=== PATIENT | male | born 1955 | race Caucasian/White ===

== ENCOUNTER 2017-04-01 09:23 | Outpatient (RCR) | payer OTHER, SELFPAY ==
[2017-03-25 10:33] LABS: Hemoglobin 8.8 g/dl (13.0-16.5); Mean Corp Hgb Conc 31.4 g/gl (32-36); Mean Corpuscular Hgb 30.2 pg (27.0-32.0); Mean Corpuscular Volume 96.2 fL (80-94); Mean Platelet Vol. 10.1 fl (6.2-12.0); Platelet Count 173 K/mm3 (150-450); RBC Distribution Width CV 15.5 % (11.6-14.6); RBC Distribution Width SD 52.8 fl (35.1-43.9); Red Blood Count 2.91 M/mm3 (4.6-6.2); White Blood Count 5.2 K/mm3 (4.4-11.0)
[2017-03-25 10:38] LABS: Scan Indicated on CBC? Y/N NO
[2017-03-26 09:22] LABS: Transferrin 222 mg/dL (200-370)
[2017-03-26 15:03] LABS: Alanine Aminotransfer ALT/SGPT 17 U/L (12-78); Albumin, Serum 3.1 g/dL (3.4-5.0); BUN 129 mg/dL (7-18); Calcium,Total 9.3 mg/dL (8.5-10.1); Chloride 101 mmol/L (98-107); Cholesterol 92 mg/dL (200); Creatinine, Serum 6.45 mg/dL (0.70-1.30); EST Glomerular Filtration Rate 9 mL/min (>60); Est Glom Filt Rate - Afr Amer 11 mL/min (>60); Ferritin 138 ng/mL (26-388); Glucose 75 mg/dL (70-110); High Density Lipoprotein 27 mg/dL; Iron 47 ug/dL (65-175); Iron Binding Capacity,Total 276 ug/dL (250-450); Magnesium 2.5 mg/dL (1.8-2.4); Sodium Level 142 mmol/L (136-145); Triglycerides 157 mg/dL; Very Low Density Lipoprotein 31 mg/dL (5-40)
[2017-03-26 17:27] LABS: PTHIN 406.8 pg/mL (18.4-80.1)
[2017-03-29 07:59] LABS: AST(SGOT) 16 U/L (15-37); Alkaline Phosphatase 157 U/L (45-117)
[2017-04-01 11:44] LABS: Absolute Lymphocyte Count 0.87 X10^3/ul (0.83-4.51); Absolute Neutrophil Count 3.8 X10^3/uL (2.0-7.7); Basophil# 0.01 X10^3/uL; Basophil% 0.2 % (0-1); Eosinophil# 0.26 X10^3/uL; Eosinophils% 4.7 % (0-5); Hemoglobin 9.3 g/dl (13.0-16.5); Lymphocyte # 0.87 X10^3/ul (4.0); Lymphocyte % 15.7 % (19-41); Mean Corpuscular Hgb 30.3 pg (27.0-32.0); Mean Corpuscular Volume 97.7 fL (80-94); Mean Platelet Vol. 10.3 fl (6.2-12.0); Monocyte# 0.58 X10^3/uL; Monocyte% 10.5 % (0-10); Neutrophil % 68.7 % (47-70); Platelet Count 188 K/mm3 (150-450); RBC Distribution Width CV 16.3 % (11.6-14.6); Red Blood Count 3.07 M/mm3 (4.6-6.2); White Blood Count 5.5 K/mm3 (4.4-11.0)
[2017-04-01 11:50] LABS: POSITIVE COUNT NO; POSITIVE DIFFERENTIAL NO; POSITIVE MORPHOLOGY NO
[2017-04-01 12:07] LABS: Anion Gap 11 (5-15); BUN 122 mg/dL (7-18); BUN/Creat Ratio 18.1 RATIO (10-20); Chloride 100 mmol/L (98-107); Creatinine, Serum 6.74 mg/dL (0.70-1.30); EST Glomerular Filtration Rate 9 mL/min (>60); Est Glom Filt Rate - Afr Amer 11 mL/min (>60); Glucose 72 mg/dL (70-110); Potassium 3.7 mmol/L (3.5-5.1); Sodium Level 139 mmol/L (136-145)
== END 2017-04-01 10:00 | disposition home or self-care (01) ==
LOC: LAB 09:23
PROVIDERS: Family Provider Internal Medicine; PCP Internal Medicine; Visit Provider Internal Medicine Nephrology
DX: Z48.298 Encounter for aftercare following other organ transplant (principal); Z94.0 Kidney transplant status; D89.9 Disorder involving the immune mechanism, unspecified; R79.9 Abnormal finding of blood chemistry, unspecified; Z79.899 Other long term (current) drug therapy
CPT/HCPCS: 36415; 80048; 80061; 82040; 82247; 82310; 82374; 82435; 82565; 82728; 82947; 83540; 83550; 83735; 83970; 84075; 84100; 84295; 84450; 84460; 84466; 84520; 85025; 85027

== ENCOUNTER → 2017-05-04 09:56 | Outpatient (CLI) | payer OTHER, SELFPAY ==
--- NOTE | 2017-05-04 10:02 | AVDS_ITS ---
Reason For Study: Complication due to renal dialysis device RIGHT Proximal [place] vessel 87.8 cm/s. Proximal anastomosis 334.0 cm/s. Proximal graft - 379.0 cm/sec Narrowing between prox and mid graft with a velocity of 743.0 cm/sec Mid graft - 196.0 cm/s Distal graft - 78.8 cm/s Volume flow [place] artery - 96.0 cc/min Prox graft - 439.0 cc/min Mid graft - 736.0 cc/min Dist graft - 476.0 cc/min. Interpretation Summary 1. Stenosis in proximal graft with decreased flow. Ordering Physician: Oswaldo Sawyer Referring Physician: Oswaldo Sawyer Performed By: Meg Arreola RVT
== END ==
PROVIDERS: Family Provider Internal Medicine; PCP Internal Medicine; Visit Provider Surgery Vascular Surgery
DX: T82.858A Stenosis of other vascular prosthetic devices, implants and grafts, initial encounter (principal); N18.6 End stage renal disease
CPT/HCPCS: 93990

== ENCOUNTER → 2017-06-22 08:20 | Outpatient (CLI) | payer OTHER, SELFPAY | PROVIDERS: Family Provider Internal Medicine; PCP Internal Medicine | DX: Z76.82 Awaiting organ transplant status (principal) | CPT/HCPCS: 36415 ==

== ENCOUNTER → 2017-06-29 09:52 | Outpatient (CLI) | payer OTHER, SELFPAY ==
--- NOTE | 2017-06-29 09:55 | AVDS_ITS ---
Reason For Study: Complications of dialysis access device RIGHT Proximal [place] vessel 89.6 cm/s. Proximal anastomosis 183.0 cm/s. Proximal graft 689.0 ml/min. Mid graft 265.0 ml/min. Distal graft 245.0 ml/min. Volume flow [place] artery - 118 cc/min Prox graft - 830 cc/min Mid graft - 610 cc/min Dist graft - 747 cc/min. Interpretation Summary 1. Patent AVG. Flow volume good through AVG but decreased in [place] vessel. Ordering Physician: Oswaldo Sawyer Referring Physician: Oswaldo Sawyer Performed By: Meg Arreola RVT
== END ==
PROVIDERS: Family Provider Internal Medicine; PCP Internal Medicine; Visit Provider Surgery Vascular Surgery
DX: T82.858A Stenosis of other vascular prosthetic devices, implants and grafts, initial encounter (principal); N18.6 End stage renal disease
CPT/HCPCS: 93990

== ENCOUNTER → 2017-07-12 08:55 | Outpatient (CLI) | payer OTHER, SELFPAY ==
[2017-07-13 09:33] LABS: CMV Antibody IgG < 0.60 U/mL (0.00-0.59)
== END ==
PROVIDERS: Family Provider Internal Medicine; PCP Internal Medicine
DX: Z01.818 Encounter for other preprocedural examination (principal)
CPT/HCPCS: 36415; 86644

== ENCOUNTER 2017-08-12 07:42 | Outpatient (RCR) | payer OTHER, SELFPAY ==
[2017-08-09 10:35] LABS: Absolute Lymphocyte Count 0.14 X10^3/ul (0.83-4.51); Absolute Neutrophil Count 4.3 X10^3/uL (2.0-7.7); Basophil# 0.01 X10^3/uL; Basophil% 0.2 % (0-1); Differential Indicated SCAN CRITERIA MET; Eosinophil# 0.06 X10^3/uL; Eosinophils% 1.3 % (0-5); Hematocrit 29.5 % (40-54); Hemoglobin 9.3 g/dl (13.0-16.5); Lymphocyte # 0.14 X10^3/ul (4.0); Mean Corp Hgb Conc 31.5 g/gl (32-36); Mean Corpuscular Hgb 29.2 pg (27.0-32.0); Mean Corpuscular Volume 92.5 fL (80-94); Mean Platelet Vol. 11.2 fl (6.2-12.0); Monocyte# 0.17 X10^3/uL; Monocyte% 3.6 % (0-10); Neutrophil # 4.27 X10^3/uL (2.7-7.7); Neutrophil % 91.5 % (47-70); POSITIVE COUNT NO; POSITIVE DIFFERENTIAL YES; POSITIVE MORPHOLOGY NO; Platelet Count 183 K/mm3 (150-450); RBC Distribution Width CV 15.7 % (11.6-14.6); RBC Distribution Width SD 52.2 fl (35.1-43.9); Red Blood Count 3.19 M/mm3 (4.6-6.2); White Blood Count 4.7 K/mm3 (4.4-11.0)
[2017-08-09 10:47] LABS: AST(SGOT) 29 U/L (15-37); Alanine Aminotransfer ALT/SGPT 24 U/L (16-61); Albumin, Serum 2.8 g/dL (3.2-5.0); Alkaline Phosphatase 159 U/L (45-117); BUN 18 mg/dL (7-18); Bilirubin, Direct 0.29 mg/dL (0.00-0.30); Calcium,Total 9.2 mg/dL (8.5-10.1); Chloride 104 mmol/L (98-107); Cholesterol 132 mg/dL (200); EST Glomerular Filtration Rate 72 mL/min (>60); Est Glom Filt Rate - Afr Amer 87 mL/min (>60); Ferritin 490 ng/mL (26-388); GGTP 42 U/L (15-85); Glucose 80 mg/dL (74-106); High Density Lipoprotein 36 mg/dL; Iron 78 ug/dL (65-175); Iron Binding Capacity,Total 306 ug/dL (250-450); Magnesium 1.5 mg/dL (1.6-2.6); PERCENT IRON SATURATION 25.5 % (15.0-55.0); Phosphorus 1.5 mg/dL (2.5-4.9); Sodium Level 137 mmol/L (136-145); Triglycerides 161 mg/dL; Very Low Density Lipoprotein 32 mg/dL (5-40)
[2017-08-09 11:04] LABS: Hypochromasia 1+; Platelet Estimate ADEQUATE (ADEQ)
[2017-08-11 09:30] LABS: Tacrolimus (FK506) 6.1 ng/mL (2.0-20.0); Transferrin 241 mg/dL (200-370)
[2017-08-12 10:20] LABS: Absolute Lymphocyte Count 0.23 X10^3/ul (0.83-4.51); Absolute Neutrophil Count 6.4 X10^3/uL (2.0-7.7); Basophil# 0.01 X10^3/uL; Basophil% 0.1 % (0-1); Eosinophil# 0.08 X10^3/uL; Eosinophils% 1.2 % (0-5); Hematocrit 29.2 % (40-54); Lymphocyte # 0.23 X10^3/ul (4.0); Lymphocyte % 3.4 % (19-41); Mean Corp Hgb Conc 30.8 g/gl (32-36); Mean Corpuscular Hgb 29.2 pg (27.0-32.0); Mean Corpuscular Volume 94.8 fL (80-94); Mean Platelet Vol. 10.8 fl (6.2-12.0); Monocyte# 0.11 X10^3/uL; Monocyte% 1.6 % (0-10); Neutrophil # 6.38 X10^3/uL (2.7-7.7); Neutrophil % 93.6 % (47-70); Platelet Count 192 K/mm3 (150-450); RBC Distribution Width CV 16.6 % (11.6-14.6); RBC Distribution Width SD 56.3 fl (35.1-43.9); Red Blood Count 3.08 M/mm3 (4.6-6.2); White Blood Count 6.8 K/mm3 (4.4-11.0)
[2017-08-12 10:23] LABS: Differential Indicated SCAN CRITERIA MET; POSITIVE COUNT NO; POSITIVE DIFFERENTIAL YES; POSITIVE MORPHOLOGY NO; Protein, Urine (Random) 21.1 mg/dL (<11.9); Protein:Creat Ratio 359 mg/g CRE (0-200)
[2017-08-12 10:43] LABS: Platelet Estimate ADEQUATE (ADEQ); Platelet Morphology LARGE; Polychromasia 1+; Schistocytes RARE
[2017-08-12 10:44] LABS: AST(SGOT) 22 U/L (15-37); Alanine Aminotransfer ALT/SGPT 21 U/L (16-61); Alkaline Phosphatase 168 U/L (45-117); BUN 21 mg/dL (7-18); Bilirubin, Direct 0.27 mg/dL (0.00-0.30); Calcium,Total 9.2 mg/dL (8.5-10.1); Chloride 106 mmol/L (98-107); Cholesterol 120 mg/dL (200); Creatinine, Serum 1.49 mg/dL (0.70-1.30); EST Glomerular Filtration Rate 51 mL/min (>60); Est Glom Filt Rate - Afr Amer 61 mL/min (>60); Ferritin 465 ng/mL (26-388); GGTP 42 U/L (15-85); Glucose 83 mg/dL (74-106); High Density Lipoprotein 32 mg/dL; Iron 55 ug/dL (65-175); Iron Binding Capacity,Total 313 ug/dL (250-450); Magnesium 1.4 mg/dL (1.6-2.6); Phosphorus 1.6 mg/dL (2.5-4.9); Potassium 4.2 mmol/L (3.5-5.1); Sodium Level 140 mmol/L (136-145); Triglycerides 152 mg/dL; Very Low Density Lipoprotein 30 mg/dL (5-40)
[2017-08-16 09:09] LABS: Tacrolimus (FK506) 5.4 ng/mL (2.0-20.0)
[2017-08-16 09:10] LABS: Transferrin 247 mg/dL (200-370)
== END 2017-08-12 08:00 | disposition home or self-care (01) ==
LOC: MTLAB 07:42
PROVIDERS: Family Provider Internal Medicine; PCP Internal Medicine; Visit Provider Internal Medicine Nephrology
DX: Z94.0 Kidney transplant status (principal); R79.9 Abnormal finding of blood chemistry, unspecified; Z48.298 Encounter for aftercare following other organ transplant; D89.9 Disorder involving the immune mechanism, unspecified; D50.9 Iron deficiency anemia, unspecified; Z79.899 Other long term (current) drug therapy
CPT/HCPCS: 36415; 80061; 80197; 82040; 82247; 82248; 82310; 82374; 82435; 82565; 82570; 82728; 82947; 82977; 83540; 83550; 83735; 84075; 84100; 84132; 84156; 84295; 84450; 84460; 84466; 84520; 85025

== ENCOUNTER → 2017-08-16 07:21 | Outpatient (CLI) | payer OTHER, SELFPAY ==
[2017-08-16 07:57] LABS: Absolute Lymphocyte Count 0.05 X10^3/ul (0.83-4.51); Absolute Neutrophil Count 4.2 X10^3/uL (2.0-7.7); Basophil# 0.01 X10^3/uL; Basophil% 0.2 % (0-1); Differential Indicated SCAN CRITERIA MET; Eosinophil# 0.06 X10^3/uL; Eosinophils% 1.2 % (0-5); Hematocrit 25.5 % (40-54); Hemoglobin 8.4 g/dl (13.0-16.5); Lymphocyte # 0.05 X10^3/ul (4.0); Mean Corp Hgb Conc 32.9 g/gl (32-36); Mean Corpuscular Hgb 30.9 pg (27.0-32.0); Mean Corpuscular Volume 93.8 fL (80-94); Monocyte# 0.45 X10^3/uL; Monocyte% 9.4 % (0-10); Neutrophil # 4.23 X10^3/uL (2.7-7.7); POSITIVE COUNT NO; POSITIVE DIFFERENTIAL YES; POSITIVE MORPHOLOGY NO; Platelet Count 225 K/mm3 (150-450); RBC Distribution Width CV 15.9 % (11.6-14.6); RBC Distribution Width SD 52.2 fl (35.1-43.9); Red Blood Count 2.72 M/mm3 (4.6-6.2); White Blood Count 4.8 K/mm3 (4.4-11.0)
[2017-08-16 08:23] LABS: AST(SGOT) 25 U/L (15-37); Alanine Aminotransfer ALT/SGPT 21 U/L (16-61); Albumin, Serum 2.5 g/dL (3.2-5.0); Alkaline Phosphatase 170 U/L (45-117); BUN 28 mg/dL (7-18); Bilirubin, Direct 0.34 mg/dL (0.00-0.30); Chloride 103 mmol/L (98-107); Cholesterol 93 mg/dL (200); Creatinine, Serum 2.02 mg/dL (0.70-1.30); EST Glomerular Filtration Rate 36 mL/min (>60); Est Glom Filt Rate - Afr Amer 43 mL/min (>60); GGTP 33 U/L (15-85); Glucose Challenge Gest 1H 50g 86 mg/dL (70-140); High Density Lipoprotein 36 mg/dL; Magnesium 1.6 mg/dL (1.6-2.6); Phosphorus 1.8 mg/dL (2.5-4.9); Potassium 4.2 mmol/L (3.5-5.1); Sodium Level 134 mmol/L (136-145); Triglycerides 81 mg/dL; Very Low Density Lipoprotein 16 mg/dL (5-40)
[2017-08-19 11:11] LABS: Tacrolimus (FK506) 10.5 ng/mL (2.0-20.0)
== END ==
PROVIDERS: Family Provider Internal Medicine; PCP Internal Medicine
DX: D50.9 Iron deficiency anemia, unspecified (principal); D89.9 Disorder involving the immune mechanism, unspecified; Z48.298 Encounter for aftercare following other organ transplant; R79.9 Abnormal finding of blood chemistry, unspecified; Z94.0 Kidney transplant status
CPT/HCPCS: 36415; 80061; 80197; 82040; 82247; 82248; 82310; 82374; 82435; 82565; 82950; 82977; 83735; 84075; 84100; 84132; 84295; 84450; 84460; 84520; 85025

== ENCOUNTER 2017-08-26 20:00 | Emergency (ER) | payer OTHER, SELFPAY ==
--- NOTE | 2017-08-26 20:00 | DT_ITS ---
This patient was seen during an EMR downtime August 23, 2017 - August 30, 2017. This patient may have a combination of paper and electronic documentation or all paper documentation. All documentation is viewable within the e-chart portion of [facility] for each patient visit.
== END 2017-08-26 23:25 | disposition home or self-care (01) ==
LOC: ED 08-27 07:52
PROVIDERS: Emergency Provider Emergency Medicine; Family Provider Internal Medicine; PCP Internal Medicine
DX: T85.698A Other mechanical complication of other specified internal prosthetic devices, implants and grafts, initial encounter (principal); I89.8 Other specified noninfective disorders of lymphatic vessels and lymph nodes; Z94.0 Kidney transplant status; Z95.0 Presence of cardiac pacemaker; I10 Essential (primary) hypertension; Z79.01 Long term (current) use of anticoagulants; Z79.82 Long term (current) use of aspirin; Z79.899 Other long term (current) drug therapy; Z87.891 Personal history of nicotine dependence
CPT/HCPCS: 99283; J7040

== ENCOUNTER 2017-09-06 07:22 | Outpatient (RCR) | payer OTHER, SELFPAY ==
[2017-09-06 10:26] LABS: Protein, Urine (Random) 28.3 mg/dL (<11.9); Protein:Creat Ratio 649 mg/g CRE (0-200)
[2017-09-06 10:32] LABS: Absolute Lymphocyte Count 0.12 X10^3/ul (0.83-4.51); Absolute Neutrophil Count 4.8 X10^3/uL (2.0-7.7); Eosinophil# 0.04 X10^3/uL; Eosinophils% 0.7 % (0-5); Hematocrit 30.2 % (40-54); Hemoglobin 9.8 g/dl (13.0-16.5); Lymphocyte # 0.12 X10^3/ul (4.0); Lymphocyte % 2.1 % (19-41); Mean Corp Hgb Conc 32.5 g/gl (32-36); Mean Corpuscular Hgb 30.9 pg (27.0-32.0); Mean Corpuscular Volume 95.3 fL (80-94); Mean Platelet Vol. 10.9 fl (6.2-12.0); Monocyte# 0.83 X10^3/uL; Monocyte% 14.2 % (0-10); Neutrophil # 4.84 X10^3/uL (2.7-7.7); Neutrophil % 82.8 % (47-70); Platelet Count 184 K/mm3 (150-450); RBC Distribution Width CV 17.8 % (11.6-14.6); RBC Distribution Width SD 59.9 fl (35.1-43.9); Red Blood Count 3.17 M/mm3 (4.6-6.2); White Blood Count 5.8 K/mm3 (4.4-11.0)
[2017-09-06 10:37] LABS: Differential Indicated SCAN CRITERIA MET; POSITIVE COUNT NO; POSITIVE DIFFERENTIAL YES; POSITIVE MORPHOLOGY NO
[2017-09-06 10:38] LABS: Prothrombin Time (Protime)PT. 31.5 SECONDS (11.7-14.9)
[2017-09-06 10:44] LABS: BUN 24 mg/dL (7-18); Creatinine, Serum 1.55 mg/dL (0.70-1.30); EST Glomerular Filtration Rate 48 mL/min (>60); Glucose 80 mg/dL (74-106)
[2017-09-06 10:45] LABS: AST(SGOT) 11 U/L (15-37); Alanine Aminotransfer ALT/SGPT 13 U/L (16-61); Albumin, Serum 2.9 g/dL (3.2-5.0); Alkaline Phosphatase 207 U/L (45-117); Anion Gap 10 (5-15); BUN/Creat Ratio 15.5 RATIO (10-20); Bilirubin, Direct 0.21 mg/dL (0.00-0.30); Calcium,Total 9.2 mg/dL (8.5-10.1); Chloride 107 mmol/L (98-107); Cholesterol 91 mg/dL (200); Est Glom Filt Rate - Afr Amer 58 mL/min (>60); GGTP 20 U/L (15-85); High Density Lipoprotein 38 mg/dL; Magnesium 1.6 mg/dL (1.6-2.6); Phosphorus 2.5 mg/dL (2.5-4.9); Potassium 4.2 mmol/L (3.5-5.1); Sodium Level 138 mmol/L (136-145); Triglycerides 65 mg/dL; Very Low Density Lipoprotein 13 mg/dL (5-40)
[2017-09-08 14:22] LABS: Tacrolimus (FK506) 8.2 ng/mL (2.0-20.0)
== END 2017-09-06 08:00 | disposition home or self-care (01) ==
LOC: MTLAB 07:22
PROVIDERS: Family Provider Internal Medicine; PCP Internal Medicine; Visit Provider Internal Medicine Nephrology
DX: D89.9 Disorder involving the immune mechanism, unspecified (principal); D50.9 Iron deficiency anemia, unspecified; R79.9 Abnormal finding of blood chemistry, unspecified; Z94.0 Kidney transplant status; Z48.298 Encounter for aftercare following other organ transplant
CPT/HCPCS: 36415; 80048; 80061; 80197; 82040; 82247; 82248; 82570; 82977; 83735; 84075; 84100; 84156; 84450; 84460; 85025; 85610

== ENCOUNTER 2017-09-16 07:26 | Outpatient (RCR) | payer OTHER, SELFPAY ==
[2017-09-13 08:54] LABS: Prograf-FK506 TO CCF/UNIV MAILED SPECIMEN
[2017-09-13 09:10] LABS: Absolute Lymphocyte Count 0.22 X10^3/ul (0.83-4.51); Absolute Neutrophil Count 2.2 X10^3/uL (2.0-7.7); Basophil# 0.01 X10^3/uL; Basophil% 0.3 % (0-1); Eosinophil# 0.08 X10^3/uL; Eosinophils% 2.7 % (0-5); Hematocrit 32.7 % (40-54); Hemoglobin 10.4 g/dl (13.0-16.5); Lymphocyte # 0.22 X10^3/ul (4.0); Lymphocyte % 7.5 % (19-41); Mean Corp Hgb Conc 31.8 g/gl (32-36); Mean Corpuscular Hgb 30.1 pg (27.0-32.0); Mean Corpuscular Volume 94.5 fL (80-94); Mean Platelet Vol. 9.8 fl (6.2-12.0); Monocyte# 0.39 X10^3/uL; Monocyte% 13.2 % (0-10); Neutrophil # 2.24 X10^3/uL (2.7-7.7); Platelet Count 204 K/mm3 (150-450); RBC Distribution Width CV 17.6 % (11.6-14.6); RBC Distribution Width SD 60.5 fl (35.1-43.9); Red Blood Count 3.46 M/mm3 (4.6-6.2)
[2017-09-13 09:14] LABS: Differential Indicated SCAN CRITERIA MET; POSITIVE COUNT NO; POSITIVE DIFFERENTIAL YES; POSITIVE MORPHOLOGY NO
[2017-09-13 09:27] LABS: ALB/GLOB Ratio 0.8 RATIO (0.9-2.4); AST(SGOT) 9 U/L (15-37); Alanine Aminotransfer ALT/SGPT 13 U/L (16-61); Albumin, Serum 2.8 g/dL (3.2-5.0); Alkaline Phosphatase 173 U/L (45-117); Anion Gap 10 (5-15); BUN 18 mg/dL (7-18); Bilirubin, Direct 0.15 mg/dL (0.00-0.30); Calcium,Total 9.3 mg/dL (8.5-10.1); Chloride 107 mmol/L (98-107); Cholesterol 83 mg/dL (200); Creatinine, Serum 1.29 mg/dL (0.70-1.30); EST Glomerular Filtration Rate 60 mL/min (>60); Est Glom Filt Rate - Afr Amer 72 mL/min (>60); Globulin 3.4 g/dL (2.2-4.2); Glucose 83 mg/dL (74-106); High Density Lipoprotein 37 mg/dL; Magnesium 1.5 mg/dL (1.6-2.6); Phosphorus 2.2 mg/dL (2.5-4.9); Protein, Total 6.2 g/dL (6.4-8.2); Sodium Level 137 mmol/L (136-145); Triglycerides 72 mg/dL; Very Low Density Lipoprotein 14 mg/dL (5-40)
[2017-09-13 09:46] LABS: Creat.Clear Total Volume 2600 mL; Creatinine Clearance 51 ml/min (100-200); Creatinine Serum Creat 1.3 mg/dL (0.8-1.3); Creatinine Urine 36.5 mg/dL (NO RANGE EST.); EST Glomerular Filtration Rate 60 mL/min (>60); Est Glom Filt Rate - Afr Amer 72 mL/min (>60)
[2017-09-16 09:58] LABS: Absolute Lymphocyte Count 0.31 X10^3/ul (0.83-4.51); Absolute Neutrophil Count 3.1 X10^3/uL (2.0-7.7); Basophil# 0.01 X10^3/uL; Basophil% 0.3 % (0-1); Differential Indicated SCAN CRITERIA MET; Eosinophil# 0.07 X10^3/uL; Eosinophils% 1.9 % (0-5); Hematocrit 31.9 % (40-54); Hemoglobin 9.7 g/dl (13.0-16.5); Lymphocyte # 0.31 X10^3/ul (4.0); Lymphocyte % 8.2 % (19-41); Mean Corp Hgb Conc 30.4 g/gl (32-36); Mean Corpuscular Volume 95.5 fL (80-94); Mean Platelet Vol. 9.9 fl (6.2-12.0); Monocyte# 0.28 X10^3/uL; Monocyte% 7.4 % (0-10); Neutrophil # 3.08 X10^3/uL (2.7-7.7); Neutrophil % 81.9 % (47-70); POSITIVE COUNT NO; POSITIVE DIFFERENTIAL NO; POSITIVE MORPHOLOGY YES; Platelet Count 194 K/mm3 (150-450); RBC Distribution Width CV 17.6 % (11.6-14.6); RBC Distribution Width SD 61.6 fl (35.1-43.9); Red Blood Count 3.34 M/mm3 (4.6-6.2); White Blood Count 3.8 K/mm3 (4.4-11.0)
[2017-09-16 10:07] LABS: AST(SGOT) 10 U/L (15-37); Alanine Aminotransfer ALT/SGPT 15 U/L (16-61); Albumin, Serum 2.8 g/dL (3.2-5.0); Alkaline Phosphatase 172 U/L (45-117); Anion Gap 8 (5-15); BUN 18 mg/dL (7-18); Calcium,Total 9.6 mg/dL (8.5-10.1); Chloride 111 mmol/L (98-107); Cholesterol 83 mg/dL (200); Creatinine, Serum 1.29 mg/dL (0.70-1.30); EST Glomerular Filtration Rate 60 mL/min (>60); Est Glom Filt Rate - Afr Amer 72 mL/min (>60); GGTP 21 U/L (15-85); Glucose 81 mg/dL (74-106); High Density Lipoprotein 33 mg/dL; Magnesium 1.6 mg/dL (1.6-2.6); Phosphorus 2.3 mg/dL (2.5-4.9); Sodium Level 142 mmol/L (136-145); Triglycerides 71 mg/dL; Very Low Density Lipoprotein 14 mg/dL (5-40)
[2017-09-16 13:50] LABS: 24 Hour Urine Protein 499.2 mg/24HR (<150 MG/24HR); 24HR. UA Prot. Total Volume 2600 mL; Calcium Urine pH Range 1; Urine Protein (24 Hour) 19.2 mg/dL (<11.9)
[2017-09-16 13:51] LABS: 24HR UR TOTAL VOLUME 2600 ml; Urine Calcium (Random) < 5.0 (Not Estab.)
[2017-09-17 13:24] LABS: Pathologist Review Reviewed
== END 2017-09-16 08:00 | disposition home or self-care (01) ==
LOC: LAB 07:26
PROVIDERS: Family Provider Internal Medicine; PCP Internal Medicine; Visit Provider Internal Medicine Nephrology
DX: Z94.0 Kidney transplant status (principal); R79.9 Abnormal finding of blood chemistry, unspecified; Z48.298 Encounter for aftercare following other organ transplant; D89.9 Disorder involving the immune mechanism, unspecified; D50.9 Iron deficiency anemia, unspecified; Z79.899 Other long term (current) drug therapy
CPT/HCPCS: 36415; 80048; 80053; 80061; 80197; 82040; 82247; 82248; 82340; 82575; 82977; 83735; 84075; 84100; 84156; 84450; 84460; 85025

== ENCOUNTER 2017-10-01 08:01 | Outpatient (RCR) | payer OTHER, SELFPAY ==
[2017-09-20 10:40] LABS: Absolute Neutrophil Count 3.5 X10^3/uL (2.0-7.7); Basophil# 0.01 X10^3/uL; Basophil% 0.2 % (0-1); Differential Indicated SCAN CRITERIA MET; Eosinophil# 0.06 X10^3/uL; Eosinophils% 1.4 % (0-5); Hematocrit 31.8 % (40-54); Lymphocyte % 2.4 % (19-41); Mean Corp Hgb Conc 31.4 g/gl (32-36); Mean Corpuscular Hgb 30.3 pg (27.0-32.0); Mean Corpuscular Volume 96.4 fL (80-94); Mean Platelet Vol. 10.3 fl (6.2-12.0); Monocyte# 0.52 X10^3/uL; Monocyte% 12.4 % (0-10); Neutrophil # 3.48 X10^3/uL (2.7-7.7); Neutrophil % 83.4 % (47-70); POSITIVE COUNT NO; POSITIVE DIFFERENTIAL YES; POSITIVE MORPHOLOGY NO; Platelet Count 195 K/mm3 (150-450); RBC Distribution Width CV 16.8 % (11.6-14.6); RBC Distribution Width SD 57.5 fl (35.1-43.9); White Blood Count 4.2 K/mm3 (4.4-11.0)
[2017-09-20 11:14] LABS: AST(SGOT) 13 U/L (15-37); Alanine Aminotransfer ALT/SGPT 13 U/L (16-61); Albumin, Serum 2.9 g/dL (3.2-5.0); Alkaline Phosphatase 178 U/L (45-117); Anion Gap 9 (5-15); BUN 17 mg/dL (7-18); BUN/Creat Ratio 15.3 RATIO (10-20); Bilirubin, Direct 0.12 mg/dL (0.00-0.30); Calcium,Total 9.7 mg/dL (8.5-10.1); Chloride 111 mmol/L (98-107); Cholesterol 106 mg/dL (200); Creatinine, Serum 1.11 mg/dL (0.70-1.30); EST Glomerular Filtration Rate 71 mL/min (>60); Est Glom Filt Rate - Afr Amer 86 mL/min (>60); GGTP 17 U/L (15-85); Glucose 78 mg/dL (74-106); High Density Lipoprotein 29 mg/dL; Magnesium 1.5 mg/dL (1.6-2.6); Phosphorus 2.2 mg/dL (2.5-4.9); Potassium 4.3 mmol/L (3.5-5.1); Sodium Level 142 mmol/L (136-145); Triglycerides 99 mg/dL; Very Low Density Lipoprotein 20 mg/dL (5-40)
[2017-09-20 11:20] LABS: Protein, Urine (Random) 18.3 mg/dL (<11.9); Protein:Creat Ratio 419 mg/g CRE (0-200)
[2017-09-21 11:58] LABS: Pathologist Review Reviewed
[2017-09-23 10:29] LABS: AST(SGOT) 17 U/L (15-37); Alanine Aminotransfer ALT/SGPT 14 U/L (16-61); Alkaline Phosphatase 178 U/L (45-117); Anion Gap 8 (5-15); BUN 21 mg/dL (7-18); BUN/Creat Ratio 14.7 RATIO (10-20); Calcium,Total 9.5 mg/dL (8.5-10.1); Chloride 111 mmol/L (98-107); Cholesterol 89 mg/dL (200); Creatinine, Serum 1.43 mg/dL (0.70-1.30); EST Glomerular Filtration Rate 53 mL/min (>60); Est Glom Filt Rate - Afr Amer 64 mL/min (>60); GGTP 18 U/L (15-85); Glucose 77 mg/dL (74-106); High Density Lipoprotein 33 mg/dL; Magnesium 1.5 mg/dL (1.6-2.6); Phosphorus 2.5 mg/dL (2.5-4.9); Potassium 4.2 mmol/L (3.5-5.1); Sodium Level 141 mmol/L (136-145); Triglycerides 83 mg/dL; Very Low Density Lipoprotein 17 mg/dL (5-40)
[2017-09-23 10:33] LABS: Absolute Lymphocyte Count 0.11 X10^3/ul (0.83-4.51); Absolute Neutrophil Count 5.6 X10^3/uL (2.0-7.7); Basophil# 0.01 X10^3/uL; Basophil% 0.2 % (0-1); Eosinophil# 0.07 X10^3/uL; Eosinophils% 1.1 % (0-5); Hematocrit 32.6 % (40-54); Hemoglobin 10.1 g/dl (13.0-16.5); Lymphocyte # 0.11 X10^3/ul (4.0); Lymphocyte % 1.7 % (19-41); Mean Corpuscular Hgb 30.1 pg (27.0-32.0); Mean Corpuscular Volume 97.3 fL (80-94); Mean Platelet Vol. 10.7 fl (6.2-12.0); Monocyte# 0.59 X10^3/uL; Monocyte% 9.2 % (0-10); Neutrophil # 5.58 X10^3/uL (2.7-7.7); Neutrophil % 87.3 % (47-70); Platelet Count 184 K/mm3 (150-450); RBC Distribution Width CV 16.8 % (11.6-14.6); RBC Distribution Width SD 57.4 fl (35.1-43.9); Red Blood Count 3.35 M/mm3 (4.6-6.2); White Blood Count 6.4 K/mm3 (4.4-11.0)
[2017-09-23 10:37] LABS: Differential Indicated SCAN CRITERIA MET; POSITIVE COUNT NO; POSITIVE DIFFERENTIAL YES; POSITIVE MORPHOLOGY NO
[2017-09-23 10:52] LABS: Differential Comment SCANNED
[2017-09-27 10:18] LABS: Absolute Lymphocyte Count 0.12 X10^3/ul (0.83-4.51); Absolute Neutrophil Count 1.9 X10^3/uL (2.0-7.7); Basophil# 0.01 X10^3/uL; Basophil% 0.4 % (0-1); Hematocrit 32.2 % (40-54); Hemoglobin 10.1 g/dl (13.0-16.5); Lymphocyte # 0.12 X10^3/ul (4.0); Lymphocyte % 4.8 % (19-41); Mean Corp Hgb Conc 31.4 g/gl (32-36); Mean Corpuscular Hgb 30.2 pg (27.0-32.0); Mean Corpuscular Volume 96.4 fL (80-94); Mean Platelet Vol. 10.7 fl (6.2-12.0); Monocyte# 0.37 X10^3/uL; Monocyte% 14.9 % (0-10); Neutrophil # 1.87 X10^3/uL (2.7-7.7); Neutrophil % 75.1 % (47-70); Platelet Count 206 K/mm3 (150-450); RBC Distribution Width CV 16.3 % (11.6-14.6); RBC Distribution Width SD 56.3 fl (35.1-43.9); Red Blood Count 3.34 M/mm3 (4.6-6.2); White Blood Count 2.5 K/mm3 (4.4-11.0)
[2017-09-27 10:23] LABS: Differential Indicated SCAN CRITERIA MET; POSITIVE COUNT NO; POSITIVE DIFFERENTIAL YES; POSITIVE MORPHOLOGY NO
[2017-09-27 10:30] LABS: Protein, Urine (Random) 28.3 mg/dL (<11.9); Protein:Creat Ratio 501 mg/g CRE (0-200)
[2017-09-27 10:39] LABS: AST(SGOT) 16 U/L (15-37); Alanine Aminotransfer ALT/SGPT 14 U/L (16-61); Alkaline Phosphatase 181 U/L (45-117); Anion Gap 12 (5-15); BUN 19 mg/dL (7-18); BUN/Creat Ratio 15.3 RATIO (10-20); Bilirubin, Direct 0.13 mg/dL (0.00-0.30); Calcium,Total 9.8 mg/dL (8.5-10.1); Chloride 108 mmol/L (98-107); Cholesterol 94 mg/dL (200); Creatinine, Serum 1.24 mg/dL (0.70-1.30); EST Glomerular Filtration Rate 63 mL/min (>60); Est Glom Filt Rate - Afr Amer 76 mL/min (>60); GGTP 15 U/L (15-85); Glucose 78 mg/dL (74-106); High Density Lipoprotein 35 mg/dL; Magnesium 1.6 mg/dL (1.6-2.6); Phosphorus 2.7 mg/dL (2.5-4.9); Potassium 4.2 mmol/L (3.5-5.1); Sodium Level 142 mmol/L (136-145); Triglycerides 79 mg/dL; Very Low Density Lipoprotein 16 mg/dL (5-40)
[2017-09-30 08:19] LABS: Tacrolimus (FK506) 10.9 ng/mL (2.0-20.0)
[2017-10-01 10:48] LABS: Absolute Lymphocyte Count 0.14 X10^3/ul (0.83-4.51); Absolute Neutrophil Count 0.7 X10^3/uL (2.0-7.7); Eosinophil# 0.12 X10^3/uL; Eosinophils% 9.3 % (0-5); Hemoglobin 10.1 g/dl (13.0-16.5); Lymphocyte # 0.14 X10^3/ul (4.0); Lymphocyte % 10.9 % (19-41); Mean Corp Hgb Conc 30.6 g/gl (32-36); Mean Corpuscular Hgb 29.4 pg (27.0-32.0); Mean Corpuscular Volume 96.2 fL (80-94); Mean Platelet Vol. 10.5 fl (6.2-12.0); Monocyte# 0.33 X10^3/uL; Monocyte% 25.6 % (0-10); Neutrophil # 0.69 X10^3/uL (2.7-7.7); Neutrophil % 53.4 % (47-70); Platelet Count 208 K/mm3 (150-450); RBC Distribution Width CV 16.4 % (11.6-14.6); RBC Distribution Width SD 57.5 fl (35.1-43.9); Red Blood Count 3.43 M/mm3 (4.6-6.2)
[2017-10-01 10:49] LABS: Differential Indicated SCAN CRITERIA MET; POSITIVE COUNT YES; POSITIVE DIFFERENTIAL YES; POSITIVE MORPHOLOGY NO
[2017-10-01 11:03] LABS: AST(SGOT) 12 U/L (15-37); Alanine Aminotransfer ALT/SGPT 15 U/L (16-61); Alkaline Phosphatase 176 U/L (45-117); Anion Gap 8 (5-15); BUN 19 mg/dL (7-18); BUN/Creat Ratio 17.6 RATIO (10-20); Bilirubin, Direct 0.13 mg/dL (0.00-0.30); Calcium,Total 9.8 mg/dL (8.5-10.1); Chloride 109 mmol/L (98-107); Cholesterol 96 mg/dL (200); Creatinine, Serum 1.08 mg/dL (0.70-1.30); EST Glomerular Filtration Rate 73 mL/min (>60); Est Glom Filt Rate - Afr Amer 89 mL/min (>60); GGTP 17 U/L (15-85); Glucose 80 mg/dL (74-106); High Density Lipoprotein 32 mg/dL; Magnesium 1.6 mg/dL (1.6-2.6); Phosphorus 2.4 mg/dL (2.5-4.9); Potassium 4.3 mmol/L (3.5-5.1); Sodium Level 139 mmol/L (136-145); Triglycerides 114 mg/dL; Very Low Density Lipoprotein 23 mg/dL (5-40)
[2017-10-01 11:22] LABS: White Blood Count 1.3 K/mm3 (4.4-11.0)
[2017-10-04 10:07] LABS: Pathologist Review Reviewed
== END 2017-10-01 09:00 ==
LOC: MTLAB 08:01
PROVIDERS: Family Provider Internal Medicine; PCP Internal Medicine; Visit Provider Internal Medicine Nephrology
DX: D89.9 Disorder involving the immune mechanism, unspecified (principal); D50.9 Iron deficiency anemia, unspecified; R79.9 Abnormal finding of blood chemistry, unspecified; Z94.0 Kidney transplant status; Z48.298 Encounter for aftercare following other organ transplant
CPT/HCPCS: 36415; 80048; 80061; 80197; 82040; 82247; 82248; 82570; 82977; 83735; 84075; 84100; 84156; 84450; 84460; 85025

== ENCOUNTER 2017-10-18 07:55 | Outpatient (RCR) | payer OTHER, SELFPAY ==
[2017-10-08 10:38] LABS: Absolute Lymphocyte Count 0.28 X10^3/ul (0.83-4.51); Absolute Neutrophil Count 0.9 X10^3/uL (2.0-7.7); Basophil# 0.01 X10^3/uL; Basophil% 0.5 % (0-1); Eosinophil# 0.12 X10^3/uL; Eosinophils% 6.3 % (0-5); Hematocrit 34.9 % (40-54); Hemoglobin 10.6 g/dl (13.0-16.5); Lymphocyte # 0.28 X10^3/ul (4.0); Lymphocyte % 14.6 % (19-41); Mean Corp Hgb Conc 30.4 g/gl (32-36); Mean Corpuscular Hgb 29.5 pg (27.0-32.0); Mean Corpuscular Volume 97.2 fL (80-94); Mean Platelet Vol. 10.6 fl (6.2-12.0); Monocyte# 0.56 X10^3/uL; Monocyte% 29.2 % (0-10); Neutrophil # 0.93 X10^3/uL (2.7-7.7); Neutrophil % 48.4 % (47-70); Platelet Count 177 K/mm3 (150-450); RBC Distribution Width CV 16.5 % (11.6-14.6); RBC Distribution Width SD 59.1 fl (35.1-43.9); Red Blood Count 3.59 M/mm3 (4.6-6.2); White Blood Count 1.9 K/mm3 (4.4-11.0)
[2017-10-08 10:47] LABS: Differential Indicated SCAN CRITERIA MET; POSITIVE COUNT NO; POSITIVE DIFFERENTIAL YES; POSITIVE MORPHOLOGY NO
[2017-10-08 10:58] LABS: Anion Gap 7 (5-15); BUN 18 mg/dL (7-18); Chloride 110 mmol/L (98-107); Creatinine, Serum 1.31 mg/dL (0.70-1.30); EST Glomerular Filtration Rate 59 mL/min (>60); Est Glom Filt Rate - Afr Amer 71 mL/min (>60); Glucose 77 mg/dL (74-106); Potassium 4.3 mmol/L (3.5-5.1); Sodium Level 140 mmol/L (136-145)
[2017-10-11 10:21] LABS: Hematocrit 35.6 % (40-54); Hemoglobin 10.9 g/dl (13.0-16.5); Mean Corp Hgb Conc 30.6 g/gl (32-36); Mean Corpuscular Hgb 29.9 pg (27.0-32.0); Mean Corpuscular Volume 97.5 fL (80-94); Mean Platelet Vol. 10.8 fl (6.2-12.0); POSITIVE COUNT NO; POSITIVE DIFFERENTIAL YES; POSITIVE MORPHOLOGY YES; Platelet Count 178 K/mm3 (150-450); RBC Distribution Width CV 15.7 % (11.6-14.6); RBC Distribution Width SD 54.7 fl (35.1-43.9); Red Blood Count 3.65 M/mm3 (4.6-6.2)
[2017-10-11 10:22] LABS: Differential Indicated MANUAL DIFF
[2017-10-11 10:24] LABS: Protein:Creat Ratio 323 mg/g CRE (0-200)
[2017-10-11 10:44] LABS: AST(SGOT) 20 U/L (15-37); Alanine Aminotransfer ALT/SGPT 22 U/L (16-61); Albumin, Serum 3.3 g/dL (3.2-5.0); Alkaline Phosphatase 209 U/L (45-117); BUN 17 mg/dL (7-18); Calcium,Total 9.6 mg/dL (8.5-10.1); Chloride 110 mmol/L (98-107); Cholesterol 91 mg/dL (200); Creatinine, Serum 1.22 mg/dL (0.70-1.30); EST Glomerular Filtration Rate 64 mL/min (>60); Est Glom Filt Rate - Afr Amer 77 mL/min (>60); Glucose 71 mg/dL (74-106); High Density Lipoprotein 35 mg/dL; Magnesium 1.8 mg/dL (1.6-2.6); Potassium 4.3 mmol/L (3.5-5.1); Sodium Level 139 mmol/L (136-145); Triglycerides 61 mg/dL; Very Low Density Lipoprotein 12 mg/dL (5-40)
[2017-10-11 11:00] LABS: Basophil 1 % (0-1); Eosinophil 3 % (0-5); Lymphocyte 10 % (19-41); Metamyelocyte 1 % (0-1); Monocyte 40 % (0-10); Myelocyte 1 (0-0); Neutrophil-Segmented 44 % (47-70); Total Cells Counted 100 (MANUAL DIFF)
[2017-10-11 11:01] LABS: Absolute Neutrophil Count 0.9 X10^3/uL (2.0-7.7); Platelet Estimate ADEQUATE (ADEQ); Red Cell Morphology NORM C+C NORMAL (NORM C&C)
[2017-10-12 16:28] LABS: Pathologist Review Reviewed
[2017-10-14 10:30] LABS: Hematocrit 34.7 % (40-54); Hemoglobin 10.7 g/dl (13.0-16.5); Mean Corp Hgb Conc 30.8 g/gl (32-36); Mean Corpuscular Hgb 30.1 pg (27.0-32.0); Mean Corpuscular Volume 97.7 fL (80-94); Mean Platelet Vol. 10.8 fl (6.2-12.0); Platelet Count 154 K/mm3 (150-450); RBC Distribution Width CV 15.7 % (11.6-14.6); RBC Distribution Width SD 55.1 fl (35.1-43.9); Red Blood Count 3.55 M/mm3 (4.6-6.2); White Blood Count 2.9 K/mm3 (4.4-11.0)
[2017-10-14 10:31] LABS: Differential Indicated MANUAL DIFF; POSITIVE COUNT YES; POSITIVE DIFFERENTIAL YES; POSITIVE MORPHOLOGY YES
[2017-10-14 10:41] LABS: BUN 18 mg/dL (7-18); Chloride 109 mmol/L (98-107); Creatinine, Serum 1.25 mg/dL (0.70-1.30); EST Glomerular Filtration Rate 62 mL/min (>60); Est Glom Filt Rate - Afr Amer 75 mL/min (>60); Potassium 4.5 mmol/L (3.5-5.1); Sodium Level 139 mmol/L (136-145)
[2017-10-14 11:47] LABS: Eosinophil 7 % (0-5); Lymphocyte 16 % (19-41); Metamyelocyte 1 % (0-1); Monocyte 3 % (0-10); Neutrophil-Band 1 % (0-5); Neutrophil-Segmented 72 % (47-70); Platelet Estimate ADEQUATE (ADEQ); Total Cells Counted 100 (MANUAL DIFF)
[2017-10-14 11:48] LABS: Red Cell Morphology NORM C+C NORMAL (NORM C&C)
[2017-10-14 11:49] LABS: Absolute Neutrophil Count 2.1 X10^3/uL (2.0-7.7)
[2017-10-14 15:19] LABS: Pathologist Review Reviewed
[2017-10-14 17:06] LABS: CMV by PCR Negative (Negative); Tacrolimus (FK506) 11.3 ng/mL (2.0-20.0)
[2017-10-17 07:41] LABS: Tacrolimus (FK506) 12.2 ng/mL (2.0-20.0)
[2017-10-18 10:17] LABS: Absolute Neutrophil Count 3.4 X10^3/uL (2.0-7.7); Basophil# 0.01 X10^3/uL; Basophil% 0.2 % (0-1); Eosinophil# 0.08 X10^3/uL; Eosinophils% 1.9 % (0-5); Hemoglobin 10.3 g/dl (13.0-16.5); Lymphocyte % 4.7 % (19-41); Mean Corp Hgb Conc 31.2 g/gl (32-36); Mean Corpuscular Hgb 30.9 pg (27.0-32.0); Mean Corpuscular Volume 99.1 fL (80-94); Monocyte% 11.8 % (0-10); Neutrophil # 3.44 X10^3/uL (2.7-7.7); Neutrophil % 81.2 % (47-70); Platelet Count 140 K/mm3 (150-450); RBC Distribution Width CV 15.6 % (11.6-14.6); RBC Distribution Width SD 54.7 fl (35.1-43.9); Red Blood Count 3.33 M/mm3 (4.6-6.2); White Blood Count 4.2 K/mm3 (4.4-11.0)
[2017-10-18 10:22] LABS: Differential Indicated SCAN CRITERIA MET; POSITIVE COUNT NO; POSITIVE DIFFERENTIAL YES; POSITIVE MORPHOLOGY NO
[2017-10-18 10:26] LABS: Protein, Urine (Random) 18.7 mg/dL (<11.9); Protein:Creat Ratio 244 mg/g CRE (0-200)
[2017-10-18 10:38] LABS: Albumin, Serum 3.1 g/dL (3.2-5.0); BUN 20 mg/dL (7-18); Magnesium 1.7 mg/dL (1.6-2.6); Phosphorus 3.2 mg/dL (2.5-4.9)
[2017-10-21 17:03] LABS: CMV by PCR Negative (Negative)
== END 2017-10-18 09:00 | disposition home or self-care (01) ==
LOC: MTLAB 07:55
PROVIDERS: Family Provider Internal Medicine; PCP Internal Medicine
DX: Z94.0 Kidney transplant status (principal); R79.9 Abnormal finding of blood chemistry, unspecified; D50.8 Other iron deficiency anemias; D89.9 Disorder involving the immune mechanism, unspecified; Z48.298 Encounter for aftercare following other organ transplant
CPT/HCPCS: 36415; 80051; 80061; 80197; 82040; 82247; 82310; 82374; 82435; 82565; 82570; 82947; 83735; 84075; 84100; 84132; 84156; 84295; 84450; 84460; 84520; 85025; 87496

== ENCOUNTER → 2017-11-01 08:08 | Outpatient (CLI) | payer OTHER, SELFPAY ==
[2017-11-01 10:02] LABS: Hematocrit 33.8 % (40-54); Hemoglobin 10.2 g/dl (13.0-16.5); Mean Corp Hgb Conc 30.2 g/gl (32-36); Mean Corpuscular Hgb 29.8 pg (27.0-32.0); Mean Corpuscular Volume 98.8 fL (80-94); Mean Platelet Vol. 10.9 fl (6.2-12.0); Platelet Count 153 K/mm3 (150-450); RBC Distribution Width CV 15.3 % (11.6-14.6); RBC Distribution Width SD 53.4 fl (35.1-43.9); Red Blood Count 3.42 M/mm3 (4.6-6.2); White Blood Count 3.9 K/mm3 (4.4-11.0)
[2017-11-01 10:06] LABS: Scan Indicated on CBC? Y/N NO
[2017-11-01 10:08] LABS: Anion Gap 7 (5-15); BUN 19 mg/dL (7-18); Chloride 113 mmol/L (98-107); Creatinine, Serum 1.21 mg/dL (0.70-1.30); EST Glomerular Filtration Rate 64 mL/min (>60); Est Glom Filt Rate - Afr Amer 78 mL/min (>60); Glucose 76 mg/dL (74-106); Potassium 4.4 mmol/L (3.5-5.1); Sodium Level 143 mmol/L (136-145)
[2017-11-04 11:06] LABS: CMV by PCR Negative (Negative); Tacrolimus (FK506) 11.1 ng/mL (2.0-20.0)
== END ==
PROVIDERS: Family Provider Internal Medicine; PCP Internal Medicine; Visit Provider Internal Medicine Nephrology
DX: R79.9 Abnormal finding of blood chemistry, unspecified (principal); Z48.298 Encounter for aftercare following other organ transplant; T86.10 Unspecified complication of kidney transplant; Z94.0 Kidney transplant status; D89.9 Disorder involving the immune mechanism, unspecified; Z51.81 Encounter for therapeutic drug level monitoring; Z11.59 Encounter for screening for other viral diseases
CPT/HCPCS: 36415; 80051; 80197; 82565; 82947; 84520; 85027; 87496

== ENCOUNTER 2017-11-15 08:48 | Outpatient (RCR) | payer OTHER, SELFPAY ==
[2017-10-21 10:20] LABS: Absolute Lymphocyte Count 0.43 X10^3/ul (0.83-4.51); Absolute Neutrophil Count 3.1 X10^3/uL (2.0-7.7); Basophil# 0.01 X10^3/uL; Basophil% 0.3 % (0-1); Eosinophils% 2.5 % (0-5); Hematocrit 32.9 % (40-54); Lymphocyte # 0.43 X10^3/ul (4.0); Lymphocyte % 10.8 % (19-41); Mean Corp Hgb Conc 30.4 g/gl (32-36); Mean Corpuscular Hgb 29.4 pg (27.0-32.0); Mean Corpuscular Volume 96.8 fL (80-94); Mean Platelet Vol. 10.4 fl (6.2-12.0); Monocyte# 0.37 X10^3/uL; Monocyte% 9.3 % (0-10); Neutrophil # 3.09 X10^3/uL (2.7-7.7); Neutrophil % 77.1 % (47-70); Platelet Count 152 K/mm3 (150-450); RBC Distribution Width SD 55.7 fl (35.1-43.9)
[2017-10-21 10:25] LABS: Differential Indicated SCAN CRITERIA MET; POSITIVE COUNT NO; POSITIVE DIFFERENTIAL YES; POSITIVE MORPHOLOGY NO
[2017-10-21 10:41] LABS: AST(SGOT) 16 U/L (15-37); Alanine Aminotransfer ALT/SGPT 21 U/L (16-61); Albumin, Serum 3.2 g/dL (3.2-5.0); Alkaline Phosphatase 196 U/L (45-117); Anion Gap 10 (5-15); BUN 19 mg/dL (7-18); BUN/Creat Ratio 15.7 RATIO (10-20); Bilirubin, Direct 0.14 mg/dL (0.00-0.30); Calcium,Total 9.2 mg/dL (8.5-10.1); Chloride 112 mmol/L (98-107); Cholesterol 103 mg/dL (200); Creatinine, Serum 1.21 mg/dL (0.70-1.30); EST Glomerular Filtration Rate 64 mL/min (>60); Est Glom Filt Rate - Afr Amer 78 mL/min (>60); Ferritin 186 ng/mL (26-388); GGTP 19 U/L (15-85); Glucose 75 mg/dL (74-106); High Density Lipoprotein 37 mg/dL; Iron 77 ug/dL (65-175); Iron Binding Capacity,Total 287 ug/dL (250-450); Magnesium 1.8 mg/dL (1.6-2.6); PERCENT IRON SATURATION 26.8 % (15.0-55.0); Potassium 4.6 mmol/L (3.5-5.1); Sodium Level 143 mmol/L (136-145); Triglycerides 84 mg/dL; Very Low Density Lipoprotein 17 mg/dL (5-40)
[2017-10-22 15:34] LABS: Transferrin 215 mg/dL (200-370)
[2017-10-24 09:07] LABS: Tacrolimus (FK506) 9.9 ng/mL (2.0-20.0)
[2017-10-25 10:28] LABS: Absolute Lymphocyte Count 0.55 X10^3/ul (0.83-4.51); Absolute Neutrophil Count 2.3 X10^3/uL (2.0-7.7); Basophil# 0.01 X10^3/uL; Basophil% 0.3 % (0-1); Hematocrit 33.6 % (40-54); Hemoglobin 10.1 g/dl (13.0-16.5); Lymphocyte # 0.55 X10^3/ul (4.0); Lymphocyte % 16.6 % (19-41); Mean Corp Hgb Conc 30.1 g/gl (32-36); Mean Corpuscular Volume 96.6 fL (80-94); Mean Platelet Vol. 11.7 fl (6.2-12.0); Monocyte# 0.36 X10^3/uL; Monocyte% 10.8 % (0-10); Neutrophil # 2.29 X10^3/uL (2.7-7.7); Platelet Count 160 K/mm3 (150-450); RBC Distribution Width CV 15.9 % (11.6-14.6); RBC Distribution Width SD 55.7 fl (35.1-43.9); Red Blood Count 3.48 M/mm3 (4.6-6.2); White Blood Count 3.3 K/mm3 (4.4-11.0)
[2017-10-25 10:34] LABS: Differential Indicated SCAN CRITERIA MET; POSITIVE COUNT NO; POSITIVE DIFFERENTIAL YES; POSITIVE MORPHOLOGY NO
[2017-10-25 10:36] LABS: Protein, Urine (Random) 19.1 mg/dL (<11.9); Protein:Creat Ratio 246 mg/g CRE (0-200)
[2017-10-25 11:03] LABS: AST(SGOT) 33 U/L (15-37); Alanine Aminotransfer ALT/SGPT 22 U/L (16-61); Albumin, Serum 3.2 g/dL (3.2-5.0); Alkaline Phosphatase 229 U/L (45-117); Anion Gap 9 (5-15); BUN 18 mg/dL (7-18); Bilirubin, Direct 0.05 mg/dL (0.00-0.30); Calcium,Total 9.6 mg/dL (8.5-10.1); Chloride 113 mmol/L (98-107); Cholesterol 98 mg/dL (200); EST Glomerular Filtration Rate 65 mL/min (>60); Est Glom Filt Rate - Afr Amer 79 mL/min (>60); GGTP 17 U/L (15-85); Glucose 78 mg/dL (74-106); High Density Lipoprotein 38 mg/dL; Magnesium 1.9 mg/dL (1.6-2.6); Phosphorus 3.2 mg/dL (2.5-4.9); Potassium 5.5 mmol/L (3.5-5.1); Sodium Level 141 mmol/L (136-145); Triglycerides 80 mg/dL; Very Low Density Lipoprotein 16 mg/dL (5-40)
[2017-10-27 11:09] LABS: Tacrolimus (FK506) 9.5 ng/mL (2.0-20.0)
[2017-11-08 10:42] LABS: Hematocrit 34.7 % (40-54); Hemoglobin 10.7 g/dl (13.0-16.5); Mean Corp Hgb Conc 30.8 g/gl (32-36); Mean Corpuscular Hgb 30.1 pg (27.0-32.0); Mean Corpuscular Volume 97.5 fL (80-94); Mean Platelet Vol. 9.9 fl (6.2-12.0); Platelet Count 123 K/mm3 (150-450); RBC Distribution Width SD 53.3 fl (35.1-43.9); Red Blood Count 3.56 M/mm3 (4.6-6.2); White Blood Count 3.6 K/mm3 (4.4-11.0)
[2017-11-08 10:49] LABS: Scan Indicated on CBC? Y/N NO
[2017-11-08 10:56] LABS: AST(SGOT) 13 U/L (15-37); Alanine Aminotransfer ALT/SGPT 20 U/L (16-61); Albumin, Serum 3.4 g/dL (3.2-5.0); Alkaline Phosphatase 225 U/L (45-117); Anion Gap 12 (5-15); BUN 20 mg/dL (7-18); Chloride 109 mmol/L (98-107); Creatinine, Serum 1.18 mg/dL (0.70-1.30); EST Glomerular Filtration Rate 66 mL/min (>60); Est Glom Filt Rate - Afr Amer 80 mL/min (>60); Glucose 77 mg/dL (74-106); Potassium 4.5 mmol/L (3.5-5.1); Sodium Level 142 mmol/L (136-145)
[2017-11-11 14:38] LABS: CMV by PCR Negative (Negative); Tacrolimus (FK506) 10.2 ng/mL (2.0-20.0)
[2017-11-15 10:27] LABS: Hematocrit 34.9 % (40-54); Hemoglobin 10.8 g/dl (13.0-16.5); Mean Corp Hgb Conc 30.9 g/gl (32-36); Mean Corpuscular Hgb 30.3 pg (27.0-32.0); Mean Corpuscular Volume 97.8 fL (80-94); Mean Platelet Vol. 10.9 fl (6.2-12.0); Platelet Count 110 K/mm3 (150-450); RBC Distribution Width CV 14.5 % (11.6-14.6); RBC Distribution Width SD 49.6 fl (35.1-43.9); Red Blood Count 3.57 M/mm3 (4.6-6.2); White Blood Count 4.1 K/mm3 (4.4-11.0)
[2017-11-15 10:30] LABS: Scan Indicated on CBC? Y/N NO
[2017-11-15 10:35] LABS: Anion Gap 13 (5-15); BUN 20 mg/dL (7-18); Chloride 111 mmol/L (98-107); EST Glomerular Filtration Rate 65 mL/min (>60); Est Glom Filt Rate - Afr Amer 79 mL/min (>60); Glucose 76 mg/dL (74-106); Potassium 4.5 mmol/L (3.5-5.1); Sodium Level 143 mmol/L (136-145)
[2017-11-19 09:59] LABS: CMV by PCR Negative (Negative); Tacrolimus (FK506) 10.7 ng/mL (2.0-20.0)
== END 2017-11-15 10:00 | disposition home or self-care (01) ==
LOC: MTLAB 08:48
PROVIDERS: Family Provider Internal Medicine; PCP Internal Medicine; Visit Provider Internal Medicine Nephrology
DX: Z94.0 Kidney transplant status (principal); R79.9 Abnormal finding of blood chemistry, unspecified; Z48.298 Encounter for aftercare following other organ transplant; D89.9 Disorder involving the immune mechanism, unspecified; D50.9 Iron deficiency anemia, unspecified; Z79.899 Other long term (current) drug therapy
CPT/HCPCS: 36415; 80048; 80051; 80061; 80197; 82040; 82247; 82248; 82565; 82570; 82728; 82947; 82977; 83540; 83550; 83735; 84075; 84100; 84156; 84450; 84460; 84466; 84520; 85025; 85027; 87496

== ENCOUNTER 2017-12-13 08:41 | Outpatient (RCR) | payer OTHER, SELFPAY ==
[2017-11-23 10:08] LABS: Hemoglobin 10.8 g/dl (13.0-16.5); Mean Corp Hgb Conc 31.8 g/gl (32-36); Mean Corpuscular Hgb 30.8 pg (27.0-32.0); Mean Corpuscular Volume 96.9 fL (80-94); Mean Platelet Vol. 11.1 fl (6.2-12.0); Platelet Count 123 K/mm3 (150-450); RBC Distribution Width CV 14.2 % (11.6-14.6); RBC Distribution Width SD 48.3 fl (35.1-43.9); Red Blood Count 3.51 M/mm3 (4.6-6.2); White Blood Count 5.2 K/mm3 (4.4-11.0)
[2017-11-23 10:10] LABS: Scan Indicated on CBC? Y/N NO
[2017-11-23 10:30] LABS: AST(SGOT) 17 U/L (15-37); Alanine Aminotransfer ALT/SGPT 20 U/L (16-61); Albumin, Serum 3.4 g/dL (3.2-5.0); Alkaline Phosphatase 248 U/L (45-117); BUN 22 mg/dL (7-18); Calcium,Total 9.2 mg/dL (8.5-10.1); Chloride 111 mmol/L (98-107); Cholesterol 88 mg/dL (200); Creatinine, Serum 1.33 mg/dL (0.70-1.30); EST Glomerular Filtration Rate 58 mL/min (>60); Est Glom Filt Rate - Afr Amer 70 mL/min (>60); Glucose 82 mg/dL (74-106); Magnesium 1.9 mg/dL (1.6-2.6); Phosphorus 3.3 mg/dL (2.5-4.9); Potassium 4.3 mmol/L (3.5-5.1); Sodium Level 140 mmol/L (136-145); Triglycerides 53 mg/dL; Uric Acid 5.7 mg/dL (3.5-7.2)
[2017-11-26 11:37] LABS: CMV by PCR Negative (Negative); Tacrolimus (FK506) 9.8 ng/mL (2.0-20.0)
[2017-11-29 10:25] LABS: BUN 23 mg/dL (7-18); Chloride 111 mmol/L (98-107); Creatinine, Serum 1.25 mg/dL (0.70-1.30); EST Glomerular Filtration Rate 62 mL/min (>60); Est Glom Filt Rate - Afr Amer 75 mL/min (>60); Glucose 81 mg/dL (74-106); Potassium 4.5 mmol/L (3.5-5.1); Sodium Level 141 mmol/L (136-145)
[2017-11-29 10:34] LABS: Absolute Lymphocyte Count 0.38 X10^3/ul (0.83-4.51); Absolute Neutrophil Count 2.8 X10^3/uL (2.0-7.7); Eosinophil# 0.14 X10^3/uL; Eosinophils% 3.6 % (0-5); Hematocrit 34.3 % (40-54); Hemoglobin 10.4 g/dl (13.0-16.5); Lymphocyte # 0.38 X10^3/ul (4.0); Lymphocyte % 9.6 % (19-41); Mean Corp Hgb Conc 30.3 g/gl (32-36); Mean Corpuscular Volume 95.5 fL (80-94); Mean Platelet Vol. 9.8 fl (6.2-12.0); Monocyte# 0.59 X10^3/uL; Neutrophil # 2.83 X10^3/uL (2.7-7.7); Neutrophil % 71.8 % (47-70); Platelet Count 145 K/mm3 (150-450); RBC Distribution Width SD 49.3 fl (35.1-43.9); Red Blood Count 3.59 M/mm3 (4.6-6.2); White Blood Count 3.9 K/mm3 (4.4-11.0)
[2017-11-29 10:35] LABS: Differential Indicated SCAN CRITERIA MET; POSITIVE COUNT NO; POSITIVE DIFFERENTIAL YES; POSITIVE MORPHOLOGY NO
[2017-11-30 15:12] LABS: Pathologist Review Reviewed
[2017-12-02 08:31] LABS: CMV by PCR Negative (Negative); Tacrolimus (FK506) 9.8 ng/mL (2.0-20.0)
[2017-12-06 10:17] LABS: Absolute Lymphocyte Count 0.37 X10^3/ul (0.83-4.51); Absolute Neutrophil Count 3.6 X10^3/uL (2.0-7.7); Eosinophil# 0.12 X10^3/uL; Eosinophils% 2.5 % (0-5); Hematocrit 33.8 % (40-54); Hemoglobin 10.6 g/dl (13.0-16.5); Lymphocyte # 0.37 X10^3/ul (4.0); Lymphocyte % 7.6 % (19-41); Mean Corp Hgb Conc 31.4 g/gl (32-36); Mean Corpuscular Volume 95.8 fL (80-94); Mean Platelet Vol. 10.5 fl (6.2-12.0); Monocyte% 16.4 % (0-10); Neutrophil # 3.58 X10^3/uL (2.7-7.7); Neutrophil % 73.3 % (47-70); Platelet Count 145 K/mm3 (150-450); RBC Distribution Width CV 13.8 % (11.6-14.6); RBC Distribution Width SD 46.1 fl (35.1-43.9); Red Blood Count 3.53 M/mm3 (4.6-6.2); White Blood Count 4.9 K/mm3 (4.4-11.0)
[2017-12-06 10:20] LABS: AST(SGOT) 15 U/L (15-37); Alanine Aminotransfer ALT/SGPT 23 U/L (16-61); Albumin, Serum 3.2 g/dL (3.2-5.0); Alkaline Phosphatase 263 U/L (45-117); BUN 28 mg/dL (7-18); Chloride 110 mmol/L (98-107); Creatinine, Serum 1.62 mg/dL (0.70-1.30); Differential Indicated SCAN CRITERIA MET; EST Glomerular Filtration Rate 46 mL/min (>60); Est Glom Filt Rate - Afr Amer 56 mL/min (>60); Glucose 78 mg/dL (74-106); POSITIVE COUNT NO; POSITIVE DIFFERENTIAL YES; POSITIVE MORPHOLOGY NO; Potassium 4.5 mmol/L (3.5-5.1); Sodium Level 142 mmol/L (136-145)
[2017-12-09 09:00] LABS: CMV by PCR Negative (Negative); Tacrolimus (FK506) 12.9 ng/mL (2.0-20.0)
[2017-12-13 10:20] LABS: Hematocrit 31.1 % (40-54); Hemoglobin 9.9 g/dl (13.0-16.5); Mean Corp Hgb Conc 31.8 g/gl (32-36); Mean Corpuscular Volume 94.2 fL (80-94); Mean Platelet Vol. 9.9 fl (6.2-12.0); Platelet Count 159 K/mm3 (150-450); RBC Distribution Width CV 13.5 % (11.6-14.6); RBC Distribution Width SD 44.3 fl (35.1-43.9); White Blood Count 3.9 K/mm3 (4.4-11.0)
[2017-12-13 10:24] LABS: Scan Indicated on CBC? Y/N NO
[2017-12-13 10:37] LABS: Anion Gap 8 (5-15); BUN 26 mg/dL (7-18); Chloride 112 mmol/L (98-107); Creatinine, Serum 1.36 mg/dL (0.70-1.30); EST Glomerular Filtration Rate 56 mL/min (>60); Est Glom Filt Rate - Afr Amer 68 mL/min (>60); Glucose 79 mg/dL (74-106); Potassium 4.4 mmol/L (3.5-5.1); Sodium Level 139 mmol/L (136-145)
[2017-12-17 08:16] LABS: CMV by PCR Negative (Negative)
== END 2017-12-19 08:45 | disposition home or self-care (01) ==
LOC: MTLAB 08:41
PROVIDERS: Family Provider Internal Medicine; PCP Internal Medicine; Visit Provider Internal Medicine Nephrology
DX: Z94.0 Kidney transplant status (principal); R79.9 Abnormal finding of blood chemistry, unspecified; Z48.298 Encounter for aftercare following other organ transplant; D89.9 Disorder involving the immune mechanism, unspecified; D50.9 Iron deficiency anemia, unspecified; Z79.899 Other long term (current) drug therapy
CPT/HCPCS: 36415; 80051; 80197; 82040; 82247; 82310; 82374; 82435; 82465; 82565; 82947; 83735; 84075; 84100; 84132; 84295; 84450; 84460; 84478; 84520; 84550; 85025; 85027; 87496

== ENCOUNTER 2018-01-18 08:31 | Outpatient (RCR) | payer OTHER, SELFPAY ==
[2017-12-20 10:18] LABS: Hematocrit 32.6 % (40-54); Hemoglobin 10.1 g/dl (13.0-16.5); Mean Corpuscular Hgb 28.9 pg (27.0-32.0); Mean Corpuscular Volume 93.1 fL (80-94); Mean Platelet Vol. 10.1 fl (6.2-12.0); Platelet Count 145 K/mm3 (150-450); RBC Distribution Width CV 14.1 % (11.6-14.6); RBC Distribution Width SD 47.8 fl (35.1-43.9); White Blood Count 3.7 K/mm3 (4.4-11.0)
[2017-12-20 10:24] LABS: Scan Indicated on CBC? Y/N NO
[2017-12-20 10:49] LABS: AST(SGOT) 11 U/L (15-37); Alanine Aminotransfer ALT/SGPT 19 U/L (16-61); Albumin, Serum 3.2 g/dL (3.2-5.0); Alkaline Phosphatase 260 U/L (45-117); BUN 19 mg/dL (7-18); Calcium,Total 9.3 mg/dL (8.5-10.1); Chloride 109 mmol/L (98-107); Cholesterol 90 mg/dL (200); Creatinine, Serum 1.25 mg/dL (0.70-1.30); EST Glomerular Filtration Rate 62 mL/min (>60); Est Glom Filt Rate - Afr Amer 75 mL/min (>60); Glucose 77 mg/dL (74-106); Magnesium 1.8 mg/dL (1.6-2.6); PSA,Total - Annual Screen 0.44 ng/mL (0.00-4.00); Phosphorus 2.6 mg/dL (2.5-4.9); Potassium 4.3 mmol/L (3.5-5.1); Sodium Level 139 mmol/L (136-145); Triglycerides 103 mg/dL; Uric Acid 5.5 mg/dL (3.5-7.2)
[2017-12-23 13:48] LABS: CMV by PCR Negative (Negative); Tacrolimus (FK506) 9.6 ng/mL (2.0-20.0)
[2017-12-28 10:15] LABS: Absolute Lymphocyte Count 0.31 X10^3/ul (0.83-4.51); Absolute Neutrophil Count 2.5 X10^3/uL (2.0-7.7); Eosinophil# 0.11 X10^3/uL; Eosinophils% 3.1 % (0-5); Hematocrit 33.2 % (40-54); Hemoglobin 10.5 g/dl (13.0-16.5); Lymphocyte # 0.31 X10^3/ul (4.0); Lymphocyte % 8.8 % (19-41); Mean Corp Hgb Conc 31.6 g/gl (32-36); Mean Corpuscular Hgb 29.7 pg (27.0-32.0); Mean Corpuscular Volume 93.8 fL (80-94); Mean Platelet Vol. 10.4 fl (6.2-12.0); Monocyte# 0.61 X10^3/uL; Monocyte% 17.4 % (0-10); Neutrophil # 2.48 X10^3/uL (2.7-7.7); Neutrophil % 70.7 % (47-70); Platelet Count 158 K/mm3 (150-450); RBC Distribution Width SD 46.3 fl (35.1-43.9); Red Blood Count 3.54 M/mm3 (4.6-6.2); White Blood Count 3.5 K/mm3 (4.4-11.0)
[2017-12-28 10:16] LABS: Differential Indicated SCAN CRITERIA MET; POSITIVE COUNT NO; POSITIVE DIFFERENTIAL YES; POSITIVE MORPHOLOGY NO
[2017-12-28 10:21] LABS: Anion Gap 9 (5-15); BUN 25 mg/dL (7-18); Chloride 111 mmol/L (98-107); Creatinine, Serum 1.49 mg/dL (0.70-1.30); EST Glomerular Filtration Rate 51 mL/min (>60); Est Glom Filt Rate - Afr Amer 61 mL/min (>60); Glucose 80 mg/dL (74-106); Potassium 4.6 mmol/L (3.5-5.1); Sodium Level 141 mmol/L (136-145)
[2017-12-30 10:11] LABS: Pathologist Review Reviewed
[2017-12-31 13:42] LABS: CMV by PCR Negative (Negative); Tacrolimus (FK506) 11.5 ng/mL (2.0-20.0)
[2018-01-03 10:24] LABS: Absolute Lymphocyte Count 0.32 X10^3/ul (0.83-4.51); Absolute Neutrophil Count 2.8 X10^3/uL (2.0-7.7); Basophil# 0.01 X10^3/uL; Basophil% 0.3 % (0-1); Differential Indicated SCAN CRITERIA MET; Eosinophil# 0.16 X10^3/uL; Eosinophils% 4.1 % (0-5); Hematocrit 33.4 % (40-54); Hemoglobin 10.4 g/dl (13.0-16.5); Lymphocyte # 0.32 X10^3/ul (4.0); Lymphocyte % 8.2 % (19-41); Mean Corp Hgb Conc 31.1 g/gl (32-36); Mean Corpuscular Hgb 29.2 pg (27.0-32.0); Mean Corpuscular Volume 93.8 fL (80-94); Mean Platelet Vol. 10.5 fl (6.2-12.0); Monocyte# 0.65 X10^3/uL; Monocyte% 16.6 % (0-10); Neutrophil # 2.77 X10^3/uL (2.7-7.7); Neutrophil % 70.8 % (47-70); POSITIVE COUNT NO; POSITIVE DIFFERENTIAL YES; POSITIVE MORPHOLOGY NO; Platelet Count 160 K/mm3 (150-450); RBC Distribution Width CV 14.4 % (11.6-14.6); RBC Distribution Width SD 47.2 fl (35.1-43.9); Red Blood Count 3.56 M/mm3 (4.6-6.2); White Blood Count 3.9 K/mm3 (4.4-11.0)
[2018-01-03 10:28] LABS: Protein, Urine (Random) 13.2 mg/dL (<11.9); Protein:Creat Ratio 255 mg/g CRE (0-200)
[2018-01-03 10:37] LABS: AST(SGOT) 14 U/L (15-37); Alanine Aminotransfer ALT/SGPT 19 U/L (16-61); Albumin, Serum 3.3 g/dL (3.2-5.0); Alkaline Phosphatase 241 U/L (45-117); Anion Gap 8 (5-15); BUN 24 mg/dL (7-18); BUN/Creat Ratio 16.8 RATIO (10-20); Bilirubin, Direct 0.17 mg/dL (0.00-0.30); Calcium,Total 9.2 mg/dL (8.5-10.1); Chloride 108 mmol/L (98-107); Cholesterol 103 mg/dL (200); Creatinine, Serum 1.43 mg/dL (0.70-1.30); EST Glomerular Filtration Rate 53 mL/min (>60); Est Glom Filt Rate - Afr Amer 64 mL/min (>60); GGTP 26 U/L (15-85); Glucose 81 mg/dL (74-106); High Density Lipoprotein 37 mg/dL; Magnesium 1.6 mg/dL (1.6-2.6); Phosphorus 3.1 mg/dL (2.5-4.9); Potassium 4.4 mmol/L (3.5-5.1); Sodium Level 136 mmol/L (136-145); Triglycerides 92 mg/dL; Very Low Density Lipoprotein 18 mg/dL (5-40)
[2018-01-06 13:50] LABS: Tacrolimus (FK506) 9.7 ng/mL (2.0-20.0)
[2018-01-10 10:59] LABS: Anion Gap 9 (5-15); BUN 27 mg/dL (7-18); Chloride 108 mmol/L (98-107); Creatinine, Serum 1.67 mg/dL (0.70-1.30); EST Glomerular Filtration Rate 44 mL/min (>60); Est Glom Filt Rate - Afr Amer 54 mL/min (>60); Glucose 77 mg/dL (74-106); Potassium 4.5 mmol/L (3.5-5.1); Sodium Level 138 mmol/L (136-145)
[2018-01-10 12:16] LABS: Hematocrit 32.6 % (40-54); Hemoglobin 10.4 g/dl (13.0-16.5); Mean Corp Hgb Conc 31.9 g/gl (32-36); Mean Corpuscular Hgb 29.8 pg (27.0-32.0); Mean Corpuscular Volume 93.4 fL (80-94); Mean Platelet Vol. 10.2 fl (6.2-12.0); Platelet Count 156 K/mm3 (150-450); RBC Distribution Width CV 14.6 % (11.6-14.6); RBC Distribution Width SD 47.8 fl (35.1-43.9); Red Blood Count 3.49 M/mm3 (4.6-6.2); White Blood Count 3.9 K/mm3 (4.4-11.0)
[2018-01-10 12:25] LABS: Scan Indicated on CBC? Y/N NO
[2018-01-13 11:18] LABS: CMV by PCR Negative (Negative); Tacrolimus (FK506) 11.9 ng/mL (2.0-20.0)
[2018-01-18 10:25] LABS: Absolute Lymphocyte Count 0.33 X10^3/ul (0.83-4.51); Absolute Neutrophil Count 2.8 X10^3/uL (2.0-7.7); Basophil# 0.01 X10^3/uL; Basophil% 0.3 % (0-1); Eosinophil# 0.12 X10^3/uL; Eosinophils% 3.2 % (0-5); Hematocrit 33.4 % (40-54); Hemoglobin 10.3 g/dl (13.0-16.5); Lymphocyte # 0.33 X10^3/ul (4.0); Lymphocyte % 8.8 % (19-41); Mean Corp Hgb Conc 30.8 g/gl (32-36); Mean Corpuscular Volume 94.1 fL (80-94); Mean Platelet Vol. 10.2 fl (6.2-12.0); Monocyte# 0.56 X10^3/uL; Monocyte% 14.9 % (0-10); Neutrophil # 2.75 X10^3/uL (2.7-7.7); Neutrophil % 72.8 % (47-70); Platelet Count 146 K/mm3 (150-450); RBC Distribution Width CV 14.9 % (11.6-14.6); RBC Distribution Width SD 48.9 fl (35.1-43.9); Red Blood Count 3.55 M/mm3 (4.6-6.2); White Blood Count 3.8 K/mm3 (4.4-11.0)
[2018-01-18 10:26] LABS: Differential Indicated SCAN CRITERIA MET; POSITIVE COUNT NO; POSITIVE DIFFERENTIAL YES; POSITIVE MORPHOLOGY NO
[2018-01-18 10:31] LABS: AST(SGOT) 10 U/L (15-37); Alanine Aminotransfer ALT/SGPT 18 U/L (16-61); Albumin, Serum 3.3 g/dL (3.2-5.0); Alkaline Phosphatase 203 U/L (45-117); Anion Gap 10 (5-15); BUN 26 mg/dL (7-18); BUN/Creat Ratio 14.7 RATIO (10-20); Calcium,Total 8.9 mg/dL (8.5-10.1); Chloride 111 mmol/L (98-107); Cholesterol 104 mg/dL (200); Creatinine, Serum 1.77 mg/dL (0.70-1.30); EST Glomerular Filtration Rate 41 mL/min (>60); Est Glom Filt Rate - Afr Amer 50 mL/min (>60); Ferritin 85 ng/mL (26-388); Glucose 77 mg/dL (74-106); High Density Lipoprotein 38 mg/dL; Iron 42 ug/dL (65-175); Iron Binding Capacity,Total 310 ug/dL (250-450); Magnesium 1.8 mg/dL (1.6-2.6); PERCENT IRON SATURATION 13.5 % (15.0-55.0); Phosphorus 3.1 mg/dL (2.5-4.9); Potassium 4.6 mmol/L (3.5-5.1); Sodium Level 141 mmol/L (136-145); Triglycerides 85 mg/dL; Uric Acid 5.4 mg/dL (3.5-7.2); Very Low Density Lipoprotein 17 mg/dL (5-40)
[2018-01-18 11:15] LABS: PTHIN 256.9 pg/mL (18.4-80.1)
[2018-01-24 11:46] LABS: CMV by PCR Negative (Negative); Tacrolimus (FK506) 16.7 ng/mL (2.0-20.0); Transferrin 232 mg/dL (200-370)
== END 2018-01-18 10:00 | disposition home or self-care (01) ==
LOC: MTLAB 08:31
PROVIDERS: Family Provider Internal Medicine; PCP Internal Medicine; Referring Provider Internal Medicine Nephrology; Visit Provider Internal Medicine Nephrology
DX: Z94.0 Kidney transplant status (principal); R79.9 Abnormal finding of blood chemistry, unspecified; Z48.298 Encounter for aftercare following other organ transplant; D89.9 Disorder involving the immune mechanism, unspecified; D50.9 Iron deficiency anemia, unspecified; Z79.899 Other long term (current) drug therapy
CPT/HCPCS: 36415; 80048; 80051; 80061; 80197; 82040; 82247; 82248; 82310; 82374; 82435; 82465; 82565; 82570; 82728; 82947; 82977; 83540; 83550; 83735; 83970; 84075; 84100; 84132; 84153; 84156; 84295; 84450; 84460; 84466; 84478; 84520; 84550; 85025; 85027; 87496; G0103

== ENCOUNTER 2018-02-14 08:18 | Outpatient (RCR) | payer OTHER, SELFPAY ==
[2018-01-24 10:42] LABS: Anion Gap 9 (5-15); BUN 25 mg/dL (7-18); Chloride 110 mmol/L (98-107); Creatinine, Serum 1.67 mg/dL (0.70-1.30); EST Glomerular Filtration Rate 44 mL/min (>60); Est Glom Filt Rate - Afr Amer 54 mL/min (>60); Glucose 78 mg/dL (74-106); Potassium 4.5 mmol/L (3.5-5.1); Sodium Level 139 mmol/L (136-145)
[2018-01-24 12:46] LABS: Absolute Lymphocyte Count 0.47 X10^3/ul (0.83-4.51); Absolute Neutrophil Count 3.4 X10^3/uL (2.0-7.7); Differential Indicated SCAN CRITERIA MET; Eosinophils% 2.1 % (0-5); Hematocrit 34.7 % (40-54); Hemoglobin 10.8 g/dl (13.0-16.5); Lymphocyte # 0.47 X10^3/ul (4.0); Mean Corp Hgb Conc 31.1 g/gl (32-36); Mean Corpuscular Hgb 28.8 pg (27.0-32.0); Mean Corpuscular Volume 92.5 fL (80-94); Mean Platelet Vol. 10.8 fl (6.2-12.0); Monocyte% 14.9 % (0-10); Neutrophil # 3.42 X10^3/uL (2.7-7.7); POSITIVE COUNT NO; POSITIVE DIFFERENTIAL YES; POSITIVE MORPHOLOGY NO; Platelet Count 148 K/mm3 (150-450); RBC Distribution Width CV 14.9 % (11.6-14.6); RBC Distribution Width SD 50.7 fl (35.1-43.9); Red Blood Count 3.75 M/mm3 (4.6-6.2); White Blood Count 4.7 K/mm3 (4.4-11.0)
[2018-01-24 13:15] LABS: Acanthocytes 1+; Red Cell Morphology N CHROM NORMAL (NORM C&C)
[2018-01-27 12:19] LABS: CMV by PCR Negative (Negative)
[2018-01-31 10:34] LABS: Mean Corp Hgb Conc 31.3 g/gl (32-36); Mean Corpuscular Volume 92.8 fL (80-94); Mean Platelet Vol. 10.2 fl (6.2-12.0); Platelet Count 180 K/mm3 (150-450); RBC Distribution Width CV 14.7 % (11.6-14.6); RBC Distribution Width SD 49.4 fl (35.1-43.9); Red Blood Count 3.45 M/mm3 (4.6-6.2)
[2018-01-31 10:41] LABS: AST(SGOT) 11 U/L (15-37); Alanine Aminotransfer ALT/SGPT 18 U/L (16-61); Albumin, Serum 3.3 g/dL (3.2-5.0); Alkaline Phosphatase 193 U/L (45-117); Anion Gap 10 (5-15); BUN 52 mg/dL (7-18); Chloride 108 mmol/L (98-107); Creatinine, Serum 1.61 mg/dL (0.70-1.30); EST Glomerular Filtration Rate 46 mL/min (>60); Est Glom Filt Rate - Afr Amer 56 mL/min (>60); Glucose 80 mg/dL (74-106); Potassium 4.6 mmol/L (3.5-5.1); Scan Indicated on CBC? Y/N NO; Sodium Level 141 mmol/L (136-145)
[2018-02-05 12:06] LABS: CMV by PCR Negative (Negative); Tacrolimus (FK506) 11.5 ng/mL (2.0-20.0)
[2018-02-07 10:36] LABS: Absolute Lymphocyte Count 0.31 X10^3/ul (0.83-4.51); Absolute Neutrophil Count 3.5 X10^3/uL (2.0-7.7); Basophil# 0.01 X10^3/uL; Basophil% 0.2 % (0-1); Differential Indicated SCAN CRITERIA MET; Eosinophil# 0.13 X10^3/uL; Eosinophils% 2.8 % (0-5); Hematocrit 30.9 % (40-54); Hemoglobin 9.5 g/dl (13.0-16.5); Lymphocyte # 0.31 X10^3/ul (4.0); Lymphocyte % 6.8 % (19-41); Mean Corp Hgb Conc 30.7 g/gl (32-36); Mean Corpuscular Hgb 29.1 pg (27.0-32.0); Mean Corpuscular Volume 94.8 fL (80-94); Mean Platelet Vol. 10.2 fl (6.2-12.0); Monocyte# 0.65 X10^3/uL; Monocyte% 14.2 % (0-10); Neutrophil # 3.48 X10^3/uL (2.7-7.7); Neutrophil % 75.8 % (47-70); POSITIVE COUNT NO; POSITIVE DIFFERENTIAL YES; POSITIVE MORPHOLOGY NO; Platelet Count 165 K/mm3 (150-450); RBC Distribution Width CV 15.1 % (11.6-14.6); RBC Distribution Width SD 51.1 fl (35.1-43.9); Red Blood Count 3.26 M/mm3 (4.6-6.2); White Blood Count 4.6 K/mm3 (4.4-11.0)
[2018-02-07 11:09] LABS: BUN 30 mg/dL (7-18); Chloride 111 mmol/L (98-107); Creatinine, Serum 1.66 mg/dL (0.70-1.30); EST Glomerular Filtration Rate 45 mL/min (>60); Est Glom Filt Rate - Afr Amer 54 mL/min (>60); Glucose 80 mg/dL (74-106); Potassium 4.7 mmol/L (3.5-5.1); Sodium Level 142 mmol/L (136-145)
[2018-02-10 08:28] LABS: CMV by PCR Negative (Negative); Tacrolimus (FK506) 12.5 ng/mL (2.0-20.0)
[2018-02-14 10:18] LABS: ALB/GLOB Ratio 1.2 RATIO (0.9-2.4); AST(SGOT) 13 U/L (15-37); Alanine Aminotransfer ALT/SGPT 18 U/L (16-61); Albumin, Serum 2.9 g/dL (3.2-5.0); Alkaline Phosphatase 185 U/L (45-117); Anion Gap 14 (5-15); BUN 38 mg/dL (7-18); BUN/Creat Ratio 19.5 RATIO (10-20); Calcium,Total 8.6 mg/dL (8.5-10.1); Chloride 109 mmol/L (98-107); Cholesterol 81 mg/dL (200); Creatinine, Serum 1.95 mg/dL (0.70-1.30); EST Glomerular Filtration Rate 37 mL/min (>60); Est Glom Filt Rate - Afr Amer 45 mL/min (>60); Globulin 2.5 g/dL (2.2-4.2); Glucose 90 mg/dL (74-106); Phosphorus 3.4 mg/dL (2.5-4.9); Potassium 4.1 mmol/L (3.5-5.1); Protein, Total 5.4 g/dL (6.4-8.2); Sodium Level 139 mmol/L (136-145); Triglycerides 132 mg/dL; Uric Acid 7.5 mg/dL (3.5-7.2)
[2018-02-14 10:29] LABS: Absolute Lymphocyte Count 0.17 X10^3/ul (0.83-4.51); Absolute Neutrophil Count 2.5 X10^3/uL (2.0-7.7); Eosinophil# 0.09 X10^3/uL; Eosinophils% 2.6 % (0-5); Hematocrit 18.4 % (40-54); Lymphocyte # 0.17 X10^3/ul (4.0); Mean Corpuscular Hgb 28.9 pg (27.0-32.0); Mean Corpuscular Volume 93.4 fL (80-94); Mean Platelet Vol. 9.5 fl (6.2-12.0); Monocyte# 0.61 X10^3/uL; Monocyte% 17.9 % (0-10); Neutrophil # 2.53 X10^3/uL (2.7-7.7); Neutrophil % 74.2 % (47-70); Platelet Count 145 K/mm3 (150-450); RBC Distribution Width CV 17.6 % (11.6-14.6); Red Blood Count 1.97 M/mm3 (4.6-6.2); White Blood Count 3.4 K/mm3 (4.4-11.0)
[2018-02-14 11:25] LABS: Differential Indicated SCAN CRITERIA MET; Hemoglobin 5.7 g/dl (13.0-16.5); POSITIVE COUNT YES; POSITIVE DIFFERENTIAL YES; POSITIVE MORPHOLOGY NO
[2018-02-15 12:03] LABS: Pathologist Review Reviewed
[2018-02-18 11:56] LABS: CMV by PCR Negative (Negative); Tacrolimus (FK506) 7.6 ng/mL (2.0-20.0)
== END 2018-02-14 09:00 | disposition home or self-care (01) ==
LOC: MTLAB 08:18
PROVIDERS: Family Provider Internal Medicine; PCP Internal Medicine; Referring Provider Internal Medicine Nephrology; Visit Provider Internal Medicine Nephrology
DX: Z94.0 Kidney transplant status (principal); R79.9 Abnormal finding of blood chemistry, unspecified; D89.9 Disorder involving the immune mechanism, unspecified; Z48.298 Encounter for aftercare following other organ transplant; Z51.81 Encounter for therapeutic drug level monitoring; Z11.59 Encounter for screening for other viral diseases
CPT/HCPCS: 36415; 80051; 80053; 80197; 82040; 82247; 82374; 82435; 82465; 82565; 82947; 83735; 84075; 84100; 84132; 84295; 84450; 84460; 84478; 84520; 84550; 85025; 85027; 87496

== ENCOUNTER 2018-02-14 12:08 | Inpatient (IN) | payer OTHER, SELFPAY ==
[2018-02-14] VITALS (18 sets, daily range): BP systolic 126–152; BP diastolic 71–88; PULSE 60–78; RESP 13–137; TEMP 36.2–37.3; O2SAT 97–100; BMI 34.6; BMI 34.7; BMI 34.1
--- NOTE | 2018-02-14 12:56 | ED.VISSUMM ---
- ER Visit Summary Date of Service: 02/14/18 Chief Complaint: Generalized weakness and black stool History of Present Illness: The patient is a 62 M history of 3 prior renal transplants last being in July of this year. 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 Patient is on Coumadin. Patient was sent in the day due to low blood count. Denies any hematemesis. Physical Examination: Well-appearing male. Vital signs are stable and afebrile. Accompanied by his at bedside. HEENT exam unremarkable. Neck nontender no lymphadenopathy. Lungs clear to auscultation bilaterally. Heart regular rhythm no murmur. Abdomen is soft and nontender. Moving all 4 extremities. Trace edema both lower legs. Neurologically is awake alert with no focal motor deficits. Test Results: CBC showed hemoglobin of 5.9 hematocrit of 18. Most recent hemoglobin 1 week ago was 9.5. Electrolytes showed a gap of 10. BUN of 30 creatinine 1.94 which is around his baseline of 1.7. A CBC is on warfarin his INR is 2.7. Exacerbation of chronic Emergency Department Course and Treatment: Patient has been typed and crossed for 2 units. He will be transfused.. I have the hospitalist on page for admission. I will also speak to Dr. Hugh Valenzuela for possible endoscopy. Treatment Plan: Admission for transfusion and possible colonoscopy and upper endoscopy. Disposition: Admission Impression: Acute anemia Acute GI bleed of uncertain etiology Acute blood transfusion History of renal transplant History of cardiac valve replacements Anticoagulated on Coumadin This note was generated with [employer] dictation software. It may contain incorrect words, spelling, and punctuation that were not noted in review of the chart prior to signing ED Disposition - Plan for ED Patient: Chief Complaint: Abn Labs Referrals: Beth Quiroz MD [Primary Care Provider] -
--- NOTE | 2018-02-14 12:59 | ED.DCSUM_ITS ---
- ER Visit Summary Date of Service: 02/14/18 Chief Complaint: Generalized weakness and black stool History of Present Illness: The patient is a 62 M history of 3 prior renal transplants last being in July of this year. 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 Patient is on Coumadin. Patient was sent in the day due to low blood count. Denies any hematemesis. Physical Examination: Well-appearing male. Vital signs are stable and afebrile. Accompanied by his at bedside. HEENT exam unremarkable. Neck nontender no lymphadenopathy. Lungs clear to auscultation bilaterally. Heart regular rhythm no murmur. Abdomen is soft and nontender. Moving all 4 extremities. Trace edema both lower legs. Neurologically is awake alert with no focal motor deficits. Test Results: CBC showed hemoglobin of 5.9 hematocrit of 18. Most recent hemoglobin 1 week ago was 9.5. Electrolytes showed a gap of 10. BUN of 30 creatinine 1.94 which is around his baseline of 1.7. A CBC is on warfarin his INR is 2.7. Exacerbation of chronic Emergency Department Course and Treatment: Patient has been typed and crossed for 2 units. He will be transfused.. I have the hospitalist on page for admission. I will also speak to Dr. Hugh Valenzuela for possible endoscopy. Treatment Plan: Admission for transfusion and possible colonoscopy and upper endoscopy. Disposition: Admission Impression: Acute anemia Acute GI bleed of uncertain etiology Acute blood transfusion History of renal transplant History of cardiac valve replacements Anticoagulated on Coumadin This note was generated with [employer] dictation software. It may contain incorrect words, spelling, and punctuation that were not noted in review of the chart pr ior to signing ED Disposition - Plan for ED Patient: Chief Complaint: Abn Labs Referrals: Beth Quiroz MD [Primary Care Provider] -
[2018-02-14 13:08] LABS: Hematocrit 18.7 % (40-54); Mean Corp Hgb Conc 31.6 g/gl (32-36); Mean Corpuscular Hgb 29.1 pg (27.0-32.0); Mean Corpuscular Volume 92.1 fL (80-94); Mean Platelet Vol. 10.6 fl (6.2-12.0); Platelet Count 174 K/mm3 (150-450); RBC Distribution Width CV 17.7 % (11.6-14.6); RBC Distribution Width SD 57.9 fl (35.1-43.9); Red Blood Count 2.03 M/mm3 (4.6-6.2); White Blood Count 4.9 K/mm3 (4.4-11.0)
[2018-02-14 13:13] LABS: International Normalized Ratio 2.7; Prothrombin Time (Protime)PT. 29.1 SECONDS (11.7-14.9)
[2018-02-14 13:16] LABS: Anion Gap 10 (5-15); BUN 38 mg/dL (7-18); BUN/Creat Ratio 19.6 RATIO (10-20); Calcium,Total 8.5 mg/dL (8.5-10.1); Chloride 109 mmol/L (98-107); Creatinine, Serum 1.94 mg/dL (0.70-1.30); EST Glomerular Filtration Rate 37 mL/min (>60); Est Glom Filt Rate - Afr Amer 45 mL/min (>60); Estimated Creatinine Clearance 35.17 ml/min; Glucose 130 mg/dL (74-106); Potassium 4.7 mmol/L (3.5-5.1); Sodium Level 134 mmol/L (136-145)
[2018-02-14 13:24] LABS: Hemoglobin 5.9 g/dl (13.0-16.5); Scan Indicated on CBC? Y/N NO
--- NOTE | 2018-02-14 15:27 | PCM.HP.STD ---
History of Present Illness The patient is a 62 year old M [] Past Medical History Past Medical History (Chronic Problems): Chronic Problems History of skin cancer (Chronic) CKD (chronic kidney disease), stage III (Chronic) History of anemia of chronic disease (Chronic) History of hypertension (Chronic) Allergies No Known Allergies Allergy (Verified 02/14/18 12:10) Home Medications: Ambulatory Orders Medication Instructions Recorded Tamsulosin HCl [Flomax] 0.4 mg PO DAILY 03/16/15 Zolpidem Tartrate [Ambien Cr] 12.5 mg PO QHS 03/16/15 Finasteride [Proscar] 5 mg PO DAILY 10/23/15 Atorvastatin Calcium [Lipitor] 40 mg PO QHS 11/26/16 Cyanocobalamin (Vitamin B-12) 100 mcg PO DAILY 11/26/16 [Vitamin B-12] Darbepoetin Isidro in Polysorbat 500 mcg SC X1 11/26/16 [Aranesp] Warfarin [Coumadin ([facility])] 2 mg PO SUTUWETHSA 11/26/16 Aspirin E.C. [Ecotrin] 81 mg PO DAILY@0800 02/14/18 Carvedilol 6.25 mg PO BID 02/14/18 Ferrous Sulfate 324 mg PO DAILY 02/14/18 Mycophenolate Sodium [Mycophenolic 360 mg PO BID 02/14/18 Acid] Prednisone 5 mg PO DAILY 02/14/18 Sulfamethoxazole/Trimethoprim 1 tab PO MOWEFR 02/14/18 [Sulfamethoxazole-Tmp Ds Tablet] Tacrolimus Anhydrous [Prograf] 1 mg PO DAILY 02/14/18 Tacrolimus Anhydrous [Prograf] 2 mg PO DAILY 02/14/18 Warfarin Sodium 4 mg PO MOFR 02/14/18 Smoking Status: Never smoker - Physical Exam Vital Signs Temp Pulse Resp BP Pulse Ox 97.5 F L 61 21 H 134/72 H 98 02/14/18 15:17 02/14/18 15:17 02/14/18 15:17 02/14/18 15:17 02/14/18 15:17 Oxygen Delivery Method Room Air Weight: 214 lb 11.684 oz Body Mass Index (BMI) 34.6 Intake and Output for Last 24 Hours 02/12/18 02/13/18 02/14/18 23:59 23:59 23:59 Intake Total Balance Laboratory Tests Past 24 Hrs 02/14/18 02/14/18 02/14/18 12:32 12:32 12:32 WBC 4.9 RBC 2.03 L Hgb 5.9 L* Hct 18.7 L MCV 92.1 MCH 29.1 MCHC 31.6 L RDW 17.7 H RDW Differential 57.9 H Plt Count 174 MPV 10.6 PT 29.1 H INR 2.7 Sodium 134 L Potassium 4.7 Chloride 109 H Carbon Dioxide 15.0 L Anion Gap 10 BUN 38 H Creatinine 1.94 H Estim Creat Clear Calc 35.17 Est GFR (MDRD) Af Amer 45 L Est GFR (MDRD) Non-Af 37 L BUN/Creatinine Ratio 19.6 Glucose 130 H Calcium 8.5 Blood Type Antibody Screen Crossmatch 02/14/18 12:33 WBC RBC Hgb Hct MCV MCH MCHC RDW RDW Differential Plt Count MPV PT INR Sodium Potassium Chloride Carbon Dioxide Anion Gap BUN Creatinine Estim Creat Clear Calc Est GFR (MDRD) Af Amer Est GFR (MDRD) Non-Af BUN/Creatinine Ratio Glucose Calcium Blood Type A POSITIVE Antibody Screen NEGATIVE Crossmatch See Detail
--- NOTE | 2018-02-14 16:19 | PCM.HP.STD ---
<Zaina Gaona - Last Filed: 02/14/18 17:17> Problem List (1) History of skin cancer Status: Chronic (2) CKD (chronic kidney disease), stage III Status: Chronic (3) History of anemia of chronic disease Status: Chronic (4) History of hypertension Status: Chronic (5) Renal transplant, status post Status: Chronic (6) Pacemaker Status: Chronic (7) Valvular heart disease Status: Chronic Comment: s/p mitral and aortic valve replacement History of Present Illness Date of Admission: 02/14/18 Chief Complaint: Black stools, weakness. The patient is a 62 year old M who presents emergency room with black stools since Wednesday. He has since developed weakness and lightheadedness. Patient states his stools were initially formed on Wednesday and have been diarrhea since that time. He denies abdullahi blood in stool. He reports dark, tarry consistency. He denies chest pain, shortness of breath. States his last colonoscopy was in 2014 with no reported abnormalities. 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 Past Medical History Past Medical History (Chronic Problems): Chronic Problems Renal transplant, status post (Chronic) Pacemaker (Chronic) Valvular heart disease (Chronic) s/p mitral and aortic valve replacement History of skin cancer (Chronic) CKD (chronic kidney disease), stage III (Chronic) History of anemia of chronic disease (Chronic) History of hypertension (Chronic) Allergies No Known Allergies Allergy (Verified 02/14/18 12:10) Home Medications: Ambulatory Orders Medication Instructions Recorded Tamsulosin HCl [Flomax] 0.4 mg PO DAILY 03/16/15 Zolpidem Tartrate [Ambien Cr] 12.5 mg PO QHS 03/16/15 Finasteride [Proscar] 5 mg PO DAILY 10/23/15 Atorvastatin Calcium [Lipitor] 40 mg PO QHS 11/26/16 Cyanocobalamin (Vitamin B-12) 100 mcg PO DAILY 11/26/16 [Vitamin B-12] Darbepoetin Isidro in Polysorbat 500 mcg SC X1 11/26/16 [Aranesp] Warfarin [Coumadin ([facility])] 2 mg PO SUTUWETHSA 11/26/16 Aspirin E.C. [Ecotrin] 81 mg PO DAILY@0800 02/14/18 Carvedilol 6.25 mg PO BID 02/14/18 Ferrous Sulfate 324 mg PO DAILY 02/14/18 Mycophenolate Sodium [Mycophenolic 360 mg PO BID 02/14/18 Acid] Prednisone 5 mg PO DAILY 02/14/18 Sulfamethoxazole/Trimethoprim 1 tab PO MOWEFR 02/14/18 [Sulfamethoxazole-Tmp Ds Tablet] Tacrolimus Anhydrous [Prograf] 1 mg PO DAILY 02/14/18 Tacrolimus Anhydrous [Prograf] 2 mg PO DAILY 02/14/18 Warfarin Sodium 4 mg PO MOFR 02/14/18 Surgical History: - - Sebaceous carcinoma right eyelid resection, multiple skin cancer lesion biopsies/resections, hemorrhoidectomy, mitral and aortic valve replacements, pacemaker placement, hernia repair, renal transplant x3. Psychiatric History: No pertinent psych hx Lives: Spouse/ Significant Other Smoking Status: Never smoker Alcohol: None Drugs: None - *Family History Maternal History Items: - - Arthritis. Denies maternal cardiac history. Paternal History Items: Heart Disease Review of Systems Constitutional: Reports: Weakness, Fatigue. Denies: Chills, Fever, Weight Change HEENT: Denies: Head Aches, Sinus Congestion, Sinus Drainage Cardiovascular: Reports: Edema - Chronic bilateral lower extremity swelling, Light Headedness. Denies: Chest Pain, Palpitations, Syncope Respiratory: Denies: Cough, Shortness of breath at rest, Sputum production Gastrointestinal: Reports: Diarrhea, Melena. Denies: Abdominal Pain, Nausea, Vomiting Genitourinary: Denies: Dysuria Musculoskeletal: Denies: Joint Pain, Joint Tenderness Skin: Denies: Rash, Wounds Neurological: Denies: Numbness, Tingling, Focal weakness Psychiatric: Denies: Anxiety, Depression, Homicidal Ideations, Suicidal Ideations Hematologic/ Lymphatic: Denies: Easy Bruising, Easy Bleeding VTE Information - Inpt Only VTE Present on Admission: No VTE Mechan Device Prophylaxis: SCD's VTE Pharm Prophylaxis ordered?: No Reason prophylaxis not ordered:: Medical Contraindication - Physical Exam General: Alert, Oriented x3, Cooperative, No apparent distress HEENT: Atraumatic, PERRLA, EOMI, Normocephalic Oral: Moist Mucosa Neck: Supple, No JVD, Negative Carotid Bruits Lungs: Clear to auscultation, Normal air movement Cardiovascular: Regular rate, Regular Rhythm, Normal S1, Normal S2, No murmurs Abdomen: Bowel Sounds Present, Soft, Non Tender, Non-Distended Extremities: No clubbing, No cyanosis, Capillary Refill Less than 3 Seconds, Edema - Nonpitting bilateral lower extremities, - - Right upper extremity AV fistula Skin: No rashes, No breakdown Musculoskeletal: No Tenderness to Palpation of Joints or Extremities Neurological: Cranial nerves II-XII grossly intact, Neuro grossly intact Psych/Mental Status: Normal Affect, Appropriate Vital Signs Temp Pulse Resp BP Pulse Ox 97.5 F L 61 21 H 134/72 H 98 02/14/18 15:17 02/14/18 15:17 02/14/18 15:17 02/14/18 15:17 02/14/18 15:17 Oxygen Delivery Method Room Air Weight: 214 lb 11.684 oz Body Mass Index (BMI) 34.6 Intake and Output for Last 24 Hours 02/12/18 02/13/18 02/14/18 23:59 23:59 23:59 Intake Total Balance Laboratory Tests Past 24 Hrs 02/14/18 02/14/18 02/14/18 12:32 12:32 12:32 WBC 4.9 RBC 2.03 L Hgb 5.9 L* Hct 18.7 L MCV 92.1 MCH 29.1 MCHC 31.6 L RDW 17.7 H RDW Differential 57.9 H Plt Count 174 MPV 10.6 PT 29.1 H INR 2.7 Sodium 134 L Potassium 4.7 Chloride 109 H Carbon Dioxide 15.0 L Anion Gap 10 BUN 38 H Creatinine 1.94 H Estim Creat Clear Calc 35.17 Est GFR (MDRD) Af Amer 45 L Est GFR (MDRD) Non-Af 37 L BUN/Creatinine Ratio 19.6 Glucose 130 H Calcium 8.5 Blood Type Antibody Screen Crossmatch 02/14/18 12:33 WBC RBC Hgb Hct MCV MCH MCHC RDW RDW Differential Plt Count MPV PT INR Sodium Potassium Chloride Carbon Dioxide Anion Gap BUN Creatinine Estim Creat Clear Calc Est GFR (MDRD) Af Amer Est GFR (MDRD) Non-Af BUN/Creatinine Ratio Glucose Calcium Blood Type A POSITIVE Antibody Screen NEGATIVE Crossmatch See Detail Assessment/Plan 1. Acute blood loss anemia secondary to GI bleed-hemoglobin on admission 5.7. Recent hemoglobin 02/07/2018 9.5. Patient reports black stools. Dr. Valenzuela consulted from ER. Plan for scope tomorrow. Clear liquids. IV PPI. 2 units PRBC. Trend H&H. Hold anticoagulation. 2. Chronic kidney disease stage III/status post renal transplant x3, most recently July 2017- Follows with [facility]. Continue home regimen including Prograf, Mycophenolic, Aranesp, Bactrim, prednisone. Trend BMP. 3. Status post mitral and aortic valve replacement with organic valves on chronic anticoagulation with Coumadin-INR 2.7 on admission. Hold Coumadin given the acute blood loss anemia. 4. Status post pacemaker 5. Hypertension-stable, continue home carvedilol regimen. 6. Hyperlipidemia-hyperlipidemia. 7. Iron deficiency anemia-continue iron/b12 supplementation. 8. BPH- continue home proscar/flomax regimen. DVT prophylaxis-SCDs. This patient was seen by CRISTOBAL Calvert under the supervision of Dr. Garcia. <Sukhdev Garcia - Last Filed: 02/14/18 22:02> History of Present Illness The patient is a 62 year old M with history of multiple comorbidities as mentioned above including 3 renal transplants, mitral and aortic bioprosthetic valve replacements, on chronic anticoagulation with Coumadin and pacemaker came to ER with black tarry stool consistent with melena. He also said he had multiple colonoscopies, last one in 2014 and diverticulosis were found otherwise no other abnormality. He said he had EGD in 2015 in [facility]. 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 Past Medical History Allergies No Known Allergies Allergy (Verified 02/14/18 12:10) Review of Systems Cardiovascular: Reports: Edema, Light Headedness Gastrointestinal: Reports: Diarrhea, Melena Skin: Reports: Rash Neurological: Reports: Focal weakness Psychiatric: Reports: Anxiety, Depression VTE Information - Inpt Only VTE Present on Admission: No VTE Mechan Device Prophylaxis: SCD's Reason prophylaxis not ordered:: Medical Contraindication - Severe anemia with upper GI bleed - Physical Exam General: Alert, Oriented x3, Cooperative HEENT: Atraumatic, PERRLA, EOMI, Normocephalic Neck: Supple, No JVD, Negative Carotid Bruits Lungs: Clear to auscultation, Normal air movement, No rhonchi, No wheeze, No rales Cardiovascular: Regular rate, Regular Rhythm, Normal S1, Normal S2, No murmurs, - - Pacemaker on right subclavian region Abdomen: Bowel Sounds Present, Soft, Non Tender, Non-Distended, - Extremities: No clubbing, No cyanosis, Capillary Refill Less than 3 Seconds, Edema Skin: No rashes, No breakdown Musculoskeletal: No Tenderness to Palpation of Joints or Extremities, Arthritic Changes Neurological: Cranial nerves II-XII grossly intact Psych/Mental Status: Normal Affect, Appropriate Vital Signs Temp Pulse Resp BP Pulse Ox 98.6 F 60 19 H 134/82 H 99 02/14/18 21:20 02/14/18 21:20 02/14/18 21:20 02/14/18 21:20 02/14/18 21:30 Oxygen Delivery Method Room Air Weight: 211 lb 9.6 oz Body Mass Index (BMI) 34.1 Intake and Output for Last 24 Hours 02/12/18 02/13/18 02/14/18 23:59 23:59 23:59 Intake Total 720 / 720 Balance 720 / 720 Laboratory Tests Past 24 Hrs 02/14/18 02/14/18 02/14/18 12:32 12:32 12:32 WBC 4.9 RBC 2.03 L Hgb 5.9 L* Hct 18.7 L MCV 92.1 MCH 29.1 MCHC 31.6 L RDW 17.7 H RDW Differential 57.9 H Plt Count 174 MPV 10.6 PT 29.1 H INR 2.7 Sodium 134 L Potassium 4.7 Chloride 109 H Carbon Dioxide 15.0 L Anion Gap 10 BUN 38 H Creatinine 1.94 H Estim Creat Clear Calc 35.17 Est GFR (MDRD) Af Amer 45 L Est GFR (MDRD) Non-Af 37 L BUN/Creatinine Ratio 19.6 Glucose 130 H Calcium 8.5 Blood Type Antibody Screen Crossmatch 02/14/18 12:33 WBC RBC Hgb Hct MCV MCH MCHC RDW RDW Differential Plt Count MPV PT INR Sodium Potassium Chloride Carbon Dioxide Anion Gap BUN Creatinine Estim Creat Clear Calc Est GFR (MDRD) Af Amer Est GFR (MDRD) Non-Af BUN/Creatinine Ratio Glucose Calcium Blood Type A POSITIVE Antibody Screen NEGATIVE Crossmatch See Detail Assessment/Plan This patient was seen in conjunction with Zaina BENITEZ. I have independently interviewed and examined the patient and reviewed pertinent history, examination findings, laboratory and plan of management. I have reviewed the note and agree with the documented findings with the few additional points. In brief, patient is admitted for severe anemia, hemoglobin 5.9, last hemoglobin 10.4 in January 10 admitted with dizziness, confusion and large black tarry stool consistent with upper GI bleed. Patient having second unit of blood transfusion. Posttransfusion H&H. Patient was seen by Dr. Desir. Plan for EGD tomorrow a.m. Monitor H&H. Continue cardiac and renal transplant medications. Hold Coumadin. Patient does not have further bleed, can add baby aspirin. I have discussed my assessment with Zaina BENITEZ and orders have been reviewed. Code Visit Inpatient E&M: 45054 Init Hosp L3
--- NOTE | 2018-02-14 17:26 | CON.PCM_ITS ---
Reason for Consult Date of Consultation: 02/14/18 Reason for Consultation: anemia History of Present Illness: The patient is a 62 year old M with a complex past medical history significant for renal transplantation ?3, most recent renal transplant was July 2017, August 04, 2016 status post aortic valve replacement and mitral valve replacement both with bioprosthetic valves and pacemaker placement. Patient is on chronic anticoagulation as a result. Last Wednesday, the patient noted large amounts of foul-smelling black stool. He was also noted to be somewhat confused and dizzy. Since that time, he has had darker stools which are lightening up somewhat. He has noted fatigue ever since. hemoglobin January 10 was 10.4. hemoglobin today was 5.9. The patient was not noted to be orthostatic and did not clinically seem to be actively bleeding. He was admitted to the PCU with plans for transfusion. I was contacted for GI bleed. the patient was admitted to [facility] in 2015 diagnosis diarrhea and likely enterococcal sepsis. He underwent colonoscopy at that time which demonstrated diverticulosis but no other colon abnormalities. prior to that, he had undergone colonoscopy in December 26, 2014 for rectal bleeding which demonstrated irritation. We'll area and otherwise diverticulosis and no other abnormalities. He underwent a hemorrhoidectomy a week later. I understand he had upper endoscopy earlier in 2014. Past Medical History Past Medical History (Chronic Problems): Chronic Problems Renal transplant, status post (Chronic) Pacemaker (Chronic) Valvular heart disease (Chronic) s/p mitral and aortic valve replacement History of skin cancer (Chronic) CKD (chronic kidney disease), stage III (Chronic) History of anemia of chronic disease (Chronic) History of hypertension (Chronic) Allergies No Known Allergies Allergy (Verified 02/14/18 12:10) Home Medications: Ambulatory Orders Medication Instructions Recorded Tamsulosin HCl [Flomax] 0.4 mg PO DAILY 03/16/15 Zolpidem Tartrate [Ambien Cr] 12.5 mg PO QHS 03/16/15 Finasteride [Proscar] 5 mg PO DAILY 10/23/15 Atorvastatin Calcium [Lipitor] 40 mg PO QHS 11/26/16 Cyanocobalamin (Vitamin B-12) 100 mcg PO DAILY 11/26/16 [Vitamin B-12] Darbepoetin Isidro in Polysorbat 500 mcg SC X1 11/26/16 [Aranesp] Warfarin [Coumadin ([facility])] 2 mg PO SUTUWETHSA 11/26/16 Aspirin E.C. [Ecotrin] 81 mg PO DAILY@0800 02/14/18 Carvedilol 6.25 mg PO BID 02/14/18 Ferrous Sulfate 324 mg PO DAILY 02/14/18 Mycophenolate Sodium [Mycophenolic 360 mg PO BID 02/14/18 Acid] Prednisone 5 mg PO DAILY 02/14/18 Sulfamethoxazole/Trimethoprim 1 tab PO MOWEFR 02/14/18 [Sulfamethoxazole-Tmp Ds Tablet] Tacrolimus Anhydrous [Prograf] 1 mg PO DAILY 02/14/18 Tacrolimus Anhydrous [Prograf] 2 mg PO DAILY 02/14/18 Warfarin Sodium 4 mg PO MOFR 02/14/18 Surgical History: - - Sebaceous carcinoma right eyelid resection, multiple skin cancer lesion biopsies/resections, hemorrhoidectomy, mitral and aortic valve replacements, pacemaker placement, hernia repair, renal transplant x3. Psychiatric History: No pertinent psych hx Lives: Spouse/ Significant Other Smoking Status: Never smoker Alcohol: None Drugs: None - *Family History Maternal History Items: - - Arthritis. Denies maternal cardiac history. Paternal History Items: Heart Disease Review of Systems Constitutional: Reports: Malaise, Weakness. Denies: Chills, Fever, Weight Change HEENT: Denies: Head Aches, Sinus Congestion, Sinus Drainage Cardiovascular: Denies: Chest Pain, Palpitations Respiratory: Denies: Cough, Shortness of breath at rest, Sputum production Gastrointestinal: Reports: Melena. Denies: Abdominal Pain, Nausea, Vomiting Genitourinary: Denies: Dysuria Musculoskeletal: Denies: Joint Pain, Joint Tenderness Skin: Denies: Rash, Wounds Neurological: Denies: Numbness, Tingling, Focal weakness Psychiatric: Denies: Anxiety, Depression, Homicidal Ideations, Suicidal Ideations Hematologic/ Lymphatic: Denies: Easy Bruising, Easy Bleeding - Physical Exam General: Alert, Oriented x3, Cooperative Lungs: Clear to auscultation, Normal air movement Cardiovascular: Regular rate, Murmur - 2/6-left and right sternal border- nonradiating Abdomen: Bowel Sounds Present, Soft, Non Tender Vital Signs Temp Pulse Resp BP Pulse Ox 98.6 F 60 20 H 136/75 H 100 02/14/18 16:33 02/14/18 16:33 02/14/18 16:33 02/14/18 16:33 02/14/18 16:33 Oxygen Delivery Method Room Air Weight: 95.98 kg Body Mass Index (BMI) 34.1 Intake and Output for Last 24 Hours 02/12/18 02/13/18 02/14/18 23:59 23:59 23:59 Intake Total Balance Laboratory Tests Past 24 Hrs 02/14/18 02/14/18 02/14/18 12:32 12:32 12:32 WBC 4.9 RBC 2.03 L Hgb 5.9 L* Hct 18.7 L MCV 92.1 MCH 29.1 MCHC 31.6 L RDW 17.7 H RDW Differential 57.9 H Plt Count 174 MPV 10.6 PT 29.1 H INR 2.7 Sodium 134 L Potassium 4.7 Chloride 109 H Carbon Dioxide 15.0 L Anion Gap 10 BUN 38 H Creatinine 1.94 H Estim Creat Clear Calc 35.17 Est GFR (MDRD) Af Amer 45 L Est GFR (MDRD) Non-Af 37 L BUN/Creatinine Ratio 19.6 Glucose 130 H Calcium 8.5 Blood Type Antibody Screen Crossmatch 02/14/18 12:33 WBC RBC Hgb Hct MCV MCH MCHC RDW RDW Differential Plt Count MPV PT INR Sodium Potassium Chloride Carbon Dioxide Anion Gap BUN Creatinine Estim Creat Clear Calc Est GFR (MDRD) Af Amer Est GFR (MDRD) Non-Af BUN/Creatinine Ratio Glucose Calcium Blood Type A POSITIVE Antibody Screen NEGATIVE Crossmatch See Detail Assessment/Plan GI bleed-likely occurred last week-likely upper GI bleed I am comfortable with maintaining the patient on his aspirin given his valve replacements and dilated atria. I am comfortable withholding his Coumadin currently. By history he probably had a bleeding episode last Wednesday. I'm called with him receiving 2-3 units of packed red cells given his previous issues with anemia and we will plan to proceed with upper endoscopy tomorrow. The patient was sent to the risks, benefits, complications and possible alternatives to endoscopy. If the patient has further decrease in hemoglobin or hematemesis will plan for urgent upper endoscopy. Given his recent unremarkable colonoscopies I would not necessarily plan for colonoscopy and less no abnormalities or from the upper endoscopy.
[2018-02-14] MEDS: MYCOPHENOLATE SODIUM 360 MG TABLET.DR 720 MG PO (19:41)
[2018-02-14] MEDS: Tacrolimus Anhydrous 1 MG Capsule 4 MG PO (19:45)
--- NOTE | 2018-02-14 21:00 | NURSING ---
THIS RN IS TAKING OVER CARE FOR THIS PATIENT AT THIS TIME.
[2018-02-14] MEDS: Carvedilol 6.25 MG Tablet PO (21:26)
[2018-02-14] MEDS: Atorvastatin Calcium 40 MG Tablet PO (21:26)
--- NOTE | 2018-02-14 21:38 | ED.RN ---
blood started in ed transfused at a rate on 200 ml/hr. no s/s of infusion reaction prior to transport to the floor. at bedside whole time in ed and went to the floor with patient. chilo arauz rn [id number]
[2018-02-14] MEDS: Zolpidem Tartrate 5 MG Tablet 10 MG PO (21:49)
[2018-02-14 22:23] LABS: Hemoglobin 7.4 g/dl (13.0-16.5)
[2018-02-15] VITALS (16 sets, daily range): BP systolic 130–153; BP diastolic 68–86; PULSE 58–77; RESP 16–23; TEMP 36.5–37.2; O2SAT 94–100
--- NOTE | 2018-02-15 05:55 | EKG12_ITS ---
Test Reason : AM EKG Blood Pressure : / mmHG Vent. Rate : 060 BPM Atrial Rate : 300 BPM P-R Int : 000 ms QRS Dur : 176 ms QT Int : 512 ms P-R-T Axes : 000 -28 123 degrees QTc Int : 512 ms Ventricular-paced rhythm Abnormal ECG Confirmed by GEMMA GRIFFIN, DEANDRA ([id number]), news copy editor CHARLES SEXTON ([id number]) on 02/16/2018 3:30:46 PM Referred By: DR SANDERS Confirmed By:DEANDRA MENENDEZ MD
[2018-02-15 07:25] LABS: International Normalized Ratio 2.7; Prothrombin Time (Protime)PT. 28.5 SECONDS (11.7-14.9)
[2018-02-15 07:26] LABS: Partial Thromboplast Time 41.8 Seconds (24.1-36.2)
[2018-02-15 07:40] LABS: Anion Gap 8 (5-15); BUN 32 mg/dL (7-18); BUN/Creat Ratio 17.5 RATIO (10-20); Calcium,Total 8.4 mg/dL (8.5-10.1); Chloride 114 mmol/L (98-107); Creatinine, Serum 1.83 mg/dL (0.70-1.30); EST Glomerular Filtration Rate 40 mL/min (>60); Est Glom Filt Rate - Afr Amer 48 mL/min (>60); Estimated Creatinine Clearance 37.28 ml/min; Glucose 75 mg/dL (74-106); Potassium 4.3 mmol/L (3.5-5.1); Sodium Level 139 mmol/L (136-145)
[2018-02-15] MEDS: predniSONE 5 MG Tablet PO (07:45)
[2018-02-15] MEDS: Tacrolimus Anhydrous 1 MG Capsule PO (07:47)
[2018-02-15] MEDS: Ferrous Sulfate 325 MG Tablet PO (07:47)
[2018-02-15] MEDS: MYCOPHENOLATE SODIUM 360 MG TABLET.DR PO (07:47)
[2018-02-15] MEDS: Tamsulosin HCl 0.4 MG Capsule PO (07:48)
[2018-02-15] MEDS: Carvedilol 6.25 MG Tablet PO (07:48)
[2018-02-15] MEDS: Finasteride 5 MG Tablet PO (07:49)
[2018-02-15 08:22] LABS: Absolute Neutrophil Count 3.1 X10^3/uL (2.0-7.7); Basophil# 0.01 X10^3/uL; Basophil% 0.2 % (0-1); Eosinophil# 0.12 X10^3/uL; Eosinophils% 2.8 % (0-5); Hematocrit 21.8 % (40-54); Hemoglobin 6.9 g/dl (13.0-16.5); Lymphocyte % 7.1 % (19-41); Mean Corp Hgb Conc 31.7 g/gl (32-36); Mean Corpuscular Hgb 29.1 pg (27.0-32.0); Mean Platelet Vol. 9.5 fl (6.2-12.0); Monocyte# 0.69 X10^3/uL; Monocyte% 16.4 % (0-10); Neutrophil % 73.5 % (47-70); Platelet Count 137 K/mm3 (150-450); RBC Distribution Width CV 17.4 % (11.6-14.6); Red Blood Count 2.37 M/mm3 (4.6-6.2); White Blood Count 4.2 K/mm3 (4.4-11.0)
[2018-02-15 08:26] LABS: Differential Indicated SCAN CRITERIA MET; POSITIVE COUNT NO; POSITIVE DIFFERENTIAL YES; POSITIVE MORPHOLOGY NO
[2018-02-15 09:38] LABS: Differential Comment SCANNED
--- NOTE | 2018-02-15 11:00 | EGD_PTH ---
PATIENT: JOSEPHINE STARKS LOC: [facility] U#:[id number] AGE/SX: 62/M ROOM: [facility] RE02/14/[address]: Dr. Darrell Thibodeaux DO : 1955 BED: 1 DIS: 02/15/2018 SPEC #: [id number] RECD: 02/15/18 12:21 STATUS: TING RE #: [id number] HIRA: 02/15/18 11:[address]: Ab Valenzuela DEPT: SURGICAL PATHOLOGY RECD BY: Isai Gifford ENTERED: 02/15/18 13:37 SP TYPE: EGD BIOPSY OTHR DR: MD Dr. Darrell Gomez DO Dr. Prakash Chand, MD Dr. Richard Guttman, MD Tissues: A - Gastric mucous membrane B - Esophagus, NOS Procedures: Special Stain Group II Surgery Specimen Level IV Alcian Blue/PAS (control) Comments: @ Ordering doctor for SUIV edited from to @ by CHRISTY at 02/15/18 1409 @ Submitting doctor edited from to @ by JOSHOD at 02/15/18 1409 HEADER OPERATION: [place] [place] DIAGNOSIS: GI bleed TISSUE SUBMITTED: A - Antral biopsy for histo and H. pylori, B - Distal esophagus biopsy MICROSCOPIC DIAGNOSIS A. Antral biopsy: Chronic active gastritis. A minute lymphoid aggregate, favor benign. B. Distal esophagus, biopsy: A fragment of gastroesophageal mucosa with chronic inflammation. Intestinal metaplasia (goblet cell metaplasia) is not identified. See comment. SJ:rg 02/16/18 COMMENT A. The results of immunohistochemistry for Helicobacter pylori will be reported separately ([id number]). B. Alcian blue/PAS stain with matched control is used in the evaluation of the specimen. MICROSCOPIC DESCRIPTION Slides are reviewed. GROSS DESCRIPTION A - Received in fixative is one container labeled with the patient's name and designated antral biopsy. The specimen consists of one irregular fragment of light gomez soft tissue that measures 0.3 x 0.3 x 0.1 cm. The specimen is totally submitted in one cassette. B - Received in fixative is one container labeled with the patient's name and designated biopsy distal esophagus. The specimen consists of one irregular fragment of light gomez soft tissue that measures 0.3 x 0.3 x 0.1 cm. The specimen is totally submitted in one cassette. / SJ:rg 02/15/18 TC:3 CPT: 95215 x2, 09550
--- NOTE | 2018-02-15 11:00 | IMM_PTH ---
PATIENT: JOSEPHINE STARKS LOC: [facility] U#:[id number] AGE/SX: 62/M ROOM: [facility] RE02/14/[address]: Dr. Darrell Thibodeaux DO : 1955 BED: 1 DIS: 02/15/2018 SPEC #: [id number] RECD: 02/15/18 13:59 STATUS: SOUT REQ #: [id number] HIRA: 02/15/18 11:[address]: Ab Valenzuela DEPT: IMMUNOHISTOCHEMISTRY RECD BY: Stella Mckeon ENTERED: 02/15/18 13:59 SP TYPE: IMMUNO OTHR DR: MD Dr. Darrell Gomez DO Dr. Prakash Chand, MD Tissues: A - Stomach, NOS Procedures: H Pylori (initial) Comments: @ Ordering doctor for H.PYLORI edited from to @ by RGOOD at 02/15/18 1400 @ Submitting doctor edited from to DR.RGUTTM Yañez by RGOOD at 02/15/18 1400 PHYSICIAN & INSTITUTION [place] [id number] SPECIMEN INFORMATION: Tissue Source: A - Antral biopsy Clinical Info: GI bleed Specimen Number: [id number] CPT code: 38451 METHODOLOGY: Deparaffinized sections of prefer/formalin-fixed tissue or PAP/DQ stained slides are incubated with monoclonal/polyclonal antibodies/oligonucleotide probes. Localization is made via biotin free immunoperoxidase method. Appropriate controls are performed and reacted as expected. Results on target cell population are indicated in the following table: RESULTS: ANTIBODY / CLONE RESULT Block A H Pylori (polyclonal) positive These tests were developed and their performance characteristics determined by [facility]. They may not have been cleared or approved by the U.S. Food and Drug Administration. The FDA has determined that such clearance or approval is not necessary. INTERPRETATION: A. Antral biopsy: Positive for Helicobacter pylori organisms. SJ:scarlett 02/16/18
--- NOTE | 2018-02-15 11:58 | OP.ENDO_ITS ---
Patient Name: Rusty Berrios Procedure Date: 02/15/2018 11:16 AM Date of : 1955 Age: 62 Procedure: Upper GI endoscopy Indications: Recent gastrointestinal bleeding Providers: Ab Valenzuela MD Medicines: Monitored Anesthesia Care Patient Profile: This is a 62 year old male. Refer to note in patient chart for documentation of history and physical. Complications: No immediate complications. Procedure: Pre-Anesthesia Assessment: - Prior to the procedure, a History and Physical was performed, and patient medications and allergies were reviewed. The patient is competent. The risks and benefits of the procedure and the sedation options and risks were discussed with the patient. All questions were answered and informed consent was obtained. Patient identification and proposed procedure were verified by the physician and the nurse in the procedure room. Mental Status Examination: alert and oriented. Airway Examination: normal oropharyngeal airway and neck mobility. Respiratory Examination: clear to auscultation. CV Examination: normal. Prophylactic Antibiotics: The patient does not require prophylactic antibiotics. Prior Anticoagulants: The patient has taken no previous anticoagulant or antiplatelet agents. ASA Grade Assessment: III - A patient with severe systemic disease. After reviewing the risks and benefits, the patient was deemed in satisfactory condition to undergo the procedure. The anesthesia plan was to use monitored anesthesia care (MAC). Immediately prior to administration of medications, the patient was re-assessed for adequacy to receive sedatives. The heart rate, respiratory rate, oxygen saturations, blood pressure, adequacy of pulmonary ventilation, and response to care were monitored throughout the procedure. The physical status of the patient was re-assessed after the procedure. After obtaining informed consent, the endoscope was passed under direct vision. Throughout the procedure, the patient's blood pressure, pulse, and oxygen saturations were monitored continuously. The gastroscope was introduced through the mouth, and advanced to the jejunum. The upper GI endoscopy was accomplished without difficulty. The patient tolerated the procedure well. Scope In: 11:34:22 AM Scope Out: 11:40:37 AM Total Procedure Duration Time 0 hours 6 minutes 15 seconds Findings: The examined jejunum was normal. Two non-bleeding cratered duodenal ulcers with no stigmata of bleeding were found in the duodenal bulb. Scattered mild inflammation characterized by erosions and erythema was found in the gastric fundus and in the gastric antrum. Biopsies were taken with a cold forceps for Helicobacter pylori testing using PyloriTek test. Biopsies were taken with a cold forceps for histology. A small hiatal hernia was present. Mildly severe esophagitis with no bleeding was found. Biopsies were taken with a cold forceps for histology. Impression: - Normal examined jejunum. - Multiple non-bleeding duodenal ulcers with no stigmata of bleeding. - Gastritis. Biopsied. - Small hiatal hernia. - Mildly severe reflux esophagitis. Rule out Haskins's esophagus. Biopsied. Recommendation: - Use Protonix (pantoprazole) 40 mg PO daily. - Continue present medications. Procedure Code(s): --- Professional --- 27003, Esophagogastroduodenoscopy, flexible, transoral; with biopsy, single or multiple CPT copyright 2017 [employer]. All rights reserved. The codes documented in this report are preliminary and upon licensed final expense agents review may be revised to meet current compliance requirements. Ab Valenzuela MD 02/15/2018 11:57:52 AM This report has been signed electronically. Number of Addenda: 0 Note Initiated On: 02/15/2018 11:16 AM
--- NOTE | 2018-02-15 12:20 | CASEMGMT ---
DEIDRA DARDEN Face to Face with patient for initial transition planning/care coordination assessment. RN KATALINA introduced self and role at [facility]. Patient lying in bed, alert and oriented, . Patient willing to participate in assessment and is able to answer all questions appropriately. Care providers, pharmacy, and demographics verified. Patient wishes to discharge home, denies need for home health at this time. Patient states he has no further needs or concerns at this time. CM to follow for discharge planning needs that may arise. PCP: Gabriella Specialists: [facility] transplant team Preferred Pharmacy: [facility] Insurance: MMO Prescription Benefit: MMO Living Will/HPOA: yes Seble Berrios LNOK: Living Arrangements: Patient lives with in [facility] with no steps to enter home. Patient independent Transportation: self/ DME/HHC: Patient has a cane, walker, and cpap at home. Disposition Plan: Patient to discharge home with family support and follow-up plans in place. Niki SHARMA, RN, CM
--- NOTE | 2018-02-15 12:43 | PCM.PN.SRG ---
Subjective: no complaints - Physical Exam General: Alert, Oriented x3, Cooperative Lungs: Clear to auscultation, Normal air movement Cardiovascular: Regular rate, Murmur - 2/6 Abdomen: Bowel Sounds Present, Soft, Non Tender Vital Signs Temp Pulse Resp BP Pulse Ox 98.5 F 62 18 146/83 H 100 02/15/18 12:00 02/15/18 12:00 02/15/18 12:00 02/15/18 12:00 02/15/18 12:00 Oxygen Delivery Method Room Air Weight: 95.98 kg Body Mass Index (BMI) 34.1 Intake and Output for Last 24 Hours 02/13/18 02/14/18 02/15/18 23:59 23:59 23:59 Intake Total 2183 / 2183 1126.2 / 1126.2 Balance 2183 / 2183 1126.2 / 1126.2 Laboratory Tests Past 24 Hrs 02/13/18 02/14/18 02/14/18 12:33 12:32 12:32 WBC 4.9 RBC 2.03 L Hgb 5.9 L* Hct 18.7 L MCV 92.1 MCH 29.1 MCHC 31.6 L RDW 17.7 H RDW Differential 57.9 H Plt Count 174 MPV 10.6 Immature Gran % (Auto) Neut % (Auto) Lymph % (Auto) [place] % (Auto) Eos % (Auto) Baso % (Auto) Absolute Neuts (auto) Absolute Lymphs (auto) Total Counted Differential Comment PT INR APTT Sodium 134 L Potassium 4.7 Chloride 109 H Carbon Dioxide 15.0 L Anion Gap 10 BUN 38 H Creatinine 1.94 H Estim Creat Clear Calc 35.17 Est GFR (MDRD) Af Amer 45 L Est GFR (MDRD) Non-Af 37 L BUN/Creatinine Ratio 19.6 Glucose 130 H Calcium 8.5 Blood Type Antibody Screen Crossmatch See Detail 02/14/18 02/14/18 02/14/18 12:32 12:33 21:50 WBC RBC Hgb 7.4 L Hct 23.0 L MCV MCH MCHC RDW RDW Differential Plt Count MPV Immature Gran % (Auto) Neut % (Auto) Lymph % (Auto) [place] % (Auto) Eos % (Auto) Baso % (Auto) Absolute Neuts (auto) Absolute Lymphs (auto) Total Counted Differential Comment PT 29.1 H INR 2.7 APTT Sodium Potassium Chloride Carbon Dioxide Anion Gap BUN Creatinine Estim Creat Clear Calc Est GFR (MDRD) Af Amer Est GFR (MDRD) Non-Af BUN/Creatinine Ratio Glucose Calcium Blood Type A POSITIVE Antibody Screen NEGATIVE Crossmatch See Detail 02/15/18 02/15/18 02/15/18 06:15 06:15 06:15 WBC RBC Hgb Cancelled Hct Cancelled MCV MCH MCHC RDW RDW Differential Plt Count MPV Immature Gran % (Auto) Neut % (Auto) Lymph % (Auto) [place] % (Auto) Eos % (Auto) Baso % (Auto) Absolute Neuts (auto) Absolute Lymphs (auto) Total Counted Differential Comment PT 28.5 H INR 2.7 APTT 41.8 H Sodium 139 Potassium 4.3 Chloride 114 H Carbon Dioxide 17.0 L Anion Gap 8 BUN 32 H Creatinine 1.83 H Estim Creat Clear Calc 37.28 Est GFR (MDRD) Af Amer 48 L Est GFR (MDRD) Non-Af 40 L BUN/Creatinine Ratio 17.5 Glucose 75 Calcium 8.4 L Blood Type Antibody Screen Crossmatch 02/15/18 02/15/18 06:15 06:15 WBC 4.2 L RBC 2.37 L Hgb 6.9 L Hct 21.8 L MCV 92.0 MCH 29.1 MCHC 31.7 L RDW 17.4 H RDW Differential 56.0 H Plt Count 137 L MPV 9.5 Immature Gran % (Auto) 0.000 Neut % (Auto) 73.5 H Lymph % (Auto) 7.1 L [place] % (Auto) 16.4 H Eos % (Auto) 2.8 Baso % (Auto) 0.2 Absolute Neuts (auto) 3.1 Absolute Lymphs (auto) 0.30 L Total Counted Not Reportable Differential Comment SCANNED PT INR APTT Cancelled Sodium Potassium Chloride Carbon Dioxide Anion Gap BUN Creatinine Estim Creat Clear Calc Est GFR (MDRD) Af Amer Est GFR (MDRD) Non-Af BUN/Creatinine Ratio Glucose Calcium Blood Type Antibody Screen Crossmatch Medical Necessity - Tobacco Use Smoking Status: Never smoker Assessment/Plan GI bleed-likely occurred last week- upper endoscopy demonstrated a duodenal ulcer with a white base, mild gastritis, small hiatal hernia, and distal esophagitis. I recommend he be changed to an enteric coated 81 mg aspirin since he should remain on aspirin due to his valve replacement and would recommend Protonix 40 mg or similar after discharge. I've asked that they contact his transplant service to assure they are comfortable with Protonix long-term given his antirejection medications. I have reported on last CBC after his third unit transfusion to catalog his discharge hemoglobin level. I plan to have him follow-up in my office next week and we'll go over results of his biopsies. If he has further episodes of bleeding marked by melena or dizziness he is instructed to contact me or return to the emergency room right away.
[2018-02-15 13:55] LABS: Absolute Lymphocyte Count 0.17 X10^3/ul (0.83-4.51); Eosinophil# 0.05 X10^3/uL; Eosinophils% 1.1 % (0-5); Hematocrit 25.1 % (40-54); Hemoglobin 8.1 g/dl (13.0-16.5); Lymphocyte # 0.17 X10^3/ul (4.0); Lymphocyte % 3.6 % (19-41); Mean Corp Hgb Conc 32.3 g/gl (32-36); Mean Corpuscular Hgb 29.9 pg (27.0-32.0); Mean Corpuscular Volume 92.6 fL (80-94); Mean Platelet Vol. 9.5 fl (6.2-12.0); Monocyte# 0.49 X10^3/uL; Monocyte% 10.3 % (0-10); Neutrophil # 4.03 X10^3/uL (2.7-7.7); Neutrophil % 84.8 % (47-70); Platelet Count 135 K/mm3 (150-450); RBC Distribution Width CV 17.4 % (11.6-14.6); RBC Distribution Width SD 55.7 fl (35.1-43.9); Red Blood Count 2.71 M/mm3 (4.6-6.2); White Blood Count 4.8 K/mm3 (4.4-11.0)
[2018-02-15 13:56] LABS: Differential Indicated SCAN CRITERIA MET; POSITIVE COUNT NO; POSITIVE DIFFERENTIAL YES; POSITIVE MORPHOLOGY NO
[2018-02-15 14:15] LABS: Differential Comment SCANNED
--- NOTE | 2018-02-15 15:14 | DCINST_ITS ---
- Discharge Diagnoses Current Active Problems: Current Active and Chronic Problems Renal transplant, status post (Chronic) Pacemaker (Chronic) Valvular heart disease (Chronic) s/p mitral and aortic valve replacement You will use the following diet at home:: No restrictions Discharge Activity: Return to Normal Activity Call your doctor if you observe: Shortness of breath, Dizziness, Fainting spells, Chest pain Allergies/Adverse Reactions: Allergies No Known Allergies Allergy (Verified 02/14/18 12:10) Medications to take at Discharge Tamsulosin HCl [Flomax] 0.4 mg PO DAILY 03/16/15 Zolpidem Tartrate [Ambien Cr] 12.5 mg PO QHS 03/16/15 Finasteride [Proscar] 5 mg PO DAILY 10/23/15 Atorvastatin Calcium [Lipitor] 40 mg PO QHS 11/26/16 Cyanocobalamin (Vitamin B-12) [Vitamin B-12] 100 mcg PO DAILY 11/26/16 Darbepoetin Isidro in Polysorbat [Aranesp] 500 mcg SC X1 11/26/16 Warfarin [Coumadin] 2 mg PO SUTUWETHSA 11/26/16 Carvedilol 6.25 mg PO BID 02/14/18 Ferrous Sulfate 324 mg PO DAILY 02/14/18 Mycophenolate Sodium [Mycophenolic Acid] 360 mg PO BID 02/14/18 Prednisone 5 mg PO DAILY 02/14/18 Sulfamethoxazole/Trimethoprim [Sulfamethoxazole-Tmp Ds Tablet] 1 tab PO MOWEFR 02/14/18 Tacrolimus Anhydrous [Prograf] 1 mg PO QHS 02/14/18 Tacrolimus Anhydrous [Prograf] 2 mg PO DAILY 02/14/18 Warfarin Sodium 4 mg PO MOFR 02/14/18 Pantoprazole Sodium [Protonix] 40 mg PO DAILY #30 tablet 02/15/18 Pantoprazole Sodium [Protonix] 40 mg PO DAILY #30 tablet 02/15/18 The following prescriptions were given: Pantoprazole Sodium [Protonix] 40 mg PO DAILY #30 tablet Pantoprazole Sodium [Protonix] 40 mg PO DAILY #30 tablet Primary Care Physician: Beth Quiroz MD [Primary Care Provider] - Please follow up with your Primary Care Physician in: 1 Week Test Results: Test results from this visit will be discussed in further detail at your follow- up appointment, if applicable. Please Follow Up With: Ab Valenzuela MD When: As scheduled next week.
--- NOTE | 2018-02-15 15:14 | DCINST_ITS ---
- Discharge Diagnoses Current Active Problems: Current Active and Chronic Problems Renal transplant, status post (Chronic) Pacemaker (Chronic) Valvular heart disease (Chronic) s/p mitral and aortic valve replacement You will use the following diet at home:: No restrictions Your food should be the consistency of: Regular Your liquids should be the consistency of: Regular/Thin Discharge Activity: Return to Normal Activity Weight Bearing Status: Full weight bearing Allergies/Adverse Reactions: Allergies No Known Allergies Allergy (Verified 02/14/18 12:10) Medications to take at Discharge Tamsulosin HCl [Flomax] 0.4 mg PO DAILY 03/16/15 Zolpidem Tartrate [Ambien Cr] 12.5 mg PO QHS 03/16/15 Finasteride [Proscar] 5 mg PO DAILY 10/23/15 Atorvastatin Calcium [Lipitor] 40 mg PO QHS 11/26/16 Cyanocobalamin (Vitamin B-12) [Vitamin B-12] 100 mcg PO DAILY 11/26/16 Darbepoetin Isidro in Polysorbat [Aranesp] 500 mcg SC X1 11/26/16 Warfarin [Coumadin] 2 mg PO SUTUWETHSA 11/26/16 Carvedilol 6.25 mg PO BID 02/14/18 Ferrous Sulfate 324 mg PO DAILY 02/14/18 Mycophenolate Sodium [Mycophenolic Acid] 360 mg PO BID 02/14/18 Prednisone 5 mg PO DAILY 02/14/18 Sulfamethoxazole/Trimethoprim [Sulfamethoxazole-Tmp Ds Tablet] 1 tab PO MOWEFR 02/14/18 Tacrolimus Anhydrous [Prograf] 1 mg PO QHS 02/14/18 Tacrolimus Anhydrous [Prograf] 2 mg PO DAILY 02/14/18 Warfarin Sodium 4 mg PO MOFR 02/14/18 Pantoprazole Sodium [Protonix] 40 mg PO DAILY #30 tablet 02/15/18 The following prescriptions were given: Pantoprazole Sodium [Protonix] 40 mg PO DAILY #30 tablet Primary Care Physician: Beth Quiroz MD [Primary Care Provider] - Please follow up with your Primary Care Physician in: at next visit Test Results: Test results from this visit will be discussed in further detail at your follow- up appointment, if applicable. Please Follow Up With: Ab Valenzuela MD When: in one week
--- NOTE | 2018-02-15 15:15 | PCM.DC.SUM ---
Discharge Date and Diagnosis Date of Admission: 02/14/18 Date of Discharge: 02/15/18 - Primary Discharge Diagnosis 1. Acute blood loss anemia secondary to upper GI bleed as a result of duodenal ulcer with mild gastritis 2. Chronic kidney disease stage III/status post renal transplant x3, most recently July 2017 3. 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 Status post pacemaker 5. Hypertension 6. Hyperlipidemia 7. Iron deficiency anemia 8. BPH - Secondary Discharge Diagnosis Chronic Problems Renal transplant, status post (Chronic) Pacemaker (Chronic) Valvular heart disease (Chronic) s/p mitral and aortic valve replacement History of skin cancer (Chronic) CKD (chronic kidney disease), stage III (Chronic) History of anemia of chronic disease (Chronic) History of hypertension (Chronic) Hospital Course and Treatment Dr. Valenzuela- General surgery Operations: None Procedures: EGD Summary of Care Provided: The patient is a 62 year old M admitted 02/14/2018 due to black stools and weakness. 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 1. Acute blood loss anemia secondary to upper GI bleed-hemoglobin on admission 5.7. Recent hemoglobin 02/07/2018 9.5. Patient reports black stools. Dr. Valenzuela. Patient underwent EGD which showed nonbleeding duodenal ulcers, gastritis, small hiatal hernia, mildly severe reflux esophagitis. Biopsy sent to rule out Haskins's esophagus. Patient will be discharged on Protonix 40 mg daily. Follow-up with Dr. Deisr next week. Follow-up with primary care physician in 1 week. 2. Chronic kidney disease stage III/status post renal transplant x3, most recently July 2017- Follows with [facility]. Continue home regimen including Prograf, Mycophenolic, Aranesp, Bactrim, prednisone. 3. Status post mitral and aortic valve replacement with organic valves on chronic anticoagulation with Coumadin-INR 2.7 on admission. Patient will continue Coumadin at discharge. Discontinue aspirin regimen. 4. Status post pacemaker 5. Hypertension-stable, continue home carvedilol regimen. 6. Hyperlipidemia-hyperlipidemia. 7. Iron deficiency anemia-continue iron/b12 supplementation. 8. BPH- continue home proscar/flomax regimen. General: Alert, Oriented x3, Cooperative, No apparent distress HEENT: Atraumatic, PERRLA, EOMI, Normocephalic Oral: Moist Mucosa Neck: Supple, No JVD, Negative Carotid Bruits Lungs: Clear to auscultation, Normal air movement Cardiovascular: Regular rate, Regular Rhythm, Normal S1, Normal S2, No murmurs Abdomen: Bowel Sounds Present, Soft, Non Tender, Non-Distended Extremities: No clubbing, No cyanosis, Capillary Refill Less than 3 Seconds, Edema - Nonpitting bilateral lower extremities, - - Right upper extremity AV fistula Skin: No rashes, No breakdown Musculoskeletal: No Tenderness to Palpation of Joints or Extremities Neurological: Cranial nerves II-XII grossly intact, Neuro grossly intact Psych/Mental Status: Normal Affect, Appropriate Patient seen and examined prior to discharge. Physical assessment as noted above. Patient is stable for discharge home with a follow-up recommendations as noted above. This patient was seen by CRISTOBAL Calvert under the supervision of Dr. Thibodeaux. - Physical Exam Vital Signs Temp Pulse Resp BP Pulse Ox 98.7 F 61 18 143/83 H 98 02/15/18 12:52 02/15/18 13:17 02/15/18 14:00 02/15/18 12:52 02/15/18 12:52 Oxygen Delivery Method Room Air Weight: 211 lb 9.595 oz Body Mass Index (BMI) 34.1 Intake and Output for Last 24 Hours 02/13/18 02/14/18 02/15/18 23:59 23:59 23:59 Intake Total 2183 / 2183 2476.2 / 2476.2 Balance 2183 / 2183 2476.2 / 2476.2 Laboratory Tests Past 24 Hrs 02/13/18 02/14/18 02/14/18 12:33 12:33 21:50 WBC RBC Hgb 7.4 L Hct 23.0 L MCV MCH MCHC RDW RDW Differential Plt Count MPV Immature Gran % (Auto) Neut % (Auto) Lymph % (Auto) Flagler % (Auto) Eos % (Auto) Baso % (Auto) Absolute Neuts (auto) Absolute Lymphs (auto) Total Counted Differential Comment PT INR APTT Sodium Potassium Chloride Carbon Dioxide Anion Gap BUN Creatinine Estim Creat Clear Calc Est GFR (MDRD) Af Amer Est GFR (MDRD) Non-Af BUN/Creatinine Ratio Glucose Calcium Blood Type A POSITIVE Antibody Screen NEGATIVE Crossmatch See Detail See Detail 02/15/18 02/15/18 02/15/18 06:15 06:15 06:15 WBC RBC Hgb Cancelled Hct Cancelled MCV MCH MCHC RDW RDW Differential Plt Count MPV Immature Gran % (Auto) Neut % (Auto) Lymph % (Auto) Flagler % (Auto) Eos % (Auto) Baso % (Auto) Absolute Neuts (auto) Absolute Lymphs (auto) Total Counted Differential Comment PT 28.5 H INR 2.7 APTT 41.8 H Sodium 139 Potassium 4.3 Chloride 114 H Carbon Dioxide 17.0 L Anion Gap 8 BUN 32 H Creatinine 1.83 H Estim Creat Clear Calc 37.28 Est GFR (MDRD) Af Amer 48 L Est GFR (MDRD) Non-Af 40 L BUN/Creatinine Ratio 17.5 Glucose 75 Calcium 8.4 L Blood Type Antibody Screen Crossmatch 02/15/18 02/15/18 02/15/18 06:15 06:15 13:18 WBC 4.2 L 4.8 RBC 2.37 L 2.71 L Hgb 6.9 L 8.1 L Hct 21.8 L 25.1 L MCV 92.0 92.6 MCH 29.1 29.9 MCHC 31.7 L 32.3 RDW 17.4 H 17.4 H RDW Differential 56.0 H 55.7 H Plt Count 137 L 135 L MPV 9.5 9.5 Immature Gran % (Auto) 0.000 0.200 Neut % (Auto) 73.5 H 84.8 H Lymph % (Auto) 7.1 L 3.6 L Flagler % (Auto) 16.4 H 10.3 H Eos % (Auto) 2.8 1.1 Baso % (Auto) 0.2 0.0 Absolute Neuts (auto) 3.1 4.0 Absolute Lymphs (auto) 0.30 L 0.17 L Total Counted Not Reportable Not Reportable Differential Comment SCANNED SCANNED PT INR APTT Cancelled Sodium Potassium Chloride Carbon Dioxide Anion Gap BUN Creatinine Estim Creat Clear Calc Est GFR (MDRD) Af Amer Est GFR (MDRD) Non-Af BUN/Creatinine Ratio Glucose Calcium Blood Type Antibody Screen Crossmatch Discharge Activity: Return to Normal Activity Weight Bearing Status: Full weight bearing Home Medications: Medications to take at Discharge Tamsulosin HCl [Flomax] 0.4 mg PO DAILY 03/16/15 Zolpidem Tartrate [Ambien Cr] 12.5 mg PO QHS 03/16/15 Finasteride [Proscar] 5 mg PO DAILY 10/23/15 Atorvastatin Calcium [Lipitor] 40 mg PO QHS 11/26/16 Cyanocobalamin (Vitamin B-12) [Vitamin B-12] 100 mcg PO DAILY 11/26/16 Darbepoetin Isidro in Polysorbat [Aranesp] 500 mcg SC X1 11/26/16 Warfarin [Coumadin] 2 mg PO SUTUWETHSA 11/26/16 Carvedilol 6.25 mg PO BID 02/14/18 Ferrous Sulfate 324 mg PO DAILY 02/14/18 Mycophenolate Sodium [Mycophenolic Acid] 360 mg PO BID 02/14/18 Prednisone 5 mg PO DAILY 02/14/18 Sulfamethoxazole/Trimethoprim [Sulfamethoxazole-Tmp Ds Tablet] 1 tab PO MOWEFR 02/14/18 Tacrolimus Anhydrous [Prograf] 1 mg PO QHS 02/14/18 Tacrolimus Anhydrous [Prograf] 2 mg PO DAILY 02/14/18 Warfarin Sodium 4 mg PO MOFR 02/14/18 Pantoprazole Sodium [Protonix] 40 mg PO DAILY #30 tablet 02/15/18 Following Prescrptions Were Given to Patient: Pantoprazole Sodium [Protonix] 40 mg PO DAILY #30 tablet Primary Care Physician: Beth Quiroz MD [Primary Care Provider] - Please follow up with your Primary Care Physician in: at next visit Please Follow Up With: Ab Valenzuela MD When: in one week Disposition: Home Minutes spent on discharge:: 35 Patient Condition:: Stable Medical Necessity - Tobacco Use Smoking Status: Never smoker Meaningful Use Info Meaningful Use Diagnoses (Choose all that apply): None applicable
--- NOTE | 2018-02-16 16:14 | CASEMGMT ---
DEIDRA DARDEN Discharge Follow-up Phone Call: CAESAR: Gonzalez Strata: 3 Call Date: 02/16/18 Discharge Date: 02/15/18 Time of Call: 1605 Duration: 10 minutes ? Admitting Diagnosis: ABLA secondary to upper GI bleed/duodenal ulcer with mild gastritis This DEIDRA DARDEN contacted pt via telephone in regard to discharge follow-up. Pt states he was feeling a little off this morning but has been feeling better this afternoon. States he had Protonix at home and has follow-up appointments with Dr. Valenzuela, Dr. Quiroz, and his transplant package collector. Pt denies any questions or concerns regarding his discharge instructions. Erika Rain RN
== END 2018-02-15 15:59 | disposition home or self-care (01) | DRG 811 ==
LOC: ED 12:56 → PCU 14:54
PROVIDERS: Nurse Practitioner Family; Surgery; Admitting Provider Internal Medicine; Emergency Provider Emergency Medicine; Family Provider Internal Medicine; PCP Internal Medicine; Visit Provider Internal Medicine
PROC: 0DJ08ZZ Inspection of Upper Intestinal Tract, Via Natural or Artificial Opening Endoscopic (ICD-10-PCS; CPT 43235; principal; 2018-02-15 10:55)
DX: D62 Acute posthemorrhagic anemia (principal); K26.4 Chronic or unspecified duodenal ulcer with hemorrhage; Z94.0 Kidney transplant status; I12.9 Hypertensive chronic kidney disease with stage 1 through stage 4 chronic kidney disease, or unspecified chronic kidney disease; N40.0 Benign prostatic hyperplasia without lower urinary tract symptoms; N18.3 Chronic kidney disease, stage 3 (moderate); E78.5 Hyperlipidemia, unspecified; K57.90 Diverticulosis of intestine, part unspecified, without perforation or abscess without bleeding; K44.9 Diaphragmatic hernia without obstruction or gangrene; K29.70 Gastritis, unspecified, without bleeding; D50.9 Iron deficiency anemia, unspecified; Z79.899 Other long term (current) drug therapy; Z79.01 Long term (current) use of anticoagulants; Z95.3 Presence of xenogenic heart valve; Z95.0 Presence of cardiac pacemaker; Z85.828 Personal history of other malignant neoplasm of skin
CPT/HCPCS: 36415; 80048; 85014; 85018; 85025; 85027; 85610; 85730; 86850; 86900; 86920; 86922; 88305; 88313; 88342; 93005; 97802; 99284; J7030; J7040; P9016; A4216

== ENCOUNTER → 2018-03-04 08:28 | Outpatient (CLI) | payer OTHER, SELFPAY ==
[2018-02-14 16:46] VITALS: BMI 34.1
[2018-03-04 10:42] LABS: Anion Gap 9 (5-15); BUN 30 mg/dL (7-18); CPK Total, Creatine Kinase 37 U/L (39-308); Calcium,Total 9.2 mg/dL (8.5-10.1); Chloride 109 mmol/L (98-107); Creatinine, Serum 2.51 mg/dL (0.70-1.30); EST Glomerular Filtration Rate 28 mL/min (>60); Est Glom Filt Rate - Afr Amer 34 mL/min (>60); Glucose 80 mg/dL (74-106); Potassium 5.1 mmol/L (3.5-5.1); Sodium Level 136 mmol/L (136-145)
== END ==
PROVIDERS: Family Provider Internal Medicine; PCP Internal Medicine; Referring Provider Internal Medicine Nephrology; Visit Provider Internal Medicine Nephrology
DX: Z94.0 Kidney transplant status (principal); Z79.899 Other long term (current) drug therapy; R79.9 Abnormal finding of blood chemistry, unspecified; Z48.298 Encounter for aftercare following other organ transplant; D89.9 Disorder involving the immune mechanism, unspecified; E78.2 Mixed hyperlipidemia; D50.0 Iron deficiency anemia secondary to blood loss (chronic)
CPT/HCPCS: 36415; 80048; 82550

== ENCOUNTER 2018-03-21 07:39 | Outpatient (RCR) | payer OTHER, SELFPAY ==
[2018-02-14 16:46] VITALS: BMI 34.1
[2018-02-28 10:21] LABS: Absolute Lymphocyte Count 0.31 X10^3/ul (0.83-4.51); Absolute Neutrophil Count 3.6 X10^3/uL (2.0-7.7); Basophil# 0.01 X10^3/uL; Basophil% 0.2 % (0-1); Eosinophil# 0.11 X10^3/uL; Eosinophils% 2.3 % (0-5); Hematocrit 30.9 % (40-54); Hemoglobin 9.3 g/dl (13.0-16.5); Lymphocyte # 0.31 X10^3/ul (4.0); Lymphocyte % 6.4 % (19-41); Mean Corp Hgb Conc 30.1 g/gl (32-36); Mean Corpuscular Hgb 28.5 pg (27.0-32.0); Mean Corpuscular Volume 94.8 fL (80-94); Mean Platelet Vol. 9.2 fl (6.2-12.0); Monocyte# 0.88 X10^3/uL; Monocyte% 18.1 % (0-10); Neutrophil # 3.55 X10^3/uL (2.7-7.7); Neutrophil % 72.8 % (47-70); Platelet Count 152 K/mm3 (150-450); RBC Distribution Width CV 15.9 % (11.6-14.6); Red Blood Count 3.26 M/mm3 (4.6-6.2); White Blood Count 4.9 K/mm3 (4.4-11.0)
[2018-02-28 10:26] LABS: Anion Gap 7 (5-15); BUN 29 mg/dL (7-18); Chloride 111 mmol/L (98-107); Creatinine, Serum 2.37 mg/dL (0.70-1.30); EST Glomerular Filtration Rate 30 mL/min (>60); Est Glom Filt Rate - Afr Amer 36 mL/min (>60); Glucose 80 mg/dL (74-106); Potassium 4.8 mmol/L (3.5-5.1); Sodium Level 138 mmol/L (136-145)
[2018-02-28 10:28] LABS: Differential Indicated SCAN CRITERIA MET; POSITIVE COUNT NO; POSITIVE DIFFERENTIAL YES; POSITIVE MORPHOLOGY NO
[2018-03-07 11:24] LABS: Tacrolimus (FK506) 50.3 ng/mL (2.0-20.0)
[2018-03-21 10:28] LABS: Hematocrit 37.9 % (40-54); Hemoglobin 11.3 g/dl (13.0-16.5); Mean Corp Hgb Conc 29.8 g/gl (32-36); Mean Platelet Vol. 12.1 fl (6.2-12.0); Platelet Count 139 K/mm3 (150-450); RBC Distribution Width CV 16.2 % (11.6-14.6); Red Blood Count 4.03 M/mm3 (4.6-6.2); White Blood Count 3.1 K/mm3 (4.4-11.0)
[2018-03-21 10:31] LABS: Scan Indicated on CBC? Y/N NO
[2018-03-21 10:45] LABS: Anion Gap 11 (5-15); BUN 27 mg/dL (7-18); Chloride 107 mmol/L (98-107); Creatinine, Serum 1.37 mg/dL (0.70-1.30); EST Glomerular Filtration Rate 56 mL/min (>60); Est Glom Filt Rate - Afr Amer 67 mL/min (>60); Glucose 74 mg/dL (74-106); Potassium 4.1 mmol/L (3.5-5.1); Sodium Level 141 mmol/L (136-145)
[2018-03-24 16:16] LABS: Tacrolimus (FK506) 6.9 ng/mL (2.0-20.0)
== END 2018-03-21 08:00 | disposition home or self-care (01) ==
LOC: MTLAB 07:39
PROVIDERS: Family Provider Internal Medicine; PCP Internal Medicine; Referring Provider Internal Medicine Nephrology; Visit Provider Internal Medicine Nephrology
DX: D89.9 Disorder involving the immune mechanism, unspecified (principal); D50.9 Iron deficiency anemia, unspecified; Z94.0 Kidney transplant status; Z79.899 Other long term (current) drug therapy; Z48.298 Encounter for aftercare following other organ transplant
CPT/HCPCS: 36415; 80051; 80197; 82565; 82947; 84520; 85025; 85027

== ENCOUNTER 2018-04-18 08:36 | Outpatient (RCR) | payer OTHER, MEDICARE, SELFPAY ==
[2018-02-14 16:46] VITALS: BMI 34.1
[2018-04-04 09:48] LABS: Prograf-FK506 TO CCF/UNIV MAILED SPECIMEN
[2018-04-04 10:11] LABS: Hematocrit 38.8 % (40-54); Hemoglobin 12.2 g/dl (13.0-16.5); Mean Corp Hgb Conc 31.4 g/gl (32-36); Mean Corpuscular Hgb 29.4 pg (27.0-32.0); Mean Corpuscular Volume 93.5 fL (80-94); Mean Platelet Vol. 11.7 fl (6.2-12.0); Platelet Count 124 K/mm3 (150-450); RBC Distribution Width CV 16.7 % (11.6-14.6); RBC Distribution Width SD 55.6 fl (35.1-43.9); Red Blood Count 4.15 M/mm3 (4.6-6.2); White Blood Count 3.4 K/mm3 (4.4-11.0)
[2018-04-04 10:16] LABS: AST(SGOT) 20 U/L (15-37); Alanine Aminotransfer ALT/SGPT 24 U/L (16-61); Albumin, Serum 3.5 g/dL (3.2-5.0); Alkaline Phosphatase 187 U/L (45-117); Anion Gap 10 (5-15); BUN 22 mg/dL (7-18); BUN/Creat Ratio 18.5 RATIO (10-20); Chloride 108 mmol/L (98-107); Cholesterol 118 mg/dL (200); Creatinine, Serum 1.19 mg/dL (0.70-1.30); EST Glomerular Filtration Rate 65 mL/min (>60); Est Glom Filt Rate - Afr Amer 79 mL/min (>60); Glucose 79 mg/dL (74-106); High Density Lipoprotein 43 mg/dL; Phosphorus 3.1 mg/dL (2.5-4.9); Potassium 4.1 mmol/L (3.5-5.1); Sodium Level 139 mmol/L (136-145); Triglycerides 109 mg/dL; Uric Acid 4.8 mg/dL (3.5-7.2); Very Low Density Lipoprotein 22 mg/dL (5-40)
[2018-04-04 10:19] LABS: Scan Indicated on CBC? Y/N NO
[2018-04-18 10:17] LABS: Hematocrit 37.9 % (40-54); Hemoglobin 11.6 g/dl (13.0-16.5); Mean Corp Hgb Conc 30.6 g/gl (32-36); Mean Corpuscular Hgb 28.6 pg (27.0-32.0); Mean Corpuscular Volume 93.3 fL (80-94); Mean Platelet Vol. 10.3 fl (6.2-12.0); Platelet Count 110 K/mm3 (150-450); RBC Distribution Width CV 16.4 % (11.6-14.6); RBC Distribution Width SD 56.4 fl (35.1-43.9); Red Blood Count 4.06 M/mm3 (4.6-6.2); White Blood Count 3.4 K/mm3 (4.4-11.0)
[2018-04-18 10:20] LABS: Scan Indicated on CBC? Y/N NO
[2018-04-18 10:54] LABS: Anion Gap 9 (5-15); BUN 21 mg/dL (7-18); Chloride 110 mmol/L (98-107); EST Glomerular Filtration Rate 59 mL/min (>60); Est Glom Filt Rate - Afr Amer 71 mL/min (>60); Glucose 79 mg/dL (74-106); Potassium 4.2 mmol/L (3.5-5.1); Sodium Level 142 mmol/L (136-145)
[2018-04-21 11:21] LABS: Tacrolimus (FK506) 7.2 ng/mL (2.0-20.0)
== END 2018-04-18 10:00 | disposition home or self-care (01) ==
LOC: MTLAB 08:36
PROVIDERS: Family Provider Internal Medicine; PCP Internal Medicine; Referring Provider Internal Medicine Nephrology; Visit Provider Internal Medicine Nephrology
DX: D89.9 Disorder involving the immune mechanism, unspecified (principal); D50.9 Iron deficiency anemia, unspecified; Z94.0 Kidney transplant status; Z79.899 Other long term (current) drug therapy; Z48.298 Encounter for aftercare following other organ transplant
CPT/HCPCS: 36415; 80048; 80051; 80061; 80197; 82040; 82247; 82565; 82947; 83735; 84075; 84100; 84450; 84460; 84520; 84550; 85027

== ENCOUNTER 2018-05-16 08:14 | Outpatient (RCR) | payer OTHER, MEDICARE, SELFPAY ==
[2018-02-14 16:46] VITALS: BMI 34.1
[2018-05-02 09:40] LABS: Prograf-FK506 TO CCF/UNIV MAILED SPECIMEN
[2018-05-02 10:31] LABS: Hematocrit 38.5 % (40-54); Mean Corp Hgb Conc 31.2 g/gl (32-36); Mean Corpuscular Hgb 28.8 pg (27.0-32.0); Mean Corpuscular Volume 92.5 fL (80-94); Mean Platelet Vol. 10.1 fl (6.2-12.0); Platelet Count 126 K/mm3 (150-450); RBC Distribution Width CV 16.2 % (11.6-14.6); RBC Distribution Width SD 53.2 fl (35.1-43.9); Red Blood Count 4.16 M/mm3 (4.6-6.2); White Blood Count 3.9 K/mm3 (4.4-11.0)
[2018-05-02 10:33] LABS: Scan Indicated on CBC? Y/N NO
[2018-05-02 10:46] LABS: AST(SGOT) 21 U/L (15-37); Alanine Aminotransfer ALT/SGPT 27 U/L (16-61); Albumin, Serum 3.5 g/dL (3.2-5.0); Alkaline Phosphatase 138 U/L (45-117); Anion Gap 9 (5-15); BUN 17 mg/dL (7-18); BUN/Creat Ratio 14.2 RATIO (10-20); Calcium,Total 9.2 mg/dL (8.5-10.1); Chloride 110 mmol/L (98-107); Cholesterol 123 mg/dL (200); EST Glomerular Filtration Rate 65 mL/min (>60); Est Glom Filt Rate - Afr Amer 78 mL/min (>60); Glucose 82 mg/dL (74-106); High Density Lipoprotein 46 mg/dL; Magnesium 2.1 mg/dL (1.6-2.6); Phosphorus 3.3 mg/dL (2.5-4.9); Potassium 4.1 mmol/L (3.5-5.1); Sodium Level 141 mmol/L (136-145); Triglycerides 116 mg/dL; Very Low Density Lipoprotein 23 mg/dL (5-40)
[2018-05-16 09:25] LABS: Prograf-FK506 TO CCF/UNIV MAILED SPECIMEN
[2018-05-16 10:13] LABS: Absolute Lymphocyte Count 0.44 X10^3/ul (0.83-4.51); Absolute Neutrophil Count 1.8 X10^3/uL (2.0-7.7); Basophil# 0.01 X10^3/uL; Basophil% 0.3 % (0-1); Eosinophil# 0.09 X10^3/uL; Eosinophils% 2.8 % (0-5); Hematocrit 36.7 % (40-54); Hemoglobin 11.8 g/dl (13.0-16.5); Lymphocyte # 0.44 X10^3/ul (4.0); Lymphocyte % 13.9 % (19-41); Mean Corp Hgb Conc 32.2 g/gl (32-36); Mean Corpuscular Hgb 29.9 pg (27.0-32.0); Mean Corpuscular Volume 92.9 fL (80-94); Mean Platelet Vol. 10.6 fl (6.2-12.0); Monocyte# 0.78 X10^3/uL; Monocyte% 24.7 % (0-10); Neutrophil # 1.84 X10^3/uL (2.7-7.7); Neutrophil % 58.3 % (47-70); Platelet Count 119 K/mm3 (150-450); RBC Distribution Width CV 16.5 % (11.6-14.6); RBC Distribution Width SD 54.7 fl (35.1-43.9); Red Blood Count 3.95 M/mm3 (4.6-6.2); White Blood Count 3.2 K/mm3 (4.4-11.0)
[2018-05-16 10:14] LABS: Differential Indicated SCAN CRITERIA MET; POSITIVE COUNT NO; POSITIVE DIFFERENTIAL YES; POSITIVE MORPHOLOGY NO
[2018-05-16 10:19] LABS: BUN 25 mg/dL (7-18); Chloride 111 mmol/L (98-107); Creatinine, Serum 1.37 mg/dL (0.70-1.30); EST Glomerular Filtration Rate 56 mL/min (>60); Est Glom Filt Rate - Afr Amer 67 mL/min (>60); Glucose 81 mg/dL (74-106); Sodium Level 139 mmol/L (136-145)
== END 2018-05-19 14:27 | disposition home or self-care (01) ==
LOC: MTLAB 08:14
PROVIDERS: Family Provider Internal Medicine; PCP Internal Medicine; Referring Provider Internal Medicine Nephrology; Visit Provider Internal Medicine Nephrology
DX: D89.9 Disorder involving the immune mechanism, unspecified (principal); D50.9 Iron deficiency anemia, unspecified; Z94.0 Kidney transplant status; Z79.899 Other long term (current) drug therapy; Z48.298 Encounter for aftercare following other organ transplant
CPT/HCPCS: 36415; 80048; 80061; 82040; 82247; 82374; 82435; 82565; 82947; 83735; 84075; 84100; 84132; 84295; 84450; 84460; 84520; 84550; 85025; 85027

== ENCOUNTER 2018-06-13 07:57 | Outpatient (RCR) | payer OTHER, MEDICARE, SELFPAY ==
[2018-02-14 16:46] VITALS: BMI 34.1
[2018-05-30 09:48] LABS: Prograf-FK506 TO CCF/UNIV MAILED SPECIMEN
[2018-05-30 10:37] LABS: Hematocrit 35.7 % (40-54); Hemoglobin 11.2 g/dl (13.0-16.5); Mean Corp Hgb Conc 31.4 g/gl (32-36); Mean Corpuscular Hgb 28.9 pg (27.0-32.0); Mean Corpuscular Volume 92.2 fL (80-94); Platelet Count 117 K/mm3 (150-450); RBC Distribution Width CV 17.2 % (11.6-14.6); RBC Distribution Width SD 58.4 fl (35.1-43.9); Red Blood Count 3.87 M/mm3 (4.6-6.2); White Blood Count 3.9 K/mm3 (4.4-11.0)
[2018-05-30 10:38] LABS: Scan Indicated on CBC? Y/N NO
[2018-05-30 10:46] LABS: Protein, Urine (Random) 19.8 mg/dL (<11.9); Protein:Creat Ratio 240 mg/g CRE (0-200)
[2018-05-30 11:25] LABS: AST(SGOT) 25 U/L (15-37); Alanine Aminotransfer ALT/SGPT 24 U/L (16-61); Albumin, Serum 3.4 g/dL (3.2-5.0); Alkaline Phosphatase 112 U/L (45-117); Anion Gap 12 (5-15); BUN 23 mg/dL (7-18); BUN/Creat Ratio 18.3 RATIO (10-20); Calcium,Total 9.1 mg/dL (8.5-10.1); Chloride 109 mmol/L (98-107); Cholesterol 120 mg/dL (200); Creatinine, Serum 1.26 mg/dL (0.70-1.30); EST Glomerular Filtration Rate 61 mL/min (>60); Est Glom Filt Rate - Afr Amer 74 mL/min (>60); Ferritin 77 ng/mL (26-388); Glucose 78 mg/dL (74-106); High Density Lipoprotein 44 mg/dL; Iron 71 ug/dL (65-175); Iron Binding Capacity,Total 304 ug/dL (250-450); Magnesium 1.9 mg/dL (1.6-2.6); PERCENT IRON SATURATION 23.4 % (15.0-55.0); Phosphorus 3.6 mg/dL (2.5-4.9); Potassium 3.7 mmol/L (3.5-5.1); Sodium Level 140 mmol/L (136-145); Triglycerides 130 mg/dL; Uric Acid 5.1 mg/dL (3.5-7.2); Very Low Density Lipoprotein 26 mg/dL (5-40)
[2018-05-30 11:38] LABS: Hemoglobin A1c 5.5 % (4.2-6.3)
[2018-05-30 11:48] LABS: PTHIN 243.3 pg/mL (18.4-80.1)
[2018-05-31 10:01] LABS: Transferrin 243 mg/dL (200-370)
[2018-06-13 09:17] LABS: Prograf-FK506 TO CCF/UNIV MAILED SPECIMEN
[2018-06-13 10:43] LABS: Hematocrit 36.5 % (40-54); Hemoglobin 11.4 g/dl (13.0-16.5); Mean Corp Hgb Conc 31.2 g/gl (32-36); Mean Corpuscular Hgb 29.8 pg (27.0-32.0); Mean Corpuscular Volume 95.5 fL (80-94); Mean Platelet Vol. 9.9 fl (6.2-12.0); Platelet Count 118 K/mm3 (150-450); RBC Distribution Width CV 17.2 % (11.6-14.6); RBC Distribution Width SD 57.1 fl (35.1-43.9); Red Blood Count 3.82 M/mm3 (4.6-6.2); White Blood Count 3.7 K/mm3 (4.4-11.0)
[2018-06-13 10:50] LABS: BUN 20 mg/dL (7-18); Chloride 111 mmol/L (98-107); Creatinine, Serum 1.11 mg/dL (0.70-1.30); EST Glomerular Filtration Rate 71 mL/min (>60); Est Glom Filt Rate - Afr Amer 86 mL/min (>60); Glucose 76 mg/dL (74-106); Potassium 3.8 mmol/L (3.5-5.1); Sodium Level 138 mmol/L (136-145)
[2018-06-13 10:54] LABS: Scan Indicated on CBC? Y/N NO
== END 2018-06-13 08:00 | disposition home or self-care (01) ==
LOC: MTLAB 07:57
PROVIDERS: Family Provider Internal Medicine; PCP Internal Medicine; Referring Provider Internal Medicine Nephrology; Visit Provider Internal Medicine Nephrology
DX: D89.9 Disorder involving the immune mechanism, unspecified (principal); D50.9 Iron deficiency anemia, unspecified; Z94.0 Kidney transplant status; Z79.899 Other long term (current) drug therapy; Z48.298 Encounter for aftercare following other organ transplant
CPT/HCPCS: 36415; 80048; 80061; 82040; 82247; 82374; 82435; 82565; 82570; 82728; 82947; 83036; 83540; 83550; 83735; 83970; 84075; 84100; 84132; 84156; 84295; 84450; 84460; 84466; 84520; 84550; 85027

== ENCOUNTER 2018-07-12 07:40 | Outpatient (RCR) | payer OTHER, MEDICARE, SELFPAY ==
[2018-02-14 16:46] VITALS: BMI 34.1
[2018-06-27 09:09] LABS: Prograf-FK506 TO CCF/UNIV MAILED SPECIMEN
[2018-06-27 10:02] LABS: Absolute Lymphocyte Count 0.38 X10^3/ul (0.83-4.51); Absolute Neutrophil Count 2.3 X10^3/uL (2.0-7.7); Eosinophils% 2.7 % (0-5); Hematocrit 35.7 % (40-54); Hemoglobin 11.5 g/dl (13.0-16.5); Lymphocyte # 0.38 X10^3/ul (4.0); Lymphocyte % 10.2 % (19-41); Mean Corp Hgb Conc 32.2 g/gl (32-36); Mean Corpuscular Volume 93.2 fL (80-94); Mean Platelet Vol. 10.5 fl (6.2-12.0); Monocyte# 0.92 X10^3/uL; Monocyte% 24.8 % (0-10); Neutrophil # 2.31 X10^3/uL (2.7-7.7); Neutrophil % 62.3 % (47-70); Platelet Count 141 K/mm3 (150-450); RBC Distribution Width CV 16.2 % (11.6-14.6); RBC Distribution Width SD 53.3 fl (35.1-43.9); Red Blood Count 3.83 M/mm3 (4.6-6.2); White Blood Count 3.7 K/mm3 (4.4-11.0)
[2018-06-27 10:07] LABS: Differential Indicated SCAN CRITERIA MET; POSITIVE COUNT NO; POSITIVE DIFFERENTIAL YES; POSITIVE MORPHOLOGY NO
[2018-06-27 10:20] LABS: AST(SGOT) 22 U/L (15-37); Alanine Aminotransfer ALT/SGPT 24 U/L (16-61); Albumin, Serum 3.6 g/dL (3.2-5.0); Alkaline Phosphatase 114 U/L (45-117); Anion Gap 8 (5-15); BUN 25 mg/dL (7-18); BUN/Creat Ratio 17.2 RATIO (10-20); Calcium,Total 9.4 mg/dL (8.5-10.1); Chloride 108 mmol/L (98-107); Cholesterol 109 mg/dL (200); Creatinine, Serum 1.45 mg/dL (0.70-1.30); EST Glomerular Filtration Rate 52 mL/min (>60); Est Glom Filt Rate - Afr Amer 63 mL/min (>60); Glucose 86 mg/dL (74-106); High Density Lipoprotein 36 mg/dL; Magnesium 1.8 mg/dL (1.6-2.6); Potassium 4.1 mmol/L (3.5-5.1); Sodium Level 138 mmol/L (136-145); Triglycerides 126 mg/dL; Very Low Density Lipoprotein 25 mg/dL (5-40)
[2018-06-28 12:31] LABS: Pathologist Review Reviewed
[2018-07-12 08:52] LABS: Prograf-FK506 TO CCF/UNIV MAILED SPECIMEN
[2018-07-12 10:30] LABS: Anion Gap 9 (5-15); BUN 25 mg/dL (7-18); Chloride 106 mmol/L (98-107); Creatinine, Serum 1.48 mg/dL (0.70-1.30); EST Glomerular Filtration Rate 51 mL/min (>60); Est Glom Filt Rate - Afr Amer 62 mL/min (>60); Glucose 81 mg/dL (74-106); Potassium 3.7 mmol/L (3.5-5.1); Sodium Level 139 mmol/L (136-145)
[2018-07-12 10:47] LABS: Absolute Lymphocyte Count 0.37 X10^3/ul (0.83-4.51); Absolute Neutrophil Count 2.5 X10^3/uL (2.0-7.7); Basophil# 0.01 X10^3/uL; Basophil% 0.3 % (0-1); Eosinophil# 0.09 X10^3/uL; Eosinophils% 2.3 % (0-5); Hematocrit 35.7 % (40-54); Hemoglobin 11.4 g/dl (13.0-16.5); Lymphocyte # 0.37 X10^3/ul (4.0); Lymphocyte % 9.5 % (19-41); Mean Corp Hgb Conc 31.9 g/gl (32-36); Mean Corpuscular Volume 93.9 fL (80-94); Mean Platelet Vol. 9.4 fl (6.2-12.0); Monocyte# 0.95 X10^3/uL; Monocyte% 24.5 % (0-10); Neutrophil # 2.46 X10^3/uL (2.7-7.7); Neutrophil % 63.4 % (47-70); Platelet Count 126 K/mm3 (150-450); RBC Distribution Width CV 15.6 % (11.6-14.6); RBC Distribution Width SD 53.4 fl (35.1-43.9); White Blood Count 3.9 K/mm3 (4.4-11.0)
[2018-07-12 10:49] LABS: Differential Indicated SCAN CRITERIA MET; POSITIVE COUNT NO; POSITIVE DIFFERENTIAL YES; POSITIVE MORPHOLOGY NO
[2018-07-12 11:04] LABS: Differential Comment SCANNED
== END 2018-07-19 16:00 | disposition home or self-care (01) ==
LOC: MTLAB 07:40
PROVIDERS: Family Provider Internal Medicine; PCP Internal Medicine; Referring Provider Internal Medicine Nephrology; Visit Provider Internal Medicine Nephrology
DX: D63.8 Anemia in other chronic diseases classified elsewhere (principal); Z94.0 Kidney transplant status; Z79.899 Other long term (current) drug therapy; Z48.298 Encounter for aftercare following other organ transplant; Z91.89 Other specified personal risk factors, not elsewhere classified
CPT/HCPCS: 36415; 80048; 80051; 80061; 82040; 82247; 82565; 82947; 83735; 84075; 84100; 84450; 84460; 84520; 84550; 85025

== ENCOUNTER 2018-09-05 08:18 | Outpatient (RCR) | payer OTHER, MEDICARE, SELFPAY ==
[2018-02-14 16:46] VITALS: BMI 34.1
[2018-08-08 13:18] LABS: Anion Gap 11 (5-15); BUN 19 mg/dL (7-18); Chloride 107 mmol/L (98-107); Creatinine, Serum 1.35 mg/dL (0.70-1.30); EST Glomerular Filtration Rate 57 mL/min (>60); Est Glom Filt Rate - Afr Amer 68 mL/min (>60); Glucose 78 mg/dL (74-106); Potassium 3.6 mmol/L (3.5-5.1); Sodium Level 139 mmol/L (136-145)
[2018-08-08 14:23] LABS: Absolute Lymphocyte Count 0.39 X10^3/ul (0.83-4.51); Absolute Neutrophil Count 2.5 X10^3/uL (2.0-7.7); Basophil# 0.01 X10^3/uL; Basophil% 0.3 % (0-1); Eosinophils% 2.6 % (0-5); Hematocrit 37.3 % (40-54); Hemoglobin 12.2 g/dl (13.0-16.5); Lymphocyte # 0.39 X10^3/ul (4.0); Lymphocyte % 10.2 % (19-41); Mean Corp Hgb Conc 32.7 g/gl (32-36); Mean Corpuscular Hgb 31.2 pg (27.0-32.0); Mean Corpuscular Volume 95.4 fL (80-94); Mean Platelet Vol. 10.3 fl (6.2-12.0); Monocyte# 0.82 X10^3/uL; Monocyte% 21.5 % (0-10); Neutrophil # 2.49 X10^3/uL (2.7-7.7); Neutrophil % 65.1 % (47-70); Platelet Count 114 K/mm3 (150-450); RBC Distribution Width CV 13.9 % (11.6-14.6); RBC Distribution Width SD 46.6 fl (35.1-43.9); Red Blood Count 3.91 M/mm3 (4.6-6.2); White Blood Count 3.8 K/mm3 (4.4-11.0)
[2018-08-08 14:29] LABS: Differential Indicated SCAN CRITERIA MET; POSITIVE COUNT NO; POSITIVE DIFFERENTIAL YES; POSITIVE MORPHOLOGY NO
[2018-08-31 14:29] LABS: Prograf-FK506 TO CCF/UNIV MAILED SPECIMEN
[2018-09-05 09:22] LABS: Prograf-FK506 TO CCF/UNIV MAILED SPECIMEN
[2018-09-05 10:20] LABS: Hematocrit 37.4 % (40-54); Hemoglobin 12.1 g/dl (13.0-16.5); Mean Corp Hgb Conc 32.4 g/gl (32-36); Mean Corpuscular Volume 95.9 fL (80-94); Platelet Count 128 K/mm3 (150-450); RBC Distribution Width CV 13.6 % (11.6-14.6); RBC Distribution Width SD 47.2 fl (35.1-43.9)
[2018-09-05 10:21] LABS: Scan Indicated on CBC? Y/N NO
[2018-09-05 10:57] LABS: Anion Gap 11 (5-15); BUN 21 mg/dL (7-18); Chloride 110 mmol/L (98-107); Creatinine, Serum 1.33 mg/dL (0.70-1.30); EST Glomerular Filtration Rate 57 mL/min (>60); Est Glom Filt Rate - Afr Amer 70 mL/min (>60); Glucose 84 mg/dL (74-106); Potassium 4.1 mmol/L (3.5-5.1); Sodium Level 141 mmol/L (136-145)
== END 2018-09-05 08:30 | disposition home or self-care (01) ==
LOC: MTLAB 08:18
PROVIDERS: Family Provider Internal Medicine; PCP Internal Medicine; Referring Provider Internal Medicine Nephrology; Visit Provider Internal Medicine Nephrology
DX: Z94.0 Kidney transplant status (principal); D63.8 Anemia in other chronic diseases classified elsewhere; Z79.899 Other long term (current) drug therapy; Z48.298 Encounter for aftercare following other organ transplant; Z91.89 Other specified personal risk factors, not elsewhere classified
CPT/HCPCS: 36415; 80051; 80197; 82565; 82947; 84520; 85025; 85027

== ENCOUNTER → 2018-09-19 08:17 | Outpatient (CLI) | payer OTHER, MEDICARE, SELFPAY ==
[2018-02-14 16:46] VITALS: BMI 34.1
[2018-09-19 10:23] LABS: Cholesterol 110 mg/dL (200); High Density Lipoprotein 37 mg/dL; Triglycerides 104 mg/dL; Very Low Density Lipoprotein 21 mg/dL (5-40)
[2018-09-19 10:27] LABS: Hemoglobin A1c 5.3 % (4.2-6.3)
== END ==
PROVIDERS: Family Provider Internal Medicine; PCP Internal Medicine; Referring Provider Internal Medicine; Visit Provider Internal Medicine
DX: E78.5 Hyperlipidemia, unspecified (principal); Z79.899 Other long term (current) drug therapy
CPT/HCPCS: 36415; 80061; 83036

== ENCOUNTER 2018-10-03 08:18 | Outpatient (RCR) | payer OTHER, MEDICARE, SELFPAY ==
[2018-02-14 16:46] VITALS: BMI 34.1
[2018-10-03 09:29] LABS: Prograf-FK506 TO CCF/UNIV MAILED SPECIMEN
[2018-10-03 10:35] LABS: Hematocrit 40.2 % (40-54); Hemoglobin 13.2 g/dl (13.0-16.5); Mean Corp Hgb Conc 32.8 g/gl (32-36); Mean Corpuscular Volume 94.4 fL (80-94); Mean Platelet Vol. 10.7 fl (6.2-12.0); Platelet Count 128 K/mm3 (150-450); RBC Distribution Width CV 13.2 % (11.6-14.6); Red Blood Count 4.26 M/mm3 (4.6-6.2); White Blood Count 3.7 K/mm3 (4.4-11.0)
[2018-10-03 10:36] LABS: Scan Indicated on CBC? Y/N NO
[2018-10-03 10:51] LABS: BUN 22 mg/dL (7-18); Chloride 109 mmol/L (98-107); Creatinine, Serum 1.24 mg/dL (0.70-1.30); EST Glomerular Filtration Rate 62 mL/min (>60); Est Glom Filt Rate - Afr Amer 75 mL/min (>60); Potassium 3.8 mmol/L (3.5-5.1); Sodium Level 140 mmol/L (136-145)
[2018-10-03 11:04] LABS: PTHIN 42.8 pg/mL (18.4-80.1)
[2018-10-04 10:22] LABS: Glucose 82 mg/dL (74-106)
== END 2018-10-19 15:58 | disposition home or self-care (01) ==
LOC: MTLAB 08:18
PROVIDERS: Family Provider Internal Medicine; PCP Internal Medicine; Referring Provider Internal Medicine Nephrology; Visit Provider Internal Medicine Nephrology
DX: Z94.0 Kidney transplant status (principal); D63.8 Anemia in other chronic diseases classified elsewhere; Z79.899 Other long term (current) drug therapy; Z48.298 Encounter for aftercare following other organ transplant; Z91.89 Other specified personal risk factors, not elsewhere classified
CPT/HCPCS: 36415; 82374; 82435; 82565; 82947; 82950; 83970; 84132; 84295; 84520; 85027

== ENCOUNTER 2018-10-31 08:43 | Outpatient (RCR) | payer OTHER, MEDICARE, SELFPAY ==
[2018-02-14 16:46] VITALS: BMI 34.1
[2018-10-31 09:48] LABS: Prograf-FK506 TO CCF/UNIV MAILED SPECIMEN
[2018-10-31 09:58] LABS: Hemoglobin 12.8 g/dL (13.0-16.5); Mean Corp Hgb Conc 32.8 g/dL (32-36); Mean Corpuscular Hgb 31.5 pg (27.0-32.0); Mean Corpuscular Volume 96.1 fL (80-94); Mean Platelet Vol. 10.5 fl (6.2-12.0); Platelet Count 116 K/mm3 (150-450); RBC Distribution Width CV 13.4 % (11.6-14.6); RBC Distribution Width SD 47.6 fl (35.1-43.9); Red Blood Count 4.06 M/mm3 (4.6-6.2); White Blood Count 4.6 K/mm3 (4.4-11.0)
[2018-10-31 10:09] LABS: Protein, Urine (Random) 7.7 mg/dL (<11.9); Protein:Creat Ratio 326 mg/g CRE (0-200)
[2018-10-31 10:25] LABS: AST(SGOT) 19 U/L (15-37); Alanine Aminotransfer ALT/SGPT 22 U/L (16-61); Albumin, Serum 3.5 g/dL (3.2-5.0); Alkaline Phosphatase 147 U/L (45-117); Anion Gap 6 (5-15); BUN 17 mg/dL (7-18); BUN/Creat Ratio 13.6 RATIO (10-20); Calcium,Total 9.9 mg/dL (8.5-10.1); Chloride 106 mmol/L (98-107); Cholesterol 103 mg/dL (200); Creatinine, Serum 1.25 mg/dL (0.70-1.30); EST Glomerular Filtration Rate 62 mL/min (>60); Est Glom Filt Rate - Afr Amer 75 mL/min (>60); Ferritin 72 ng/mL (26-388); Glucose 79 mg/dL (74-106); High Density Lipoprotein 37 mg/dL; Iron 82 ug/dL (65-175); Iron Binding Capacity,Total 366 ug/dL (250-450); Magnesium 1.8 mg/dL (1.6-2.6); PERCENT IRON SATURATION 22.4 % (15.0-55.0); Phosphorus 3.2 mg/dL (2.5-4.9); Sodium Level 137 mmol/L (136-145); Triglycerides 110 mg/dL; Uric Acid 4.2 mg/dL (3.5-7.2); Very Low Density Lipoprotein 22 mg/dL (5-40)
[2018-11-01 08:53] LABS: Transferrin 287 mg/dL (200-370)
== END 2018-10-31 09:43 | disposition home or self-care (01) ==
LOC: MTLAB 08:43
PROVIDERS: Family Provider Internal Medicine; PCP Internal Medicine; Referring Provider Internal Medicine Nephrology; Visit Provider Internal Medicine Nephrology
DX: Z94.0 Kidney transplant status (principal); D63.8 Anemia in other chronic diseases classified elsewhere; Z79.899 Other long term (current) drug therapy; Z48.298 Encounter for aftercare following other organ transplant; Z91.89 Other specified personal risk factors, not elsewhere classified
CPT/HCPCS: 36415; 80048; 80061; 82040; 82247; 82570; 82728; 83540; 83550; 83735; 84075; 84100; 84156; 84450; 84460; 84466; 84550; 85027

== ENCOUNTER 2018-11-29 07:28 | Outpatient (RCR) | payer OTHER, MEDICARE, SELFPAY ==
[2018-02-14 16:46] VITALS: BMI 34.1
[2018-11-29 08:36] LABS: Prograf-FK506 TO CCF/UNIV MAILED SPECIMEN
[2018-11-29 10:31] LABS: Hematocrit 36.9 % (40-54); Hemoglobin 11.9 g/dL (13.0-16.5); Mean Corp Hgb Conc 32.2 g/dL (32-36); Mean Corpuscular Hgb 31.2 pg (27.0-32.0); Mean Corpuscular Volume 96.6 fL (80-94); Mean Platelet Vol. 10.3 fl (6.2-12.0); Platelet Count 118 K/mm3 (150-450); RBC Distribution Width SD 49.1 fl (35.1-43.9); Red Blood Count 3.82 M/mm3 (4.6-6.2); White Blood Count 3.8 K/mm3 (4.4-11.0)
[2018-11-29 10:53] LABS: BUN 20 mg/dL (7-18); Chloride 107 mmol/L (98-107); Creatinine, Serum 1.36 mg/dL (0.70-1.30); EST Glomerular Filtration Rate 56 mL/min (>60); Est Glom Filt Rate - Afr Amer 68 mL/min (>60); Glucose 80 mg/dL (74-106); Potassium 3.8 mmol/L (3.5-5.1); Sodium Level 135 mmol/L (136-145)
== END 2018-11-29 18:00 | disposition home or self-care (01) ==
LOC: MTLAB 07:28
PROVIDERS: Family Provider Internal Medicine; PCP Internal Medicine; Referring Provider Internal Medicine Nephrology; Visit Provider Internal Medicine Nephrology
DX: Z94.0 Kidney transplant status (principal); D63.8 Anemia in other chronic diseases classified elsewhere; Z79.899 Other long term (current) drug therapy; Z48.298 Encounter for aftercare following other organ transplant; Z91.89 Other specified personal risk factors, not elsewhere classified
CPT/HCPCS: 36415; 82374; 82435; 82565; 82947; 84132; 84295; 84520; 85027

== ENCOUNTER 2018-12-26 07:51 | Outpatient (RCR) | payer OTHER, MEDICARE, SELFPAY ==
[2018-02-14 16:46] VITALS: BMI 34.1
[2018-12-26 09:05] LABS: Prograf-FK506 TO CCF/UNIV MAILED SPECIMEN
[2018-12-26 10:01] LABS: Hematocrit 37.4 % (40-54); Mean Corp Hgb Conc 32.1 g/dL (32-36); Mean Corpuscular Hgb 31.1 pg (27.0-32.0); Mean Corpuscular Volume 96.9 fL (80-94); Mean Platelet Vol. 10.1 fl (6.2-12.0); Platelet Count 123 K/mm3 (150-450); RBC Distribution Width CV 13.8 % (11.6-14.6); RBC Distribution Width SD 49.1 fl (35.1-43.9); Red Blood Count 3.86 M/mm3 (4.6-6.2); White Blood Count 4.2 K/mm3 (4.4-11.0)
[2018-12-26 10:21] LABS: PTHIN 73.8 pg/mL (18.4-80.1)
[2018-12-26 10:29] LABS: BUN 22 mg/dL (7-18); Chloride 108 mmol/L (98-107); Creatinine, Serum 1.35 mg/dL (0.70-1.30); EST Glomerular Filtration Rate 56 mL/min (>60); Est Glom Filt Rate - Afr Amer 68 mL/min (>60); Glucose 81 mg/dL (74-106); Potassium 4.1 mmol/L (3.5-5.1); Sodium Level 140 mmol/L (136-145)
== END 2018-12-26 18:00 | disposition home or self-care (01) ==
LOC: MTLAB 07:51
PROVIDERS: Family Provider Internal Medicine; PCP Internal Medicine; Referring Provider Internal Medicine Nephrology; Visit Provider Internal Medicine Nephrology
DX: Z94.0 Kidney transplant status (principal); R79.9 Abnormal finding of blood chemistry, unspecified; D89.9 Disorder involving the immune mechanism, unspecified; D50.9 Iron deficiency anemia, unspecified; Z48.298 Encounter for aftercare following other organ transplant
CPT/HCPCS: 36415; 82374; 82435; 82565; 82947; 83970; 84132; 84295; 84520; 85027

== ENCOUNTER 2019-01-23 08:36 | Outpatient (RCR) | payer OTHER, MEDICARE, SELFPAY ==
[2018-02-14 16:46] VITALS: BMI 34.1
[2019-01-23 10:46] LABS: Absolute Lymphocyte Count 0.55 X10^3/uL (0.83-4.51); Absolute Neutrophil Count 4.7 X10^3/uL (2.0-7.7); Basophil# 0.02 X10^3/uL; Basophil% 0.3 % (0-1); Eosinophil# 0.12 X10^3/uL; Eosinophils% 1.9 % (0-5); Hematocrit 37.1 % (40-54); Hemoglobin 11.9 g/dL (13.0-16.5); Lymphocyte # 0.55 X10^3/ul (4.0); Lymphocyte % 8.5 % (19-41); Mean Corp Hgb Conc 32.1 g/dL (32-36); Mean Corpuscular Hgb 31.4 pg (27.0-32.0); Mean Corpuscular Volume 97.9 fL (80-94); Mean Platelet Vol. 10.2 fl (6.2-12.0); Monocyte# 1.07 X10^3/uL; Monocyte% 16.6 % (0-10); NRBC Flagged by Analyzer 0 % (0-5); Neutrophil # 4.67 X10^3/uL (2.7-7.7); Neutrophil % 72.2 % (47-70); POSITIVE DIFFERENTIAL YES; Platelet Count 132 K/mm3 (150-450); RBC Distribution Width CV 13.9 % (11.6-14.6); RBC Distribution Width SD 49.9 fl (35.1-43.9); Red Blood Count 3.79 M/mm3 (4.6-6.2); White Blood Count 6.5 K/mm3 (4.4-11.0)
[2019-01-23 10:49] LABS: Differential Indicated SCAN CRITERIA MET
[2019-01-23 10:57] LABS: BUN 19 mg/dL (7-18); Chloride 106 mmol/L (98-107); EST Glomerular Filtration Rate 59 mL/min (>60); Est Glom Filt Rate - Afr Amer 71 mL/min (>60); Glucose 85 mg/dL (74-106); Sodium Level 137 mmol/L (136-145)
[2019-01-23 14:50] LABS: Prograf-FK506 TO CCF/UNIV MAILED SPECIMEN
== END 2019-01-23 18:00 | disposition home or self-care (01) ==
LOC: MTLAB 08:36
PROVIDERS: Family Provider Internal Medicine; PCP Internal Medicine; Referring Provider Internal Medicine Nephrology; Visit Provider Internal Medicine Nephrology
DX: Z94.0 Kidney transplant status (principal); D63.8 Anemia in other chronic diseases classified elsewhere; Z48.298 Encounter for aftercare following other organ transplant; Z91.89 Other specified personal risk factors, not elsewhere classified; Z79.899 Other long term (current) drug therapy
CPT/HCPCS: 36415; 80197; 82374; 82435; 82565; 82947; 84132; 84295; 84520; 85025

== ENCOUNTER 2019-02-27 07:20 | Outpatient (RCR) | payer OTHER, MEDICARE, SELFPAY ==
[2018-02-14 16:46] VITALS: BMI 34.1
[2019-02-27 08:32] LABS: Prograf-FK506 TO CCF/UNIV MAILED SPECIMEN
[2019-02-27 10:10] LABS: Hematocrit 37.1 % (40-54); Hemoglobin 11.9 g/dL (13.0-16.5); Mean Corp Hgb Conc 32.1 g/dL (32-36); Mean Corpuscular Hgb 31.2 pg (27.0-32.0); Mean Corpuscular Volume 97.1 fL (80-94); RBC Distribution Width CV 13.7 % (11.6-14.6); Red Blood Count 3.82 M/mm3 (4.6-6.2)
[2019-02-27 10:11] LABS: Absolute Lymphocyte Count 0.56 X10^3/uL (0.83-4.51); Absolute Neutrophil Count 3.2 X10^3/uL (2.0-7.7); Eosinophil# 0.16 X10^3/uL; Eosinophils% 3.2 % (0-5); Lymphocyte # 0.56 X10^3/ul (4.0); Lymphocyte % 11.2 % (19-41); Mean Platelet Vol. 10.4 fl (6.2-12.0); Monocyte# 1.05 X10^3/uL; Monocyte% 20.9 % (0-10); NRBC Flagged by Analyzer 0 % (0-5); Neutrophil # 3.23 X10^3/uL (2.7-7.7); Neutrophil % 64.3 % (47-70); POSITIVE DIFFERENTIAL YES; Platelet Count 134 K/mm3 (150-450); RBC Distribution Width SD 48.8 fl (35.1-43.9)
[2019-02-27 10:16] LABS: Protein, Urine (Random) 9.2 mg/dL (<11.9); Protein:Creat Ratio 136 mg/g CRE (0-200)
[2019-02-27 10:25] LABS: Differential Indicated SCAN CRITERIA MET
[2019-02-27 10:51] LABS: Differential Comment SCANNED
[2019-02-27 10:53] LABS: AST(SGOT) 17 U/L (15-37); Alanine Aminotransfer ALT/SGPT 20 U/L (16-61); Albumin, Serum 3.6 g/dL (3.2-5.0); Alkaline Phosphatase 128 U/L (45-117); Anion Gap 7 (5-15); BUN 22 mg/dL (7-18); Calcium,Total 9.5 mg/dL (8.5-10.1); Chloride 107 mmol/L (98-107); Cholesterol 113 mg/dL (200); Creatinine, Serum 1.43 mg/dL (0.70-1.30); EST Glomerular Filtration Rate 53 mL/min (>60); Est Glom Filt Rate - Afr Amer 64 mL/min (>60); Ferritin 66 ng/mL (26-388); Glucose 81 mg/dL (74-106); High Density Lipoprotein 33 mg/dL; Iron 64 ug/dL (65-175); Iron Binding Capacity,Total 356 ug/dL (250-450); Magnesium 2.1 mg/dL (1.6-2.6); Phosphorus 2.9 mg/dL (2.5-4.9); Potassium 4.1 mmol/L (3.5-5.1); Sodium Level 138 mmol/L (136-145); Triglycerides 139 mg/dL; Uric Acid 4.8 mg/dL (3.5-7.2); Very Low Density Lipoprotein 28 mg/dL (5-40)
[2019-02-27 11:30] LABS: PTHIN 180.5 pg/mL (18.4-80.1)
[2019-02-28 15:26] LABS: Transferrin 301 mg/dL (200-370)
== END 2019-02-27 18:00 | disposition home or self-care (01) ==
LOC: MTLAB 07:20
PROVIDERS: Family Provider Internal Medicine; PCP Internal Medicine; Referring Provider Internal Medicine Nephrology; Visit Provider Internal Medicine Nephrology
DX: Z94.0 Kidney transplant status (principal); D63.8 Anemia in other chronic diseases classified elsewhere; Z48.298 Encounter for aftercare following other organ transplant; Z91.89 Other specified personal risk factors, not elsewhere classified; Z79.899 Other long term (current) drug therapy
CPT/HCPCS: 36415; 80051; 80061; 82040; 82247; 82310; 82565; 82570; 82728; 82947; 83540; 83550; 83735; 83970; 84075; 84100; 84156; 84450; 84460; 84466; 84520; 84550; 85025

== ENCOUNTER 2019-03-02 20:43 | Emergency (ER) | payer OTHER, MEDICARE, SELFPAY ==
[2018-02-14 16:46] VITALS: BMI 34.1
[2019-03-02 20:45] VITALS: BP 209/117; PULSE 90; RESP 18; TEMP 36.8; O2SAT 97; BMI 32.2
[2019-03-02 22:42] VITALS: RESP 16
[2019-03-02 22:44] VITALS: BP 157/88; PULSE 86; RESP 16; TEMP 36.6; O2SAT 95
--- NOTE | 2019-03-02 23:10 | ED.VIS.GEN ---
History of Present Illness Chief Complaint: Wound Check Narrative: Patient is a 64-year-old male who presents with a bleeding wound. 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 He had a Mohs procedure with partial closure on February 13. His sutures were removed on February 20. He also had a biopsy of the ear at the same time. He is on warfarin due to mitral and aortic valve replacements. He has had some intermittent bleeding since surgery but it became heavy tonight. He has applied pressure for 2 hours but was still bleeding so came to the ER and did contact with her surgeon. Otherwise the patient has had some mild congestion and cough but no fevers or vomiting. Pain is controlled. Past Medical History - Allergies and Home Meds Allergies/Adverse Reactions: Allergies ibuprofen [From Motrin] Adverse Reaction (Verified 03/02/19 20:48) Other Primary Care Physician: Beth Quiroz MD [Primary Care Provider] - Past Medical History: - - End-stage renal disease, renal transplant, squamous cell carcinoma Surgical History: - - Sebaceous carcinoma right eyelid resection, multiple skin cancer lesion biopsies/resections, hemorrhoidectomy, mitral and aortic valve replacements, pacemaker placement, hernia repair, renal transplant x3. Smoking Status: Never smoker - Family History Maternal Family History: Reports: - - Arthritis. Denies maternal cardiac history. Paternal Family History: Reports: Heart Disease Review of Systems All systems negative except as indicated General: Denies: Fever Eyes: Denies: Visual changes - bilaterally ENT: Reports: - - Congestion Cardiovascular: Denies: Chest pain Respiratory: Reports: Cough Gastrointestinal: Denies: Nausea, Vomiting Musculoskeletal: Denies: Myalgias, Arthralgias Skin: Denies: Rash Neurological: Denies: Headache Hematologic: Reports: Easy bleeding Physical Exam Vital Signs/Narrative: Vital Signs Temp Pulse Resp BP Pulse Ox 03/02/19 22:44 98 F 86 16 157/88 H 95 03/02/19 22:42 16 03/02/19 20:45 98.3 F 90 18 209/117 H 97 Inital Vital Signs reviewed: Yes General: Well nourished Head: Normocephalic Eyes: EOMI ENT: Moist mucous membranes Neck: Supple Cardiovascular: Regular rate Respiratory: No distress Skin: - - There is a wound inferior to the right ear which is clean dry and intact, patient has some mild oozing from the site of the biopsy on the ear itself and a clot was removed from the auditory canal which should likely bled into that area while holding pressure inspection of the auditory canal does not show any obvious source of bleeding from inside the ear itself Neurological: Alert Psychological: Normal affect Diagnostic/Tx/Re-eval - Medical Decision Making Patient has been applying pressure for about 2 hours before my evaluation. Initially when the dressing he was holding was removed he had no bleeding but as I was cleansing this he began to have some mild bleeding from the site of the biopsy which I believe is the most likely source of his earlier bleeding. A Surgicel dressing was applied. INR was ordered, however patient refused venipuncture as we are unable to perform fingerstick INR. We did discuss that given history of aortic valve replacement and current bleeding if it was supratherapeutic we would likely only hold warfarin. He intends to follow-up with his physicians for INR check and was also advised on supportive care at home. He understands return for new or worsening symptoms. He was discharged. ED Disposition - Plan for ED Patient: Disposition: Home or Assisted Living Diagnosis: Bleeding from wound Instructions: POST OP WOUND CHECK, Bleeding Referrals: Beth Quiroz MD [Primary Care Provider] -
[2019-03-02 23:41] VITALS: BP 160/80; PULSE 70; RESP 16; O2SAT 98
== END 2019-03-02 23:42 | disposition home or self-care (01) ==
PROVIDERS: Emergency Provider Emergency Medicine; Family Provider Internal Medicine; PCP Internal Medicine
DX: Z48.00 Encounter for change or removal of nonsurgical wound dressing (principal); N18.6 End stage renal disease; Z82.49 Family history of ischemic heart disease and other diseases of the circulatory system; Z88.6 Allergy status to analgesic agent; Z94.0 Kidney transplant status; Z95.0 Presence of cardiac pacemaker; Z95.2 Presence of prosthetic heart valve; R05 Cough; Z85.828 Personal history of other malignant neoplasm of skin
CPT/HCPCS: 99282

== ENCOUNTER 2019-03-04 16:47 | Emergency (ER) | payer OTHER, MEDICARE, SELFPAY ==
[2019-03-04 16:48] VITALS: BP 163/83; PULSE 63; RESP 15; TEMP 36.8; O2SAT 96; BMI 35.2
--- NOTE | 2019-03-04 17:59 | ED.DCSUM_ITS ---
History of Present Illness Chief Complaint: Wound Check Informant: Patient Onset: Today Context: Sudden Onset Timing: Continuous Narrative: Patient is a 64-year-old male who presents with a bleeding wound. He has a hist ory of squamous cell carcinoma on the face. He had a Mohs procedure with partial closure on February 13. His sutures were removed on February 20. He also had a biopsy of the ear at the same time. He is on warfarin due to mitral and aortic valve replacements. He has had some intermittent bleeding and was seen in the ER earlier this week for bleeding. Patient is plan on following up on Wednesday in [place]. He had his Coumadin checked yesterday and it was 4.0. He did not take his Coumadin today because of this. He denies any other complaints at this time. He denies any lightheadedness. He states he feels well. Past Medical History - Allergies and Home Meds Allergies/Adverse Reactions: Allergies ibuprofen [From Motrin] Adverse Reaction (Verified 03/04/19 16:48) Other Primary Care Physician: Beth Quiroz MD [Primary Care Provider] - Past Medical History: - - Valvular heart disease, atrial fibrillation?on Coumadin, CKD 3, chronic anemia, hypertension, kidney transplant, squamous cell carcinoma of the face Surgical History: - - Sebaceous carcinoma right eyelid resection, multiple skin cancer lesion biopsies/resections, hemorrhoidectomy, mitral and aortic valve replacements, pacemaker placement, hernia repair, renal transplant x3. Lives: With Family Smoking Status: Never smoker - Family History Maternal Family History: Reports: - - Arthritis. Denies maternal cardiac history. Paternal Family History: Reports: Heart Disease Review of Systems General: Denies: Chills, Fever, Sweats Eyes: Denies: Visual changes - bilaterally, Diplopia ENT: Denies: Rhinorrhea, Sore throat Cardiovascular: Denies: Chest pain, Palpitations Respiratory: Denies: Dyspnea, Cough, Dyspnea on exertion Gastrointestinal: Denies: Abdominal pain, Nausea, Vomiting, Diarrhea, Melena, Hematochezia Genitourinary: Denies: Dysuria, Hematuria, Frequency Musculoskeletal: Denies: Back pain, Extremity Pain Skin: Reports: Wounds - right jainism - site of prior Mohes surgery , right ear- recent shave bipsy site . Denies: Rash Neurological: Denies: Headache, Weakness, Numbness Physical Exam Vital Signs/Narrative: Vital Signs Temp Pulse Resp BP Pulse Ox 03/04/19 16:48 98.2 F 63 15 163/83 H 96 Inital Vital Signs reviewed: Yes General: Well nourished, Well developed, No Acute Distress Head: Normocephalic, Atraumatic Eyes: Perrl, EOMI ENT: Moist mucous membranes, No rhinorrhea Neck: Supple, Nontender Cardiovascular: Regular rate, Regular rhythm, No murmurs Respiratory: No distress, CTA bilaterally, Chest nontender Abdomen: Soft, Nontender, Nondistended, Normal bowel sounds Back: Nontender, Normal Inspection Extremities: Nontender, No edema Skin: Normal color, No rash, - - Patient has a briskly bleeding wounds at his Mohes surgical site-the area that was left to heal by secondary intention. There is arterial bleeding present. No active bleeding at the ER biopsy site. Neurological: Alert, Oriented x3, Cranial nerves II-XII grossly intact, Normal Strength, Normal Sensation Psychological: Normal affect, Normal Mood Diagnostic/Tx/Re-eval - Medical Decision Making Patient evaluated for bleeding wound. He is on Coumadin and his INR was 4.0 yesterday. Patient initially has a steadily losing wounds at the site of his Mohs surgery. He is not having bleeding in the ear. As I am applying pressure of the wound the scab dislodges and now patient has pulsatile bleeding. It did take multiple attempts to stop the bleeding. Initially I attempted Surgicel which had success temporarily but then he started bleeding again. We then tried Gelfoam with no success. I then injected 4 cc of lidocaine with epinephrine to try to vasoconstrict. This was unsuccessful. Electrocautery was unsuccessful. I did place 3 [id number] sutures in the area with 4-0 Vicryl. This in conjunction with direct pressure was finally able to stop the bleeding. Patient remains hemodynamically stable. He had states that he does not feel lightheaded and his vital signs are normal. I did not check blood work at this time. Patient will follow-up with his brick and blocker aid labor on Wednesday at 9 AM. I did briefly discussed the case with dermatology fellow and let them know that the bleeding h ad stopped. Patient is counseled on signs and symptoms requiring return to the emergency room. Patient verbalizes agreement and understand this plan. Patient discharged home in stable and improved condition. ED Disposition - Plan for ED Patient: Disposition: Home or Assisted Living Diagnosis: Bleeding from wound Instructions: POST OP WOUND CHECK, Bleeding Referrals: Beth Quiroz MD [Primary Care Provider] - Additional Instructions: Please make sure you follow-up with your brick and blocker aid labor on Wednesday as scheduled. Return to emergency room if you have further bleeding. Keep the pressure dressing on until you see dermatology. Return the emergency room if you develop shortness of breath, lightheadedness or feeling overall worse.
--- NOTE | 2019-03-04 19:12 | ED.RN ---
[id number] DIRECT PRESSURE HELD BY THIS RN DR MACDONALD ATTEMPTED 1ST SURGICEL AND THEN SURGIFOAM WITHOUT SUCCESS; CARE TURNED OVER TO A TANNOFF.
--- NOTE | 2019-03-04 19:19 | ED.RN ---
TOOK OVER HOLDING PRESSURE ONTO DRESSING ON RIGHT EAR FROM [id number].
--- NOTE | 2019-03-04 19:30 | ED.RN ---
1900- 2X2 PRESSURE DRESSING IN PLACE; WILL MONITOR FOR RECURRENCE OF BLEEDING. PT DENIES C/O OR NEEDS; AT BS.
[2019-03-04 19:45] VITALS: BP 157/94; PULSE 107; RESP 16
[2019-03-04 20:24] VITALS: PULSE 98; RESP 16
== END 2019-03-04 20:28 | disposition home or self-care (01) ==
PROVIDERS: Emergency Provider Emergency Medicine; Family Provider Internal Medicine; PCP Internal Medicine
DX: L76.21 Postprocedural hemorrhage of skin and subcutaneous tissue following a dermatologic procedure (principal); I48.91 Unspecified atrial fibrillation; I12.9 Hypertensive chronic kidney disease with stage 1 through stage 4 chronic kidney disease, or unspecified chronic kidney disease; N18.3 Chronic kidney disease, stage 3 (moderate); Z94.0 Kidney transplant status; Z85.828 Personal history of other malignant neoplasm of skin; Z95.2 Presence of prosthetic heart valve; Z79.01 Long term (current) use of anticoagulants; Z79.899 Other long term (current) drug therapy
CPT/HCPCS: 99282

== ENCOUNTER 2019-04-03 07:30 | Outpatient (RCR) | payer MEDICARE, BC, SELFPAY ==
[2019-04-03 08:39] LABS: Prograf-FK506 TO CCF/UNIV MAILED SPECIMEN
[2019-04-03 10:34] LABS: Hematocrit 34.6 % (40-54); Mean Corp Hgb Conc 31.8 g/dL (32-36); Mean Corpuscular Volume 94.3 fL (80-94); Mean Platelet Vol. 9.7 fl (6.2-12.0); Platelet Count 143 K/mm3 (150-450); RBC Distribution Width CV 13.6 % (11.6-14.6); Red Blood Count 3.67 M/mm3 (4.6-6.2); White Blood Count 3.7 K/mm3 (4.4-11.0)
[2019-04-03 10:49] LABS: PTHIN 156.9 pg/mL (18.4-80.1)
[2019-04-03 10:52] LABS: Anion Gap 8 (5-15); BUN 19 mg/dL (7-18); Chloride 111 mmol/L (98-107); Creatinine, Serum 1.37 mg/dL (0.70-1.30); EST Glomerular Filtration Rate 55 mL/min (>60); Est Glom Filt Rate - Afr Amer 67 mL/min (>60); Glucose 79 mg/dL (74-106); Sodium Level 138 mmol/L (136-145)
[2019-04-03 11:06] LABS: Protein, Urine (Random) 6.7 mg/dL (<11.9); Protein:Creat Ratio 230 mg/g CRE (0-200)
== END 2019-04-03 18:00 | disposition home or self-care (01) ==
LOC: MTLAB 07:30
PROVIDERS: Family Provider Internal Medicine; PCP Internal Medicine; Referring Provider Internal Medicine Nephrology; Visit Provider Internal Medicine Nephrology
DX: Z94.0 Kidney transplant status (principal); D63.8 Anemia in other chronic diseases classified elsewhere; Z79.899 Other long term (current) drug therapy; Z48.298 Encounter for aftercare following other organ transplant; Z91.89 Other specified personal risk factors, not elsewhere classified
CPT/HCPCS: 36415; 80051; 82565; 82570; 82947; 83970; 84156; 84520; 85027

== ENCOUNTER 2019-05-01 08:24 | Outpatient (RCR) | payer MEDICARE, BC, SELFPAY ==
[2019-05-01 10:21] LABS: Hematocrit 37.9 % (40-54); Hemoglobin 11.7 g/dL (13.0-16.5); Mean Corp Hgb Conc 30.9 g/dL (32-36); Mean Corpuscular Hgb 29.6 pg (27.0-32.0); Mean Corpuscular Volume 95.9 fL (80-94); Mean Platelet Vol. 10.3 fl (6.2-12.0); Platelet Count 125 K/mm3 (150-450); RBC Distribution Width CV 14.2 % (11.6-14.6); Red Blood Count 3.95 M/mm3 (4.6-6.2); White Blood Count 4.2 K/mm3 (4.4-11.0)
[2019-05-01 10:39] LABS: BUN 23 mg/dL (7-18); Chloride 111 mmol/L (98-107); Creatinine, Serum 1.71 mg/dL (0.70-1.30); EST Glomerular Filtration Rate 43 mL/min (>60); Est Glom Filt Rate - Afr Amer 52 mL/min (>60); Glucose 84 mg/dL (74-106); Potassium 4.2 mmol/L (3.5-5.1); Sodium Level 139 mmol/L (136-145)
[2019-05-01 16:04] LABS: Prograf-FK506 TO CCF/UNIV MAILED SPECIMEN
[2019-05-26 12:37] LABS: Anion Gap 6 (5-15)
== END 2019-05-01 18:00 | disposition home or self-care (01) ==
LOC: MTLAB 08:24
PROVIDERS: Family Provider Internal Medicine; PCP Internal Medicine; Referring Provider Internal Medicine Nephrology; Visit Provider Internal Medicine Nephrology
DX: Z94.0 Kidney transplant status (principal); D63.8 Anemia in other chronic diseases classified elsewhere; Z48.298 Encounter for aftercare following other organ transplant; Z91.89 Other specified personal risk factors, not elsewhere classified; Z79.899 Other long term (current) drug therapy
CPT/HCPCS: 36415; 80051; 80197; 82374; 82435; 82565; 82947; 84132; 84295; 84520; 85027

== ENCOUNTER 2019-07-03 07:54 | Outpatient (RCR) | payer MEDICARE, BC, SELFPAY ==
[2019-07-03 09:00] LABS: Prograf-FK506 TO CCF/UNIV MAILED SPECIMEN
[2019-07-03 09:57] LABS: Hematocrit 36.7 % (40-54); Hemoglobin 11.7 g/dL (13.0-16.5); Platelet Count 111 K/mm3 (150-450); White Blood Count 4.7 K/mm3 (4.4-11.0)
[2019-07-03 10:11] LABS: Anion Gap 7 (5-15); BUN 23 mg/dL (7-18); BUN/Creat Ratio 18.9 RATIO (10-20); Calcium,Total 9.1 mg/dL (8.5-10.1); Chloride 108 mmol/L (98-107); Creatinine, Serum 1.22 mg/dL (0.70-1.30); EST Glomerular Filtration Rate 63 mL/min (>60); Est Glom Filt Rate - Afr Amer 77 mL/min (>60); Glucose 83 mg/dL (74-106); Potassium 3.8 mmol/L (3.5-5.1); Sodium Level 136 mmol/L (136-145)
== END 2019-07-20 18:00 | disposition home or self-care (01) ==
LOC: MTLAB 07:54
PROVIDERS: Family Provider Internal Medicine; PCP Internal Medicine; Referring Provider Internal Medicine Nephrology; Visit Provider Internal Medicine Nephrology
DX: Z94.0 Kidney transplant status (principal)
CPT/HCPCS: 36415; 80048; 85014; 85018; 85048; 85049

== ENCOUNTER 2019-08-28 08:06 | Outpatient (RCR) | payer MEDICARE, BC, SELFPAY ==
[2019-08-28 12:13] LABS: Hematocrit 35.9 % (40-54); Hemoglobin 11.3 g/dL (13.0-16.5); Platelet Count 125 K/mm3 (150-450); White Blood Count 3.9 K/mm3 (4.4-11.0)
[2019-08-28 12:31] LABS: Anion Gap 6 (5-15); BUN 20 mg/dL (7-18); BUN/Creat Ratio 15.9 RATIO (10-20); Calcium,Total 9.8 mg/dL (8.5-10.1); Chloride 110 mmol/L (98-107); Creatinine, Serum 1.26 mg/dL (0.70-1.30); EST Glomerular Filtration Rate 61 mL/min (>60); Est Glom Filt Rate - Afr Amer 74 mL/min (>60); Glucose 86 mg/dL (74-106); Potassium 3.7 mmol/L (3.5-5.1); Sodium Level 138 mmol/L (136-145)
[2019-08-30 09:48] LABS: Tacrolimus (FK506) 5.5 ng/mL (2.0-20.0)
== END 2019-08-28 18:00 | disposition home or self-care (01) ==
LOC: MTLAB 08:06
PROVIDERS: Family Provider Internal Medicine; PCP Internal Medicine; Referring Provider Internal Medicine Nephrology; Visit Provider Internal Medicine Nephrology
DX: Z94.0 Kidney transplant status (principal)
CPT/HCPCS: 36415; 80048; 80197; 85014; 85018; 85048; 85049

== ENCOUNTER 2019-10-16 08:10 | Outpatient (RCR) | payer MEDICARE, BC, SELFPAY ==
[2019-10-16 09:58] LABS: Hematocrit 33.9 % (40-54); Hemoglobin 10.6 g/dL (13.0-16.5); Mean Corp Hgb Conc 31.3 g/dL (32-36); Mean Corpuscular Hgb 30.2 pg (27.0-32.0); Mean Corpuscular Volume 96.6 fL (80-94); Mean Platelet Vol. 10.1 fl (6.2-12.0); Platelet Count 117 K/mm3 (150-450); RBC Distribution Width CV 14.1 % (11.6-14.6); RBC Distribution Width SD 49.4 fl (35.1-43.9); Red Blood Count 3.51 M/mm3 (4.6-6.2); White Blood Count 3.9 K/mm3 (4.4-11.0)
[2019-10-16 10:13] LABS: Anion Gap 6 (5-15); BUN 23 mg/dL (7-18); BUN/Creat Ratio 16.5 RATIO (10-20); Calcium,Total 9.3 mg/dL (8.5-10.1); Chloride 105 mmol/L (98-107); Creatinine, Serum 1.39 mg/dL (0.70-1.30); EST Glomerular Filtration Rate 54 mL/min (>60); Est Glom Filt Rate - Afr Amer 66 mL/min (>60); Glucose 86 mg/dL (74-106); Potassium 3.6 mmol/L (3.5-5.1); Sodium Level 134 mmol/L (136-145)
[2019-10-16 10:15] LABS: Hemoglobin A1c 5.3 % (3.8-5.6)
[2019-10-19 15:20] LABS: Tacrolimus (FK506) 6.9 ng/mL (2.0-20.0)
== END 2019-10-16 18:00 | disposition home or self-care (01) ==
LOC: MTLAB 08:10
PROVIDERS: Family Provider Internal Medicine; PCP Internal Medicine; Referring Provider Internal Medicine Nephrology; Visit Provider Internal Medicine Nephrology
DX: Z94.0 Kidney transplant status (principal); Z79.899 Other long term (current) drug therapy
CPT/HCPCS: 80048; 80197; 83036; 85027; 85048

== ENCOUNTER → 2019-10-25 08:42 | Outpatient (CLI) | payer MEDICARE, BC, SELFPAY ==
[2019-10-25 10:26] LABS: AST(SGOT) 14 U/L (15-37); Alanine Aminotransfer ALT/SGPT 18 U/L (16-61); Albumin, Serum 3.6 g/dL (3.2-5.0); Alkaline Phosphatase 104 U/L (45-117); Bilirubin, Direct 0.21 mg/dL (0.00-0.30); Cholesterol 88 mg/dL (200); Globulin 2.5 g/dL (2.2-4.2); High Density Lipoprotein 39 mg/dL; Protein, Total 6.1 g/dL (6.4-8.2); Triglycerides 63 mg/dL; Very Low Density Lipoprotein 13 mg/dL (5-40)
== END ==
PROVIDERS: PCP Internal Medicine
DX: Z51.81 Encounter for therapeutic drug level monitoring (principal); Z94.0 Kidney transplant status
CPT/HCPCS: 36415; 80061; 80076

== ENCOUNTER 2019-12-05 07:58 | Outpatient (RCR) | payer MEDICARE, BC, SELFPAY ==
[2019-12-05 10:20] LABS: Hematocrit 32.7 % (40-54); Hemoglobin 10.5 g/dL (13.0-16.5); Platelet Count 108 K/mm3 (150-450); White Blood Count 3.6 K/mm3 (4.4-11.0)
[2019-12-05 10:31] LABS: Anion Gap 7 (5-15); BUN 25 mg/dL (7-18); BUN/Creat Ratio 14.1 RATIO (10-20); Calcium,Total 9.5 mg/dL (8.5-10.1); Chloride 105 mmol/L (98-107); Cholesterol 99 mg/dL (200); Creatinine, Serum 1.77 mg/dL (0.70-1.30); EST Glomerular Filtration Rate 41 mL/min (>60); Est Glom Filt Rate - Afr Amer 50 mL/min (>60); Glucose 83 mg/dL (74-106); High Density Lipoprotein 40 mg/dL; Potassium 3.8 mmol/L (3.5-5.1); Sodium Level 133 mmol/L (136-145); Triglycerides 119 mg/dL; Very Low Density Lipoprotein 24 mg/dL (5-40)
== END 2019-12-05 18:00 | disposition home or self-care (01) ==
LOC: MTLAB 07:58
PROVIDERS: Family Provider Internal Medicine; PCP Internal Medicine; Referring Provider Internal Medicine Nephrology; Visit Provider Internal Medicine Nephrology
DX: Z94.0 Kidney transplant status (principal); Z79.899 Other long term (current) drug therapy
CPT/HCPCS: 36415; 80048; 80061; 85014; 85018; 85048; 85049

== ENCOUNTER 2020-01-29 08:12 | Outpatient (RCR) | payer MEDICARE, BC, SELFPAY ==
[2020-01-29 09:19] LABS: Prograf-FK506 TO CCF/UNIV MAILED SPECIMEN
[2020-01-29 10:19] LABS: Hematocrit 37.7 % (40-54); Hemoglobin 11.9 g/dL (13.0-16.5); Platelet Count 104 K/mm3 (150-450); White Blood Count 4.4 K/mm3 (4.4-11.0)
[2020-01-29 10:44] LABS: Anion Gap 9 (5-15); BUN 23 mg/dL (7-18); BUN/Creat Ratio 13.9 RATIO (10-20); Chloride 105 mmol/L (98-107); Creatinine, Serum 1.65 mg/dL (0.70-1.30); EST Glomerular Filtration Rate 45 mL/min (>60); Est Glom Filt Rate - Afr Amer 54 mL/min (>60); Glucose 85 mg/dL (74-106); Potassium 3.9 mmol/L (3.5-5.1); Sodium Level 135 mmol/L (136-145)
== END 2020-01-29 18:00 | disposition home or self-care (01) ==
LOC: MTLAB 08:12
PROVIDERS: Family Provider Internal Medicine; PCP Internal Medicine; Referring Provider Internal Medicine Nephrology; Visit Provider Internal Medicine Nephrology
DX: R79.9 Abnormal finding of blood chemistry, unspecified (principal); Z94.0 Kidney transplant status; Z79.899 Other long term (current) drug therapy; Z48.298 Encounter for aftercare following other organ transplant; D89.9 Disorder involving the immune mechanism, unspecified; D50.9 Iron deficiency anemia, unspecified
CPT/HCPCS: 36415; 80048; 85014; 85018; 85048; 85049

== ENCOUNTER 2020-04-19 09:05 | Outpatient (RCR) | payer MEDICARE, BC, SELFPAY ==
[2020-04-03 08:28] LABS: Absolute Lymphocyte Count 0.69 X10^3/uL (0.83-4.51); Absolute Neutrophil Count 2.7 X10^3/uL (2.0-7.7); Basophil# 0.01 X10^3/uL; Basophil% 0.2 % (0-1); Eosinophil# 0.09 X10^3/uL; Eosinophils% 2.1 % (0-5); Hematocrit 40.9 % (40-54); Hemoglobin 12.8 g/dL (13.0-16.5); Lymphocyte # 0.69 X10^3/ul (4.0); Lymphocyte % 16.4 % (19-41); Mean Corp Hgb Conc 31.3 g/dL (32-36); Mean Corpuscular Hgb 30.2 pg (27.0-32.0); Mean Corpuscular Volume 96.5 fL (80-94); Mean Platelet Vol. 10.7 fl (6.2-12.0); Monocyte# 0.68 X10^3/uL; Monocyte% 16.1 % (0-10); NRBC Flagged by Analyzer 0 % (0-5); Neutrophil # 2.74 X10^3/uL (2.7-7.7); Platelet Count 104 K/mm3 (150-450); RBC Distribution Width CV 14.5 % (11.6-14.6); RBC Distribution Width SD 50.8 fl (35.1-43.9); Red Blood Count 4.24 M/mm3 (4.6-6.2); White Blood Count 4.2 K/mm3 (4.4-11.0)
[2020-04-03 08:59] LABS: Anion Gap 8 (5-15); BUN 15 mg/dL (7-18); BUN/Creat Ratio 10.4 RATIO (10-20); Calcium,Total 9.5 mg/dL (8.5-10.1); Chloride 108 mmol/L (98-107); Cholesterol 90 mg/dL (200); Creatinine, Serum 1.44 mg/dL (0.70-1.30); EST Glomerular Filtration Rate 52 mL/min (>60); Est Glom Filt Rate - Afr Amer 63 mL/min (>60); Glucose 82 mg/dL (74-106); High Density Lipoprotein 41 mg/dL; Potassium 3.7 mmol/L (3.5-5.1); Sodium Level 137 mmol/L (136-145); Triglycerides 77 mg/dL; Very Low Density Lipoprotein 15 mg/dL (5-40)
[2020-04-03 09:06] LABS: Hemoglobin A1c 5.4 % (3.8-5.6)
[2020-04-03 09:07] LABS: Prograf-FK506 TO CCF/UNIV MAILED SPECIMEN
[2020-05-02 10:17] LABS: Prograf-FK506 TO CCF/UNIV MAILED SPECIMEN
== END 2020-04-19 18:00 | disposition home or self-care (01) ==
LOC: MTLAB 09:05
PROVIDERS: Family Provider Internal Medicine; PCP Internal Medicine; Referring Provider Internal Medicine Nephrology; Visit Provider Internal Medicine Nephrology
DX: Z48.298 Encounter for aftercare following other organ transplant (principal); D89.9 Disorder involving the immune mechanism, unspecified; D50.9 Iron deficiency anemia, unspecified; R79.9 Abnormal finding of blood chemistry, unspecified; Z94.0 Kidney transplant status
CPT/HCPCS: 36415; 80048; 80061; 80197; 83036; 85025

== ENCOUNTER 2020-06-03 08:06 | Outpatient (RCR) | payer MEDICARE, BC, SELFPAY ==
[2020-05-27 09:24] LABS: Prograf-FK506 TO CCF/UNIV MAILED SPECIMEN
[2020-05-27 10:20] LABS: Hematocrit 39.3 % (40-54); Hemoglobin 12.3 g/dL (13.0-16.5); POSITIVE COUNT YES; Platelet Count 92 K/mm3 (150-450); White Blood Count 4.5 K/mm3 (4.4-11.0)
[2020-05-27 10:29] LABS: Anion Gap 9 (5-15); BUN 21 mg/dL (7-18); BUN/Creat Ratio 14.9 RATIO (10-20); Calcium,Total 9.4 mg/dL (8.5-10.1); Chloride 105 mmol/L (98-107); Creatinine, Serum 1.41 mg/dL (0.70-1.30); EST Glomerular Filtration Rate 53 mL/min (>60); Est Glom Filt Rate - Afr Amer 65 mL/min (>60); Glucose 83 mg/dL (74-106); Potassium 3.8 mmol/L (3.5-5.1); Sodium Level 137 mmol/L (136-145)
[2020-05-27 11:26] LABS: Differential Indicated SCAN CRITERIA MET
[2020-06-03 09:11] LABS: Prograf-FK506 TO CCF/UNIV MAILED SPECIMEN
== END 2020-06-03 18:00 | disposition home or self-care (01) ==
LOC: MTLAB 08:06
PROVIDERS: Family Provider Internal Medicine; PCP Internal Medicine; Referring Provider Internal Medicine Nephrology; Visit Provider Internal Medicine Nephrology
DX: Z94.0 Kidney transplant status (principal); Z48.298 Encounter for aftercare following other organ transplant; D89.9 Disorder involving the immune mechanism, unspecified; D50.9 Iron deficiency anemia, unspecified; R79.9 Abnormal finding of blood chemistry, unspecified
CPT/HCPCS: 36415; 80048; 85014; 85018; 85048; 85049

== ENCOUNTER 2020-07-22 08:01 | Outpatient (RCR) | payer MEDICARE, BC, SELFPAY ==
[2020-07-22 09:07] LABS: Prograf-FK506 TO CCF/UNIV MAILED SPECIMEN
[2020-07-22 09:54] LABS: Hemoglobin 12.3 g/dL (13.0-16.5); Mean Corp Hgb Conc 31.5 g/dL (32-36); Mean Corpuscular Hgb 30.5 pg (27.0-32.0); Mean Corpuscular Volume 96.8 fL (80-94); Mean Platelet Vol. 10.4 fl (6.2-12.0); Platelet Count 101 K/mm3 (150-450); RBC Distribution Width CV 13.6 % (11.6-14.6); RBC Distribution Width SD 48.7 fl (35.1-43.9); Red Blood Count 4.03 M/mm3 (4.6-6.2); White Blood Count 3.8 K/mm3 (4.4-11.0)
[2020-07-22 10:09] LABS: Protein, Urine (Random) 6.2 mg/dL (<11.9); Protein:Creat Ratio 157 mg/g CRE (0-200)
[2020-07-22 10:29] LABS: AST(SGOT) 15 U/L (15-37); Alanine Aminotransfer ALT/SGPT 19 U/L (16-61); Albumin, Serum 3.3 g/dL (3.2-5.0); Alkaline Phosphatase 142 U/L (45-117); Anion Gap 11 (5-15); BUN 16 mg/dL (7-18); Calcium,Total 9.2 mg/dL (8.5-10.1); Chloride 105 mmol/L (98-107); Cholesterol 89 mg/dL (200); Creatinine, Serum 1.23 mg/dL (0.70-1.30); EST Glomerular Filtration Rate 63 mL/min (>60); Est Glom Filt Rate - Afr Amer 76 mL/min (>60); Glucose 81 mg/dL (74-106); High Density Lipoprotein 43 mg/dL; Magnesium 1.9 mg/dL (1.6-2.6); Phosphorus 3.1 mg/dL (2.5-4.9); Potassium 3.6 mmol/L (3.5-5.1); Sodium Level 137 mmol/L (136-145); Triglycerides 71 mg/dL; Very Low Density Lipoprotein 14 mg/dL (5-40)
== END 2020-07-22 18:00 | disposition home or self-care (01) ==
LOC: MTLAB 08:01
PROVIDERS: Family Provider Internal Medicine; PCP Internal Medicine; Referring Provider Internal Medicine Nephrology; Visit Provider Internal Medicine Nephrology
DX: Z48.298 Encounter for aftercare following other organ transplant (principal); N18.9 Chronic kidney disease, unspecified; D63.1 Anemia in chronic kidney disease; D84.9 Immunodeficiency, unspecified; D50.9 Iron deficiency anemia, unspecified; D89.9 Disorder involving the immune mechanism, unspecified; R79.9 Abnormal finding of blood chemistry, unspecified; Z94.0 Kidney transplant status
CPT/HCPCS: 36415; 80048; 80061; 82040; 82247; 82570; 83735; 84075; 84100; 84156; 84450; 84460; 85027

== ENCOUNTER 2020-09-30 07:45 | Outpatient (RCR) | payer MEDICARE, BC, SELFPAY ==
[2020-09-30 10:22] LABS: Hematocrit 38.7 % (40-54); Hemoglobin 12.1 g/dL (13.0-16.5); Mean Corp Hgb Conc 31.3 g/dL (32-36); Mean Corpuscular Hgb 30.3 pg (27.0-32.0); Mean Corpuscular Volume 96.8 fL (80-94); Mean Platelet Vol. 10.3 fl (6.2-12.0); Platelet Count 103 K/mm3 (150-450); RBC Distribution Width CV 13.9 % (11.6-14.6); RBC Distribution Width SD 49.2 fl (35.1-43.9); White Blood Count 4.4 K/mm3 (4.4-11.0)
[2020-09-30 10:39] LABS: Anion Gap 9 (5-15); BUN 26 mg/dL (7-18); BUN/Creat Ratio 19.8 RATIO (10-20); Calcium,Total 9.5 mg/dL (8.5-10.1); Chloride 110 mmol/L (98-107); Creatinine, Serum 1.31 mg/dL (0.70-1.30); EST Glomerular Filtration Rate 58 mL/min (>60); Est Glom Filt Rate - Afr Amer 70 mL/min (>60); Ferritin 81 ng/mL (26-388); Glucose 73 mg/dL (74-106); Iron 86 ug/dL (65-175); Iron Binding Capacity,Total 337 ug/dL (250-450); PERCENT IRON SATURATION 25.5 % (15.0-55.0); Phosphorus 3.2 mg/dL (2.5-4.9); Potassium 3.5 mmol/L (3.5-5.1); Sodium Level 139 mmol/L (136-145)
[2020-10-07 16:13] LABS: Prograf-FK506 TO CCF/UNIV MAILED SPECIMEN
== END 2020-09-30 18:00 | disposition home or self-care (01) ==
LOC: MTLAB 07:45
PROVIDERS: Family Provider Internal Medicine; PCP Internal Medicine; Referring Provider Internal Medicine Nephrology; Visit Provider Internal Medicine Nephrology
DX: N18.9 Chronic kidney disease, unspecified (principal); D63.1 Anemia in chronic kidney disease; Z94.0 Kidney transplant status; R79.9 Abnormal finding of blood chemistry, unspecified; Z48.298 Encounter for aftercare following other organ transplant; D84.9 Immunodeficiency, unspecified
CPT/HCPCS: 36415; 80048; 80197; 82728; 83540; 83550; 83735; 84100; 85027

== ENCOUNTER 2020-12-02 07:52 | Outpatient (RCR) | payer MEDICARE, BC, SELFPAY ==
[2020-12-02 08:59] LABS: Prograf-FK506 TO CCF/UNIV MAILED SPECIMEN
[2020-12-02 10:40] LABS: Hematocrit 39.1 % (40-54); Hemoglobin 12.1 g/dL (13.0-16.5); Mean Corp Hgb Conc 30.9 g/dL (32-36); Mean Corpuscular Hgb 30.5 pg (27.0-32.0); Mean Corpuscular Volume 98.5 fL (80-94); Mean Platelet Vol. 10.8 fl (6.2-12.0); POSITIVE COUNT YES; Platelet Count 97 K/mm3 (150-450); RBC Distribution Width CV 14.2 % (11.6-14.6); RBC Distribution Width SD 51.7 fl (35.1-43.9); Red Blood Count 3.97 M/mm3 (4.6-6.2); White Blood Count 4.5 K/mm3 (4.4-11.0)
[2020-12-02 10:43] LABS: Scan Indicated on CBC? Y/N YES- FLAGS NOTED
[2020-12-02 10:51] LABS: Protein:Creat Ratio 242 mg/g CRE (0-200)
[2020-12-02 10:54] LABS: AST(SGOT) 13 U/L (15-37); Alanine Aminotransfer ALT/SGPT 19 U/L (16-61); Albumin, Serum 3.2 g/dL (3.2-5.0); Alkaline Phosphatase 88 U/L (45-117); Anion Gap 8 (5-15); BUN 21 mg/dL (7-18); BUN/Creat Ratio 15.4 RATIO (10-20); Calcium,Total 9.4 mg/dL (8.5-10.1); Chloride 112 mmol/L (98-107); Cholesterol 106 mg/dL (200); Creatinine, Serum 1.36 mg/dL (0.70-1.30); EST Glomerular Filtration Rate 56 mL/min (>60); Est Glom Filt Rate - Afr Amer 67 mL/min (>60); Glucose 76 mg/dL (74-106); High Density Lipoprotein 43 mg/dL; Magnesium 2.1 mg/dL (1.6-2.6); Phosphorus 3.4 mg/dL (2.5-4.9); Potassium 3.6 mmol/L (3.5-5.1); Sodium Level 141 mmol/L (136-145); Triglycerides 121 mg/dL; Very Low Density Lipoprotein 24 mg/dL (5-40)
[2020-12-02 11:06] LABS: Ferritin 78 ng/mL (26-388); Iron 93 ug/dL (65-175); Iron Binding Capacity,Total 322 ug/dL (250-450); PERCENT IRON SATURATION 28.9 % (15.0-55.0)
== END 2020-12-02 18:00 | disposition home or self-care (01) ==
LOC: MTLAB 07:52
PROVIDERS: Family Provider Internal Medicine; PCP Internal Medicine; Referring Provider Internal Medicine Nephrology; Visit Provider Internal Medicine Nephrology
DX: Z48.298 Encounter for aftercare following other organ transplant (principal); N18.9 Chronic kidney disease, unspecified; D63.1 Anemia in chronic kidney disease; D84.9 Immunodeficiency, unspecified; R79.9 Abnormal finding of blood chemistry, unspecified; Z94.0 Kidney transplant status
CPT/HCPCS: 36415; 80048; 80061; 82040; 82247; 82570; 82728; 83540; 83550; 83735; 84075; 84100; 84156; 84450; 84460; 85027

== ENCOUNTER 2021-01-28 08:14 | Outpatient (RCR) | payer MEDICARE, BC, SELFPAY ==
[2020-12-20 01:57] VITALS: BMI 35.2
[2021-01-28 09:19] LABS: Prograf-FK506 TO CCF/UNIV MAILED SPECIMEN
[2021-01-28 09:58] LABS: Hematocrit 36.6 % (40-54); Hemoglobin 12.1 g/dL (13.0-16.5); Mean Corp Hgb Conc 33.1 g/dL (32-36); Mean Corpuscular Hgb 31.8 pg (27.0-32.0); Mean Corpuscular Volume 96.3 fL (80-94); Mean Platelet Vol. 10.8 fl (6.2-12.0); Platelet Count 115 K/mm3 (150-450); RBC Distribution Width CV 13.9 % (11.6-14.6); RBC Distribution Width SD 49.1 fl (35.1-43.9); White Blood Count 4.2 K/mm3 (4.4-11.0)
[2021-01-28 10:50] LABS: Anion Gap 7 (5-15); BUN 24 mg/dL (7-18); BUN/Creat Ratio 14.1 RATIO (10-20); Calcium,Total 9.4 mg/dL (8.5-10.1); Chloride 107 mmol/L (98-107); EST Glomerular Filtration Rate 43 mL/min (>60); Est Glom Filt Rate - Afr Amer 52 mL/min (>60); Glucose 81 mg/dL (74-106); Phosphorus 3.1 mg/dL (2.5-4.9); Potassium 4.2 mmol/L (3.5-5.1); Sodium Level 136 mmol/L (136-145)
== END 2021-02-18 18:00 | disposition home or self-care (01) ==
LOC: MTLAB 08:14
PROVIDERS: Family Provider Internal Medicine; PCP Internal Medicine; Referring Provider Internal Medicine Nephrology; Visit Provider Internal Medicine Nephrology
DX: Z48.298 Encounter for aftercare following other organ transplant (principal); N18.9 Chronic kidney disease, unspecified; D63.1 Anemia in chronic kidney disease; D84.9 Immunodeficiency, unspecified; R79.9 Abnormal finding of blood chemistry, unspecified; Z94.0 Kidney transplant status
CPT/HCPCS: 36415; 80048; 83735; 84100; 85027

== ENCOUNTER 2021-04-01 08:08 | Outpatient (RCR) | payer MEDICARE, BC, SELFPAY ==
[2021-02-19 04:07] VITALS: BMI 35.2
[2021-04-01 09:24] LABS: Prograf-FK506 TO CCF/UNIV MAILED SPECIMEN
[2021-04-01 10:07] LABS: Hematocrit 37.1 % (40-54); Hemoglobin 12.2 g/dL (13.0-16.5); Mean Corp Hgb Conc 32.9 g/dL (32-36); Mean Corpuscular Hgb 31.5 pg (27.0-32.0); Mean Corpuscular Volume 95.9 fL (80-94); Mean Platelet Vol. 10.2 fl (6.2-12.0); Platelet Count 109 K/mm3 (150-450); RBC Distribution Width SD 48.8 fl (35.1-43.9); Red Blood Count 3.87 M/mm3 (4.6-6.2); White Blood Count 4.1 K/mm3 (4.4-11.0)
[2021-04-01 10:22] LABS: Anion Gap 11 (5-15); BUN 20 mg/dL (7-18); BUN/Creat Ratio 13.7 RATIO (10-20); Calcium,Total 9.6 mg/dL (8.5-10.1); Chloride 104 mmol/L (98-107); Creatinine, Serum 1.46 mg/dL (0.70-1.30); EST Glomerular Filtration Rate 51 mL/min (>60); Est Glom Filt Rate - Afr Amer 62 mL/min (>60); Glucose 84 mg/dL (74-106); Magnesium 2.1 mg/dL (1.6-2.6); Phosphorus 2.9 mg/dL (2.5-4.9); Sodium Level 136 mmol/L (136-145)
== END 2021-04-21 18:00 | disposition home or self-care (01) ==
LOC: MTLAB 08:08
PROVIDERS: Family Provider Internal Medicine; PCP Internal Medicine; Referring Provider Internal Medicine Nephrology; Visit Provider Internal Medicine Nephrology
DX: N18.9 Chronic kidney disease, unspecified (principal); D63.1 Anemia in chronic kidney disease; Z94.0 Kidney transplant status; R79.9 Abnormal finding of blood chemistry, unspecified; Z48.298 Encounter for aftercare following other organ transplant
CPT/HCPCS: 36415; 80048; 83735; 84100; 85027

== ENCOUNTER 2021-04-17 10:43 | Outpatient (CLI) | payer MEDICARE, BC, SELFPAY ==
--- NOTE | 2021-04-17 10:50 | ECHOD_ITS ---
Reason For Study: ARRHYTHMIA Procedure This was a 2D Doppler, Color Flow transthoracic echocardiogram. The study was technically difficult. Exam performed in department. Left Ventricle Normal LV size. Left ventricular systolic function is normal. The estimated ejection fraction is 55 %. No regional wall motion abnormalities noted. Right Ventricle Normal RV size. ICD or pacer leads identified within the right ventricle. Normal systolic function. Atria The left atrium is severely enlarged. The right atrium is mildly enlarged. Mitral Valve torn chords noted. Mean transmitral valve gradient 8 mmHg. Bioprosthetic mitral valve. Stable appearing bioprosthetic mitral valve apparatus. Tricuspid Valve Normal tricuspid valve. Mild to moderate (1-2+) tricuspid valve insufficiency. Pulmonary artery systolic pressure is 53 mmHg. Aortic Valve Mild diffuse aortic valve thickening. Peak aortic valve gradient 14 mmHg. Mean aortic valve gradient 8 mmHg. Trivial aortic valve insufficiency. Bioprosthetic aortic valve. Pericardium/Pleural No pericardial effusion. MMode/2D Measurements & Calculations LVIDd: 4.9 cm IVSd: 1.2 cm LVOT diam: 2.0 cm LVIDs: 2.9 cm LVPWd: 1.1 cm LVOT area: 3.1 cm2 RVDd: 3.9 cm FS: 39.6 % Ao root diam: 4.1 cm LAV(MOD-bp): 125.6 ml LVAd ap4: 29.2 cm2 LAV(MOD-bp) Indexed: 63.5 ml/m2 LVLd ap4: 8.4 cm LAV(MOD-sp2): 116.0 ml EDV(MOD-sp4): 86.4 ml LAV(MOD-sp4): 115.1 ml EDV(sp4-el): 85.9 ml LVAs ap4: 20.4 cm2 LVLs ap4: 7.6 cm ESV(MOD-sp4): 45.9 ml ESV(sp4-el): 46.9 ml EF(MOD-sp4): 46.8 % EF(sp4-el): 45.4 % SV(MOD-sp4): 40.5 ml SV(sp4-el): 39.0 ml LA A4 area: 30.2 cm2 RA A4 area: 20.1 cm2 Doppler Measurements & Calculations Lat Peak E' Shakir: 7.6 cm/sec Med Peak E' Shakir: 4.5 cm/sec MV V2 max: 249.5 cm/sec MV max P.9 mmHg MV V2 mean: 124.7 cm/sec MV mean P.0 mmHg MV V2 VTI: 68.6 cm MVA(VTI): 1.1 cm2 Ao V2 max: 190.7 cm/sec AI max shakir: 396.2 cm/sec LV V1 max: 109.3 cm/sec Ao max P.6 mmHg AI max P.8 mmHg LV V1 max P.8 mmHg Ao V2 mean: 137.4 cm/sec LV V1 mean P.7 mmHg Ao mean P.4 mmHg AI dec slope: 185.3 cm/sec2 LV V1 mean: 77.5 cm/sec Ao V2 VTI: 39.6 cm AI P1/2t: 626.2 msec LV V1 VTI: 25.2 cm KWABENA(I,D): 2.0 cm2 KWABENA(V,D): 1.8 cm2 SV(LVOT): 77.4 ml TR max shakir: 345.8 cm/sec MV P1/2t-pr_phl: 139.8 msec TR max P.8 mmHg ECHO/Echo Complete Interpretation Summary Normal LV size. Left ventricular systolic function is normal. The estimated ejection fraction is 55 %. The left atrium is severely enlarged. Stable appearing bioprosthetic mitral valve apparatus. Mean transmitral valve gradient 8 mmHg. Pulmonary artery systolic pressure is 53 mmHg. Bioprosthetic aortic valve. Mean aortic valve gradient 8 mmHg. Ordering Physician: Niko Botello Referring Physician: SAMUEL OSBORNE Performed By: Anisha Rutherford, ALISIA, RVT
== END 2021-04-17 23:59 | disposition short-term general hospital (02) ==
LOC: CVS 10:44
PROVIDERS: PCP Internal Medicine; Referring Provider Internal Medicine Cardiovascular Disease; Visit Provider Internal Medicine Cardiovascular Disease
DX: I48.11 Longstanding persistent atrial fibrillation (principal)
CPT/HCPCS: 93306

== ENCOUNTER 2021-06-03 07:34 | Outpatient (RCR) | payer MEDICARE, BC, SELFPAY ==
[2021-04-22 01:44] VITALS: BMI 35.2
[2021-06-03 08:36] LABS: Prograf-FK506 TO CCF/UNIV MAILED SPECIMEN
[2021-06-03 10:02] LABS: Mean Corp Hgb Conc 31.6 g/dL (32-36); Mean Corpuscular Hgb 31.2 pg (27.0-32.0); Mean Corpuscular Volume 98.7 fL (80-94); Mean Platelet Vol. 10.2 fl (6.2-12.0); POSITIVE COUNT YES; Platelet Count 93 K/mm3 (150-450); RBC Distribution Width CV 14.2 % (11.6-14.6); RBC Distribution Width SD 51.1 fl (35.1-43.9); Red Blood Count 3.85 M/mm3 (4.6-6.2); White Blood Count 4.1 K/mm3 (4.4-11.0)
[2021-06-03 10:05] LABS: Scan Indicated on CBC? Y/N NO
[2021-06-03 10:39] LABS: AST(SGOT) 17 U/L (15-37); Alanine Aminotransfer ALT/SGPT 18 U/L (16-61); Albumin, Serum 3.4 g/dL (3.2-5.0); Alkaline Phosphatase 81 U/L (45-117); Anion Gap 8 (5-15); BUN 23 mg/dL (7-18); BUN/Creat Ratio 15.6 RATIO (10-20); Calcium,Total 9.8 mg/dL (8.5-10.1); Chloride 107 mmol/L (98-107); Cholesterol 108 mg/dL (200); Creatinine, Serum 1.47 mg/dL (0.70-1.30); EST Glomerular Filtration Rate 51 mL/min (>60); Est Glom Filt Rate - Afr Amer 61 mL/min (>60); Glucose 78 mg/dL (74-106); High Density Lipoprotein 44 mg/dL; Magnesium 2.1 mg/dL (1.6-2.6); Phosphorus 2.8 mg/dL (2.5-4.9); Potassium 4.1 mmol/L (3.5-5.1); Protein, Urine (Random) < 6.0 mg/dL (<11.9); Protein:Creat Ratio 150 mg/g CRE (0-200); Sodium Level 134 mmol/L (136-145); Triglycerides 115 mg/dL; Very Low Density Lipoprotein 23 mg/dL (5-40)
== END 2021-06-19 18:00 | disposition home or self-care (01) ==
LOC: MTLAB 07:34
PROVIDERS: Family Provider Internal Medicine; PCP Internal Medicine; Referring Provider Internal Medicine Nephrology; Visit Provider Internal Medicine Nephrology
DX: N18.9 Chronic kidney disease, unspecified (principal); D63.1 Anemia in chronic kidney disease; Z94.0 Kidney transplant status; R79.9 Abnormal finding of blood chemistry, unspecified; Z48.298 Encounter for aftercare following other organ transplant; D84.9 Immunodeficiency, unspecified
CPT/HCPCS: 36415; 80048; 80061; 82040; 82247; 82570; 83735; 84075; 84100; 84156; 84450; 84460; 85027

== ENCOUNTER → 2021-07-24 | Outpatient (CLI) | payer MEDICARE, BC, SELFPAY ==
--- NOTE | 2021-07-25 07:55 | PFT ---
INTRODUCTION: The patient is a 66-year-old male that presents for pulmonary function studies secondary to a diagnosis of pulmonary hypertension. Respiratory therapy reported good patient effort. Bronchodilators were used during testing. INTERPRETATION: Forced expiration spirometry demonstrates no evidence of a large airways obstructive ventilatory defect. There was no significant response to aerosolized bronchodilators. Spirograms are of good quality and plateau normally. Body plethysmography was performed and reveals lung volumes to be within normal limits. Diffusing capacity by single breath CO is also within normal limits. IMPRESSION: Grossly normal pulmonary function studies.
== END | disposition home or self-care (01) ==
LOC: PSN 09:49
PROVIDERS: PCP Internal Medicine; Referring Provider Internal Medicine Critical Care Medicine; Visit Provider Internal Medicine Critical Care Medicine
DX: G47.30 Sleep apnea, unspecified (principal)
CPT/HCPCS: 94060; 94726; 94729

== ENCOUNTER 2021-07-29 08:29 | Outpatient (RCR) | payer MEDICARE, BC, SELFPAY ==
[2021-06-20 02:59] VITALS: BMI 35.2
[2021-07-29 10:28] LABS: Hematocrit 36.9 % (40-54); Hemoglobin 11.8 g/dL (13.0-16.5); Mean Corpuscular Hgb 30.9 pg (27.0-32.0); Mean Corpuscular Volume 96.6 fL (80-94); Mean Platelet Vol. 10.3 fl (6.2-12.0); Platelet Count 104 K/mm3 (150-450); RBC Distribution Width CV 14.3 % (11.6-14.6); RBC Distribution Width SD 50.4 fl (35.1-43.9); Red Blood Count 3.82 M/mm3 (4.6-6.2); White Blood Count 5.3 K/mm3 (4.4-11.0)
[2021-07-29 11:02] LABS: Hemoglobin A1c 5.3 % (3.8-5.6)
[2021-07-29 11:27] LABS: AST(SGOT) 15 U/L (15-37); Alanine Aminotransfer ALT/SGPT 21 U/L (16-61); Anion Gap 9 (5-15); BUN 25 mg/dL (7-18); BUN/Creat Ratio 17.7 RATIO (10-20); Calcium,Total 9.6 mg/dL (8.5-10.1); Chloride 108 mmol/L (98-107); Creatinine, Serum 1.41 mg/dL (0.70-1.30); EST Glomerular Filtration Rate 53 mL/min (>60); Est Glom Filt Rate - Afr Amer 64 mL/min (>60); Glucose 91 mg/dL (74-106); Magnesium 2.1 mg/dL (1.6-2.6); Potassium 4.2 mmol/L (3.5-5.1); Sodium Level 135 mmol/L (136-145)
== END 2021-08-19 18:00 | disposition home or self-care (01) ==
LOC: MTLAB 08:29
PROVIDERS: Family Provider Internal Medicine; PCP Internal Medicine; Referring Provider Internal Medicine Nephrology; Visit Provider Internal Medicine Nephrology
DX: N18.9 Chronic kidney disease, unspecified (principal); D63.1 Anemia in chronic kidney disease; Z94.0 Kidney transplant status; R79.9 Abnormal finding of blood chemistry, unspecified; Z48.298 Encounter for aftercare following other organ transplant; R68.89 Other general symptoms and signs; D84.9 Immunodeficiency, unspecified; Z79.899 Other long term (current) drug therapy
CPT/HCPCS: 36415; 80048; 80197; 83036; 83735; 84100; 84450; 84460; 85027

== ENCOUNTER → 2021-07-31 | Outpatient (CLI) | payer MEDICARE, BC, SELFPAY ==
[2021-07-31 10:30] VITALS: PULSE 101; PULSE 104; PULSE 90; PULSE 94; PULSE 95; PULSE 97; O2SAT 95; O2SAT 96; O2SAT 97; O2SAT 98; O2SAT 99
--- NOTE | 2021-07-31 14:08 | PCM.PSN.6M ---
PSN 6 Minute Walk Test 6 Minute Walk Test 6 Minute Walk Test: 6 Minute Walk Test PSN:6-Minute Walk Test Start: 07/31/21 10:44 Freq: Status: Active Protocol: [id number].[id number] Document 07/31/21 10:30 [facility] (Rec: 07/31/21 10:51 [facility] [id number]) 6 Minute Walk Test Date Performed 07/31/21 Time Performed 10:30 Height 5 ft 6 in Weight: 87.997 kg Weight in Pounds 194.[address]: Dr Nunez Assistive device used: None Pre-test Oxygen Delivery Method Room Air Pulse Ox (%) 99 Pulse Rate (60-100 beats/min) 90 Dyspnea Shital Scale (0-10) 0 Exertion Shital Scale (6-20) 6 1st minute Oxygen Delivery Method Room Air Pulse Ox (%) 98 Pulse Rate (60-100 beats/min) 97 2nd minute Oxygen Delivery Method Room Air Pulse Ox (%) 98 Pulse Rate (60-100 beats/min) 94 3rd minute Oxygen Delivery Method Room Air Pulse Ox (%) 95 Pulse Rate (60-100 beats/min) 94 4th minute Oxygen Delivery Method Room Air Pulse Ox (%) 97 Pulse Rate (60-100 beats/min) 95 5th minute Oxygen Delivery Method Room Air Pulse Ox (%) 97 Pulse Rate (60-100 beats/min) 101 H 6th minute Oxygen Delivery Method Room Air Pulse Ox (%) 96 Pulse Rate (60-100 beats/min) 104 H Dyspnea Shital Scale (0-10) 1 Exertion Shital Scale (6-20) 11 Post-test Oxygen Delivery Method Room Air Pulse Ox (%) 98 Pulse Rate (60-100 beats/min) 95 Full Laps Walked 17 Partial Lap, Number of Tiles Walked 21 Total Distance Walked (ft) 1024 Interpretation Interpretation: The patient was able to ambulate 1024 feet over the course of 6 minutes on room air with no assistive devices or breaks. The patient experienced an oxygen edgardo of 95% with only slight elevation in heart rate to 104 bpm. These findings are consistent with deconditioning. Recommendations Recommendations: No supplemental oxygen is indicated at this time.
== END | disposition home or self-care (01) ==
LOC: PSN 10:05
PROVIDERS: PCP Internal Medicine; Referring Provider Internal Medicine Critical Care Medicine; Visit Provider Internal Medicine Critical Care Medicine
DX: G47.30 Sleep apnea, unspecified (principal)
CPT/HCPCS: 94618

== ENCOUNTER 2021-10-04 15:38 | Emergency (ER) | payer MEDICARE, BC, SELFPAY ==
[2021-10-04 15:39] VITALS: BP 172/90; PULSE 70; RESP 16; TEMP 36.6; O2SAT 98; BMI 31.9
--- NOTE | 2021-10-04 16:18 | EDS_ITS ---
HPI History of Present Illness Chief Complaint: Upper Extremity Injury Informant: patient and spouse/S.O. Narrative Narrative: Presents with swelling of his right upper extremity. He feels most of this is distal. He noticed it when he was buttoning a sleeve on her shirt today. Its not painful. There is no numbness tingling weakness. No chest pain or trouble breathing. This patient has multiple medical issues. He is on his third kidney transplant which was done in 2018. His first was done in 1997. He takes CellCept and tacrolimus. He also has A. fib and is on Coumadin. For the last 2 months his lowest INR has been 2.7. It was 3.1 most recently. He takes 2 mg of Coumadin a day but 3mg on Wednesday. He only took to this Wednesday because of that higher INR. Never had DVT or PE. Not having chest pain or dyspnea. Patient also has a history of a tumor around the right ear with extensive excision 12 to 13 years ago. He recently had a biopsy and lymph node dissection that showed squamous cell carcinoma. But it is a mixture of basal and squamous. He have gone through tumor board and they feel he has clean margins. But he is still in the process of being worked up for this. He has an MRI pending through Dr. Tristen Camarillo, an ENT physician at [facility]. He has not had any MRI or CT or imaging in this area for a while. No history of intrathoracic mass or cancer. He is not on active chemotherapy at this time. He is on immunosuppression for his kidney. [facility] Medical History Actinic keratosis BCC (basal cell carcinoma of skin) Ceruminous adenocarcinoma of right ear Chronic kidney disease (CKD) Chronic rejection of renal transplant Complete heart block (08/11/16) Enterococcal sepsis Essential hypertension Fistula History of skin cancer Hyperlipidemia Longstanding persistent atrial fibrillation Lower extremity edema Membranoproliferative glomerulonephritis Non-rheumatic mitral valve stenosis Nonrheumatic aortic (valve) stenosis Obesity Pacemaker Secondary pulmonary arterial hypertension Sleep apnea Squamous cell carcinoma Home Medications tamsulosin 0.4 mg capsule 0.4 mg PO DAILY 03/16/15 [History Last Taken 02/14/18] zolpidem 12.5 mg tablet,extended release,multiphase (Ambien CR) 10 mg PO QHS sleep 03/16/15 [History Last Taken 02/13/18] finasteride 5 mg tablet 5 mg PO DAILY 10/23/15 [History Last Taken 02/14/18] cyanocobalamin (vitamin B-12) 500 mcg tablet (Vitamin B-12) 100 mcg PO DAILY 11/26/16 [History Last Taken 02/14/18] carvedilol 6.25 mg tablet 6.25 mg PO BID heart 02/14/18 [History Last Taken 02/14/18] ferrous sulfate 324 mg (65 mg iron) tablet,delayed release 324 mg PO DAILY iron 02/14/18 [History Last Taken 02/14/18] prednisone 5 mg tablet 5 mg PO DAILY 02/14/18 [History Last Taken 02/14/18] sulfamethoxazole 800 mg-trimethoprim 160 mg tablet 1 tab PO MOWEFR 02/14/18 [History Last Taken 02/14/18] pantoprazole 40 mg tablet,delayed release 40 mg PO DAILY #30 TABLETS 02/15/18 [Rx Last Taken Unknown] acetaminophen 500 mg tablet 1,000 mg PO QHS 03/02/19 [History Last Taken Unknown] acitretin 10 mg capsule 10 mg PO QHS 03/02/19 [History Last Taken Unknown] atorvastatin 20 mg tablet 20 mg PO QHS 04/01/21 [History Last Taken Unknown] fluorouracil 5 % topical cream 1 applic topical BID 04/01/21 [History Last Taken Unknown] mycophenolate sodium 180 mg tablet,delayed release 180 mg PO BID 04/01/21 [History Last Taken Unknown] mycophenolate sodium 360 mg tablet,delayed release 360 mg PO BID 04/01/21 [History Last Taken Unknown] niacinamide 500 mg tablet (Niacin (niacinamide)) 500 mg PO DAILY 04/01/21 [History Last Taken Unknown] tacrolimus 0.5 mg capsule, immediate-release 0.5 mg PO Q12H 04/01/21 [History Last Taken Unknown] warfarin 4 mg tablet 2 mg PO SUMOTUTHFRSA 08/14/21 [History Last Taken Unknown] warfarin 3 mg tablet 3 mg PO WE 10/04/21 [History Last Taken Unknown] Allergy/AdvReac Type Severity Reaction Status Date / Time ibuprofen [From Motrin] AdvReac Kidney Verified 10/04/21 15:43 transplant latex AdvReac unknown Verified 10/04/21 15:43 Family History Mother Cancer Father Cancer Myocardial infarction CAD (coronary artery disease) Heart disease Surgical History H/O hemorrhoidectomy H/O skin graft History of aortic valve replacement (08/04/16) History of cardioversion (11/2016) History of excision of lesion (2019) History of herniorrhaphy History of mitral valve replacement (08/04/16) History of permanent cardiac pacemaker placement (08/11/16) Renal transplant recipient (02/2018) Status post ligation of left atrial appendage (08/04/16) Social History Smoking Status: Never smoker ROS ROS ED Constitutional Constitutional ED: Denies fever(s) or sweats Eyes Eyes: Denies change in vision ENT ENT ED: Reports other Details: Ongoing ear cancer as above. Recently had biopsy. Mild drainage from the area but lessening. ; Denies rhinorrhea or sore throat Cardiovascular Cardiovascular: Reports other Details: History of atrial fibrillation but no symptoms at this time. ; Denies chest pain, palpitations or racing heartbeat Respiratory/Chest Respiratory/Chest: Denies cough or dyspnea Gastrointestinal Gastrointestinal: Denies abdominal pain, nausea or vomiting Genitourinary Genitourinary ED: Denies dysuria Musculoskeletal Musculoskeletal: Reports other Details: Swelling right upper extremity as in history of present illness ; Denies myalgias Integumentary Denies rash Neurologic Neurologic: Denies paresthesias or weakness Endocrine Endocrinology: Denies polydipsia or polyuria Hematologic/Lymphatic Hematologic/Lymphatic: Reports easy bleeding and easy bruising Allergic/Immunologic Allergic/Immunologic ED: Denies urticaria EXAM Physical Exam Const Vital Signs: 10/04/21 15:39 Temperature 97.8 F Temperature Source Temporal Pulse Rate 70 Respiratory Rate 16 Blood Pressure 172/90 H Blood Pressure Mean 117 Pulse Ox 98 Oxygen Delivery Method Room Air Positive well nourished and well developed General Appearance ED: well developed and NAD HEENT Reports moist mucous membranes HEENT Narrative: Healing excision on right ear. Minimal drainage. No sign of external infection. No significant swelling. He has some dried blood in the area. He is healing well. No sign of infection. Eyes EOMs intact bilaterally Neck supple Neck Narrative: No JVD Chest Wall inspection of chest normal and palpation of chest normal Chest Narrative: Pacer in right upper chest. Resp normal respiratory effort and clear to auscultation bilaterally Effort and Inspection: Negative for pain with movement Auscultation: Negative for rales, rhonchi or wheezes Cardio regular rate and regular rhythm GI non-tender and non-distended Extremity Extremity Narrative: Patient does have enlargement of the right upper extremity. Most of this seems to be from just above the elbow down. He has a very palpable thrill in his fistula in the right upper arm medially. It is a smooth crescendo, decrescendo. No cyanosis of distal extremity or hands. The skin is just slightly more colored on his right than his left. Doppler ultrasound at distal radial and ulnar artery show good flow. No capillary refill delay. Neuro oriented x3 Psych mental status grossly normal Skin Lesions: no lesions Rashes: no rashes MDM MDM MDM Narrative Medical decision making narrative: Patient's creatinine was about at his baseline. Creatinine was 1.53 today. His white count was normal. Mild anemia but again at his baseline. INR was therapeutic 2.8. I am not able to get an ultrasound on this patient today. I did discuss the case with his equipment processor, Dr. Cody Montanez. He knows him quite well. He suspects that this is likely fistula stenosis. They can do fistulogram's on Tuesdays. We were going to do CT a of the arm here and CT with contrast of the chest. But his IV would not take this. I did do a plain CT to make sure there was no significant mass in the area. This CT showed his known prosthetic aortic and mitral valves. There were just trace effusions. Aorta was of normal caliber. No sign of mass. Discussion with patient and . He is comfortable going home. He will call his equipment processor office tomorrow to get scheduled for the fistulogram. Dr. Montanez said they do these on Wednesday. The swelling of his arm is actually gone down a bit now. It is a little bit better than when he came in. If he develops fevers, pain, numbness he should return. Lab Data Attestation: I reviewed the patient's lab results. Discharge Plan Triage Chief Complaint: Upper Extremity Injury ED Provider: Tyler Frias Dx/Rx/DC Orders Clinical Impression: Swelling of right upper extremity, Complication of arteriovenous dialysis fistula Instructions: Arteriovenous AV Fistula for ... Prescriptions: No Action atorvastatin 20 mg tablet 20 mg PO QHS niacinamide [Niacin (niacinamide)] 500 mg tablet 500 mg PO DAILY fluorouracil 5 % cream 1 applic topical BID Label Comments: APPLY TO AFFECTED AREA EVERY DAY tacrolimus 0.5 mg capsule 0.5 mg PO Q12H mycophenolate sodium 180 mg tablet,delayed release (DR/EC) 180 mg PO BID tamsulosin 0.4 MG capsule 0.4 mg PO DAILY Label Comments: prostate zolpidem [Ambien CR] 12.5 MG tablet,ext release multiphase 10 mg PO QHS Label Comments: sleep finasteride 5 MG tablet 5 mg PO DAILY Label Comments: prostate cyanocobalamin (vitamin B-12) [Vitamin B-12] 500 MCG tablet 100 mcg PO DAILY carvedilol 6.25 tablet 6.25 mg PO BID prednisone 5 tablet 5 mg PO DAILY ferrous sulfate 324 MG tablet,delayed release (DR/EC) 324 mg PO DAILY sulfamethoxazole-trimethoprim 1 EACH tablet 1 tab PO MOWEFR pantoprazole 40 MG tablet 40 mg PO DAILY Qty: 30 0RF mycophenolate sodium 360 mg tablet,delayed release (DR/EC) 360 mg PO BID warfarin 4 mg tablet 2 mg PO SUMOTUTHFRSA Label Comments: 3MG MON,THURS AND 2MG ALL OTHER DAYS OR DIRECTED BY PHYSICIAN Rx Instructions: Take 3MG ON CARINA acetaminophen 500 MG tablet 1,000 mg PO QHS acitretin 10 capsule 10 mg PO QHS warfarin 3 mg Tablet 3 mg PO WE Primary Care Provider: Beth Quiroz Referrals: Beth Quiroz MD [Primary Care Provider] - Activity Restrictions/Additional Instructions: Contact your equipment processor, Dr. Montanez in the morning for follow-up and planned fistulogram Disposition Disposition: Home, Self Care
[2021-10-04 17:32] LABS: ALB/GLOB Ratio 1.3 RATIO (0.9-2.4); AST(SGOT) 15 U/L (15-37); Alanine Aminotransfer ALT/SGPT 18 U/L (16-61); Albumin, Serum 3.3 g/dL (3.2-5.0); Alkaline Phosphatase 89 U/L (45-117); Anion Gap 7 (5-15); BUN 22 mg/dL (7-18); BUN/Creat Ratio 14.4 RATIO (10-20); Calcium,Total 9.4 mg/dL (8.5-10.1); Chloride 108 mmol/L (98-107); Creatinine, Serum 1.53 mg/dL (0.70-1.30); EST Glomerular Filtration Rate 48 mL/min (>60); Est Glom Filt Rate - Afr Amer 59 mL/min (>60); Estimated Creatinine Clearance 42.28 ml/min; Globulin 2.6 g/dL (2.2-4.2); Glucose 106 mg/dL (74-106); Potassium 4.4 mmol/L (3.5-5.1); Protein, Total 5.9 g/dL (6.4-8.2); Sodium Level 133 mmol/L (136-145)
[2021-10-04 18:03] LABS: Hematocrit 35.3 % (40-54); Hemoglobin 11.6 g/dL (13.0-16.5); Mean Corp Hgb Conc 32.9 g/dL (32-36); Mean Corpuscular Hgb 31.6 pg (27.0-32.0); Mean Corpuscular Volume 96.2 fL (80-94); Mean Platelet Vol. 10.1 fl (6.2-12.0); Platelet Count 101 K/mm3 (150-450); RBC Distribution Width CV 14.4 % (11.6-14.6); RBC Distribution Width SD 50.9 fl (35.1-43.9); Red Blood Count 3.67 M/mm3 (4.6-6.2); White Blood Count 5.4 K/mm3 (4.4-11.0)
[2021-10-04 18:13] LABS: International Normalized Ratio 2.8; Prothrombin Time (Protime)PT. 28.8 SECONDS (11.7-14.9)
[2021-10-04 18:39] VITALS: BP 178/81; PULSE 72; RESP 16; TEMP 36.7
--- NOTE | 2021-10-04 18:42 | ED.RN ---
dr tracey in to do doppler rt radial pulse
--- NOTE | 2021-10-04 19:59 | CT_ITS ---
EXAM: CT chest without IV contrast. HISTORY: mass TECHNIQUE: No intravenous contrast. A radiation dose optimization technique was used for this scan. COMPARISON: None. LIMITATIONS: Motion artifact. LUNGS: No airspace disease. HEART: Mildly enlarged. Atherosclerotic calcification of the coronary arteries. Prosthetic aortic and mitral valves. PLEURA: Trace bilateral pleural effusions. AORTA: Normal caliber. MEDIASTINUM: No lymphadenopathy. UPPER ABDOMEN: No significant abnormality. BONES/SOFT TISSUES: No acute fracture. OTHER: None. CONCLUSION: No pulmonary mass. Trace bilateral pleural effusions. Electronically Signed: Bk Ortiz MD at 22:22 EDT , CT/Chest without Contrast IMPRESSION: undefined
[2021-10-04 20:15] VITALS: PULSE 64; RESP 18; O2SAT 96
--- NOTE | 2021-10-04 20:19 | ED.RN ---
Patients IV has infiltrated while at Ct scan. Dr. Frias notified.
[2021-10-04 22:42] VITALS: PULSE 66; RESP 18; O2SAT 99
== END 2021-10-04 22:43 | disposition home or self-care (01) ==
PROVIDERS: Emergency Provider Emergency Medicine; PCP Internal Medicine; Visit Provider Emergency Medicine
DX: M79.89 Other specified soft tissue disorders (principal); I48.91 Unspecified atrial fibrillation; E78.5 Hyperlipidemia, unspecified; N18.9 Chronic kidney disease, unspecified; I12.9 Hypertensive chronic kidney disease with stage 1 through stage 4 chronic kidney disease, or unspecified chronic kidney disease; D64.9 Anemia, unspecified; Z79.01 Long term (current) use of anticoagulants; T82.9XXA Unspecified complication of cardiac and vascular prosthetic device, implant and graft, initial encounter
CPT/HCPCS: 71250; 80053; 85027; 85610; 99282; J7030; A4216

== ENCOUNTER → 2021-10-05 | Outpatient (CLI) | payer MEDICARE, BC, SELFPAY ==
--- NOTE | 2021-10-05 11:40 | VDUE_ITS ---
Reason For Study: Swelling Right Proximal Right jugular vein is spontaneous, widely patent, phasic, with no intraluminal echogenicity noted. Right subclavian vein is spontaneous, widely patent, phasic, with no intraluminal echogenicity noted. Right Lower Arm Right radial vein is compressible. Right ulnar vein is compressible. Right Arm Right axillary vein is spontaneous, patent, phasic, competent, compressible and demonstrates augmentation. Right brachial vein is compressible. Right cephalic vein is compressible. Right basilic vein is compressible. Right fistula appears patent. VL/Venous Duplex US, Unilateral Interpretation Summary Deep veins of the right upper extremity are patent and compressible segmentally . There is no evidence of deep vein thrombosis. Patent right forearm fistula Ordering Physician: Tyler Frias Referring Physician: Beth Quiroz Performed By: Chante Del Rio, ALISIA, RVT ?
== END | disposition home or self-care (01) ==
LOC: US 11:32
PROVIDERS: PCP Internal Medicine; Visit Provider Emergency Medicine
DX: M79.89 Other specified soft tissue disorders (principal)
CPT/HCPCS: 93971

== ENCOUNTER 2021-10-20 08:03 | Outpatient (RCR) | payer MEDICARE, BC, SELFPAY ==
[2021-08-19 21:45] VITALS: BMI 35.2
[2021-10-20 08:48] LABS: Absolute Lymphocyte Count 0.65 X10^3/uL (0.83-4.51); Absolute Neutrophil Count 2.9 X10^3/uL (2.0-7.7); Basophil# 0.01 X10^3/uL; Basophil% 0.2 % (0-1); Eosinophil# 0.08 X10^3/uL; Eosinophils% 1.8 % (0-5); Hematocrit 35.3 % (40-54); Hemoglobin 11.4 g/dL (13.0-16.5); Lymphocyte # 0.65 X10^3/ul (0.83-4.51); Mean Corp Hgb Conc 32.3 g/dL (32-36); Mean Corpuscular Hgb 31.9 pg (27.0-32.0); Mean Corpuscular Volume 98.9 fL (80-94); Mean Platelet Vol. 9.7 fl (6.2-12.0); Monocyte# 0.73 X10^3/uL; Monocyte% 16.9 % (0-10); NRBC Flagged by Analyzer 0 % (0-5); Neutrophil # 2.85 X10^3/uL (2.7-7.7); Neutrophil % 65.9 % (47-70); Platelet Count 104 K/mm3 (150-450); RBC Distribution Width CV 14.6 % (11.6-14.6); RBC Distribution Width SD 53.3 fl (35.1-43.9); Red Blood Count 3.57 M/mm3 (4.6-6.2); White Blood Count 4.3 K/mm3 (4.4-11.0)
[2021-10-20 08:58] LABS: Protein, Urine (Random) 9.6 mg/dL (<11.9); Protein:Creat Ratio 206 mg/g CRE (0-200)
[2021-10-20 09:06] LABS: Hemoglobin A1c 4.8 % (3.8-5.6)
[2021-10-20 09:25] LABS: PTHIN 152.8 pg/mL (18.4-80.1)
[2021-10-20 09:28] LABS: ALB/GLOB Ratio 1.3 RATIO (0.9-2.4); AST(SGOT) 18 U/L (15-37); Alanine Aminotransfer ALT/SGPT 21 U/L (16-61); Albumin, Serum 3.6 g/dL (3.2-5.0); Alkaline Phosphatase 96 U/L (45-117); Anion Gap 10 (5-15); BUN 25 mg/dL (7-18); BUN/Creat Ratio 14.4 RATIO (10-20); Calcium,Total 9.8 mg/dL (8.5-10.1); Chloride 106 mmol/L (98-107); Cholesterol 102 mg/dL (200); Creatinine, Serum 1.74 mg/dL (0.70-1.30); EST Glomerular Filtration Rate 42 mL/min (>60); Est Glom Filt Rate - Afr Amer 51 mL/min (>60); Ferritin 89 ng/mL (26-388); Globulin 2.7 g/dL (2.2-4.2); Glucose 84 mg/dL (74-106); High Density Lipoprotein 42 mg/dL; Iron 75 ug/dL (65-175); Iron Binding Capacity,Total 359 ug/dL (250-450); Magnesium 2.1 mg/dL (1.6-2.6); Phosphorus 3.4 mg/dL (2.5-4.9); Potassium 3.7 mmol/L (3.5-5.1); Protein, Total 6.3 g/dL (6.4-8.2); Sodium Level 135 mmol/L (136-145); Triglycerides 105 mg/dL; Uric Acid 5.1 mg/dL (3.5-7.2); Very Low Density Lipoprotein 21 mg/dL (5-40)
[2021-10-22 16:20] LABS: Tacrolimus (FK506) 7.7 ng/mL (2.0-20.0); Transferrin 301 mg/dL (177-329)
== END 2021-10-20 18:00 | disposition home or self-care (01) ==
LOC: LAB 08:03
PROVIDERS: Family Provider Internal Medicine; PCP Internal Medicine; Referring Provider Internal Medicine Nephrology; Visit Provider Internal Medicine Nephrology
DX: Z48.298 Encounter for aftercare following other organ transplant (principal); N18.9 Chronic kidney disease, unspecified; D63.1 Anemia in chronic kidney disease; D84.9 Immunodeficiency, unspecified; R79.9 Abnormal finding of blood chemistry, unspecified; R68.89 Other general symptoms and signs; Z94.0 Kidney transplant status; Z79.899 Other long term (current) drug therapy
CPT/HCPCS: 36415; 80053; 80061; 80197; 82570; 82728; 83036; 83540; 83550; 83735; 83970; 84100; 84156; 84466; 84550; 85025

== ENCOUNTER 2022-01-12 07:28 | Outpatient (RCR) | payer MEDICARE, BC, SELFPAY ==
[2021-11-19 22:17] VITALS: BMI 35.2
[2022-01-12 08:34] LABS: Prograf-FK506 TO CCF/UNIV MAILED SPECIMEN
[2022-01-12 10:04] LABS: Absolute Lymphocyte Count 0.65 X10^3/uL (0.83-4.51); Absolute Neutrophil Count 2.8 X10^3/uL (2.0-7.7); Basophil# 0.01 X10^3/uL; Basophil% 0.2 % (0-1); Eosinophil# 0.06 X10^3/uL; Eosinophils% 1.4 % (0-5); Hematocrit 35.9 % (40-54); Hemoglobin 11.5 g/dL (13.0-16.5); Lymphocyte # 0.65 X10^3/ul (0.83-4.51); Lymphocyte % 15.1 % (19-41); Mean Corpuscular Hgb 31.8 pg (27.0-32.0); Mean Corpuscular Volume 99.2 fL (80-94); Mean Platelet Vol. 10.8 fl (6.2-12.0); Monocyte# 0.76 X10^3/uL; Monocyte% 17.6 % (0-10); NRBC Flagged by Analyzer 0 % (0-5); Neutrophil # 2.82 X10^3/uL (2.7-7.7); Neutrophil % 65.5 % (47-70); POSITIVE COUNT YES; Platelet Count 84 K/mm3 (150-450); RBC Distribution Width CV 14.6 % (11.6-14.6); RBC Distribution Width SD 53.5 fl (35.1-43.9); Red Blood Count 3.62 M/mm3 (4.6-6.2); White Blood Count 4.3 K/mm3 (4.4-11.0)
[2022-01-12 10:55] LABS: Anion Gap 7 (5-15); BUN 28 mg/dL (7-18); BUN/Creat Ratio 17.5 RATIO (10-20); Chloride 113 mmol/L (98-107); EST Glomerular Filtration Rate 46 mL/min (>60); Est Glom Filt Rate - Afr Amer 56 mL/min (>60); Glucose 81 mg/dL (74-106); Phosphorus 3.3 mg/dL (2.5-4.9); Potassium 4.2 mmol/L (3.5-5.1); Sodium Level 140 mmol/L (136-145)
== END 2022-01-12 18:00 | disposition home or self-care (01) ==
LOC: MTLAB 07:28
PROVIDERS: Family Provider Internal Medicine; PCP Internal Medicine; Referring Provider Internal Medicine Nephrology; Visit Provider Internal Medicine Nephrology
DX: Z48.298 Encounter for aftercare following other organ transplant (principal); N18.9 Chronic kidney disease, unspecified; D63.1 Anemia in chronic kidney disease; D84.9 Immunodeficiency, unspecified; R79.9 Abnormal finding of blood chemistry, unspecified; R68.89 Other general symptoms and signs; Z94.0 Kidney transplant status; Z79.899 Other long term (current) drug therapy
CPT/HCPCS: 36415; 80048; 83735; 84100; 85025

== ENCOUNTER 2022-04-06 08:39 | Outpatient (RCR) | payer MEDICARE, BC, SELFPAY ==
[2022-01-20 10:25] VITALS: BMI 35.2
[2022-04-06 09:47] LABS: Absolute Lymphocyte Count 0.54 X10^3/uL (0.83-4.51); Absolute Neutrophil Count 2.5 X10^3/uL (2.0-7.7); Basophil# 0.01 X10^3/uL; Basophil% 0.3 % (0-1); Eosinophil# 0.05 X10^3/uL; Eosinophils% 1.4 % (0-5); Hematocrit 35.7 % (40-54); Hemoglobin 11.2 g/dL (13.0-16.5); Lymphocyte # 0.54 X10^3/ul (0.83-4.51); Lymphocyte % 14.6 % (19-41); Mean Corp Hgb Conc 31.4 g/dL (32-36); Mean Corpuscular Volume 98.9 fL (80-94); Mean Platelet Vol. 10.3 fl (6.2-12.0); Monocyte# 0.59 X10^3/uL; Monocyte% 15.9 % (0-10); NRBC Flagged by Analyzer 0 % (0-5); Neutrophil # 2.49 X10^3/uL (2.7-7.7); Neutrophil % 67.3 % (47-70); POSITIVE COUNT YES; POSITIVE DIFFERENTIAL YES; Platelet Count 78 K/mm3 (150-450); Prograf-FK506 TO CCF/UNIV MAILED SPECIMEN; RBC Distribution Width CV 14.3 % (11.6-14.6); RBC Distribution Width SD 51.8 fl (35.1-43.9); Red Blood Count 3.61 M/mm3 (4.6-6.2); White Blood Count 3.7 K/mm3 (4.4-11.0)
[2022-04-06 10:15] LABS: Differential Indicated SCAN CRITERIA MET
[2022-04-06 10:21] LABS: BUN 26 mg/dL (7-18); Calcium,Total 9.3 mg/dL (8.5-10.1); Chloride 112 mmol/L (98-107); Cholesterol 95 mg/dL (200); Creatinine, Serum 1.42 mg/dL (0.70-1.30); EST Glomerular Filtration Rate 53 mL/min (>60); Est Glom Filt Rate - Afr Amer 64 mL/min (>60); Glucose 87 mg/dL (74-106); Magnesium 1.9 mg/dL (1.6-2.6); Phosphorus 2.9 mg/dL (2.5-4.9); Potassium 4.4 mmol/L (3.5-5.1); Sodium Level 138 mmol/L (136-145); Triglycerides 121 mg/dL
[2022-04-06 10:22] LABS: Anion Gap 7 (5-15); High Density Lipoprotein 47 mg/dL; Very Low Density Lipoprotein 24 mg/dL (5-40)
[2022-04-06 10:58] LABS: Platelet Estimate MOD DEC (ADEQ)
[2022-04-08 09:36] LABS: Pathologist Review Reviewed
== END 2022-04-06 10:00 | disposition home or self-care (01) ==
LOC: LAB 08:39
PROVIDERS: Family Provider Internal Medicine; PCP Internal Medicine; Referring Provider Internal Medicine Nephrology; Visit Provider Internal Medicine Nephrology
DX: Z48.298 Encounter for aftercare following other organ transplant (principal); N18.9 Chronic kidney disease, unspecified; D63.1 Anemia in chronic kidney disease; D84.9 Immunodeficiency, unspecified; R79.9 Abnormal finding of blood chemistry, unspecified; R68.89 Other general symptoms and signs; Z94.0 Kidney transplant status; Z79.899 Other long term (current) drug therapy
CPT/HCPCS: 36415; 80051; 80061; 82310; 82565; 82947; 83735; 84100; 84520; 85025

== ENCOUNTER 2022-06-30 07:59 | Outpatient (RCR) | payer MEDICARE, BC, SELFPAY ==
[2022-04-22 07:43] VITALS: BMI 35.2
[2022-06-30 10:13] LABS: Absolute Neutrophil Count 2.7 X10^3/uL (2.0-7.7); Basophil# 0.02 X10^3/uL; Basophil% 0.5 % (0-1); Eosinophil# 0.06 X10^3/uL; Eosinophils% 1.5 % (0-5); Hemoglobin 11.8 g/dL (13.0-16.5); Lymphocyte % 12.7 % (19-41); Mean Corp Hgb Conc 31.1 g/dL (32-36); Mean Corpuscular Hgb 31.3 pg (27.0-32.0); Mean Corpuscular Volume 100.8 fL (80-94); Mean Platelet Vol. 11.2 fl (6.2-12.0); Monocyte# 0.64 X10^3/uL; Monocyte% 16.3 % (0-10); NRBC Flagged by Analyzer 0 % (0-5); Neutrophil # 2.69 X10^3/uL (2.7-7.7); Neutrophil % 68.5 % (47-70); POSITIVE COUNT YES; POSITIVE DIFFERENTIAL YES; Platelet Count 91 K/mm3 (150-450); RBC Distribution Width CV 14.5 % (11.6-14.6); RBC Distribution Width SD 53.7 fl (35.1-43.9); Red Blood Count 3.77 M/mm3 (4.6-6.2); White Blood Count 3.9 K/mm3 (4.4-11.0)
[2022-06-30 10:22] LABS: Differential Indicated SCAN CRITERIA MET
[2022-06-30 10:26] LABS: Prograf-FK506 TO CCF/UNIV MAILED SPECIMEN
[2022-06-30 11:03] LABS: Differential Comment SCANNED
[2022-06-30 11:15] LABS: AST(SGOT) 16 U/L (15-37); Alanine Aminotransfer ALT/SGPT 20 U/L (16-61); Anion Gap 4 (5-15); BUN 26 mg/dL (7-18); BUN/Creat Ratio 18.4 RATIO (10-20); Calcium,Total 9.6 mg/dL (8.5-10.1); Chloride 111 mmol/L (98-107); Cholesterol 107 mg/dL (200); Creatinine, Serum 1.41 mg/dL (0.70-1.30); EST Glomerular Filtration Rate 53 mL/min (>60); Est Glom Filt Rate - Afr Amer 64 mL/min (>60); Glucose 77 mg/dL (74-106); High Density Lipoprotein 46 mg/dL; Magnesium 1.8 mg/dL (1.6-2.6); Phosphorus 2.7 mg/dL (2.5-4.9); Potassium 3.8 mmol/L (3.5-5.1); Sodium Level 136 mmol/L (136-145); Triglycerides 81 mg/dL; Very Low Density Lipoprotein 16 mg/dL (5-40)
[2022-07-02 12:48] LABS: Pathologist Review Reviewed
== END 2022-07-19 05:18 | disposition home or self-care (01) ==
LOC: MTLAB 07:59
PROVIDERS: Family Provider Internal Medicine; PCP Internal Medicine; Referring Provider Internal Medicine Nephrology; Visit Provider Internal Medicine Nephrology
DX: Z48.298 Encounter for aftercare following other organ transplant (principal); N28.9 Disorder of kidney and ureter, unspecified; D84.9 Immunodeficiency, unspecified; R79.9 Abnormal finding of blood chemistry, unspecified; R68.89 Other general symptoms and signs; Z94.0 Kidney transplant status; Z79.899 Other long term (current) drug therapy
CPT/HCPCS: 36415; 80048; 80061; 83036; 83735; 84100; 84450; 84460; 85025

== ENCOUNTER 2022-06-30 09:44 | Outpatient (CLI) | payer MEDICARE, BC, SELFPAY ==
--- NOTE | 2022-06-30 14:34 | PFTCOMP ---
COMPLETE PULMONARY FUNCTION TEST INTERPRETATION Brief HPI: Patient is a 67-year-old male, currently under the care of myself, who presents to [facility] for complete pulmonary function tests secondary to diagnosis of pulmonary hypertension. Respiratory therapist reports good effort and reproducible results. Interpretation: Forced expiration spirometry shows a mild large airways obstructive ventilatory defect with an FEV1 of 78% predicted. There is no significant bronchodilator response by strict ATS criteria. Spirograms are of good quality and plateau slowly, indicating slowly emptying areas of the lungs. The respiratory flow volume loop shows decreased expiratory flow rates at high lung volumes consistent with small airways obstruction. Lung volumes by body plethysmography show a normal total lung capacity at 5.43 L, 97% predicted. All other lung volumes are within normal limits. Diffusion capacity by carbon monoxide is normal at 90% predicted. The airway resistance is normal. Compared to previous pulmonary function tests from 07/24/2021, there has been no significant change. Impression: Irreversible mild large airways obstructive ventilatory defect with no significant change compared to previous testing
== END 2022-06-30 23:59 | disposition home or self-care (01) ==
LOC: PSN 09:45
PROVIDERS: PCP Internal Medicine; Referring Provider Internal Medicine Critical Care Medicine; Visit Provider Internal Medicine Critical Care Medicine
DX: I27.21 Secondary pulmonary arterial hypertension (principal); D84.9 Immunodeficiency, unspecified; I15.0 Renovascular hypertension; Z79.899 Other long term (current) drug therapy; Z48.298 Encounter for aftercare following other organ transplant; N28.9 Disorder of kidney and ureter, unspecified; R79.9 Abnormal finding of blood chemistry, unspecified; R68.89 Other general symptoms and signs; Z94.0 Kidney transplant status
CPT/HCPCS: 36415; 80048; 80061; 83036; 83735; 84100; 84450; 84460; 85025; 94060; 94726; 94729

== ENCOUNTER → 2022-07-07 | Outpatient (CLI) | payer MEDICARE, BC, SELFPAY ==
[2022-07-07 11:21] VITALS: PULSE 104; PULSE 105; PULSE 116; PULSE 117; PULSE 91; PULSE 99; O2SAT 97; O2SAT 98; O2SAT 99
--- NOTE | 2022-07-07 11:26 | CPS ---
Pt wanted to make sure the Dr was informed that he is to have a left knee replacement on August 24 and that his walk test is being affected by his knee today. Pt also wanted it stated that his S.O.B post walk was only in regards to his walk and was not a fair question. Pt states that anyone would be S.O.B post a strenuous walk.
--- NOTE | 2022-07-08 08:45 | WT_ITS ---
PSN 6 Minute Walk Test 6 Minute Walk Test 6 Minute Walk Test: 6 Minute Walk Test PSN:6-Minute Walk Test Start: 07/07/22 11:21 Freq: Status: Active Protocol: [id number].[id number] Document 07/07/22 11:21 [facility] (Rec: 07/07/22 11:31 [facility] [id number]) 6 Minute Walk Test Date Performed 07/07/22 Time Performed 11:15 Height 5 ft 6 in Weight: 192 lb Weight in Pounds 192.[address]: Dr Nunez Assistive device used: None Pre-test Oxygen Delivery Method Room Air Pulse Ox (%) 99 Pulse Rate (60-100 beats/min) 104 H Dyspnea Shital Scale (0-10) 0 Exertion Shital Scale (6-20) 6 1st minute Oxygen Delivery Method Room Air Pulse Ox (%) 98 Pulse Rate (60-100 beats/min) 99 2nd minute Oxygen Delivery Method Room Air Pulse Ox (%) 98 Pulse Rate (60-100 beats/min) 105 H 3rd minute Oxygen Delivery Method Room Air Pulse Ox (%) 98 Pulse Rate (60-100 beats/min) 117 H 4th minute Oxygen Delivery Method Room Air Pulse Ox (%) 99 Pulse Rate (60-100 beats/min) 116 H 5th minute Oxygen Delivery Method Room Air Pulse Ox (%) 98 Pulse Rate (60-100 beats/min) 104 H 6th minute Oxygen Delivery Method Room Air Pulse Ox (%) 97 Pulse Rate (60-100 beats/min) 104 H Dyspnea Shital Scale (0-10) 1 Exertion Shital Scale (6-20) 11 Post-test Oxygen Delivery Method Room Air Pulse Ox (%) 98 Pulse Rate (60-100 beats/min) 91 Full Laps Walked 18 Partial Lap, Number of Tiles Walked 38 Total Distance Walked (ft) 1100 07/07/22 11:26 Cardiopulmonary Services by Yamilet Rubio Pt wanted to make sure the Dr was informed that he is to have a left knee replacement on August 24 and that his walk test is being affected by his knee today. Pt also wanted it stated that his S.O.B post walk was only in regards to his walk and was not a fair question. Pt states that anyone would be S.O.B post a strenuous walk. Initialized on 07/07/22 11:26 - END OF NOTE Interpretation Interpretation: The patient ambulated 1100 feet over the course of 6 minutes beginning on room air without assistive devices. Pretesting oxygen saturation was noted to be 99% on room air. With ambulation, the edgardo oxygen saturation was 97%. There was no significant exertional oxygen desaturation. Recommendations Recommendations: There is no indication for the use of supplemental oxygen at this time.
== END | disposition home or self-care (01) ==
LOC: PSN 10:59
PROVIDERS: PCP Internal Medicine; Referring Provider Internal Medicine Critical Care Medicine; Visit Provider Internal Medicine Critical Care Medicine
DX: I27.21 Secondary pulmonary arterial hypertension (principal)
CPT/HCPCS: 94618

== ENCOUNTER 2022-09-09 08:04 | Outpatient (RCR) | payer MEDICARE, BC, SELFPAY ==
[2022-07-19 05:18] VITALS: BMI 35.2
[2022-09-09 09:29] LABS: Absolute Lymphocyte Count 0.29 X10^3/uL (0.83-4.51); Absolute Neutrophil Count 4.5 X10^3/uL (2.0-7.7); Eosinophil# 0.12 X10^3/uL; Eosinophils% 2.1 % (0-5); Hematocrit 28.6 % (40-54); Hemoglobin 9.2 g/dL (13.0-16.5); Lymphocyte # 0.29 X10^3/ul (0.83-4.51); Lymphocyte % 5.1 % (19-41); Mean Corp Hgb Conc 32.2 g/dL (32-36); Mean Corpuscular Hgb 31.2 pg (27.0-32.0); Mean Corpuscular Volume 96.9 fL (80-94); Mean Platelet Vol. 10.5 fl (6.2-12.0); Monocyte# 0.67 X10^3/uL; Monocyte% 11.9 % (0-10); NRBC Flagged by Analyzer 0 % (0-5); Neutrophil # 4.53 X10^3/uL (2.7-7.7); Neutrophil % 80.4 % (47-70); POSITIVE DIFFERENTIAL YES; Platelet Count 149 K/mm3 (150-450); RBC Distribution Width CV 13.2 % (11.6-14.6); RBC Distribution Width SD 46.5 fl (35.1-43.9); Red Blood Count 2.95 M/mm3 (4.6-6.2); White Blood Count 5.6 K/mm3 (4.4-11.0)
[2022-09-09 09:36] LABS: Differential Indicated SCAN CRITERIA MET
[2022-09-09 09:53] LABS: Anion Gap 9 (5-15); BUN 18 mg/dL (7-18); BUN/Creat Ratio 12.4 RATIO (10-20); Calcium,Total 9.1 mg/dL (8.5-10.1); Chloride 94 mmol/L (98-107); Creatinine, Serum 1.45 mg/dL (0.70-1.30); EST Glomerular Filtration Rate 51 mL/min (>60); Est Glom Filt Rate - Afr Amer 62 mL/min (>60); Glucose 84 mg/dL (74-106); Magnesium 1.8 mg/dL (1.6-2.6); Phosphorus 2.4 mg/dL (2.5-4.9); Potassium 3.8 mmol/L (3.5-5.1); Sodium Level 124 mmol/L (136-145)
[2022-09-09 09:57] LABS: Differential Comment SCANNED
== END 2022-09-09 18:00 | disposition home or self-care (01) ==
LOC: LAB 08:04
PROVIDERS: Family Provider Internal Medicine; PCP Internal Medicine; Referring Provider Internal Medicine Nephrology; Visit Provider Internal Medicine Nephrology
DX: Z48.298 Encounter for aftercare following other organ transplant (principal); N28.9 Disorder of kidney and ureter, unspecified; D84.9 Immunodeficiency, unspecified; R79.9 Abnormal finding of blood chemistry, unspecified; R68.89 Other general symptoms and signs; Z94.0 Kidney transplant status; Z79.899 Other long term (current) drug therapy
CPT/HCPCS: 36415; 80048; 83735; 84100; 85025

== ENCOUNTER 2022-09-15 09:23 | Emergency (ER) | payer MEDICARE, BC, SELFPAY ==
[2022-09-15 09:24] VITALS: BP 163/73; PULSE 79; RESP 29; TEMP 37.8; O2SAT 95; BMI 35.2
--- NOTE | 2022-09-15 09:45 | RAD_ITS ---
INDICATION: Fever EXAMINATION/TECHNIQUE: X-RAY - XR Chest 1 View COMPARISON: Prior studies dated: June 11, [address] dated October 04, 2021 FINDINGS: LINES/DEVICES: There is a cardiac pacer device in place. There is an atrial appendage clip in place as well. LUNGS: There is no new focal consolidation. MEDIASTINUM AND CARDIOVASCULAR STRUCTURES: There is cardiomegaly. Central airways and mediastinal contour are unremarkable. BONES AND SOFT TISSUES: Unremarkable. RAD/Chest 1 View (Portable) IMPRESSION: Cardiomegaly. Electronically Signed: Concetta Castorena MD at 11:39 EDT ,
--- NOTE | 2022-09-15 09:46 | EKG12_ITS ---
Test Reason : Blood Pressure : / mmHG Vent. Rate : 074 BPM Atrial Rate : 000 BPM P-R Int : 000 ms QRS Dur : 102 ms QT Int : 368 ms P-R-T Axes : 000 -50 103 degrees QTc Int : 408 ms Atrial fibrillation with occasional ventricular-paced complexes Left anterior fascicular block Possible Anterolateral infarct , age undetermined Abnormal ECG Confirmed by PERICO GRIFFIN, LUIS ([id number]), newspaper editor managing TRACY BARKER ([id number]) on 09/16/2022 10:00:16 AM Referred By: Confirmed By:LUIS RIVER MD
[2022-09-15 10:23] LABS: Mucous, Urine 0 SEEN /hpf (<or=2+); Red Blood Cells-Urine 0 SEEN /hpf (0-5); Squamous Epithelial Cells - UA 0 SEEN /hpf (0-5)
[2022-09-15 10:40] LABS: Color, Urine Yellow (Yellow); Glucose, Dipstick Normal (Normal); Ketone-Dipstick Negative (Negative); Leukocyte Esterase-Dipstick 500 /ul (Negative); Nitrite-Dipstick Negative (Negative); Occult Blood-Urine 150 /ul (Negative); Protein-Dipstick 30 mg/dl (Negative); Urine Bilirubin Dipstick Negative (Negative); Urine Clarity Clear (Clear); Urine Urobilinogen Normal (Normal)
[2022-09-15 10:41] LABS: Bacteria 2+ /hpf (None Seen); White Blood Cells 10-25 SEEN /hpf (0-5)
[2022-09-15 11:15] LABS: Absolute Lymphocyte Count 0.09 X10^3/uL (0.83-4.51); Absolute Neutrophil Count 8.2 X10^3/uL (2.0-7.7); Eosinophil# 0.01 X10^3/uL; Eosinophils% 0.1 % (0-5); Hematocrit 27.2 % (40-54); Hemoglobin 9.3 g/dL (13.0-16.5); Lymphocyte # 0.09 X10^3/ul (0.83-4.51); Mean Corp Hgb Conc 34.2 g/dL (32-36); Mean Corpuscular Hgb 32.3 pg (27.0-32.0); Mean Corpuscular Volume 94.4 fL (80-94); Mean Platelet Vol. 9.9 fl (6.2-12.0); Monocyte# 0.48 X10^3/uL; Monocyte% 5.5 % (0-10); NRBC Flagged by Analyzer 0 % (0-5); Neutrophil # 8.17 X10^3/uL (2.7-7.7); Neutrophil % 92.9 % (47-70); POSITIVE DIFFERENTIAL YES; Platelet Count 124 K/mm3 (150-450); RBC Distribution Width CV 13.7 % (11.6-14.6); RBC Distribution Width SD 47.2 fl (35.1-43.9); Red Blood Count 2.88 M/mm3 (4.6-6.2); White Blood Count 8.8 K/mm3 (4.4-11.0)
[2022-09-15 11:16] LABS: Differential Indicated SCAN CRITERIA MET
[2022-09-15 11:27] LABS: Anion Gap 10 (5-15); BUN 18 mg/dL (7-18); BUN/Creat Ratio 10.2 RATIO (10-20); Calcium,Total 9.1 mg/dL (8.5-10.1); Chloride 94 mmol/L (98-107); Creatinine, Serum 1.76 mg/dL (0.70-1.30); EST Glomerular Filtration Rate 41 mL/min (>60); Est Glom Filt Rate - Afr Amer 50 mL/min (>60); Estimated Creatinine Clearance 36.25 ml/min; Glucose 74 mg/dL (74-106); Potassium 3.8 mmol/L (3.5-5.1); Sodium Level 122 mmol/L (136-145); Troponin-I HS (w/2H Reflex) 30 pg/mL (3.0-78.0)
--- NOTE | 2022-09-15 11:40 | EDS_ITS ---
HPI History of Present Illness Chief Complaint: Complaint Informant: patient and spouse/S.O. Onset/Context/Timing Onset: Today Timing: Continuous Quality: Aching Location: Bilateral hips Worsened by: Nothing Relieved by: Nothing Associated Symptoms Associated Symptoms: Edema Narrative Narrative: Patient presents with urinary retention that began today. Patient had recent surgery and had a Brown catheter after the surgery. Patient states she had it removed yesterday. Patient states she was able to urinate after the removal of the catheter. Patient states that today he has been unable to urinate. Patient states he is got more swollen today. Patient also admits to a low-grade fever. Patient states he took some Tylenol at home for that. Patient admits to recent cough. Patient denies any nausea or vomiting. [facility] Medical History Actinic keratosis BCC (basal cell carcinoma of skin) Ceruminous adenocarcinoma of right ear Chronic kidney disease (CKD) Chronic rejection of renal transplant Complete heart block (08/11/16) Enterococcal sepsis Essential hypertension Fistula History of skin cancer Hyperlipidemia Longstanding persistent atrial fibrillation Lower extremity edema Membranoproliferative glomerulonephritis Non-rheumatic mitral valve stenosis Nonrheumatic aortic (valve) stenosis Obesity Pacemaker Right-sided tinnitus Secondary pulmonary arterial hypertension Sleep apnea Squamous cell carcinoma Home Medications tamsulosin 0.4 mg capsule 0.4 mg PO DAILY PROSTATE 03/16/15 [History Last Taken 09/15/22] finasteride 5 mg tablet 5 mg PO DAILY PROSTATE 10/23/15 [History Last Taken 09/15/22] cyanocobalamin (vitamin B-12) 500 mcg tablet (Vitamin B-12) 100 mcg PO DAILY SUPPLEMENT 11/26/16 [History Last Taken 09/15/22] carvedilol 6.25 mg tablet 6.25 mg PO BID HEART 02/14/18 [History Last Taken 02/14/18] ferrous sulfate 324 mg (65 mg iron) tablet,delayed release 324 mg PO DAILY SUPPLEMENT 02/14/18 [History Last Taken 09/15/22] prednisone 5 mg tablet 5 mg PO DAILY STEROID 02/14/18 [History Last Taken 09/15/22] sulfamethoxazole 800 mg-trimethoprim 160 mg tablet 1 tab PO MOWEFR ANTIBIOTIC 02/14/18 [History Last Taken 09/14/22] acetaminophen 500 mg tablet 1,000 mg PO Q6H PAIN 03/02/19 [History Last Taken Unknown] acitretin 10 mg capsule 10 mg PO SUTUTHSA CHEMO 03/02/19 [History Last Taken Unknown] atorvastatin 20 mg tablet 20 mg PO QHS CHOLESTEROL 04/01/21 [History Last Taken Unknown] mycophenolate sodium 180 mg tablet,delayed release 180 mg PO BID TRANSPLANT REJECTION PREVENTION 04/01/21 [History Last Taken 09/15/22] mycophenolate sodium 360 mg tablet,delayed release 360 mg PO BID TRANSPLANT REJECTION PREVENTION 04/01/21 [History Last Taken 09/15/22] tacrolimus 0.5 mg capsule, immediate-release 0.5 mg PO BID TRANSPLANT REJECTION PREVENTION 04/01/21 [History Last Taken 09/15/22] SX-fwyuqklmvzd-noyllp ox-Zn ER 500 mcg-750 mg-1.5 mg-25 mg tablet,ER 1 tab PO QPM SUPPLEMENT 09/15/22 [History Last Taken 09/14/22] pantoprazole 40 mg tablet,delayed release 40 mg PO DAILY ACID REFLUX 09/15/22 [History Last Taken 09/15/22] sulfamethoxazole 800 mg-trimethoprim 160 mg tablet 1 tab PO BID #14 TABLETS 09/15/22 [Rx Last Taken Unknown] warfarin 2 mg tablet 2 mg PO QPM BLOOD THINNER 09/15/22 [History Last Taken 09/14/22] zolpidem 10 mg tablet 10 mg PO QHS INSOMNIA 09/15/22 [History Last Taken 09/14/22] Allergy/AdvReac Type Severity Reaction Status Date / Time ibuprofen [From Motrin] AdvReac Kidney Verified 09/15/22 09:24 transplant latex AdvReac Rash Verified 09/15/22 09:24 Family History Mother Cancer Father Cancer Myocardial infarction CAD (coronary artery disease) Heart disease Surgical History H/O hemorrhoidectomy H/O skin graft History of aortic valve replacement (08/04/16) History of cardioversion (11/2016) History of excision of lesion (2019) History of herniorrhaphy History of mitral valve replacement (08/04/16) History of permanent cardiac pacemaker placement (08/11/16) Renal transplant recipient (02/2018) Status post ligation of left atrial appendage (08/04/16) Social History Smoking Status: Never smoker ROS ROS ED Constitutional Constitutional ED: Reports chills and fever(s) Eyes Eyes: Denies blurry vision or change in vision ENT ENT ED: Denies rhinorrhea or sore throat Cardiovascular Cardiovascular: Denies chest pain or palpitations Respiratory/Chest Respiratory/Chest: Reports cough; Denies dyspnea Gastrointestinal Gastrointestinal: Denies nausea or vomiting Genitourinary Genitourinary ED: Denies dysuria or hematuria Musculoskeletal Musculoskeletal: Denies back pain or neck pain Integumentary Denies abscess or rash Neurologic Neurologic: Denies headache(s) or weakness Allergic/Immunologic Allergic/Immunologic ED: Denies mouth swelling or urticaria EXAM Physical Exam Const Vital Signs: 09/15/22 09:24 09/15/22 13:00 09/15/22 14:00 Temperature 100.1 F H 97.8 F 97.9 F Temperature Source Temporal Oral Oral Pulse Rate 79 67 65 Respiratory Rate 29 H 20 H 20 H Blood Pressure 163/73 H 109/47 L 114/60 Blood Pressure Mean 103 67 78 Pulse Ox 95 95 95 Oxygen Delivery Method Room Air Room Air Room Air Positive well nourished and well developed General Appearance ED: well developed and NAD HEENT Reports moist mucous membranes Neck supple and no JVD Resp normal respiratory effort and clear to auscultation bilaterally Cardio regular rate Rhythm: abnormal rhythm irregularly irregular GI normal to inspection, nondistended, normoactive bowel sounds and non-tender Palpation: soft Back/Spine no CVA tenderness Neuro oriented x3, CN's II-XII intact bilaterally and no sensory deficits noted Sensorium / Orientation: alert Motor Exam: strength 5/5 throughout Psych mental status grossly normal Skin no rashes or lesions noted MDM MDM MDM Narrative Medical decision making narrative: Differential diagnosis includes urinary tract infection, urinary retention, sepsis, postoperative infection, electrolyte abnormality, cardiac dysrhythmia, and cardiac ischemia. EKG will be obtained to assess for cardiac dysrhythmia and cardiac ischemia. Chest x-ray will be obtained to assess for pneumonia and congestive heart failure. CBC will be obtained to assess for leukocytosis and anemia. Basic metabolic profile will be obtained to assess for electrolyte abnormality and renal function. High-sensitivity troponin will be obtained to assess for cardiac ischemia. PT with INR will be obtained to assess for coagulopathy. Urinalysis will be obtained to assess for urinary tract infection. Blood cultures will be obtained to assess for sepsis. Urine culture will be obtained to assess for urinary tract infection. History & Record Review Additional record(s) reviewed:: Prior labs Lab Data Attestation: I reviewed the patient's lab results. Lab results narrative: CBC was reviewed. There is mild anemia with a hemoglobin of 9.3 and hematocrit 27.2. This is consistent with prior results. Basic metabolic profile was reviewed. Sodium was 122 and CO2 was 18. Chloride was slightly low at 94. Creatinine was slightly elevated at 1.76. High-sensitivity troponin was reviewed and was normal at 30. Urinalysis was reviewed. Leukocyte esterase was 500. Occult blood was 150. There were 10-25 white blood cells and 2+ bacteria. There were no epithelial cells and no red blood cells noted. PT with INR was reviewed. PT was 32.0 and INR was therapeutic at 2.1. 2-hour repeat high- sensitivity troponin was reviewed and was normal at 39. Labs: Laboratory Results - last 24 hr 09/15/22 09/15/22 09/15/22 10:15 11:00 11:00 WBC 8.8 RBC 2.88 L Hgb 9.3 L Hct 27.2 L MCV 94.4 H MCH 32.3 H MCHC 34.2 RDW Std Deviation 47.2 H RDW Coeff of Fermin 13.7 Plt Count 124 L MPV 9.9 Immature Gran % (Auto) 0.500 Neut % (Auto) 92.9 H Lymph % (Auto) 1.0 L [place] % (Auto) 5.5 Eos % (Auto) 0.1 Baso % (Auto) 0.0 Absolute Neuts (auto) 8.2 H Absolute Lymphs (auto) 0.09 L Nucleated RBC % 0 PT INR Sodium 122 L Potassium 3.8 Chloride 94 L Carbon Dioxide 18.0 L Anion Gap 10 BUN 18 Creatinine 1.76 H Estim Creat Clear Calc 36.25 Est GFR (MDRD) Af Amer 50 L Est GFR (MDRD) Non-Af 41 L BUN/Creatinine Ratio 10.2 Glucose 74 Calcium 9.1 Troponin I High Sens 30 Urine Color Yellow Urine Clarity Clear Urine pH 6.0 Ur Specific [place] 1.010 Urine Protein 30 H Urine Glucose (UA) Normal Urine Ketones Negative Urine Occult Blood 150 H Urine Nitrite Negative Urine Bilirubin Negative Urine Urobilinogen Normal Ur Leukocyte Esterase 500 H Urine RBC 0 SEEN Urine WBC 10-25 SEEN Ur Squamous Epith Cells 0 SEEN Urine Bacteria 2+ Urine Mucus 0 SEEN 09/15/22 09/15/22 11:00 13:32 WBC RBC Hgb Hct MCV MCH MCHC RDW Std Deviation RDW Coeff of Ferm[place] Plt Count MPV Immature Gran % (Auto) Neut % (Auto) Lymph % (Auto) [place] % (Auto) Eos % (Auto) Baso % (Auto) Absolute Neuts (auto) Absolute Lymphs (auto) Nucleated RBC % PT 32.0 H INR 3.1 Sodium Potassium Chloride Carbon Dioxide Anion Gap BUN Creatinine Estim Creat Clear Calc Est GFR (MDRD) Af Amer Est GFR (MDRD) Non-Af BUN/Creatinine Ratio Glucose Calcium Troponin I High Sens 39 Urine Color Urine Clarity Urine pH Ur Specific [place] Urine Protein Urine Glucose (UA) Urine Ketones Urine Occult Blood Urine Nitrite Urine Bilirubin Urine Urobilinogen Ur Leukocyte Esterase Urine RBC Urine WBC Ur Squamous Epith Cells Urine Bacteria Urine Mucus Radiography Diagnostic Testing: Clinical Impression(s) from Imaging Studies Chest X-Ray 09/15/22 09:45 IMPRESSION: Cardiomegaly. Electronically Signed: Concetta Castorena MD at 11:39 EDT , Portable 1 view chest x-ray was obtained. On my independent interpretation, lung law are clear. There is cardiomegaly. Bony thorax is normal. There is no acute process noted. Radiologist also interpreted the x-ray and agrees. EKG Initial EKG: Attestation: I personally reviewed and interpreted this EKG as follows: Interpretation: No Acute Injury Pattern and Atrial Fibrillation (74) Comments: EKG was obtained. On my interpretation, shows atrial fibrillation with occasional PVCs with a rate of 74. QRS interval was normal at 102 ms. QTc interval was normal at 408 ms. There is left axis deviation at - 50. There are no acute ST or T wave changes noted. This was unchanged compared to previous EKG dated 02/15/2018. Prior EKG tracings: available for review Prior: Unchanged Treatment and Re-Evaluation :: Patient was ordered Tylenol. However, he took this just prior to arrival. Patient is unable to take ibuprofen due to his renal transplant and chronic kidney disease. Patient was given a dose of Zosyn. Patient was given a dose of morphine. Patient was feeling better on reevaluation. Patient was advised of his findings. Urine culture is pending. Patient was given a prescription for Bactrim to take twice daily for the next week. Patient was instructed to follow-up with Dr. Ferro in 3 to 5 days. Patient was also instructed to follow-up with his primary care physician in 5 to 7 days. Patient and spouse understood and were agreeable with the plan. All questions were answered. Discharge Plan Triage Chief Complaint: Complaint ED Provider: Jcarlso Collins Dx/Rx/DC Orders Clinical Impression: Urinary tract infection, Renal transplant recipient, Chronic kidney disease (CKD) Instructions: ED Urinary Retention, Male, ED Bladder Infection, Male (Adult) Prescriptions: New sulfamethoxazole-trimethoprim [sulfamethoxazole-trimethoprim] 800-160 mg tablet 1 tab PO BID Qty: 14 0RF No Action atorvastatin 20 mg tablet 20 mg PO QHS tacrolimus 0.5 mg capsule 0.5 mg PO BID mycophenolate sodium 180 mg tablet,delayed release (DR/EC) 180 mg PO BID tamsulosin 0.4 MG capsule 0.4 mg PO DAILY finasteride 5 MG tablet 5 mg PO DAILY cyanocobalamin (vitamin B-12) [Vitamin B-12] 500 MCG tablet 100 mcg PO DAILY carvedilol 6.25 tablet 6.25 mg PO BID prednisone 5 tablet 5 mg PO DAILY ferrous sulfate 324 MG tablet,delayed release (DR/EC) 324 mg PO DAILY sulfamethoxazole-trimethoprim 1 EACH tablet 1 tab PO MOWEFR mycophenolate sodium 360 mg tablet,delayed release (DR/EC) 360 mg PO BID acetaminophen 500 MG tablet 1,000 mg PO Q6H acitretin 10 capsule 10 mg PO SUTUTHSA pantoprazole 40 MG tablet,delayed release (DR/EC) 40 mg PO DAILY warfarin 2 mg tablet 2 mg PO QPM zolpidem 10 mg Tablet 10 mg PO QHS Nicotinamide ZCF 500-750-1.5-25 aww-om-ag-mg Tablet,Ext Release Multiphase 1 tab PO QPM Primary Care Provider: Beth Quiroz Referrals: Beth Quiroz MD [Primary Care Provider] - 3-5 Days Alo Ferro MD [Med Staff - Active Staff] - 3-5 Days Activity Restrictions/Additional Instructions: Continue to monitor your INR and watch for any bleeding. The Bactrim may affect the Coumadin and increase her INR. Disposition Disposition: Home, Self Care Discharge Date/Time: 09/15/22 15:07
[2022-09-15 12:43] LABS: International Normalized Ratio 3.1
[2022-09-15 13:00] VITALS: BP 109/47; PULSE 67; RESP 20; TEMP 36.6; O2SAT 95
[2022-09-15 13:07] LABS: Reflex Troponin-HS? (from REC) Y
[2022-09-15 14:00] VITALS: BP 114/60; PULSE 65; RESP 20; TEMP 36.6; O2SAT 95
[2022-09-15 14:05] LABS: Troponin-I HS 39 pg/mL (3.0-78.0)
== END 2022-09-15 15:07 | disposition home or self-care (01) ==
PROVIDERS: Emergency Provider Emergency Medicine; PCP Internal Medicine; Visit Provider Emergency Medicine
DX: N39.0 Urinary tract infection, site not specified (principal); I12.9 Hypertensive chronic kidney disease with stage 1 through stage 4 chronic kidney disease, or unspecified chronic kidney disease; N18.9 Chronic kidney disease, unspecified; E78.5 Hyperlipidemia, unspecified; Z79.899 Other long term (current) drug therapy; Z95.0 Presence of cardiac pacemaker; Z85.828 Personal history of other malignant neoplasm of skin; Z95.2 Presence of prosthetic heart valve; Z94.89 Other transplanted organ and tissue status
CPT/HCPCS: 51702; 99285; 36415; 71045; 80048; 81001; 84484; 85025; 85610; 87040; 87077; 87086; 87088; 87186; 93005; J7030; J7050; A4216

== ENCOUNTER 2022-09-17 11:17 | Inpatient (IN) | payer MEDICARE, BC, SELFPAY ==
[2022-09-17] VITALS (12 sets, daily range): BP systolic 124–143; BP diastolic 41–80; PULSE 59–87; RESP 11–22; TEMP 36.2–36.6; O2SAT 96–99; BMI 35.3; BMI 35.2
--- NOTE | 2022-09-17 11:36 | CT_ITS ---
STUDY: CT BRAIN WITHOUT CONTRAST REASON FOR EXAM: Male, 67 years old. Slurring spe ach RADIATION DOSAGE (If Supplied By Facility): CTDIvol = ( 44.99 ) mGy, DLP = ( 829.85 ) mGycm TECHNIQUE: Transaxial CT imaging of the brain was performed without administration of intravenous contrast material. Individualized dose optimization techniques were used for this CT. COMPARISON: No relevant priors. FINDINGS: Normal soft tissue structures. Normal calvarium. Evidence of prior right tympanoplasty. There is mild cerebral atrophy with widening of the extra-axial spaces and ventricular dilatation. Normal white matter tracts of the cerebral hemispheres. Normal basal ganglia and thalami. Normal brainstem. Normal cerebellum. There is no intracranial hemorrhage. There are no findings of an acute ischemic infarction. Atherosclerotic plaque formation of the vertebral arteries and cavernous portions of the internal carotid arteries bilaterally. Normal visualized paranasal sinuses. CT/Brain/Head without Contrast IMPRESSION: Chronic involutional changes of the brain. Electronically Signed: Bao Jansen MD at 13:06 EDT ,
--- NOTE | 2022-09-17 11:36 | EKG12_ITS ---
Test Reason : WEAKNESS Blood Pressure : / mmHG Vent. Rate : 060 BPM Atrial Rate : 063 BPM P-R Int : 000 ms QRS Dur : 192 ms QT Int : 512 ms P-R-T Axes : 000 -36 163 degrees QTc Int : 512 ms Ventricular-paced rhythm Abnormal ECG Confirmed by PERICO GRIFFIN, LUIS ([id number]), video editor TRACY BARKER ([id number]) on 09/21/2022 12:54:21 PM Referred By: Confirmed By:LUIS RIVER MD
--- NOTE | 2022-09-17 11:40 | EX.ED.DYSGE1 ---
HPI History of Present Illness Chief Complaint: Weakness Informant: patient and family Narrative Narrative: Patient presents with generalized weakness and not functioning well at home. This patient had a left total knee done on the fifth of this month. Shortly after that he had urinary retention and a catheter was placed. He does have history of kidney transplant. The most recent of 3 transplants was in 2018. He is on tacrolimus, mycophenolate, prednisone. He then developed urinary retention and a fever. He was seen a couple days ago. A catheter was replaced again. He was started on Bactrim. He comes back in because he is just weak at home. He is not getting up and moving around. He is not having fevers anymore. He is not coughing. He is just too weak. His appetite is down but he is not vomiting. He is trying to drink 3 L of water a day as he supposed to but he is having trouble getting this in. His is trying to help but she is getting exhausted and really cannot care for him at this time. He feels and the family feels that he is not safe at home and needs to come in the hospital until he gets stronger. I did review online medical records and find out that although he was started on antibiotics, as it happens, the antibiotic he was started he is resistant to. He was sensitive to most of the penicillins including Zosyn I will start him on this broad-spectrum initially. But the Bactrim that he was started on ends up not being good coverage for the Klebsiella that grew from his urine. The daughter also feels that his words are slurring a little bit. [facility] Medical History Actinic keratosis BCC (basal cell carcinoma of skin) Ceruminous adenocarcinoma of right ear Chronic kidney disease (CKD) Chronic rejection of renal transplant Complete heart block (08/11/16) Enterococcal sepsis Essential hypertension Fistula History of skin cancer Hyperlipidemia Longstanding persistent atrial fibrillation Lower extremity edema Membranoproliferative glomerulonephritis Non-rheumatic mitral valve stenosis Nonrheumatic aortic (valve) stenosis Obesity Pacemaker Right-sided tinnitus Secondary pulmonary arterial hypertension Sleep apnea Squamous cell carcinoma Home Medications tamsulosin 0.4 mg capsule 0.4 mg PO DAILY PROSTATE 03/16/15 [History Last Taken 09/17/22] finasteride 5 mg tablet 5 mg PO DAILY PROSTATE 10/23/15 [History Last Taken 09/17/22] cyanocobalamin (vitamin B-12) 500 mcg tablet (Vitamin B-12) 100 mcg PO DAILY SUPPLEMENT 11/26/16 [History Last Taken 09/17/22] carvedilol 6.25 mg tablet 6.25 mg PO BID HEART 02/14/18 [History Last Taken 09/17/22] ferrous sulfate 324 mg (65 mg iron) tablet,delayed release 324 mg PO DAILY SUPPLEMENT 02/14/18 [History Last Taken 09/17/22] prednisone 5 mg tablet 5 mg PO DAILY STEROID 02/14/18 [History Last Taken 09/17/22] sulfamethoxazole 800 mg-trimethoprim 160 mg tablet 1 tab PO MOWEFR ANTIBIOTIC 02/14/18 [History Last Taken 09/16/22] acetaminophen 500 mg tablet 1,000 mg PO Q6H PAIN 03/02/19 [History Last Taken 09/17/22 04:00] acitretin 10 mg capsule 10 mg PO SUTUTHSA CHEMO 03/02/19 [History Last Taken 09/15/22] atorvastatin 20 mg tablet 20 mg PO QHS CHOLESTEROL 04/01/21 [History Last Taken 09/16/22] mycophenolate sodium 180 mg tablet,delayed release 180 mg PO BID TRANSPLANT REJECTION PREVENTION 04/01/21 [History Last Taken 09/17/22] mycophenolate sodium 360 mg tablet,delayed release 360 mg PO BID TRANSPLANT REJECTION PREVENTION 04/01/21 [History Last Taken 09/17/22] tacrolimus 0.5 mg capsule, immediate-release 0.5 mg PO BID TRANSPLANT REJECTION PREVENTION 04/01/21 [History Last Taken 09/17/22] KI-yzfftqmmgyo-hjtnqs ox-Zn ER 500 mcg-750 mg-1.5 mg-25 mg tablet,ER 1 tab PO QPM SUPPLEMENT 09/15/22 [History Last Taken 09/17/22] pantoprazole 40 mg tablet,delayed release 40 mg PO DAILY ACID REFLUX 09/15/22 [History Last Taken 09/17/22] sulfamethoxazole 800 mg-trimethoprim 160 mg tablet 1 tab PO BID #14 TABLETS 09/15/22 [Rx Last Taken 09/17/22] warfarin 2 mg tablet 2 mg PO QPM BLOOD THINNER 09/15/22 [History Last Taken 09/16/22] zolpidem 10 mg tablet 10 mg PO QHS INSOMNIA 09/15/22 [History Last Taken 09/16/22] Allergy/AdvReac Type Severity Reaction Status Date / Time ibuprofen [From Motrin] AdvReac Kidney Verified 09/17/22 11:22 transplant latex AdvReac Rash Verified 09/17/22 11:22 Family History Mother Cancer Father Cancer Myocardial infarction CAD (coronary artery disease) Heart disease Surgical History H/O hemorrhoidectomy H/O skin graft History of aortic valve replacement (08/04/16) History of cardioversion (11/2016) History of excision of lesion (2019) History of herniorrhaphy History of mitral valve replacement (08/04/16) History of permanent cardiac pacemaker placement (08/11/16) Renal transplant recipient (02/2018) Status post ligation of left atrial appendage (08/04/16) Social History Smoking Status: Never smoker ROS ROS ED Constitutional Constitutional ED: Reports chills and fever(s) Eyes Eyes: Denies change in vision ENT ENT ED: Denies rhinorrhea Cardiovascular Cardiovascular: Denies chest pain Respiratory/Chest Respiratory/Chest: Denies cough, dyspnea or sputum Gastrointestinal Gastrointestinal: Reports other Details: No nausea vomiting but his appetite is down significantly. ; Denies nausea or vomiting Genitourinary Genitourinary ED: Reports other Details: See history of present illness. Catheter currently in Musculoskeletal Musculoskeletal: Denies myalgias Integumentary Denies rash Neurologic Neurologic: Reports other Details: Patient does not notice any focal weakness. His daughter feels like his speech does seem a little bit slurred. ; Denies headache(s), paresthesias or weakness Hematologic/Lymphatic Hematologic/Lymphatic: Reports easy bleeding and easy bruising Allergic/Immunologic Allergic/Immunologic ED: Denies urticaria EXAM Physical Exam Narrative Exam Narrative: Patient is awake alert. He does look very tired and worn out but is not toxic. He is not confused. HEENT does show what appears to be some mildly dry mucous membranes. I do not see a notable facial droop. His daughter feels like he may have some asymmetry but I am not able to pick this up. Certainly she knows him much better. Neck is supple. I see no JVD Heart sounds regular at this time. He reportedly does have a history of atrial fibrillation intermittently though. His lungs are clear. He is not coughing. His saturations are normal at 99% on room air showing no hypoxia. Abdomen is soft and nontender. No Brown catheter with relatively normal looking urine. Extremities do show slight edema to the right hand and also the feet. Evidently the feet and legs are really normal. Hand edema is more than his normal. He does have a fistula in the right upper arm that does have a good thrill. I also note that the incision of in his left knee looks like it is healing quite well. Neurologically I do not see any focal deficit but the daughter is noting this. His slight slow speech may just be due to his illness. But we will do a scan of his head to look for possibilities of stroke. Const Vital Signs: 09/17/22 11:19 09/17/22 11:38 09/17/22 11:42 Temperature 97.1 F L Temperature Source Temporal Pulse Rate 87 62 Respiratory Rate 18 11 L Respiratory Effort Short of Breath Respiratory Pattern Normal Blood Pressure 124/67 H Blood Pressure Mean 86 Pulse Ox 98 99 Oxygen Delivery Method Room Air Room Air 09/17/22 11:43 Temperature 97.6 F L Temperature Source Oral Pulse Rate 60 Respiratory Rate 22 H Respiratory Effort Respiratory Pattern Blood Pressure 127/73 H Blood Pressure Mean 91 Pulse Ox 99 Oxygen Delivery Method Room Air MDM MDM MDM Narrative Medical decision making narrative: Patient CBC shows mild elevation in the white count and mild anemia. Electrolytes show acute kidney injury with a creatinine of 3.09 which is a significant elevation from couple days ago at 1.75. He has a sodium that is down to 113 down from 122. His urine does not show any marked signs of infection. It may be that Bactrim is having some an in vivo activity even though it is technically not appropriate for his Klebsiella infection that was in the urine and one of the blood cultures. Patient's lactate was normal at 0.8. We were not able to get an IV in this patient. We got 1 initially but then it blew. We had several people try. We were cautious about lacing a central line due to the patient's edema in addition to having fistula in the right arm and having a pacemaker. With his INR high at 4.6 we had limited sites. He is clinically stable. I discussed the case with hospitalist who was able to contact the PICC line people who are coming down to place a PICC line. I think this is the best option for this patient. The patient and family would prefer if I get him transferred to [facility]. I did discuss the case directly with their hospital technician Dr. Cody Montanez who knows this patient quite well. He excepted the patient in transfer. However, [facility] has no beds. We are on an extended waiting list. We already have 1 person in the department is on a waiting list that is not expected to have a bed till late in the night or morning. I was going to call back to our hospitalist to notify them because I think we should just admit this patient here. It sounds like it might be a day or more until they have a bed. Evidently the nursing hatchery supervisor at already talked to him and this is okay. I also talked with the family and patient and updated them on all these issues. My independent station the patient's CT of the head done for some weakness and possible speech slurring shows no acute process. Final reading is chronic involutional changes of the brain. Lab Data Attestation: I reviewed the patient's lab results. EKG Initial EKG: Comments: My independent interpretation the patient's EKG shows a paced rhythm with a rate of 60. No ectopy. ST changes consistent with pacer bundle block pattern. QRS duration is long. QTc is long. Discharge Plan Triage Chief Complaint: Weakness ED Provider: Tyler Frias Dx/Rx/DC Orders Clinical Impression: Acute UTI, Renal transplant recipient, Generalized weakness, Failure of outpatient treatment, Acute kidney injury, Acute hyponatremia Primary Care Provider: Beth Quiroz Disposition Disposition: [facility]
--- NOTE | 2022-09-17 13:05 | ED.RN ---
WAITING FOR BARREL DRILLER TO DRAW SECOND SET OF BLOOD CULTURES PRIOR TO START OF ANTIBIOTIC PER DR. KENNEDY.
[2022-09-17 13:12] LABS: ALB/GLOB Ratio 0.9 RATIO (0.9-2.4); AST(SGOT) 40 U/L (15-37); Alanine Aminotransfer ALT/SGPT 16 U/L (16-61); Albumin, Serum 2.6 g/dL (3.2-5.0); Alkaline Phosphatase 99 U/L (45-117); Anion Gap 11 (5-15); BUN 30 mg/dL (7-18); BUN/Creat Ratio 9.7 RATIO (10-20); Calcium,Total 8.9 mg/dL (8.5-10.1); Chloride 85 mmol/L (98-107); Creatinine, Serum 3.09 mg/dL (0.70-1.30); EST Glomerular Filtration Rate 21 mL/min (>60); Est Glom Filt Rate - Afr Amer 26 mL/min (>60); Estimated Creatinine Clearance 20.65 ml/min; Glucose 83 mg/dL (74-106); Potassium 4.2 mmol/L (3.5-5.1); Protein, Total 5.6 g/dL (6.4-8.2); Sodium Level 113 mmol/L (136-145)
[2022-09-17 13:17] LABS: Absolute Neutrophil Count 10.8 X10^3/uL (2.0-7.7); Basophil# 0.01 X10^3/uL; Basophil% 0.1 % (0-1); Hematocrit 26.9 % (40-54); Hemoglobin 8.8 g/dL (13.0-16.5); Lymphocyte % 0.9 % (19-41); Mean Corp Hgb Conc 32.7 g/dL (32-36); Mean Corpuscular Hgb 31.2 pg (27.0-32.0); Mean Corpuscular Volume 95.4 fL (80-94); Mean Platelet Vol. 10.4 fl (6.2-12.0); Monocyte% 4.4 % (0-10); NRBC Flagged by Analyzer 0 % (0-5); Neutrophil # 10.81 X10^3/uL (2.7-7.7); Neutrophil % 94.2 % (47-70); POSITIVE COUNT YES; POSITIVE DIFFERENTIAL YES; Platelet Count 78 K/mm3 (150-450); RBC Distribution Width CV 13.2 % (11.6-14.6); Red Blood Count 2.82 M/mm3 (4.6-6.2); White Blood Count 11.5 K/mm3 (4.4-11.0)
[2022-09-17 13:19] LABS: Differential Indicated SCAN CRITERIA MET
[2022-09-17 13:29] LABS: Prothrombin Time (Protime)PT. 44.6 SECONDS (11.7-14.9)
[2022-09-17 13:34] LABS: International Normalized Ratio 4.6
[2022-09-17 13:38] LABS: Bacteria 0 SEEN /hpf (None Seen); Mucous, Urine 0 SEEN /hpf (<or=2+)
[2022-09-17 13:39] LABS: Color, Urine Yellow (Yellow); Glucose, Dipstick Normal (Normal); Ketone-Dipstick Negative (Negative); Leukocyte Esterase-Dipstick 100 /ul (Negative); Nitrite-Dipstick Negative (Negative); Occult Blood-Urine 25 /ul (Negative); Protein-Dipstick 30 mg/dl (Negative); Urine Bilirubin Dipstick Negative (Negative); Urine Clarity Clear (Clear); Urine Urobilinogen Normal (Normal)
[2022-09-17 13:47] LABS: Red Blood Cells-Urine 0-5 SEEN /hpf (0-5); Squamous Epithelial Cells - UA 0-5 SEEN /hpf (0-5); White Blood Cells 0-5 SEEN /hpf (0-5)
[2022-09-17 13:48] LABS: Lactic Acid 0.8 mmol/L (0.4-1.9)
[2022-09-17 13:50] LABS: Platelet Estimate MOD DEC (ADEQ)
--- NOTE | 2022-09-17 14:50 | ED.RN ---
alterations supervisor called for a PICC line. Acces nurse will call back with an ETA.
--- NOTE | 2022-09-17 16:23 | RAD_ITS ---
INDICATION: CONFIRM PICC LINE PLACEMENT EXAMINATION/TECHNIQUE: X-RAY - XR Chest 1 View COMPARISON: 09/15/2022 FINDINGS: LUNGS: No consolidation, edema or effusion. No pneumothorax. MEDIASTINUM AND CARDIOVASCULAR STRUCTURES: Cardiac silhouette not enlarged. Central airways and mediastinal contour are unremarkable. RAD/CXR for Line Placement IMPRESSION: LUE PICC terminates over the superior cavoatrial junction. No radiographic evidence of acute cardiopulmonary disease. Electronically Signed: Juan Prather MD at 16:46 EDT ,
--- NOTE | 2022-09-17 16:24 | ED.RN ---
THIS RN CALLED PCU AND SPOKE TO DEIDRA JACKSON. PT TO GO TO FLOOR AFTER CHEST XRAY COMPLETED. CHEST XRAY RESULTS PENDING UPON ED DISCHAGE TO FLOOR.
[2022-09-17] MEDS: 0.9% Normal Saline 1,000 ML 125 ML IV (17:38)
--- NOTE | 2022-09-17 17:39 | HP.PCM.HOS_ITS ---
HPI - General General Date of Admission: 09/17/22 Date of Service: 09/17/22 Chief Complaint: Generalized weakness HPI Narrative JOSEPHINE STARKS, is a 67 M who presents to the emergency room at [facility] with complaints of generalized weakness and debility. Patient was seen in the emergency room 2 days ago for urinary pains which included urinary retention, a Brown catheter was placed and the patient was found to have a urin gen tract infection placed on Bactrim. He remained weak however and his was unable to care for him at home and he was brought in for evaluation to the hospital today. Patient has a history of several renal transplants. Patient had a left knee replacement performed earlier this month at [facility]. Work-up in the emergency room included a CBC which showed an elevated white blood cell count at 11.5, hemoglobin was 8.8, patient's INR was elevated at 4.6, chemistry profile was abnormal for a sodium of 113, bicarb of 17, creatinine of 3.09 and a BUN of 30. Patient's AST was elevated at 40, patient's UA was unremarkable. The emergency room was unable to place an IV and the patient, a PICC line was placed however. Patient will be admitted to PCU, given IV fluids and placed on IV Rocephin, labs will be monitored. Patient and patient's family would like to go to [facility], there is no bed availability at this time and so the patient was admitted here to the hospital. I talked at length with the patient's daughter who was in the room at the time my examination today as well as the patient. [facility] Medical History Actinic keratosis BCC (basal cell carcinoma of skin) Ceruminous adenocarcinoma of right ear Chronic kidney disease (CKD) Chronic rejection of renal transplant Complete heart block (08/11/16) Enterococcal sepsis Essential hypertension Fistula History of skin cancer Hyperlipidemia Longstanding persistent atrial fibrillation Lower extremity edema Membranoproliferative glomerulonephritis Non-rheumatic mitral valve stenosis Nonrheumatic aortic (valve) stenosis Obesity Pacemaker Right-sided tinnitus Secondary pulmonary arterial hypertension Sleep apnea Squamous cell carcinoma Home Medications tamsulosin 0.4 mg capsule 0.4 mg PO DAILY PROSTATE 03/16/15 [History Last Taken 09/17/22] finasteride 5 mg tablet 5 mg PO DAILY PROSTATE 10/23/15 [History Last Taken 09/17/22] cyanocobalamin (vitamin B-12) 500 mcg tablet (Vitamin B-12) 100 mcg PO DAILY SUPPLEMENT 11/26/16 [History Last Taken 09/17/22] carvedilol 6.25 mg tablet 6.25 mg PO BID HEART 02/14/18 [History Last Taken 09/17/22] ferrous sulfate 324 mg (65 mg iron) tablet,delayed release 324 mg PO DAILY SUPPLEMENT 02/14/18 [History Last Taken 09/17/22] prednisone 5 mg tablet 5 mg PO DAILY STEROID 02/14/18 [History Last Taken 09/17/22] sulfamethoxazole 800 mg-trimethoprim 160 mg tablet 1 tab PO MOWEFR ANTIBIOTIC 02/14/18 [History Last Taken 09/16/22] acetaminophen 500 mg tablet 1,000 mg PO Q6H PAIN 03/02/19 [History Last Taken 09/17/22 04:00] acitretin 10 mg capsule 10 mg PO SUTUTHSA CHEMO 03/02/19 [History Last Taken 09/15/22] atorvastatin 20 mg tablet 20 mg PO QHS CHOLESTEROL 04/01/21 [History Last Taken 09/16/22] mycophenolate sodium 180 mg tablet,delayed release 180 mg PO BID TRANSPLANT REJECTION PREVENTION 04/01/21 [History Last Taken 09/17/22] mycophenolate sodium 360 mg tablet,delayed release 360 mg PO BID TRANSPLANT REJECTION PREVENTION 04/01/21 [History Last Taken 09/17/22] tacrolimus 0.5 mg capsule, immediate-release 0.5 mg PO BID TRANSPLANT REJECTION PREVENTION 04/01/21 [History Last Taken 09/17/22] WJ-hwzffynjmpe-jionfk ox-Zn ER 500 mcg-750 mg-1.5 mg-25 mg tablet,ER 1 tab PO QPM SUPPLEMENT 09/15/22 [History Last Taken 09/17/22] pantoprazole 40 mg tablet,delayed release 40 mg PO DAILY ACID REFLUX 09/15/22 [History Last Taken 09/17/22] sulfamethoxazole 800 mg-trimethoprim 160 mg tablet 1 tab PO BID #14 TABLETS 09/15/22 [Rx Last Taken 09/17/22] warfarin 2 mg tablet 2 mg PO QPM BLOOD THINNER 09/15/22 [History Last Taken 09/16/22] zolpidem 10 mg tablet 10 mg PO QHS INSOMNIA 09/15/22 [History Last Taken 09/16/22] Allergy/AdvReac Type Severity Reaction Status Date / Time ibuprofen [From Motrin] AdvReac Kidney Verified 09/17/22 11:22 transplant latex AdvReac Rash Verified 09/17/22 11:22 Family History Mother Cancer Father Cancer Myocardial infarction CAD (coronary artery disease) Heart disease Surgical History H/O hemorrhoidectomy H/O skin graft History of aortic valve replacement (08/04/16) History of cardioversion (11/2016) History of excision of lesion (2019) History of herniorrhaphy History of mitral valve replacement (08/04/16) History of permanent cardiac pacemaker placement (08/11/16) Renal transplant recipient (02/2018) Status post ligation of left atrial appendage (08/04/16) Social History (Updated 09/17/22 @ 16:59 by Ivone Marie) do you think of yourself as: straight/heterosexual Smoking Status: Never smoker ROS Constitutional Constitutional: Reports fatigue and weakness; Denies anorexia, change in weight, chills, fever(s) or night sweats Eyes Eyes: Denies blurry vision, change in vision, discharge from eye(s) or eye pain Cardiovascular Cardiovascular: Denies chest pain, claudication, dyspnea on exertion, edema, lightheadedness or palpitations Respiratory/Chest Respiratory/Chest: Denies cough, hemoptysis, shortness of breath at rest or shortness of breath with exertion Gastrointestinal Gastrointestinal: Denies abdominal pain, constipation, diarrhea, hematemesis, hematochezia, melena, nausea or vomiting Genitourinary Genitourinary: Reports difficulty urinating; Denies dysuria, hematuria, urinary frequency, urinary hesitancy, urinary incontinence or urinary urgency Musculoskeletal Musculoskeletal: Denies back pain, joint pain, joint stiffness, joint swelling, myalgias or neck pain Neurologic Neurologic: Denies abnormal gait, abnormal speech, confusion, disequilibrium, dizziness, focal weakness, headache(s), loss of vision, numbness, other visual disturbances, paresthesias, syncope or tingling Psychiatric Psychiatric: Denies anxiety, cognitive impairment, depression, irritability, mood swings or suicidal ideation Endocrine Endocrinology: Denies change in body appearance, cold intolerance, excessive sweating, heat intolerance, polydipsia or polyuria Hematologic/Lymphatic Hematologic/Lymphatic: Denies none, anemia, easy bleeding, easy bruising or lymphadenopathy Allergic/Immunologic Allergic/Immunologic: Denies rhinitis, urticaria, eczemia or asthma Vital Signs Vital Signs Vital Signs: 09/17/22 11:19 09/17/22 11:38 09/17/22 11:42 Temperature 97.1 F L Temperature Source Temporal Pulse Rate 87 62 Respiratory Rate 18 11 L Respiratory Effort Short of Breath Respiratory Pattern Normal Blood Pressure 124/67 H Blood Pressure Mean 86 Pulse Ox 98 99 Oxygen Delivery Method Room Air Room Air 09/17/22 11:43 09/17/22 13:39 09/17/22 13:44 Temperature 97.6 F L 97.6 F L Temperature Source Oral Oral Pulse Rate 60 62 63 Respiratory Rate 22 H 22 H 21 H Respiratory Effort Respiratory Pattern Blood Pressure 127/73 H 131/75 H 131/75 H Blood Pressure Mean 91 93 93 Pulse Ox 99 96 96 Oxygen Delivery Method Room Air Room Air Room Air 09/17/22 14:11 09/17/22 14:43 09/17/22 14:57 Temperature 97.8 F Temperature Source Oral Pulse Rate 61 62 67 Respiratory Rate 20 H 22 H 21 H Respiratory Effort Respiratory Pattern Blood Pressure 136/77 H 136/71 H 137/80 H Blood Pressure Mean 96 92 99 Pulse Ox 97 98 98 Oxygen Delivery Method Room Air Room Air Room Air 09/17/22 15:16 09/17/22 16:10 09/17/22 17:38 Temperature 97.8 F 97.8 F Temperature Source Oral Oral Pulse Rate 67 65 59 L Respiratory Rate 18 19 H 18 Respiratory Effort Respiratory Pattern Blood Pressure 143/75 H 132/41 H Blood Pressure Mean 97 71 Pulse Ox 96 96 99 Oxygen Delivery Method Room Air Room Air Room Air Weight Weight: 97.5 kg Body Mass Index (BMI) 35.2 Physical Exam Const alert, oriented x3 and no apparent distress Constitutional Narrative: Patient appears older than his stated age General Appearance: cooperative, well kempt and well developed Orientation / Consciousness: awake, oriented to person, oriented to place and oriented to time HEENT normocephalic and moist oral mucous membranes; Negative for head/scalp atraumatic or hearing grossly normal bilaterally Eyes PERRL, EOMs intact bilaterally and conjunctivae normal Neck supple, no JVD, thyroid normal and no carotid bruits General: trachea midline Resp normal respiratory effort, No no retractions, No no use of accessory muscles and clear to auscultation bilaterally Auscultation: Negative for rales, rhonchi or wheezes Cardio regular rate, regular rhythm, no murmurs, no rub and no gallops; Negative for S1 normal heart sound or S2 normal heart sound GI normal to inspection, nondistended, normoactive bowel sounds, soft to palpation, non-tender and non-distended Extremity no clubbing, cyanosis or edema Skin no rashes or lesions noted General Skin Exam: no breakdown Neuro oriented x3, CN's II-XII intact bilaterally, moves all extremities, no focal motor deficits and no sensory deficits noted Sensorium / Orientation: awake, alert, oriented to person, oriented to place and oriented to time Speech: speech normal Psych affect normal Results Lab / Micro Data 09/17/22 13:10 09/17/22 12:20 Labs: Laboratory Results - last 24 hr 09/17/22 12:20: WBC Cancelled, Corrected WBC Cancelled, RBC Cancelled, Hgb Cancelled, Hct Cancelled, MCV Cancelled, MCH Cancelled, MCHC Cancelled, RDW Std Deviation Cancelled, RDW Coeff of Fermin Cancelled, Plt Count Cancelled, MPV Cancelled, Immature Gran % (Auto) Cancelled, Neut % (Auto) Cancelled, Lymph % (Auto) Cancelled, [place] % (Auto) Cancelled, Eos % (Auto) Cancelled, Baso % (Auto) Cancelled, Absolute Neuts (auto) Cancelled, Absolute Lymphs (auto) Cancelled, Total Counted Cancelled, Neutrophils % (Manual) Cancelled, Band Neutrophils % Cancelled, Lymphocytes % (Manual) Cancelled, Monocytes % (Manual) Cancelled, Eosinophils % (Manual) Cancelled, Basophils % (Manual) Cancelled, Metamyelocytes % Cancelled, Myelocytes % Cancelled, Promyelocytes % Cancelled, Blast Cells % Cancelled, Plasma Cell % (Manual) Cancelled, Other Cells % Cancelled, Nucleated RBC % Cancelled, Nucleated RBCs/100 WBC Cancelled, Differential Comment Cancelled, Diff Path Review Cancelled, Hypersegmented Neuts Cancelled, Atypical Lymphocytes Cancelled, Reactive Lymphocytes Cancelled, Smudge Cells Cancelled, Toxic Granulation Cancelled, Toxic Vacuolation Cancelled, Dohle Bodies Cancelled, Rock Rods Cancelled, Platelet Estimate Cancelled, Plt Morphology Comment Cancelled, RBC Morphology Cancelled 09/17/22 12:20: RBC Morphology Cancelled, Polychromasia Cancelled, Hypochromasia Cancelled, Poikilocytosis Cancelled, Basophilic Stippling Cancelled, [place] cytosis Cancelled, Microcytosis Cancelled, Macrocytosis Cancelled, Spherocytes Cancelled, Sickle Cells Cancelled, Target Cells Cancelled, Tear Drop Cells Cancelled, Ovalocytes Cancelled, Stomatocytes Cancelled, [place] Bodies Cancelled, Giles Cells Cancelled, Bite Cells Cancelled, Crenated Cell Cancelled, Acanthocytes (Spur) Cancelled, Rouleaux Cancelled, Schistocytes Cancelled, So dium 113 L*, Potassium 4.2, Chloride 85 L, Carbon Dioxide 17.0 L, Anion Gap 11, BUN 30 H, Creatinine 3.09 H, Estim Creat Clear Calc 20.65, Est GFR (MDRD) Af Amer 26 L, Est GFR (MDRD) Non-Af 21 L, BUN/Creatinine Ratio 9.7 L, Glucose 83, Calcium 8.9, Total Bilirubin 0.90, AST 40 H, ALT 16, Alkaline Phosphatase 99, Total Protein 5.6 L, Albumin 2.6 L, Globulin 3.0, Albumin/Globulin Ratio 0.9 09/17/22 12:30: Urine Color Yellow, Urine Clarity Clear, Urine pH 5.0, Ur Specific [place] 1.010, Urine Protein 30 H, Urine Glucose (UA) Normal, Urine Ketones Negative, Urine Occult Blood 25 H, Urine Nitrite Negative, Urine Bilirubin Negative, Urine Urobilinogen Normal, Ur Leukocyte Esterase 100 H, Urine RBC 0-5 SEEN, Urine WBC 0-5 SEEN, Ur Squamous Epith Cells 0-5 SEEN, Urine Bacteria 0 SEEN, Urine Mucus 0 SEEN 09/17/22 13:10: WBC 11.5 H, RBC 2.82 L, Hgb 8.8 L, Hct 26.9 L, MCV 95.4 H, MCH 31.2, MCHC 32.7, RDW Std Deviation 46.0 H, RDW Coeff of Fermin 13.2, Plt Count 78 L , MPV 10.4, Immature Gran % (Auto) 0.400, Neut % (Auto) 94.2 H, Lymph % (Auto) 0.9 L, [place] % (Auto) 4.4, Eos % (Auto) 0.0, Baso % (Auto) 0.1, Absolute Neuts (a uto) 10.8 H, Absolute Lymphs (auto) 0.10 L, Nucleated RBC % 0, Differential Comment COMMENT, Platelet Estimate MOD DEC, PT 44.6 H, INR 4.6 H*, Lactic Acid 0.[address] 09/17/22 11:36 IMPRESSION: Chronic involutional changes of the brain. Electronically Signed: Bao Jansen MD at 13:06 EDT , Chest X-Ray 09/17/22 16:23 IMPRESSION: LUE PICC terminates over the superior cavoatrial junction. No radiographic evidence of acute cardiopulmonary disease. Electronically Signed: Juan Prather MD at 16:46 EDT , Assessment & Plan Assessment/Plan (1) Acute kidney injury: PLAN: Plan 1. Acute kidney injury-patient will be admitted to PCU, he will be given IV fluids, labs will be monitored. #2 acute debility-patient will be seen by PT and OT, according to patient's daughter, patient desires to go to the rehab unit at [facility] for rehab services #3 acute cystitis-patient will be treated with IV Rocephin #4 status post renal transplant 2017-patient will remain on his antirejection drugs #5 chronic anticoagulation with Coumadin-patient has a history of atrial fibrillation, INR is elevated at this time, Coumadin will be held #6 chronic atrial fibrillation-patient is on Coumadin #7 hypercoagulable state secondary to atrial fibrillation-patient is on Coumadin #8 valvular heart disease-patient has an aortic and mitral valve replacement- tissue valve #9 chronic kidney disease-stage unknown #10 hyponatremia-normal saline will be given, BMP will be repeated tonight and again tomorrow morning Total clinical time spent by myself addressing patient's medical issues, reviewing all of the data, and collaborating with patient's care team: 75 minutes Charges/Coding Visit Charges Inpatient E&M: 60348 Init Hosp L3
[2022-09-17] MEDS: Ceftriaxone 1 GM/50 ML BAG IV (18:26)
[2022-09-17] MEDS: Acetaminophen 500 MG Tablet 1000 MG PO (18:32)
--- NOTE | 2022-09-17 20:20 | NURSING ---
Pt wants meds to be given early so he can get some sleep. He requested to not be woke up for meds or vitals in the night if he is asleep.
[2022-09-17] MEDS: MYCOPHENOLATE SODIUM 180 MG TABLET.DR PO (20:26)
[2022-09-17] MEDS: MYCOPHENOLATE SODIUM 360 MG TABLET.DR PO (20:26)
[2022-09-17] MEDS: Tacrolimus 0.5 MG Capsule PO (20:27)
[2022-09-17] MEDS: Atorvastatin Calcium 20 MG Tablet PO (20:28)
[2022-09-17] MEDS: Carvedilol 6.25 MG Tablet PO (20:28)
[2022-09-17] MEDS: Zolpidem Tartrate 5 MG Tablet 10 MG PO (20:29)
[2022-09-17 22:02] LABS: Anion Gap 12 (5-15); BUN 28 mg/dL (7-18); BUN/Creat Ratio 9.7 RATIO (10-20); Calcium,Total 8.2 mg/dL (8.5-10.1); Chloride 87 mmol/L (98-107); EST Glomerular Filtration Rate 23 mL/min (>60); Est Glom Filt Rate - Afr Amer 28 mL/min (>60); Estimated Creatinine Clearance 21.21 ml/min; Glucose 82 mg/dL (74-106); Sodium Level 116 mmol/L (136-145)
[2022-09-18] MEDS: 0.9% Normal Saline 1,000 ML 125 ML IV ×3 (00:55→17:23)
[2022-09-18 02:40] VITALS: BP 132/48; PULSE 60; RESP 18; TEMP 35.9; O2SAT 98
[2022-09-18] MEDS: 0.9% Saline Lock 10 ML Syringe IV (06:12)
[2022-09-18] MEDS: Acetaminophen 500 MG Tablet 1000 MG PO ×2 (06:13→17:23)
[2022-09-18 06:18] LABS: Absolute Neutrophil Count 5.9 X10^3/uL (2.0-7.7); Basophil# 0.01 X10^3/uL; Basophil% 0.1 % (0-1); Eosinophils% 1.5 % (0-5); Hematocrit 23.6 % (40-54); Lymphocyte % 1.5 % (19-41); Mean Corp Hgb Conc 33.9 g/dL (32-36); Mean Corpuscular Hgb 31.3 pg (27.0-32.0); Mean Corpuscular Volume 92.2 fL (80-94); Monocyte# 0.64 X10^3/uL; Monocyte% 9.4 % (0-10); NRBC Flagged by Analyzer 0 % (0-5); Neutrophil # 5.91 X10^3/uL (2.7-7.7); Neutrophil % 86.9 % (47-70); POSITIVE COUNT YES; POSITIVE DIFFERENTIAL YES; Platelet Count 81 K/mm3 (150-450); RBC Distribution Width CV 13.1 % (11.6-14.6); RBC Distribution Width SD 44.3 fl (35.1-43.9); Red Blood Count 2.56 M/mm3 (4.6-6.2); White Blood Count 6.8 K/mm3 (4.4-11.0)
[2022-09-18 06:30] LABS: Differential Indicated SCAN CRITERIA MET
[2022-09-18 06:37] LABS: Prothrombin Time (Protime)PT. 50.5 SECONDS (11.7-14.9)
[2022-09-18 06:42] LABS: International Normalized Ratio 5.4
[2022-09-18 06:57] LABS: Anion Gap 11 (5-15); BUN 28 mg/dL (7-18); Calcium,Total 8.6 mg/dL (8.5-10.1); Chloride 90 mmol/L (98-107); EST Glomerular Filtration Rate 24 mL/min (>60); Est Glom Filt Rate - Afr Amer 29 mL/min (>60); Estimated Creatinine Clearance 21.96 ml/min; Glucose 66 mg/dL (74-106); Potassium 3.8 mmol/L (3.5-5.1); Sodium Level 118 mmol/L (136-145)
[2022-09-18 07:59] LABS: Platelet Estimate MOD DEC (ADEQ)
[2022-09-18] MEDS: Tacrolimus 0.5 MG Capsule PO ×2 (08:21→20:18)
[2022-09-18] MEDS: Pantoprazole Sodium 40 MG Tablet PO (08:21)
[2022-09-18] MEDS: Carvedilol 6.25 MG Tablet PO ×2 (08:22→20:17)
[2022-09-18] MEDS: Smz/Tmp Ds Tablet 1 TABLET PO (08:22)
[2022-09-18] MEDS: Tamsulosin HCl 0.4 MG Capsule PO (08:22)
[2022-09-18] MEDS: Finasteride 5 MG Tablet PO (08:22)
[2022-09-18] MEDS: predniSONE 5 MG Tablet PO (08:22)
[2022-09-18] MEDS: Ceftriaxone 1 GM/50 ML BAG IV (08:23)
[2022-09-18] MEDS: MYCOPHENOLATE SODIUM 180 MG TABLET.DR PO ×2 (08:31→20:18)
[2022-09-18] MEDS: MYCOPHENOLATE SODIUM 360 MG TABLET.DR PO ×2 (08:32→20:18)
[2022-09-18 08:40] VITALS: BP 140/62; PULSE 66; RESP 18; TEMP 36.6; O2SAT 98
[2022-09-18 09:00] VITALS: BP 140/62; PULSE 66; RESP 18; TEMP 36.6; O2SAT 98
[2022-09-18 11:53] VITALS: O2SAT 97
[2022-09-18 13:00] VITALS: BP 140/62; PULSE 66; RESP 18; TEMP 36.6; O2SAT 98
[2022-09-18] MEDS: Ensure Plus High Protein 120 ML LIQUID PO ×2 (14:41→17:23)
--- NOTE | 2022-09-18 14:50 | CASEMGMT ---
RN CM Face to Face with patient for initial transition planning/care coordination assessment. RN CM introduced self and role at [facility]. Patient lying in bed, alert and oriented, at bedside. Patient willing to participate in assessment and is able to answer all questions appropriately. Care providers, pharmacy, and demographics verified. Patient may transfer to [facility], if not would like [facility] RU or TCU at discharge. SW notified. Patient states he has no further needs or concerns at this time. CM to follow for discharge planning needs that may arise. PCP: Gabriella Specialists: Lisseth, [facility] transplant director channel; Enrique, layout operator; Rosmery, eligibility consultant; Steph, Vascular; Kasie, urologist Preferred Pharmacy: [facility] Insurance: Ashley ORELLANA Prescription Benefit: yes Living Will/HPOA: yes, Seble Michelestanislav LNOK: Living Arrangements: Patient lives with in a single story condo with no steps to enter. Patient states he was independent at home but has been having to help him more Transportation: DME/HHC: Patient has shower chair, raised toilet, cane, grab bars, walker, cpap at home. Patient is currently active with [facility] Disposition Plan: Transfer to [facility] or RU/TCU. Niki SHARMA, RN, CM
--- NOTE | 2022-09-18 15:34 | CASEMGMT ---
Addendum entered by Eugenie Cooper 09/18/22 17:15: Social Work SW spoke w/ in room, explained TCU and Rehab have no beds. SW provided to a list of [facility]cf facilities via [facility] in network w/pt's insurance, geographic area, and complete with quality and resource use data. agreeable to referral to [facility], but if pt is still here Wednesday would like SW to see if any beds become available in rehab or TCU. SW explained will start the referral process to [facility] and have the Wednesday SW follow up. states understanding. Referral sent to [facility] via [facility], SW will follow up on Wednesday w/[facility] and w/family. FABI Downing Original Note: Social Work SW made referral to rehab and TCU for pt if he doesn't get transferred. Neither have any beds. ERIC DowningS
[2022-09-18 16:14] LABS: Anion Gap 10 (5-15); BUN 26 mg/dL (7-18); BUN/Creat Ratio 10.4 RATIO (10-20); Calcium,Total 7.7 mg/dL (8.5-10.1); Chloride 96 mmol/L (98-107); Creatinine, Serum 2.49 mg/dL (0.70-1.30); EST Glomerular Filtration Rate 28 mL/min (>60); Est Glom Filt Rate - Afr Amer 33 mL/min (>60); Glucose 103 mg/dL (74-106); Potassium 3.7 mmol/L (3.5-5.1); Sodium Level 122 mmol/L (136-145)
--- NOTE | 2022-09-18 16:34 | NURSING ---
Called the [facility] transfer line and spoke with Nanda to cancel the transfer.
--- NOTE | 2022-09-18 16:41 | PN.HOSP_ITS ---
Reason for Visit Reason for Visit: Diagnoses Acute kidney failure, unspecified (09/17/22) Chronic kidney disease, unspecified (09/17/22) Subjective Subjective Patient was seen and examined today, I had extensive conversations with the patient and his in person today. I repeated the patient's chemistry profile this afternoon and it was improved, the , the patient, and myself made a collective decision to cancel the [facility] transfer, patient appears to be improving, unfortunately there are no beds available in the rehab unit or TCU here at the hospital. I let the know this, patient will need to pick an outside correction facility or transitional care unit. Objective Data Objective Data Vital Signs: Vital Signs Temp Pulse Resp BP Pulse Ox O2 Del Method O2 Flow Rate 97.8 F 66 18 140/62 H 98 Nasal Cannula 4 09/18/22 13:00 09/18/22 13:00 09/18/22 13:00 09/18/22 13:00 09/18/22 13:00 09/18/22 14:00 09/18/22 14:00 Oxygen Flow Rate (L/min) 4 Oxygen Delivery Method Nasal Cannula Weight: 97.5 kg Body Mass Index (BMI) 35.2 Intake & Output: Intake and Output for Last 24 Hours 09/16/22 09/17/22 09/18/22 23:59 23:59 23:59 Intake Total 390 / 390 3023.33 / 3023.33 Output Total 1450 / 1450 Balance 390 / -260 1573.33 / 1573.33 Lab / Micro Data 09/18/22 06:03 09/18/22 15:15 Labs: Laboratory Results - last 24 hr 09/17/22 21:27: Sodium 116 L*, Potassium 4.0, Chloride 87 L, Carbon Dioxide 17.0 L, Anion Gap 12, BUN 28 H, Creatinine 2.90 H, Estim Creat Clear Calc 21.21, Est GFR (MDRD) Af Amer 28 L, Est GFR (MDRD) Non-Af 23 L, BUN/Creatinine Ratio 9.7 L, Glucose 82, Calcium 8.2 L 09/18/22 06:03: WBC 6.8, RBC 2.56 L, Hgb 8.0 L, Hct 23.6 L, MCV 92.2, MCH 31.3, MCHC 33.9, RDW Std Deviation 44.3 H, RDW Coeff of Fermin 13.1, Plt Count 81 L, MPV 11.0, Immature Gran % (Auto) 0.600, Neut % (Auto) 86.9 H, Lymph % (Auto) 1.5 L, [place] % (Auto) 9.4, Eos % (Auto) 1.5, Baso % (Auto) 0.1, Absolute Neuts (auto) 5.9, Absolute Lymphs (auto) 0.10 L, Nucleated RBC % 0, Differential Comment COMMENT, Platelet Estimate MOD DEC, PT 50.5 H, INR 5.4 H*, Sodium 118 L*, Potassium 3.8, Chloride 90 L, Carbon Dioxide 17.0 L, Anion Gap 11, BUN 28 H, Creatinine 2.80 H, Estim Creat Clear Calc 21.96, Est GFR (MDRD) Af Amer 29 L, Est GFR (MDRD) Non-Af 24 L, BUN/Creatinine Ratio 10.0, Glucose 66 L, Calcium 8.6 09/18/22 15:15: Sodium 122 L, Potassium 3.7, Chloride 96 L, Carbon Dioxide 16.0 L, Anion Gap 10, BUN 26 H, Creatinine 2.49 H, Estim Creat Clear Calc 24.70, Est GFR (MDRD) Af Amer 33 L, Est GFR (MDRD) Non-Af 28 L, BUN/Creatinine Ratio 10.4, Glucose 103, Calcium 7.7 L Micro: Microbiology 09/17/22 12:30 Urine Catheter - Brown Urine Culture - Preliminary Culture exhibits no growth. 09/17/22 12:20 Blood Culture (Wb) - Anticubital Left Blood Culture - Preliminary Radiography Diagnostic Testing: Radiology Impression Chest X-Ray 09/17/22 16:23 IMPRESSION: LUE PICC terminates over the superior cavoatrial junction. No radiographic evidence of acute cardiopulmonary disease. Electronically Signed: Juan Prather MD at 16:46 EDT , Physical Exam Narrative alert, oriented x3 and no apparent distress Constitutional Narrative: Patient appears older than his stated age General Appearance: cooperative, well kempt and well developed Orientation / Consciousness: awake, oriented to person, oriented to place and oriented to time HEENT normocephalic and moist oral mucous membranes; Negative for head/scalp atraumatic or hearing grossly normal bilaterally Eyes PERRL, EOMs intact bilaterally and conjunctivae normal Neck supple, no JVD, thyroid normal and no carotid bruits General: trachea midline Resp normal respiratory effort, No no retractions, No no use of accessory muscles and clear to auscultation bilaterally Auscultation: Negative for rales, rhonchi or wheezes Cardio regular rate, regular rhythm, no murmurs, no rub and no gallops; Negative for S1 normal heart sound or S2 normal heart sound GI normal to inspection, nondistended, normoactive bowel sounds, soft to palpation, non-tender and non-distended Extremity no clubbing, cyanosis or edema Skin no rashes or lesions noted General Skin Exam: no breakdown Neuro oriented x3, CN's II-XII intact bilaterally, moves all extremities, no focal motor deficits and no sensory deficits noted Sensorium / Orientation: awake, alert, oriented to person, oriented to place and oriented to time Speech: speech normal Psych affect normal Assessment & Plan Assessment/Plan (1) Acute kidney injury: PLAN: Plan 1. Acute kidney injury-continue IV fluid administration, monitor labs #2 acute debility-patient will be seen by PT and OT, according to patient's daughter, patient desires to go to the rehab unit at [facility] for rehab services #3 acute cystitis-patient will be treated with IV Rocephin #4 status post renal transplant 2017-patient will remain on his antirejection drugs #5 chronic anticoagulation with Coumadin-patient has a history of atrial fibrillation, INR is elevated at this time, Coumadin will be held #6 chronic atrial fibrillation-patient is on Coumadin, Coumadin is being held due to elevated INR #7 hypercoagulable state secondary to atrial fibrillation-patient is on Coumadin, this is being held due to elevated INR #8 valvular heart disease-patient has an aortic and mitral valve replacement- tissue valve #9 chronic kidney disease-stage unknown #10 hyponatremia-continue normal saline IV, sodium is improved today. #11 bacteremia with Klebsiella pneumoniae, I have elected to continue IV Rocephin for now, I will reevaluate this tomorrow #12 anemia of chronic kidney disease-patient's CBC will be monitored Total clinical time spent by myself addressing patient's medical issues, reviewing all of the data, and collaborating with patient's care team: 35 minutes Charges/Coding Visit Charges Inpatient E&M: 89500 Subs Hosp L2
[2022-09-18 20:15] VITALS: BP 127/51; PULSE 60; RESP 18; TEMP 36.7; O2SAT 97
[2022-09-18] MEDS: Atorvastatin Calcium 20 MG Tablet PO (20:18)
[2022-09-18] MEDS: Zolpidem Tartrate 5 MG Tablet 10 MG PO (20:18)
--- NOTE | 2022-09-18 20:24 | NURSING ---
Pt requested meds to be given now so he could sleep early. Pt also requesting to not be woken up until morning if asleep.
[2022-09-19] VITALS (9 sets, daily range): BP systolic 121–153; BP diastolic 51–78; PULSE 59–62; RESP 18; TEMP 36.2–36.7; O2SAT 97–100
[2022-09-19] MEDS: 0.9% Normal Saline 1,000 ML 125 ML IV (00:05)
[2022-09-19] MEDS: 0.9% Saline Lock 10 ML Syringe IV ×2 (05:04→06:49)
[2022-09-19 05:10] LABS: Absolute Lymphocyte Count 0.18 X10^3/uL (0.83-4.51); Absolute Neutrophil Count 3.7 X10^3/uL (2.0-7.7); Eosinophil# 0.07 X10^3/uL; Eosinophils% 1.5 % (0-5); Hematocrit 23.3 % (40-54); Hemoglobin 7.5 g/dL (13.0-16.5); Lymphocyte # 0.18 X10^3/ul (0.83-4.51); Lymphocyte % 3.8 % (19-41); Mean Corp Hgb Conc 32.2 g/dL (32-36); Mean Corpuscular Hgb 30.5 pg (27.0-32.0); Mean Corpuscular Volume 94.7 fL (80-94); Monocyte# 0.72 X10^3/uL; Monocyte% 15.4 % (0-10); NRBC Flagged by Analyzer 0 % (0-5); Neutrophil # 3.69 X10^3/uL (2.7-7.7); Neutrophil % 78.7 % (47-70); POSITIVE COUNT YES; POSITIVE DIFFERENTIAL YES; Platelet Count 78 K/mm3 (150-450); RBC Distribution Width CV 13.3 % (11.6-14.6); RBC Distribution Width SD 46.4 fl (35.1-43.9); Red Blood Count 2.46 M/mm3 (4.6-6.2); White Blood Count 4.7 K/mm3 (4.4-11.0)
[2022-09-19 05:16] LABS: Prothrombin Time (Protime)PT. 54.1 SECONDS (11.7-14.9)
[2022-09-19 05:20] LABS: International Normalized Ratio 5.9
[2022-09-19 05:24] LABS: Anion Gap 10 (5-15); BUN 27 mg/dL (7-18); Calcium,Total 8.4 mg/dL (8.5-10.1); Chloride 98 mmol/L (98-107); Creatinine, Serum 2.45 mg/dL (0.70-1.30); EST Glomerular Filtration Rate 28 mL/min (>60); Est Glom Filt Rate - Afr Amer 34 mL/min (>60); Glucose 79 mg/dL (74-106); Potassium 3.7 mmol/L (3.5-5.1); Sodium Level 125 mmol/L (136-145)
[2022-09-19 05:28] LABS: Differential Indicated SCAN CRITERIA MET
[2022-09-19 05:41] LABS: Differential Comment SCANNED; Platelet Estimate MOD DEC (ADEQ)
--- NOTE | 2022-09-19 06:32 | PCM.HOSP.N ---
Hospitalist Note INR rising further to 5.9, not on coumadin which has been held. Will request hepatic profile and repeat INR to be precise.
[2022-09-19 07:15] LABS: Prothrombin Time (Protime)PT. 53.5 SECONDS (11.7-14.9)
[2022-09-19 07:21] LABS: AST(SGOT) 15 U/L (15-37); Alanine Aminotransfer ALT/SGPT 12 U/L (16-61); Albumin, Serum 2.2 g/dL (3.2-5.0); Alkaline Phosphatase 75 U/L (45-117); Bilirubin, Direct 0.31 mg/dL (0.00-0.30); Globulin 2.3 g/dL (2.2-4.2); Protein, Total 4.5 g/dL (6.4-8.2)
[2022-09-19 07:26] LABS: International Normalized Ratio 5.8
[2022-09-19] MEDS: 0.9% Normal Saline 1,000 ML 75 ML IV ×2 (09:10→21:42)
[2022-09-19] MEDS: Ensure Plus High Protein 120 ML LIQUID PO ×3 (09:11→17:33)
[2022-09-19] MEDS: MYCOPHENOLATE SODIUM 360 MG TABLET.DR PO ×2 (09:12→21:18)
[2022-09-19] MEDS: Finasteride 5 MG Tablet PO (09:12)
[2022-09-19] MEDS: Pantoprazole Sodium 40 MG Tablet PO (09:12)
[2022-09-19] MEDS: predniSONE 5 MG Tablet PO (09:12)
[2022-09-19] MEDS: Tamsulosin HCl 0.4 MG Capsule PO (09:12)
[2022-09-19] MEDS: MYCOPHENOLATE SODIUM 180 MG TABLET.DR PO ×2 (09:12→21:18)
[2022-09-19] MEDS: Carvedilol 6.25 MG Tablet PO ×2 (09:12→21:18)
[2022-09-19] MEDS: Tacrolimus 0.5 MG Capsule PO ×2 (09:12→21:18)
[2022-09-19] MEDS: Ceftriaxone 1 GM/50 ML BAG IV (09:16)
[2022-09-19] MEDS: Ferrous Sulfate 325 MG Tablet PO (11:38)
[2022-09-19] MEDS: Cyanocobalamin 500 MCG Tablet PO (11:38)
[2022-09-19] MEDS: Acetaminophen 500 MG Tablet 1000 MG PO ×2 (11:38→17:34)
--- NOTE | 2022-09-19 13:16 | PCM.PN.HOSP ---
Reason for Visit Reason for Visit: Diagnoses Acute kidney failure, unspecified (09/17/22) Chronic kidney disease, unspecified (09/17/22) Subjective Subjective Patient was seen and examined today, I talked with his was in the room at the time my examination. Patient's creatinine is minimally improved today, made the decision to lower his IV rate today, his labs will be rechecked tomorrow. I talked to his transplant physician by phone this morning-Dr. Montanez- he told me that he was not worried about the patient's creatinine being 2.4, he told me that he remembers his normal creatinine to be in the 1.5 range. I relayed this to the patient and his . Patient's INR still elevated, the exact reason it is elevated is unknown at this time, patient shows no signs of any bleeding, he is anemic and I will recheck a CBC tomorrow, this anemia appears to be chronic in nature. Objective Data Objective Data Vital Signs: Vital Signs Temp Pulse Resp BP Pulse Ox O2 Del Method O2 Flow Rate 98.1 F 60 18 127/51 H 97 Room Air 4 09/19/22 09:03 09/19/22 09:03 09/19/22 09:03 09/19/22 09:03 09/19/22 09:03 09/19/22 09:03 09/18/22 14:00 Oxygen Flow Rate (L/min) 4 Oxygen Delivery Method Room Air Weight: 97.5 kg Body Mass Index (BMI) 35.2 Intake & Output: Intake and Output for Last 24 Hours 09/17/22 09/18/22 09/19/22 23:59 23:59 23:59 Intake Total 390 / 390 4073.33 / 4073.33 2663.75 / 2663.75 Output Total 1450 / 1650 1525 / 1525 Balance 390 / -260 2623.33 / 2423.33 1138.75 / 1138.75 Lab / Micro Data 09/19/22 05:00 09/19/22 05:00 Labs: Laboratory Results - last 24 hr 09/18/22 15:15: Sodium 122 L, Potassium 3.7, Chloride 96 L, Carbon Dioxide 16.0 L, Anion Gap 10, BUN 26 H, Creatinine 2.49 H, Estim Creat Clear Calc 24.70, Est GFR (MDRD) Af Amer 33 L, Est GFR (MDRD) Non-Af 28 L, BUN/Creatinine Ratio 10.4, Glucose 103, Calcium 7.7 L 09/19/22 05:00: WBC 4.7, RBC 2.46 L, Hgb 7.5 L, Hct 23.3 L, MCV 94.7 H, MCH 30.5, MCHC 32.2 D, RDW Std Deviation 46.4 H, RDW Coeff of Fermin 13.3, Plt Count 78 L, MPV 10.0, Immature Gran % (Auto) 0.600, Neut % (Auto) 78.7 H, Lymph % (Auto) 3.8 L, [place] % (Auto) 15.4 H, Eos % (Auto) 1.5, Baso % (Auto) 0.0, Absolute Neuts (auto) 3.7, Absolute Lymphs (auto) 0.18 L, Nucleated RBC % 0, Differential Comment SCANNED, Platelet Estimate MOD DEC, PT 54.1 H, INR 5.9 H*, Sodium 125 L, Potassium 3.7, Chloride 98, Carbon Dioxide 17.0 L, Anion Gap 10, BUN 27 H, Creatinine 2.45 H, Estim Creat Clear Calc 25.10, Est GFR (MDRD) Af Amer 34 L, Est GFR (MDRD) Non-Af 28 L, BUN/Creatinine Ratio 11.0, Glucose 79, Calcium 8.4 L 09/19/22 06:54: PT 53.5 H, INR 5.8 H*, Total Bilirubin 0.50, Direct Bilirubin 0.31 H, AST 15, ALT 12 L, Alkaline Phosphatase 75, Total Protein 4.5 L, Albumin 2.2 L, Globulin 2.3 Micro: Microbiology 09/17/22 13:10 Blood Culture (Wb) - Left Wrist Blood Culture - Preliminary No growth in 48 hours. 09/17/22 12:30 Urine Catheter - Brown Urine Culture - Final Culture exhibits no growth. 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 Physical Exam Narrative alert, oriented x3 and no apparent distress Constitutional Narrative: Patient appears older than his stated age General Appearance: cooperative, well kempt and well developed Orientation / Consciousness: awake, oriented to person, oriented to place and oriented to time HEENT normocephalic and moist oral mucous membranes; Negative for head/scalp atraumatic or hearing grossly normal bilaterally Eyes PERRL, EOMs intact bilaterally and conjunctivae normal Neck supple, no JVD, thyroid normal and no carotid bruits General: trachea midline Resp normal respiratory effort, No no retractions, No no use of accessory muscles and clear to auscultation bilaterally Auscultation: Negative for rales, rhonchi or wheezes Cardio regular rate, regular rhythm, there is a 2/6 systolic murmur noted at the apex, right and left sternal border, no rub and no gallops; Negative for S1 normal heart sound or S2 normal heart sound GI normal to inspection, nondistended, normoactive bowel sounds, soft to palpation, non-tender and non-distended Extremity no clubbing, cyanosis or edema Skin no rashes or lesions noted General Skin Exam: no breakdown Neuro oriented x3, CN's II-XII intact bilaterally, moves all extremities, no focal motor deficits and no sensory deficits noted Sensorium / Orientation: awake, alert, oriented to person, oriented to place and oriented to time Speech: speech normal Psych affect normal Assessment & Plan Assessment/Plan (1) Acute hyponatremia: (2) Acute kidney injury: PLAN: Plan 1. Acute kidney injury-continue IV fluid administration, monitor labs, again I reduce the patient's IV fluids today #2 acute debility-patient will be seen by PT and OT, according to patient's daughter, patient desires to go to the rehab unit at [facility] for rehab services #3 acute cystitis-patient will be treated with IV Rocephin #4 status post renal transplant 2018-patient will remain on his antirejection drugs #5 chronic anticoagulation with Coumadin-patient has a history of atrial fibrillation, INR is elevated at this time, Coumadin will be held, liver enzymes appear normal #6 chronic atrial fibrillation-patient is on Coumadin, Coumadin is being held due to elevated INR #7 hypercoagulable state secondary to atrial fibrillation-patient is on Coumadin, this is being held due to elevated INR #8 valvular heart disease-patient has an aortic and mitral valve replacement-tissue valve #9 chronic kidney disease-stage unknown #10 hyponatremia-continue normal saline IV, sodium is improved today. Repeat BMP tomorrow #11 bacteremia with Klebsiella pneumoniae, I have elected to continue IV Rocephin for now, I will reevaluate this tomorrow #12 anemia of chronic kidney disease-patient's CBC will be monitored Total clinical time spent by myself addressing patient's medical issues, reviewing all of the data, and collaborating with patient's care team: 35 minutes Charges/Coding Visit Charges Inpatient E&M: 58264 Subs Hosp L2
[2022-09-19] MEDS: Atorvastatin Calcium 20 MG Tablet PO (21:19)
[2022-09-19] MEDS: Zolpidem Tartrate 5 MG Tablet 10 MG PO (21:42)
[2022-09-20 03:25] VITALS: BP 147/77; PULSE 61; RESP 18; TEMP 36.6; O2SAT 98
[2022-09-20 07:04] LABS: Absolute Lymphocyte Count 0.21 X10^3/uL (0.83-4.51); Absolute Neutrophil Count 3.2 X10^3/uL (2.0-7.7); Basophil# 0.01 X10^3/uL; Basophil% 0.2 % (0-1); Eosinophil# 0.07 X10^3/uL; Eosinophils% 1.6 % (0-5); Hematocrit 24.6 % (40-54); Lymphocyte # 0.21 X10^3/ul (0.83-4.51); Lymphocyte % 4.8 % (19-41); Mean Corp Hgb Conc 32.5 g/dL (32-36); Mean Corpuscular Hgb 31.4 pg (27.0-32.0); Mean Corpuscular Volume 96.5 fL (80-94); Mean Platelet Vol. 10.6 fl (6.2-12.0); Monocyte# 0.81 X10^3/uL; Monocyte% 18.7 % (0-10); NRBC Flagged by Analyzer 0 % (0-5); POSITIVE COUNT YES; POSITIVE DIFFERENTIAL YES; Platelet Count 76 K/mm3 (150-450); RBC Distribution Width CV 14.2 % (11.6-14.6); Red Blood Count 2.55 M/mm3 (4.6-6.2); White Blood Count 4.3 K/mm3 (4.4-11.0)
[2022-09-20 07:06] LABS: International Normalized Ratio 4.1; Prothrombin Time (Protime)PT. 40.6 SECONDS (11.7-14.9)
[2022-09-20 07:14] LABS: Differential Indicated SCAN CRITERIA MET
[2022-09-20 07:19] LABS: Anion Gap 7 (5-15); BUN 25 mg/dL (7-18); BUN/Creat Ratio 11.3 RATIO (10-20); Calcium,Total 9.1 mg/dL (8.5-10.1); Chloride 105 mmol/L (98-107); Creatinine, Serum 2.21 mg/dL (0.70-1.30); EST Glomerular Filtration Rate 32 mL/min (>60); Est Glom Filt Rate - Afr Amer 38 mL/min (>60); Estimated Creatinine Clearance 27.83 ml/min; Glucose 81 mg/dL (74-106); Potassium 3.8 mmol/L (3.5-5.1); Sodium Level 129 mmol/L (136-145)
[2022-09-20 07:47] VITALS: BP 121/75; PULSE 60; RESP 18; TEMP 36.7; O2SAT 97
[2022-09-20 08:30] VITALS: BP 147/60; PULSE 66; RESP 18; TEMP 36.3; O2SAT 98
[2022-09-20 08:58] LABS: Differential Comment SCANNED; Platelet Estimate MKD DEC (ADEQ)
[2022-09-20] MEDS: Carvedilol 6.25 MG Tablet PO ×2 (09:30→22:04)
[2022-09-20] MEDS: 0.9% Saline Lock 10 ML Syringe IV (09:30)
[2022-09-20] MEDS: Tacrolimus 0.5 MG Capsule PO ×2 (09:30→22:04)
[2022-09-20] MEDS: Cyanocobalamin 500 MCG Tablet PO (09:31)
[2022-09-20] MEDS: Finasteride 5 MG Tablet PO (09:31)
[2022-09-20] MEDS: Pantoprazole Sodium 40 MG Tablet PO (09:32)
[2022-09-20] MEDS: predniSONE 5 MG Tablet PO (09:32)
[2022-09-20] MEDS: Tamsulosin HCl 0.4 MG Capsule PO ×2 (09:32→17:31)
[2022-09-20] MEDS: MYCOPHENOLATE SODIUM 360 MG TABLET.DR PO ×2 (09:33→22:04)
[2022-09-20] MEDS: MYCOPHENOLATE SODIUM 180 MG TABLET.DR PO ×2 (09:33→22:04)
[2022-09-20] MEDS: Ensure Plus High Protein 120 ML LIQUID PO ×3 (09:47→17:10)
[2022-09-20] MEDS: Ceftriaxone 1 GM/50 ML BAG IV (09:47)
[2022-09-20] MEDS: 0.9% Normal Saline 1,000 ML 75 ML IV (11:36)
[2022-09-20] MEDS: Ferrous Sulfate 325 MG Tablet PO (11:36)
[2022-09-20] MEDS: Acetaminophen 500 MG Tablet 1000 MG PO ×2 (11:38→17:10)
[2022-09-20 14:25] VITALS: BP 121/75; PULSE 60; RESP 18; TEMP 36.7; O2SAT 97
[2022-09-20 14:30] VITALS: BP 141/67; PULSE 61; RESP 18; TEMP 36.7; O2SAT 96
--- NOTE | 2022-09-20 18:35 | PN.HOSP_ITS ---
Reason for Visit Reason for Visit: Diagnoses Hypo-osmolality and hyponatremia (09/17/22) Acute kidney failure, unspecified (09/17/22) Chronic kidney disease, unspecified (09/17/22) Subjective Subjective Patient was seen and examined today, I discussed his care with his , his hemoglobin is stable at 8, creatinine is minimally improved from yesterday. Patient's sodium was 129, INR today was 4.1. I have elected to stop his IV fluids at this time and repeat lab work tomorrow. Again we are awaiting approval for the patient to go to a longterm facility (either [facility], or the rehab unit here)-[facility]U in the rehab unit however do not have any beds presently, family is asking if we can check on Wednesday to see if the status of TCU or the rehab unit here has changed. Patient's blood culture from this admission resulted positive for E. coli and staph epi, and staph epi is probably contaminant, E. coli is sensitive to cepha losporin and I have elected to change the patient to Keflex at this time to stop his Rocephin. Objective Data Objective Data Vital Signs: Vital Signs Temp Pulse Resp BP Pulse Ox O2 Del Method O2 Flow Rate 98.1 F 61 18 141/67 H 96 Room Air 4 09/20/22 14:30 09/20/22 14:30 09/20/22 14:30 09/20/22 14:30 09/20/22 14:30 09/20/22 14:30 09/18/22 14:00 Oxygen Flow Rate (L/min) 4 Oxygen Delivery Method Room Air Weight: 97.5 kg Body Mass Index (BMI) 35.2 Intake & Output: Intake and Output for Last 24 Hours 09/18/22 09/19/22 09/20/22 23:59 23:59 23:59 Intake Total 4073.33 / 4073.33 3726.25 / 3726.25 2745.00 / 2745.00 Output Total 1450 / 1650 1925 / 1925 1999 / 1999 Balance 2623.33 / 2423.33 1801.25 / 1801.25 745.00 / 745.00 Lab / Micro Data 09/20/22 06:18 09/20/22 06:18 Labs: Laboratory Results - last 24 hr 09/20/22 06:18: WBC 4.3 L, RBC 2.55 L, Hgb 8.0 L, Hct 24.6 L, MCV 96.5 H, MCH 31.4, MCHC 32.5, RDW Std Deviation 50.0 H, RDW Coeff of Fermin 14.2, Plt Count 76 L , MPV 10.6, Immature Gran % (Auto) 0.700, Neut % (Auto) 74.0 H, Lymph % (Auto) 4.8 L, [place] % (Auto) 18.7 H, Eos % (Auto) 1.6, Baso % (Auto) 0.2, Absolute Neuts (auto) 3.2, Absolute Lymphs (auto) 0.21 L, Nucleated RBC % 0, Differential Comment SCANNED, Diff Path Review July, Platelet Estimate MKD DEC, PT 40.6 H , INR 4.1 H*, Sodium 129 L, Potassium 3.8, Chloride 105, Carbon Dioxide 17.0 L, Anion Gap 7, BUN 25 H, Creatinine 2.21 H, Estim Creat Clear Calc 27.83, Est GFR (MDRD) Af Amer 38 L, Est GFR (MDRD) Non-Af 32 L, BUN/Creatinine Ratio 11.3, Glucose 81, Calcium 9.1 Micro: Microbiology 09/17/22 12:20 Blood Culture (Wb) - Anticubital Left Bacteria Detection (PCR) - Final Staphylococcus epidermidis mecA Resistance Marker 09/17/22 12:20 Blood Culture (Wb) - Anticubital Left Blood Culture - Final Escherichia coli Staphylococcus epidermidis 09/17/22 13:10 Blood Culture (Wb) - Left Wrist Blood Culture - Preliminary No growth in 48 hours. 09/17/22 12:30 Urine Catheter - Brown Urine Culture - Final Culture exhibits no growth. Physical Exam Narrative alert, oriented x3 and no apparent distress Constitutional Narrative: Patient appears older than his stated age General Appearance: cooperative, well kempt and well developed Orientation / Consciousness: awake, oriented to person, oriented to place and oriented to time HEENT normocephalic and moist oral mucous membranes; Negative for head/scalp atraumatic or hearing grossly normal bilaterally Eyes PERRL, EOMs intact bilaterally and conjunctivae normal Neck supple, no JVD, thyroid normal and no carotid bruits General: trachea midline Resp normal respiratory effort, No no retractions, No no use of accessory muscles and clear to auscultation bilaterally Auscultation: Negative for rales, rhonchi or wheezes Cardio regular rate, regular rhythm, there is a 2/6 systolic murmur noted at the apex, right and left sternal border, no rub and no gallops; Negative for S1 normal heart sound or S2 normal heart sound GI normal to inspection, nondistended, normoactive bowel sounds, soft to palpation, non-tender and non-distended Extremity no clubbing, cyanosis or edema Skin no rashes or lesions noted General Skin Exam: no breakdown Neuro oriented x3, CN's II-XII intact bilaterally, moves all extremities, no focal motor deficits and no sensory deficits noted Sensorium / Orientation: awake, alert, oriented to person, oriented to place and oriented to time Speech: speech normal Psych affect normal Assessment & Plan Assessment/Plan (1) Acute hyponatremia: (2) Acute kidney injury: PLAN: Plan 1. Acute kidney injury-at this time I have elected to stop the patient's IV fluid administration, labs will be rechecked tomorrow #2 acute debility-patient will be seen by PT and OT, according to patient's daughter, patient desires to go to the rehab unit at [facility] for rehab services #3 acute cystitis-patient was changed over to p.o. Keflex today #4 status post renal transplant 2017-patient will remain on his antirejection drugs #5 chronic anticoagulation with Coumadin-patient has a history of atrial fibrillation, INR is elevated at this time, Coumadin will be held, liver enzymes appear normal #6 chronic atrial fibrillation-patient is on Coumadin, Coumadin is being held due to elevated INR #7 hypercoagulable state secondary to atrial fibrillation-patient is on Coumadin, this is being held due to elevated INR #8 valvular heart disease-patient has an aortic and mitral valve replacement- tissue valve #9 chronic kidney disease-stage unknown #10 hyponatremia-continue normal saline IV, sodium is improved today. Repeat BMP tomorrow #11 bacteremia with Klebsiella pneumoniae (from a previous blood culture before this admission) and E. col-from this admission i, I have elected to change the patient to Keflex. Patient's blood culture this admission was also positive for staph epi but I think this is a contaminant. #12 anemia of chronic kidney disease-patient's CBC will be monitored Total clinical time spent by myself addressing patient's medical issues, reviewing all of the data, and collaborating with patient's care team: 35 minutes Charges/Coding Visit Charges Inpatient E&M: 49810 Subs Hosp L2
[2022-09-20] MEDS: Atorvastatin Calcium 20 MG Tablet PO (22:04)
[2022-09-20] MEDS: Zolpidem Tartrate 5 MG Tablet 10 MG PO (22:04)
[2022-09-20 22:10] VITALS: BP 134/65; PULSE 60; RESP 18; TEMP 36.6; O2SAT 96
[2022-09-21 03:29] VITALS: BP 144/78; PULSE 60; RESP 18; TEMP 36.6; O2SAT 95
[2022-09-21 04:43] VITALS: BP 109/75; PULSE 60; RESP 18; TEMP 36.7; O2SAT 95
[2022-09-21 05:49] LABS: Absolute Neutrophil Count 3.6 X10^3/uL (2.0-7.7); Basophil# 0.01 X10^3/uL; Basophil% 0.2 % (0-1); Eosinophil# 0.08 X10^3/uL; Eosinophils% 1.7 % (0-5); Hemoglobin 7.8 g/dL (13.0-16.5); Lymphocyte % 6.3 % (19-41); Mean Corp Hgb Conc 31.2 g/dL (32-36); Mean Corpuscular Volume 99.2 fL (80-94); Mean Platelet Vol. 10.1 fl (6.2-12.0); Monocyte# 0.73 X10^3/uL; Monocyte% 15.3 % (0-10); NRBC Flagged by Analyzer 0 % (0-5); Neutrophil # 3.55 X10^3/uL (2.7-7.7); Neutrophil % 74.6 % (47-70); POSITIVE COUNT YES; POSITIVE DIFFERENTIAL YES; Platelet Count 75 K/mm3 (150-450); RBC Distribution Width CV 14.5 % (11.6-14.6); Red Blood Count 2.52 M/mm3 (4.6-6.2); White Blood Count 4.8 K/mm3 (4.4-11.0)
[2022-09-21 05:55] LABS: International Normalized Ratio 3.4; Prothrombin Time (Protime)PT. 34.6 SECONDS (11.7-14.9)
[2022-09-21 06:03] LABS: Differential Indicated SCAN CRITERIA MET
[2022-09-21 06:14] LABS: Differential Comment SCANNED; Toxic Granulation 1+
[2022-09-21 06:16] LABS: Platelet Estimate MOD DEC (ADEQ)
[2022-09-21 07:06] LABS: Anion Gap 7 (5-15); BUN 22 mg/dL (7-18); BUN/Creat Ratio 11.2 RATIO (10-20); Calcium,Total 9.1 mg/dL (8.5-10.1); Chloride 110 mmol/L (98-107); Creatinine, Serum 1.96 mg/dL (0.70-1.30); EST Glomerular Filtration Rate 36 mL/min (>60); Est Glom Filt Rate - Afr Amer 44 mL/min (>60); Estimated Creatinine Clearance 31.38 ml/min; Glucose 75 mg/dL (74-106); Potassium 4.1 mmol/L (3.5-5.1); Sodium Level 135 mmol/L (136-145)
[2022-09-21 08:30] VITALS: BP 149/66; PULSE 64; RESP 20; TEMP 36.7; O2SAT 96
[2022-09-21] MEDS: Ensure Plus High Protein 120 ML LIQUID PO ×2 (09:14→12:18)
[2022-09-21] MEDS: Cyanocobalamin 500 MCG Tablet PO (09:15)
[2022-09-21] MEDS: Finasteride 5 MG Tablet PO (09:15)
[2022-09-21] MEDS: Tacrolimus 0.5 MG Capsule PO (09:15)
[2022-09-21] MEDS: predniSONE 5 MG Tablet PO (09:16)
[2022-09-21] MEDS: Pantoprazole Sodium 40 MG Tablet PO (09:16)
[2022-09-21] MEDS: Smz/Tmp Ds Tablet 1 TABLET PO (09:17)
[2022-09-21] MEDS: MYCOPHENOLATE SODIUM 180 MG TABLET.DR PO (09:18)
[2022-09-21] MEDS: Carvedilol 6.25 MG Tablet PO (09:18)
[2022-09-21] MEDS: MYCOPHENOLATE SODIUM 360 MG TABLET.DR PO (09:19)
[2022-09-21] MEDS: Cephalexin 500 MG Capsule PO (09:37)
[2022-09-21] MEDS: Tamsulosin HCl 0.4 MG Capsule 0.8 MG PO (09:37)
[2022-09-21 10:10] LABS: Pathologist Review Reviewed
[2022-09-21] MEDS: Ferrous Sulfate 325 MG Tablet PO (12:18)
[2022-09-21] MEDS: Acetaminophen 500 MG Tablet 1000 MG PO ×2 (12:18→17:08)
--- NOTE | 2022-09-21 15:21 | CASEMGMT ---
[facility] accepted patient. JEFF notified physician and patient. JEFF told patient that TCU is still full, but [facility] can take him and physician will send him today. JEFF explained wheelchair transport or patient's could transport him. Patient will call his and talk with her. JEFF completed a PASRR in [facility]. Plan: d/c to [facility] under skilled level of care on a PASRR. Vikki HOWE
[2022-09-21 17:05] VITALS: BP 122/87; PULSE 61; RESP 18; TEMP 37.1; O2SAT 97
--- NOTE | 2022-09-21 17:15 | PCM.TXEXTCAR ---
Diet Diet Order/Speech Therapy: 09/17/22 17:22 Diet: Regular - General Food consistency:: Regular Liquid Consistency:: Regular/Thin Routine Orders/Code Status Routine Lab Work: CBC and BMP Code Status: Full Code Therapies Physical Therapy: Eval and Treat Occupational Therapy: Eval and Treat Problem/Diagnosis (1) Acute hyponatremia: Status: Acute Code(s): E87.1 - Hypo-osmolality and hyponatremia (2) Acute kidney injury: Status: Acute Code(s): N17.9 - Acute kidney failure, unspecified Allergies/Procedures Done in Hospital Allergies ibuprofen [From Motrin] Adverse Reaction (Verified 09/17/22 11:22) Kidney transplant latex Adverse Reaction (Verified 09/17/22 11:22) Rash Procedures: None Type of Care/Length of Stay Estimated LOS: Convalescent Care Less Than 30 days Type of Care Needed: Skilled Rehab Potential: Good Prognosis: Good Additional Orders/Day of Discharge Day of Discharge: 09/21/22 Dietary and Speech Recommendations Dietitian Recommendations/Changes: Continue liberal regular diet per request of pt's due to decreased oral intake. Continue 4 oz ensure plus high protein 4x/day w/ medpass as ordered. Discharge Plan Admission Admit Date/Time: 09/17/22 14:57 Attending Provider: Checo Almanzar Primary Care Provider: Beth Quiroz Consulting Providers: Darrell Thibodeaux Discharge Orders/Prescriptions Prescriptions: New cephalexin 500 mg Capsule 500 mg PO Q12 10 Days Qty: 0 0RF ascorbic acid (vitamin C) [Vitamin C] 500 mg capsule, extended release 500 mg PO DAILY Qty: 30 0RF Rx Instructions: Take with iron Continued atorvastatin 20 mg tablet 20 mg PO QHS tacrolimus 0.5 mg capsule 0.5 mg PO BID mycophenolate sodium 180 mg tablet,delayed release (DR/EC) 180 mg PO BID Patient Comments: PT STATES TAKES 1 (180 MG) AND 1 (360 MG) BID FOR A TOTAL DOSE OF 540 MG. tamsulosin 0.4 MG capsule 0.4 mg PO DAILY finasteride 5 MG tablet 5 mg PO DAILY cyanocobalamin (vitamin B-12) [Vitamin B-12] 500 MCG tablet 100 mcg PO DAILY carvedilol 6.25 tablet 6.25 mg PO BID prednisone 5 tablet 5 mg PO DAILY ferrous sulfate 324 MG tablet,delayed release (DR/EC) 324 mg PO DAILY sulfamethoxazole-trimethoprim 1 EACH tablet 1 tab PO MOWEFR mycophenolate sodium 360 mg tablet,delayed release (DR/EC) 360 mg PO BID Patient Comments: PT STATES TAKES 1 (180 MG) AND 1 (360 MG) BID FOR A TOTAL DOSE OF 540 MG. acetaminophen 500 MG tablet 1,000 mg PO Q6H acitretin 10 capsule 10 mg PO SUTUTHSA pantoprazole 40 MG tablet,delayed release (DR/EC) 40 mg PO DAILY warfarin 2 mg tablet 2 mg PO QPM zolpidem 10 mg Tablet 10 mg PO QHS YE-wndkrukjelt-hfyvxw ox-zinc 500-750-1.5-25 tii-wg-oy-mg Tablet,Ext Release Multiphase 1 tab PO QPM Discontinued sulfamethoxazole-trimethoprim [sulfamethoxazole-trimethoprim] 800-160 mg tablet 1 tab PO BID Qty: 14 0RF Patient Comments: PT STATES PER LAST VISIT PT TAKE BID FOR 14 DAYS ALONG WITH THE 1 EVERY MOWEFR Referrals / Follow Up: Beth Quiroz MD [Primary Care Provider] - Disposition Disposition (needs filled in before D/C Order can be placed): [facility]
--- NOTE | 2022-09-21 17:33 | PCM.DC.SUM ---
Providers Date of Admission: 09/17/22 Primary Care Physician: Dr. Beth Quiroz MD Reason For Visit: HYPONATREMIA / ACUTE KIDNEY INJURY / DEBILITY Diagnosis Discharge Diagnosis (1) Acute hyponatremia: Status: Acute Code(s): E87.1 - Hypo-osmolality and hyponatremia (2) Acute kidney injury: Status: Acute Code(s): N17.9 - Acute kidney failure, unspecified Medications at Discharge Home Medications tamsulosin 0.4 mg capsule 0.4 mg PO DAILY PROSTATE 03/16/15 finasteride 5 mg tablet 5 mg PO DAILY PROSTATE 10/23/15 cyanocobalamin (vitamin B-12) 500 mcg tablet (Vitamin B-12) 100 mcg PO DAILY SUPPLEMENT 11/26/16 carvedilol 6.25 mg tablet 6.25 mg PO BID HEART 02/14/18 ferrous sulfate 324 mg (65 mg iron) tablet,delayed release 324 mg PO DAILY SUPPLEMENT 02/14/18 prednisone 5 mg tablet 5 mg PO DAILY STEROID 02/14/18 sulfamethoxazole 800 mg-trimethoprim 160 mg tablet 1 tab PO MOWEFR ANTIBIOTIC 02/14/18 acetaminophen 500 mg tablet 1,000 mg PO Q6H PAIN 03/02/19 acitretin 10 mg capsule 10 mg PO SUTUTHSA CHEMO 03/02/19 atorvastatin 20 mg tablet 20 mg PO QHS CHOLESTEROL 04/01/21 mycophenolate sodium 180 mg tablet,delayed release 180 mg PO BID TRANSPLANT REJECTION PREVENTION 04/01/21 mycophenolate sodium 360 mg tablet,delayed release 360 mg PO BID TRANSPLANT REJECTION PREVENTION 04/01/21 tacrolimus 0.5 mg capsule, immediate-release 0.5 mg PO BID TRANSPLANT REJECTION PREVENTION 04/01/21 JR-fkjuvuagvcu-fevsna ox-Zn ER 500 mcg-750 mg-1.5 mg-25 mg tablet,ER 1 tab PO QPM SUPPLEMENT 09/15/22 pantoprazole 40 mg tablet,delayed release 40 mg PO DAILY ACID REFLUX 09/15/22 warfarin 2 mg tablet 2 mg PO QPM BLOOD THINNER 09/15/22 zolpidem 10 mg tablet 10 mg PO QHS INSOMNIA 09/15/22 ascorbic acid (vitamin C) 500 mg capsule,extended release (Vitamin C) 500 mg PO DAILY #30 caps 09/21/22 cephalexin 500 mg capsule 500 mg PO Q12 10 days #0 caps 09/21/22 Hospital Course Operations None Procedures None Summary of Care Provided Minutes Spent on Discharge: 50 Hospital Course: Per HPI: JOSEPHINE STARKS, is a 67 M who presents to the emergency room at [facility] with complaints of generalized weakness and debility. Patient was seen in the emergency room 2 days ago for urinary pains which included urinary retention, a Brown catheter was placed and the patient was found to have a urinary tract infection placed on Bactrim. He remained weak however and his was unable to care for him at home and he was brought in for evaluation to the hospital today. Patient has a history of several renal transplants. Patient had a left knee replacement performed earlier this month at [facility]. Work-up in the emergency room included a CBC which showed an elevated white blood cell count at 11.5, hemoglobin was 8.8, patient's INR was elevated at 4.6, chemistry profile was abnormal for a sodium of 113, bicarb of 17, creatinine of 3.09 and a BUN of 30. Patient's AST was elevated at 40, patient's UA was unremarkable. The emergency room was unable to place an IV and the patient, a PICC line was placed however. Patient will be admitted to PCU, given IV fluids and placed on IV Rocephin, labs will be monitored. Patient and patient's family would like to go to [facility], there is no bed availability at this time and so the patient was admitted here to the hospital. I talked at length with the patient's daughter who was in the room at the time my examination today as well as the patient. Hospital Course: 1. Acute cystitis secondary to Klebsiella pneumonia/urinary retention?67-year-old male with a history of renal transplant and a recent knee replacement presented to the hospital with weakness and debility. He had presented to the ER a few days prior to this admission with urinary retention and pelvic pain. A Brown catheter was placed and a urine sample was taken which demonstrated the Klebsiella. He presented back to the hospital for this admission because of the weakness. He was started on Rocephin which the Klebsiella was sensitive to and he had 2 blood cultures on 09/15/2022 and 1 out of 4 blood culture bottles grew Klebsiella and then repeat blood culture on 09/17/2022 grew an E. coli and Staph epidermidis, the Staph epidermidis is likely contaminant once again that was not only 1 set of blood cultures. He was transitioned to Keflex and will be discharged on 10 more days of Keflex 500 mg p.o. twice daily secondary to his baseline renal function, to treat both his UTI and his Klebsiella bacteremia. His discharge is little bit complicated by anemia he does have a combination of anemia of chronic disease as well as iron deficiency anemia also he relates to having 2 g drop after his knee replacement and then about 2-1/2 weeks ago he had black tarry stools though his stools now are normal. I discussed with him and his at length of my concern given his medical history of putting him back under sedation for colonoscopies and EGDs at this time given the significance of his weakness and his other medical problems. His hemoglobin has appeared to stabilize in the low eights and so I do recommend that they monitor him as an outpatient. In the meantime I will add vitamin C tablets to his medication profile as he is on a PPI and taking iron. He needs to take the vitamin C tablets with his iron. We will continue Brown for another week and then return to straight cathing at the halfway. He will need to follow-up with urology as an outpatient. I discussed with him and his the plan for possible discharge today he expressed understanding the risks and benefits of going to SNF and he would like to go today. 2. Status post renal transplant x4, A-fib, valvular heart disease, anemia of chronic disease, iron deficiency anemia, hyperlipidemia, hypertension are all chronic medical conditions which complicate his care. His home medications were continued where appropriate Physical Exam Narrative General: Alert, Oriented x3, Cooperative, No apparent distress HEENT: Atraumatic, PERRLA, EOMI, Normocephalic Oral: Moist Mucosa Neck: Supple, No JVD Lungs: Clear to auscultation, Normal air movement, No rhonchi, No wheeze, No rales Cardiovascular: Regular rate, Regular Rhythm, Normal S1, Normal S2, murmurs Abdomen: Soft, Non Tender, Non-Distended, No Hepato-splenomegaly Extremities: Significant right upper extremity edema secondary to stenosis Skin: No rashes, No breakdown Musculoskeletal: No Tenderness to Palpation of Joints or Extremities Neurological: Cranial nerves II-XII grossly intact, Motor Exam 5/5 strength throughout, Sensory exam intact to light touch and pain Psych/Mental Status: Normal Affect, Appropriate Weight / BMI Weight Weight: 214 lb 15.211 oz Body Mass Index (BMI) 35.2 ABG / Lab / Microbiology Data 09/21/22 05:35 09/21/22 05:35 Laboratory: Laboratory Results - last 24 hr 09/20/22 06:18: Diff Path Review Reviewed 09/21/22 05:35: WBC 4.8, RBC 2.52 L, Hgb 7.8 L, Hct 25.0 L, MCV 99.2 H, MCH 31.0, MCHC 31.2 L, RDW Std Deviation 52.0 H, RDW Coeff of Fermin 14.5, Plt Count 75 L, MPV 10.1, Immature Gran % (Auto) 1.900 H, Neut % (Auto) 74.6 H, Lymph % (Auto) 6.3 L, Gray % (Auto) 15.3 H, Eos % (Auto) 1.7, Baso % (Auto) 0.2, Absolute Neuts (auto) 3.6, Absolute Lymphs (auto) 0.30 L, Nucleated RBC % 0, Differential Comment SCANNED, Toxic Granulation 1+, Platelet Estimate MOD DEC, PT 34.6 H, INR 3.4, Sodium 135 L, Potassium 4.1, Chloride 110 H, Carbon Dioxide 18.0 L, Anion Gap 7, BUN 22 H, Creatinine 1.96 H, Estim Creat Clear Calc 31.38, Est GFR (MDRD) Af Amer 44 L, Est GFR (MDRD) Non-Af 36 L, BUN/Creatinine Ratio 11.2, Glucose 75, Calcium 9.1 Microbiology: Microbiology 09/17/22 12:20 Blood Culture (Wb) - Anticubital Left Bacteria Detection (PCR) - Final Staphylococcus epidermidis mecA Resistance Marker 09/17/22 12:20 Blood Culture (Wb) - Anticubital Left Blood Culture - Final Escherichia coli Staphylococcus epidermidis 09/17/22 13:10 Blood Culture (Wb) - Left Wrist Blood Culture - Preliminary No growth in 48 hours. 09/17/22 12:30 Urine Catheter - Brown Urine Culture - Final Culture exhibits no growth. Meaningful Use Info Meaningful Use Diagnoses (Choose all that apply): None applicable Discharge Plan Admission Admit Date/Time: 09/17/22 14:57 Attending Provider: Checo Almanzar Primary Care Provider: Beth Quiroz Consulting Providers: Tereletsky,Darrell Discharge Orders/Prescriptions Prescriptions: New cephalexin 500 mg Capsule 500 mg PO Q12 10 Days Qty: 0 0RF ascorbic acid (vitamin C) [Vitamin C] 500 mg capsule, extended release 500 mg PO DAILY Qty: 30 0RF Rx Instructions: Take with iron Continued atorvastatin 20 mg tablet 20 mg PO QHS tacrolimus 0.5 mg capsule 0.5 mg PO BID mycophenolate sodium 180 mg tablet,delayed release (DR/EC) 180 mg PO BID Patient Comments: PT STATES TAKES 1 (180 MG) AND 1 (360 MG) BID FOR A TOTAL DOSE OF 540 MG. tamsulosin 0.4 MG capsule 0.4 mg PO DAILY finasteride 5 MG tablet 5 mg PO DAILY cyanocobalamin (vitamin B-12) [Vitamin B-12] 500 MCG tablet 100 mcg PO DAILY carvedilol 6.25 tablet 6.25 mg PO BID prednisone 5 tablet 5 mg PO DAILY ferrous sulfate 324 MG tablet,delayed release (DR/EC) 324 mg PO DAILY sulfamethoxazole-trimethoprim 1 EACH tablet 1 tab PO MOWEFR mycophenolate sodium 360 mg tablet,delayed release (DR/EC) 360 mg PO BID Patient Comments: PT STATES TAKES 1 (180 MG) AND 1 (360 MG) BID FOR A TOTAL DOSE OF 540 MG. acetaminophen 500 MG tablet 1,000 mg PO Q6H acitretin 10 capsule 10 mg PO SUTUTHSA pantoprazole 40 MG tablet,delayed release (DR/EC) 40 mg PO DAILY warfarin 2 mg tablet 2 mg PO QPM zolpidem 10 mg Tablet 10 mg PO QHS VW-tucxcbbdxub-yhpkqd ox-zinc 500-750-1.5-25 bwq-tj-ov-mg Tablet,Ext Release Multiphase 1 tab PO QPM Discontinued sulfamethoxazole-trimethoprim [sulfamethoxazole-trimethoprim] 800-160 mg tablet 1 tab PO BID Qty: 14 0RF Patient Comments: PT STATES PER LAST VISIT PT TAKE BID FOR 14 DAYS ALONG WITH THE 1 EVERY MOWEFR Referrals / Follow Up: Beth Quiroz MD [Primary Care Provider] - Disposition Disposition (needs filled in before D/C Order can be placed): Detention Facility Charges/Coding Visit Charges Inpatient E&M: 87991 Disch Hosp >30min
--- NOTE | 2022-09-21 18:49 | NURSING ---
Report Given to Hannah at [facility] at this time.
[2022-09-25 05:07] LABS: Tacrolimus (FK506) 8.2 ng/mL (2.0-20.0)
[2022-09-25 05:07] LABS: Tacrolimus (FK506) 5.9 ng/mL (2.0-20.0)
== END 2022-09-21 19:21 | disposition skilled nursing facility (03) | DRG 682 ==
LOC: ED 14:47 → PCU 15:11
PROVIDERS: Family Medicine; Admitting Provider Internal Medicine; Emergency Provider Emergency Medicine; PCP Internal Medicine; Visit Provider Family Medicine
DX: N17.9 Acute kidney failure, unspecified (principal); J15.0 Pneumonia due to Klebsiella pneumoniae; R78.81 Bacteremia; I48.20 Chronic atrial fibrillation, unspecified; E87.1 Hypo-osmolality and hyponatremia; Z94.0 Kidney transplant status; N30.00 Acute cystitis without hematuria; D63.1 Anemia in chronic kidney disease; N18.9 Chronic kidney disease, unspecified; E78.5 Hyperlipidemia, unspecified; I12.9 Hypertensive chronic kidney disease with stage 1 through stage 4 chronic kidney disease, or unspecified chronic kidney disease; D50.9 Iron deficiency anemia, unspecified; R53.81 Other malaise; Z95.0 Presence of cardiac pacemaker; R79.1 Abnormal coagulation profile; Z79.01 Long term (current) use of anticoagulants; B96.1 Klebsiella pneumoniae [K. pneumoniae] as the cause of diseases classified elsewhere; Z96.659 Presence of unspecified artificial knee joint; B96.20 Unspecified Escherichia coli [E. coli] as the cause of diseases classified elsewhere
CPT/HCPCS: 36415; 51702; 70450; 71045; 80048; 80053; 80076; 80197; 81001; 83605; 84484; 85025; 85610; 87040; 87077; 87086; 87088; 87149; 87186; 87811; 93005; 97110; 97116; 97140; 97163; 97167; 97530; 97535; 97802; 99284; 99285; J7030; J7050; A4216

== ENCOUNTER → 2022-10-12 | Outpatient (CLI) | payer MEDICARE, BC, SELFPAY ==
--- NOTE | 2022-10-12 12:48 | VDUE_ITS ---
Reason For Study: Right arm swelling Right Proximal Right jugular vein is spontaneous, widely patent, phasic, with no intraluminal echogenicity noted. Right subclavian vein is spontaneous, widely patent, phasic, with no intraluminal echogenicity noted. Visualized with color, unable to compress. Right Lower Arm Right radial vein is compressible. Right ulnar vein is compressible. Right Arm Right axillary vein is spontaneous, patent, phasic, competent, compressible and demonstrates augmentation. Right brachial vein is compressible. Right cephalic vein is compressible. Right basilic vein is compressible. Patient Safety Preliminary report given to Zaina. VL/Venous Duplex US, Unilateral Interpretation Summary Deep veins of the right upper extremity are patent and compressible segmentally . There is no evidence of deep vein thrombosis. Superficial veins of the right upper extremity are patent and compressible segm entally. There is no evidence of superficial vein thrombosis. Ordering Physician: Mela Velasquez Referring Physician: Beth Quiroz Performed By: Niki Cochran RVT ???
--- NOTE | 2022-10-12 12:48 | AVDS_ITS ---
Reason For Study: Right arm swelling, central venous stenosis RIGHT Duplicator brachial artery, 127.7/29.3 cm/sec. Duplicator brachial artery, 240 ml/min. Inflow, Brachial artery, 256.9/145.1 cm/sec. Inflow, Brachial artery, 672.9 ml/min. Prox anastamosis, 257.7/122.6 cm/sec. Prox anastamosis, 1302 ml/min. Prox graft, 485.5/316.1 cm/sec. Prox graft, 2889 ml/min. Mid graft, 228.3/92.6 cm/sec. Mid graft, 4615 ml/min. Distal graft, 128.1/62.5 cm/sec. Distal graft, 1625 ml/min. Outflow, 80.9/37.1 cm/sec. Outflow, 1145 ml/min. Cephalic vein, origin, 86.3/38.9 cm/sec. Cephalic vein, origin, 703.6 ml/min. Subclavian vein prox, increased venous flow, with color aliasing. Subclavian vein mid, turbulent venous flow. VL/AV Fistula/Dialysis Graft Scan Interpretation Summary Right upper extremity AV fistula patent with no stenosis, adequate flow volumes throughout. Ordering Physician: Mela Velasquez Referring Physician: Beth Quiroz Performed By: Niki Cochran RVT
== END | disposition home or self-care (01) ==
LOC: CVS 12:47
PROVIDERS: PCP Internal Medicine; Referring Provider Physician Assistant; Visit Provider Physician Assistant
DX: M79.89 Other specified soft tissue disorders (principal); I77.0 Arteriovenous fistula, acquired
CPT/HCPCS: 93971; 93990

== ENCOUNTER → 2022-11-02 | Outpatient (CLI) | payer MEDICARE, BC, SELFPAY ==
[2022-11-02 09:13] LABS: Absolute Lymphocyte Count 0.48 X10^3/uL (0.83-4.51); Absolute Neutrophil Count 6.1 X10^3/uL (2.0-7.7); Basophil# 0.02 X10^3/uL; Basophil% 0.3 % (0-1); Eosinophil# 0.08 X10^3/uL; Eosinophils% 1.1 % (0-5); Hematocrit 32.9 % (40-54); Lymphocyte # 0.48 X10^3/ul (0.83-4.51); Lymphocyte % 6.3 % (19-41); Mean Corp Hgb Conc 30.4 g/dL (32-36); Mean Corpuscular Volume 101.9 fL (80-94); Mean Platelet Vol. 10.5 fl (6.2-12.0); Monocyte# 0.87 X10^3/uL; Monocyte% 11.5 % (0-10); NRBC Flagged by Analyzer 0 % (0-5); Neutrophil # 6.12 X10^3/uL (2.7-7.7); Neutrophil % 80.5 % (47-70); POSITIVE DIFFERENTIAL YES; Platelet Count 122 K/mm3 (150-450); RBC Distribution Width CV 15.7 % (11.6-14.6); RBC Distribution Width SD 58.3 fl (35.1-43.9); Red Blood Count 3.23 M/mm3 (4.6-6.2); White Blood Count 7.6 K/mm3 (4.4-11.0)
[2022-11-02 09:15] LABS: Differential Indicated SCAN CRITERIA MET
[2022-11-02 09:46] LABS: Anion Gap 9 (5-15); BUN 26 mg/dL (7-18); BUN/Creat Ratio 16.7 RATIO (10-20); Calcium,Total 9.5 mg/dL (8.5-10.1); Chloride 112 mmol/L (98-107); Creatinine, Serum 1.56 mg/dL (0.70-1.30); EST Glomerular Filtration Rate 47 mL/min (>60); Est Glom Filt Rate - Afr Amer 57 mL/min (>60); Glucose 83 mg/dL (74-106); Magnesium 1.8 mg/dL (1.6-2.6); Sodium Level 140 mmol/L (136-145)
[2022-11-04 10:09] LABS: Tacrolimus (FK506) 7.5 ng/mL (2.0-20.0)
== END | disposition home or self-care (01) ==
PROVIDERS: PCP Internal Medicine; Referring Provider Internal Medicine Nephrology; Visit Provider Internal Medicine Nephrology
DX: Z94.0 Kidney transplant status (principal); D84.9 Immunodeficiency, unspecified; Z79.60 Long term (current) use of unspecified immunomodulators and immunosuppressants; R79.9 Abnormal finding of blood chemistry, unspecified; Z48.298 Encounter for aftercare following other organ transplant; Z79.899 Other long term (current) drug therapy; R68.89 Other general symptoms and signs
CPT/HCPCS: 36415; 80048; 80197; 83735; 84100; 85025

== ENCOUNTER → 2022-12-15 | Outpatient (CLI) | payer MEDICARE, BC, SELFPAY ==
[2022-12-15 10:07] LABS: Hematocrit 32.7 % (40-54); Hemoglobin 10.1 g/dL (13.0-16.5); Mean Corp Hgb Conc 30.9 g/dL (32-36); Mean Corpuscular Hgb 30.5 pg (27.0-32.0); Mean Corpuscular Volume 98.8 fL (80-94); Mean Platelet Vol. 11.3 fl (6.2-12.0); POSITIVE COUNT YES; Platelet Count 91 K/mm3 (150-450); RBC Distribution Width CV 16.5 % (11.6-14.6); RBC Distribution Width SD 59.7 fl (35.1-43.9); Red Blood Count 3.31 M/mm3 (4.6-6.2); White Blood Count 9.6 K/mm3 (4.4-11.0)
[2022-12-15 10:23] LABS: Anion Gap 9 (5-15); BUN 30 mg/dL (7-18); BUN/Creat Ratio 17.8 RATIO (10-20); Calcium,Total 9.2 mg/dL (8.5-10.1); Chloride 110 mmol/L (98-107); Creatinine, Serum 1.69 mg/dL (0.70-1.30); EST Glomerular Filtration Rate 43 mL/min (>60); Est Glom Filt Rate - Afr Amer 52 mL/min (>60); Glucose 85 mg/dL (74-106); Sodium Level 136 mmol/L (136-145)
[2022-12-15 10:25] LABS: Scan Indicated on CBC? Y/N YES- FLAGS NOTED
[2022-12-15 12:44] LABS: Protein, Urine (Random) 27.7 mg/dL (<11.9); Protein:Creat Ratio 355 mg/g CRE (0-200)
[2022-12-18 10:08] LABS: Tacrolimus (FK506) 6.4 ng/mL (2.0-20.0)
== END | disposition home or self-care (01) ==
LOC: LAB 08:23
PROVIDERS: PCP Internal Medicine; Referring Provider Internal Medicine Nephrology; Visit Provider Internal Medicine Nephrology
DX: Z94.0 Kidney transplant status (principal); D84.9 Immunodeficiency, unspecified; Z79.60 Long term (current) use of unspecified immunomodulators and immunosuppressants; R79.9 Abnormal finding of blood chemistry, unspecified; Z79.899 Other long term (current) drug therapy; Z48.298 Encounter for aftercare following other organ transplant; R68.89 Other general symptoms and signs
CPT/HCPCS: 36415; 80048; 80197; 82570; 84156; 85027

== ENCOUNTER 2023-01-11 09:25 | Day surgery (SDC) | payer MEDICARE, BC, SELFPAY ==
[2023-01-08 08:43] LABS: Hematocrit 30.6 % (40-54); Hemoglobin 9.4 g/dL (13.0-16.5); Mean Corp Hgb Conc 30.7 g/dL (32-36); Mean Corpuscular Hgb 31.1 pg (27.0-32.0); Mean Corpuscular Volume 101.3 fL (80-94); Mean Platelet Vol. 10.6 fl (6.2-12.0); POSITIVE COUNT YES; Platelet Count 91 K/mm3 (150-450); RBC Distribution Width CV 17.1 % (11.6-14.6); RBC Distribution Width SD 64.9 fl (35.1-43.9); Red Blood Count 3.02 M/mm3 (4.6-6.2); White Blood Count 6.1 K/mm3 (4.4-11.0)
[2023-01-08 09:11] LABS: Anion Gap 9 (5-15); BUN 31 mg/dL (7-18); BUN/Creat Ratio 16.1 RATIO (10-20); Calcium,Total 9.7 mg/dL (8.5-10.1); Chloride 111 mmol/L (98-107); Creatinine, Serum 1.93 mg/dL (0.70-1.30); EST Glomerular Filtration Rate 37 mL/min (>60); Est Glom Filt Rate - Afr Amer 45 mL/min (>60); Glucose 97 mg/dL (74-106); Sodium Level 138 mmol/L (136-145)
[2023-01-11] VITALS (16 sets, daily range): BP systolic 131–167; BP diastolic 45–76; PULSE 62; RESP 18; TEMP 36.6; O2SAT 96–100; BMI 30.2
[2023-01-11 09:44] LABS: INR Fingerstick 3.2; Prothrombin Time Fingerstick 34.3 SEC (11.7-14.9)
[2023-01-11] MEDS: Cephalexin 250 MG Capsule 1000 MG PO (10:29)
--- NOTE | 2023-01-11 10:40 | HP.PCM_ITS ---
History and Physical [facility] Vascular Surgery [address] [place] [address] OFFICE VISIT Date of Service: 12/17/22 MR#: [id number] Acct: [id number] Name: JOSEPHINE STARKS Rep #: [id number] : 1955 Provider: Dr. Jcarlos Choi MD Age/Sex: 67/M Location: [facility] [place].[facility] Status: Signed Intake Vital Signs 10/22/2315:00 11/12/2304:57 12/17/2312:07 Height 5 ft 5.5 in 5 ft 5.5 in Weight: 181 lb 192 lb BMI 29.6 BP 159/84 H 152/84 H Blood Pressure Location Lt brachial Lt brachial Position Sitting Sitting Respiration 20 H 18 Pulse 75 80 Pulse Source Monitor Monitor Temp 97.5 F L 98.6 F Temp Source Temporal Pulse Oximetry (%) 98 98 Oxygen Delivery Method room air room air Intake Visit Reasons: 8 week f/u Chief Complaint: rt arm fistula Is patient in pain?: No Allergies ibuprofen [From Motrin] Adverse Reaction (Verified 12/17/22 13:09) Kidney transplantlatex Adverse Reaction (Verified 12/17/22 13:09) Rash Medications tamsulosin 0.4 mg capsule 0.4 mg PO DAILY PROSTATE 03/16/15 [History Confirmed 12/17/22] finasteride 5 mg tablet 5 mg PO DAILY PROSTATE 10/23/15 [History Confirmed 12/17/22] cyanocobalamin (vitamin B-12) 500 mcg tablet (Vitamin B-12) 100 mcg PO DAILY SUPPLEMENT 11/26/16 [History Confirmed 12/17/22] carvedilol 6.25 mg tablet 6.25 mg PO BID HEART 02/14/18 [History Confirmed 12/17/22] ferrous sulfate 324 mg (65 mg iron) tablet,delayed release 324 mg PO DAILY SUPPLEMENT 02/14/18 [History Confirmed 12/17/22] prednisone 5 mg tablet 5 mg PO DAILY STEROID 02/14/18 [History Confirmed 12/17/22] sulfamethoxazole 800 mg-trimethoprim 160 mg tablet 1 tab PO MOWEFR ANTIBIOTIC 02/14/18 [History Confirmed 12/17/22] acetaminophen 500 mg tablet 1,000 mg PO Q6H PAIN 03/02/19 [History Confirmed 12/17/22] acitretin 10 mg capsule 10 mg PO SUTUTHSA CHEMO 03/02/19 [History Confirmed 11/21 11/11] atorvastatin 20 mg tablet 20 mg PO QHS CHOLESTEROL 04/01/21 [History Confirmed 12/17/22] mycophenolate sodium 180 mg tablet,delayed release 180 mg PO BID TRANSPLANT REJECTION PREVENTION 04/01/21 [History Confirmed 12/17/22] mycophenolate sodium 360 mg tablet,delayed release 360 mg PO BID TRANSPLANT REJECTION PREVENTION 04/01/21 [History Confirmed 12/17/22] tacrolimus 0.5 mg capsule, immediate-release 0.5 mg PO BID TRANSPLANT REJECTION PREVENTION 04/01/21 [History Confirmed 12/17/22] FN-orfkjrpfkje-khyfst ox-Zn ER 500 mcg-750 mg-1.5 mg-25 mg tablet,ER 1 tab PO QPM SUPPLEMENT 09/15/22 [History Confirmed 12/17/22] pantoprazole 40 mg tablet,delayed release 40 mg PO DAILY ACID REFLUX 09/15/22 [History Confirmed 12/17/22] zolpidem 10 mg tablet 10 mg PO QHS INSOMNIA 09/15/22 [History Confirmed 12/17/22] ascorbic acid (vitamin C) 500 mg capsule,extended release (Vitamin C) 500 mg PO DAILY #30 caps 09/21/22 [Rx Confirmed 12/17/22] warfarin 2 mg tablet 2 mg PO QPM BLOOD THINNER 11/12/22 [History Confirmed 12/17/22] PFSH Medical History Actinic keratosis BCC (basal cell carcinoma of skin) Ceruminous adenocarcinoma of right ear Chronic kidney disease (CKD) Chronic rejection of renal transplant Complete heart block (08/11/16) Enterococcal sepsis Essential hypertension Fistula History of skin cancer Hyperlipidemia Longstanding persistent atrial fibrillation Lower extremity edema Membranoproliferative glomerulonephritis Non-rheumatic mitral valve stenosis Nonrheumatic aortic (valve) stenosis Obesity Pacemaker Right-sided tinnitus Secondary pulmonary arterial hypertension Sleep apnea Squamous cell carcinoma Surgical History H/O hemorrhoidectomy H/O skin graft History of aortic valve replacement (08/04/16) History of cardioversion (11/2016) History of excision of lesion (2019) History of herniorrhaphy History of mitral valve replacement (08/04/16) History of permanent cardiac pacemaker placement (08/11/16) Renal transplant recipient (02/2018) Status post ligation of left atrial appendage (08/04/16) Family History Mother CancerFather Cancer Myocardial infarction CAD (coronary artery disease) Heart disease Social History Smoking Status: Never smoker HPI HPI HPI: JOSEPHINE STARKS, is a 67 M who presents to the office today for follow up of right arm fistula that is no longer in use. Recently has seen his transplant library technical assistant who continues to be satisfied with transplant function and suggested ligation given ongoing edema. ROS General General: No weight change, appetite, fatigue, colon cancer, breast cancer or weakness HEENT HEENT: No difficulty swallowing, eye injury, eye surgery, swollen glands or hoarseness Endo Endocrine: No thyroid disease, diabetes mellitus, thyroid cancer, Hair loss, heat intolerance or cold intolerance Skin Skin: Yes changing moles; No rash Musc Musculoskeletal: Yes joint pain; No back problems, arthritis, rheumatoid arthritis or gout Cardio Cardiovascular: Yes murmur, pacemaker, atrial fibrillation and high blood pressu re; No heart disease, heart attack, heart stent, palpitations, shortness of breat with exertion or chest pain Psych Psychiatric: No depression, anxiety or hearing voices Resp Respiratory: No shortness of breath, Yes sleep apnea, No cough, No COPD, No asthma, No emphysema and No wheezing Gastro Gastrointestinal: No abdominal pain, No nausea or vomiting, No diarrhea, No constipation, No blood in stool, No acid reflux, No hemorrhoids, No ulcers, No gallbladder problem and No black,tarry stools Danny Hematologic: Yes blood thinners, No blood disorders, No bleeding, No anemia and No blood clots Neuro Neurologic: No system reviewed and no additional complaints, except as d ocumented, No as per HPI, No abnormal gait, No abnormal hearing, No abnormal movements, No abnormal speech, No behavioral changes, No burning sensations, No confusion, No convulsions, No disequilibrium, No dizziness, No localized weakness, No frequent falls, No headache(s), No lack of coordination, No loss of vision, No memory loss, No numbness, No other visual disturbances, No radicular pain, No restless legs, No sensory deficit, No syncope, No tingling, No tremor(s), No weakness and No other Exam Const General: cooperative, healthy appearing, comfortable, no acute distress and well developed Nutritional Appearance: well nourished Orientation: alert, awake and oriented x3 HENMT Head: normocephalic and atraumatic Ears: hearing grossly normal bilaterally Eyes General: appearance normal, both eyes and all related structures EOM: EOM intact bilaterally Resp Effort & Inspection: normal respiratory effort, able to speak in complete sentences, symmetric chest movement, no audible wheezes, not labored, no stridor and no use of accessory muscles Cardio Rate: regular rate Rhythm: regular rhythm Pulses: brachial pulses present and radial pulses present Skin General: no rashes or lesions noted and no erythema Wounds: no wounds Neuro Cranial Nerves: CN's II-XI intact bilaterally and EOM intact bilaterally Speech: speech normal Gait: normal gait Motor: strength 5/5 throughout Sensory Exam: no sensory deficits noted Extremities Upper Extremity: RUE edema throughout, +thrill in AVF Psych Appearance: grossly normal and well kempt Mental Status: mental status grossly normal Mood: congruent mood Speech and Movement: speech and movement normal Thought Content: normal Judgment: judgment good Coding Level of Care Code Off vis,est,level 3 Diagnoses Arteriovenous fistula of right upper extremity I77.0 Assessment and Plan Assessment and Plan (1) 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
[2023-01-11] MEDS: diazePAM 2 MG Tablet PO (10:48)
[2023-01-11] MEDS: Heparin Injection (Vial) 5,000 UNIT/ML VIAL 5000 UNIT (11:11)
[2023-01-11] MEDS: Lidocaine 1% (30 ml sdv) 30 ML Vial (11:37)
[2023-01-11] MEDS: Bupivacaine 0.25% 30 ML Vial (11:37)
--- NOTE | 2023-01-11 12:10 | DCINST_ITS ---
Discharge Instructions Diet Discharge Diet: No restrictions Activity May shower in (days): 3 Lifting Restrictions: not > 20 lbs for 2 weeks Additional Activity Instructions:: do not submerge incision for 2 weeks Dressing / Incision Call your doctor if your incision/area has: Sudden Increased Bleeding, Increased Pain/ Swelling, Increased Redness and Foul Smelling Discharge Call your doctor if you observe: Fever of 101 or Higher Remove Dressing in: 3 days Cleanse incision/area with: Soap & Water Follow Up Care Test Results: Test results from this visit will be discussed in further detail at your follow- up appointment, if applicable. Discharge Plan Admission Attending Provider: Jcarlos Choi Primary Care Provider: Beth Quiroz Discharge Orders/Prescriptions Prescriptions: New oxycodone 5 mg tablet 5 mg PO Q8H PRN (Reason: pain) 3 Days Qty: 9 0RF Continued atorvastatin 20 mg tablet 20 mg PO QHS mycophenolate sodium 180 mg tablet,delayed release (DR/EC) 180 mg PO BID Patient Comments: PT STATES TAKES 1 (180 MG) AND 1 (360 MG) BID FOR A TOTAL DOSE OF 540 MG. tamsulosin 0.4 MG capsule 0.4 mg PO DAILY finasteride 5 MG tablet 5 mg PO DAILY cyanocobalamin (vitamin B-12) [Vitamin B-12] 500 MCG tablet 100 mcg PO DAILY carvedilol 6.25 tablet 6.25 mg PO BID prednisone 5 tablet 5 mg PO DAILY ferrous sulfate 324 MG tablet,delayed release (DR/EC) 324 mg PO DAILY sulfamethoxazole-trimethoprim 1 EACH tablet 1 tab PO MOWEFR mycophenolate sodium 360 mg tablet,delayed release (DR/EC) 360 mg PO BID Patient Comments: PT STATES TAKES 1 (180 MG) AND 1 (360 MG) BID FOR A TOTAL DOSE OF 540 MG. acetaminophen 500 MG tablet 1,000 mg PO QHS acitretin 10 capsule 10 mg PO SUWEFR pantoprazole 40 MG tablet,delayed release (DR/EC) 40 mg PO DAILY zolpidem 10 mg Tablet 10 mg PO QHS SA-sjauwiwqmse-uqzoev ox-zinc 500-750-1.5-25 edl-ct-mu-mg Tablet,Ext Release Multiphase 1 tab PO QPM warfarin 2 mg tablet 2 mg PO SUWEFR Rx Instructions: 2mg on SUN and WED. 1mg on MON, TUE, THUR, FRI, SAT ascorbic acid (vitamin C) [Vitamin C] 500 mg capsule, extended release 500 mg PO DAILY Qty: 30 0RF Rx Instructions: Take with iron warfarin 1 mg tablet 1 mg PO MOTUTHSA No Action tacrolimus 0.5 mg capsule 0.5 mg PO BID Referrals / Follow Up: Beth Quiroz MD [Primary Care Provider] - Disposition Disposition (needs filled in before D/C Order can be placed): Home, Self Care
--- NOTE | 2023-01-11 12:33 | OP.PCM_ITS ---
Report of Operation Date of Procedure: 01/11/23 Pre-Operative Diagnosis: right arm arteriovenous fistula Post-Operative Diagnosis: same Surgery/Procedure Performed:: ligation right arm fistula Surgeon: Jcarlos Choi Type of Anesthesia: Local Estimated Blood Loss (mL): 5 Description of Procedure: HPI: Patient is a 67-year-old male with a right upper extremity AV fistula which is not in use because he has a functioning renal transplant. He has developed increasing right upper extremity edema and chest wall varicosities. He has no intention of ever using his fistula in the future so he presents now for fistula ligation. Description of procedure: Upon obtaining form consent and verification correct patient procedure site patient taken to the operating where he was positioned prepped and draped in usual sterile fashion. Time was performed and skin was anesthetized over the fistula in the distal upper arm. Transverse incision was made above electrocautery to dissect down through subcutaneous tissue. Self- retaining retractor put in position further dissection carried down to the fistula. Sharp dissection used to dissect free proximal and distal and a right angle used to place a vessel loop. The vessel was then clamped proximal and distal with atraumatic clamps and then divided between clamps. The inflow side of the fistula was then ligated with 5-0 Prolene in running fashion in 2 layers. After completing suture line clamps removed satisfactory stasis was noted. Next the outflow side of the fistula was oversewn with 6-0 Prolene running fashion in 2 layers. After completing suture line clamps removed and satisfactory stasis was noted. The incision was inspected hemostasis and Aleah topical hemostatic applied. The incision was then closed with a 3-0 Vicryl followed by 4 Monocryl and Dermabond for the skin. Patient was then taken to recovery room with anticipated discharged home.
== END 2023-01-11 13:00 | disposition home or self-care (01) ==
LOC: SDC 09:26 → AC 09:26
PROVIDERS: PCP Internal Medicine; Referring Provider Surgery Trauma Surgery; Visit Provider Surgery Trauma Surgery
PROC: (CPT 37607; principal; 2023-01-11 10:45)
DX: I77.0 Arteriovenous fistula, acquired (principal); I27.21 Secondary pulmonary arterial hypertension; I48.11 Longstanding persistent atrial fibrillation; I12.9 Hypertensive chronic kidney disease with stage 1 through stage 4 chronic kidney disease, or unspecified chronic kidney disease; E78.5 Hyperlipidemia, unspecified; N18.9 Chronic kidney disease, unspecified; Z95.0 Presence of cardiac pacemaker; Z95.2 Presence of prosthetic heart valve; Z79.01 Long term (current) use of anticoagulants; N05.5 Unspecified nephritic syndrome with diffuse mesangiocapillary glomerulonephritis; T86.11 Kidney transplant rejection
CPT/HCPCS: 37607; 36415; 36416; 80048; 85027; 85610; 86850; 86900; 86901; A4648; J7030

== ENCOUNTER 2023-03-08 08:20 | Outpatient (RCR) | payer MEDICARE, BC, SELFPAY ==
[2022-09-18 20:48] VITALS: BMI 35.2
[2023-03-08 09:28] LABS: Absolute Neutrophil Count 4.4 X10^3/uL (2.0-7.7); Basophil# 0.01 X10^3/uL; Basophil% 0.2 % (0-1); Eosinophil# 0.06 X10^3/uL; Eosinophils% 1.1 % (0-5); Hematocrit 33.7 % (40-54); Lymphocyte % 8.8 % (19-41); Mean Corp Hgb Conc 29.7 g/dL (32-36); Mean Corpuscular Hgb 30.9 pg (27.0-32.0); Mean Platelet Vol. 9.4 fl (6.2-12.0); Monocyte# 0.67 X10^3/uL; Monocyte% 11.8 % (0-10); NRBC Flagged by Analyzer 0 % (0-5); Neutrophil # 4.44 X10^3/uL (2.7-7.7); Neutrophil % 77.9 % (47-70); POSITIVE DIFFERENTIAL YES; Platelet Count 100 K/mm3 (150-450); RBC Distribution Width CV 15.5 % (11.6-14.6); RBC Distribution Width SD 59.1 fl (35.1-43.9); Red Blood Count 3.24 M/mm3 (4.6-6.2); White Blood Count 5.7 K/mm3 (4.4-11.0)
[2023-03-08 09:29] LABS: Differential Indicated SCAN CRITERIA MET
[2023-03-08 09:39] LABS: PTHIN 108.6 pg/mL (18.4-80.1)
[2023-03-08 10:04] LABS: AST(SGOT) 17 U/L (15-37); Alanine Aminotransfer ALT/SGPT 15 U/L (16-61); Albumin, Serum 2.9 g/dL (3.2-5.0); Alkaline Phosphatase 128 U/L (45-117); Anion Gap 8 (5-15); BUN 28 mg/dL (7-18); BUN/Creat Ratio 17.2 RATIO (10-20); Calcium,Total 9.1 mg/dL (8.5-10.1); Chloride 116 mmol/L (98-107); Cholesterol 92 mg/dL (200); Creatinine, Serum 1.63 mg/dL (0.70-1.30); EST Glomerular Filtration Rate 45 mL/min (>60); Est Glom Filt Rate - Afr Amer 54 mL/min (>60); Ferritin 134 ng/mL (26-388); Globulin 2.9 g/dL (2.2-4.2); Glucose 79 mg/dL (74-106); High Density Lipoprotein 52 mg/dL; Iron 85 ug/dL (65-175); Iron Binding Capacity,Total 309 ug/dL (250-450); Magnesium 2.1 mg/dL (1.6-2.6); PERCENT IRON SATURATION 27.5 % (15.0-55.0); Phosphorus 2.7 mg/dL (2.5-4.9); Potassium 3.7 mmol/L (3.5-5.1); Protein, Total 5.8 g/dL (6.4-8.2); Sodium Level 141 mmol/L (136-145); Triglycerides 85 mg/dL; Very Low Density Lipoprotein 17 mg/dL (5-40)
[2023-03-08 10:35] LABS: Protein:Creat Ratio 512 mg/g CRE (0-200)
[2023-03-08 11:06] LABS: Differential Comment SCANNED
[2023-03-08 14:23] LABS: Hemoglobin A1c 4.9 % (3.8-5.6)
[2023-03-11 18:07] LABS: Tacrolimus (FK506) 3.2 ng/mL (2.0-20.0); Transferrin 218 mg/dL (177-329)
== END 2023-03-21 18:00 | disposition home or self-care (01) ==
LOC: LAB 08:20
PROVIDERS: Family Provider Internal Medicine; PCP Internal Medicine; Referring Provider Internal Medicine Nephrology; Visit Provider Internal Medicine Nephrology
DX: Z48.298 Encounter for aftercare following other organ transplant (principal); D84.9 Immunodeficiency, unspecified; R79.9 Abnormal finding of blood chemistry, unspecified; R68.89 Other general symptoms and signs; Z94.0 Kidney transplant status; Z79.899 Other long term (current) drug therapy; I15.0 Renovascular hypertension; D50.9 Iron deficiency anemia, unspecified; Z79.60 Long term (current) use of unspecified immunomodulators and immunosuppressants
CPT/HCPCS: 36415; 80053; 80061; 80197; 82570; 82728; 83036; 83540; 83550; 83735; 83970; 84100; 84156; 84466; 84550; 85025

== ENCOUNTER 2023-05-05 05:25 | Day surgery (SDC) | payer MEDICARE, BC, SELFPAY ==
[2023-05-05] VITALS (8 sets, daily range): BP systolic 136–164; BP diastolic 59–85; PULSE 56–71; RESP 18; TEMP 36.5–36.7; O2SAT 100; BMI 28.8
--- NOTE | 2023-05-05 07:42 | PCM.HP.BLA ---
History and Physical Date of Admission: 05/05/23 Date of Service: 04/28/23 MR#: [id number] Acct: [id number] Name: JOSEPHINE BERRIOS Rep #: [id number] : 1955 Provider: Dr. Satish Sánchez MD Age/Sex: 68/M Location: [facility] Status: Signed Intake Vital Signs 02/16/2311:02 04/28/2407:24 Height 5 ft 6 in 5 ft 6 in Weight: 175 lb BMI 28.2 BP 145/86 H Blood Pressure Location Lt brachial Position Sitting Respiration 17 Pulse 65 Pulse Source Monitor Temp 97.6 F L Temp Source Temporal Pulse Oximetry (%) 99 Oxygen Delivery Method room air Intake Visit Reasons: PORT PLACEMENT Chief Complaint: port placement Coding Compliance Specialist Required: No Accompanied by: Is patient in pain?: No Allergies ibuprofen [From Motrin] Adverse Reaction (Verified 04/28/23 08:25) Kidney transplantlatex Adverse Reaction (Verified 04/28/23 08:25) Rash Medications tamsulosin 0.4 mg capsule 0.4 mg PO DAILY PROSTATE 03/16/15 [History Confirmed 04/28/23] finasteride 5 mg tablet 5 mg PO DAILY PROSTATE 10/23/15 [History Confirmed 04/28/23] cyanocobalamin (vitamin B-12) 500 mcg tablet (Vitamin B-12) 100 mcg PO DAILY SUPPLEMENT 11/26/16 [History Confirmed 04/28/23] carvedilol 6.25 mg tablet 6.25 mg PO BID HEART 02/14/18 [History Confirmed 04/28/23] ferrous sulfate 324 mg (65 mg iron) tablet,delayed release 324 mg PO DAILY SUPPLEMENT 02/14/18 [History Confirmed 04/28/23] prednisone 5 mg tablet 5 mg PO DAILY STEROID 02/14/18 [History Confirmed 04/28/23] sulfamethoxazole 800 mg-trimethoprim 160 mg tablet 1 tab PO MOWEFR ANTIBIOTIC 02/14/18 [History Confirmed 04/28/23] acetaminophen 500 mg tablet 1,000 mg PO QHS PAIN 03/02/19 [History Confirmed 04/28/23] acitretin 10 mg capsule 10 mg PO SUWEFR CHEMO 03/02/19 [History Confirmed 04/28/23] atorvastatin 20 mg tablet 20 mg PO QHS CHOLESTEROL 04/01/21 [History Confirmed 04/28/23] mycophenolate sodium 180 mg tablet,delayed release 180 mg PO BID TRANSPLANT REJECTION PREVENTION 04/01/21 [History Confirmed 04/28/23] mycophenolate sodium 360 mg tablet,delayed release 360 mg PO BID TRANSPLANT REJECTION PREVENTION 04/01/21 [History Confirmed 04/28/23] tacrolimus 0.5 mg capsule, immediate-release 0.5 mg PO BID TRANSPLANT REJECTION PREVENTION 04/01/21 [History Confirmed 04/28/23] QK-goodkhfvsny-xsncxl ox-Zn ER 500 mcg-750 mg-1.5 mg-25 mg tablet,ER 1 tab PO QPM SUPPLEMENT 09/15/22 [History Confirmed 04/28/23] pantoprazole 40 mg tablet,delayed release 40 mg PO DAILY ACID REFLUX 09/15/22 [History Confirmed 04/28/23] zolpidem 10 mg tablet 10 mg PO QHS INSOMNIA 09/15/22 [History Confirmed 04/28/23] ascorbic acid (vitamin C) 500 mg capsule,extended release (Vitamin C) 500 mg PO DAILY #30 caps 09/21/22 [Rx Confirmed 04/28/23] warfarin 2 mg tablet 2 mg PO SUWEFR BLOOD THINNER 11/12/22 [History Confirmed 04/28/23] warfarin 1 mg tablet 1 mg PO MOTUTHSA 12/28/22 [History Confirmed 04/28/23] PFS Medical History Actinic keratosis Anemia Back pain BCC (basal cell carcinoma of skin) Cardiology follow-up encounter Ceruminous adenocarcinoma of right ear Chronic kidney disease (CKD) Chronic rejection of renal transplant Complete heart block (08/11/16) CPAP (continuous positive airway pressure) dependence Dietary restriction Diverticulosis Easy bruising Enterococcal sepsis Essential hypertension Fistula H pylori ulcer History of echocardiogram History of renal dialysis History of renal disease History of skin cancer History of steroid therapy History of ulceration Hyperlipidemia Longstanding persistent atrial fibrillation Loss of hearing Low iron Lower extremity edema Membranoproliferative glomerulonephritis Non-rheumatic mitral valve stenosis Non-smoker Nonrheumatic aortic (valve) stenosis Obesity Pacemaker Right-sided tinnitus Secondary pulmonary arterial hypertension Seizures Sleep apnea Squamous cell carcinoma Wears glasses Surgical History H/O hemorrhoidectomy H/O skin graft History of aortic valve replacement (08/04/16) History of cardioversion (11/2016) History of excision of lesion (2019) History of herniorrhaphy History of mitral valve replacement (08/04/16) History of permanent cardiac pacemaker placement (08/11/16) Hx of total knee arthroplasty Renal transplant recipient (02/2018) Status post ligation of left atrial appendage (08/04/16) Family History Mother CancerFather Cancer Myocardial infarction CAD (coronary artery disease) Heart disease Social History (Updated 04/28/23 @ 08:24 by Erika Bear LPN) Smoking Status: Never smoker alcohol intake: never substance use type: does not use HPI HPI HPI: Patient is a 68-year-old male who presents for consideration of port placement. Patient is referred from Dr. Jcarlos Choi, vascular surgery. 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 He shares that he is due to undergo cancer resection at at the [facility] on 05/19/2023 through a multidisciplinary surgical team. However, in the meantime he was contacted by his transplant auto air conditioning apprentice who advised that he work to get in for a port placement due to his history of difficult peripheral IV access and multiple occlusions. Mr. Loving presents today with his and jointly they state that there have been numerous times when he is unable to receive contrast because his IV is occluded. They share that he was previously under surveillance for his cancer every 6 months with MRI imaging. Patient has a prior history of central line placement and estimates that he has had some 5-6 prior central venous catheters of various kinds?primarily related to his history of end-stage renal disease status post 3 different living donor transplants (the last was in 2018 and is presently functioning well). He believes that he has had bilateral internal jugular central lines, bilateral tunneled hemodialysis access, and has a present pacer via the right subclavian. He also notes that he had a history of a PICC line that was removed in September 2022. Mr. Poole has a history of MRSA bacteremia in 2011 following multiple shave biopsies by dermatology. He also had a history of Klebsiella sepsis following knee replacement August 2022 that was complicated by postoperative urinary retention. Mr. Berrios is currently prescribed warfarin for a history of atrial fibrillation. ROS General General: No weight change, appetite, fatigue, colon cancer, breast cancer or weakness HEENT HEENT: No difficulty swallowing, eye injury, eye surgery, swollen glands or hoarseness Endo Endocrine: No thyroid disease, diabetes mellitus, thyroid cancer, Hair loss, heat intolerance or cold intolerance Skin Skin: Yes rash and changing moles Musc Musculoskeletal: Yes back problems; No arthritis, rheumatoid arthritis, gout or joint pain Cardio Cardiovascular: Yes pacemaker, atrial fibrillation and high blood pressure; No murmur, heart disease, heart attack, heart stent, palpitations, shortness of breat with exertion or chest pain Psych Psychiatric: No depression, anxiety or hearing voices Resp Respiratory: No shortness of breath, Yes sleep apnea, No cough, No COPD, No asthma, No emphysema and No wheezing Gastro Gastrointestinal: No abdominal pain, No nausea or vomiting, No diarrhea, No constipation, No blood in stool, No acid reflux, No hemorrhoids, No ulcers, No gallbladder problem and No black,tarry stools Danny Hematologic: Yes blood thinners, No blood disorders, No bleeding, Yes anemia and No blood clots Neuro Neurologic: No numbness, No tingling and No weakness Exam Const General: cooperative and anxious Orientation: alert, awake and oriented x3 Neck Other: Numerous scars but no active signs of infection. By ultrasound exam patient has a rather diminutive right internal jugular vein that does not exhibit significant flow Chest Other: Multiple well-healed scars no rashes or infection Assessment and Plan Assessment and Plan (1) Squamous cell carcinoma of right ear: Status: Acute Comment: This is a 68-year-old male with a complex medical history owing to a history of glomerulonephritis status post multiple living donor transplants who recently was diagnosed with squamous cell carcinoma of the right ear and is pending cancer resection at the end of this month but requires placement of durable venous access first. This request was initiated by patient's transplant surgeon and does not appear to be on the account of any plans for chemotherapy infusion or dialysis treatments (as patient has a functioning graft in place). Given his extensive history of renal dysfunction, he has had at least 5 prior central venous catheters in addition to a complex cardiovascular history that includes placement of a pacemaker as well as mitral and aortic valve replacements. I held a lengthy conversation with Mr. Berrios and his regarding options and suggested that we proceed with a single lumen Port-A-Cath which would be optimal in the sense that it could be left in place for longer than a more exposed and would suffice for anesthesia needs perioperatively as well as any infusions he may need. I did discourage, generally, the use of such a port for routine labs as this does seem to increase the risk for central venous catheter associated infections. In the end they are receptive of this recommendation and we will plan to proceed dose discussed. I will need Mr. Berrios to hold his warfarin appropriately for the procedure and have requested a hold of 5 days preprocedure. We will look to notify all stakeholders in his care of this hold. In the interim I will also look to get in touch with his transplant auto air conditioning apprentice to confirm these plans. Plan: Tentatively plan for left versus right Port-A-Cath placement using ultrasound guidance I have examined the patient and the H&P has been reviewed. There are no clinical changes since date of exam. He reports that he has previously undergone procedures with simple oral local sedation and wishes to know if he can potentially forego a peripheral IV. However, I discussed with him that the stimulus from the tunneling procedure has made reluctant to proceed with this course of sedation over a typical MAC sedation in the interest of trying to minimize inadvertent injury to his vessels. He expresses understanding of this concern and agrees to proceed as recommended. He has already let his operative team know at [facility] that he plans to undergo this procedure and they plan to use this access for his general anesthetic for his cancer resection surgery on 05/19/2023. I also clarified with him that this should not interfere with a submental flap as interfere with a submental flap as his ENT surgeon has proposed and as I understand it to anatomically delineated. Will now proceed to the operating room for left versus right Port-A-Cath placement under MAC.
[2023-05-05] MEDS: Cefazolin 2 GM in 0.9% Normal Saline (100mL Bag) 100 ML IV (08:05)
[2023-05-05] MEDS: 0.9% Normal Saline 500 ML IV.SOLN. 15 ML IV (08:36)
[2023-05-05] MEDS: Bupivacaine Mpf 0.5% 30 ML VIAL (08:39)
--- NOTE | 2023-05-05 09:16 | PCM.OPRPT ---
Report of Operation Date of Procedure: 05/05/23 Pre-Operative Diagnosis: History of difficult IV access with cancer recurrence requiring upcoming surgery/medical care Post-Operative Diagnosis: Same Surgery/Procedure Performed:: Placement of left internal jugular Port-A-Cath via ultrasound and fluoroscopic guidance Description of Surgical Findings:: ? Widely patent left internal jugular vein Surgeon: Satish Sánchez Type of Anesthesia: MAC/Supplemental Anesthesiologist: Favio Courtney Estimated Blood Loss (mL): 15 Description of Procedure: After appropriate identification in the preoperative holding area the patient was brought to the operating room. There he was positioned supine on the operating room table and underwent placement of an IV with ultrasound guidance and was administered preoperative antibiotics/sedation. Once sedation was begun, the upper chest and lower cervical region were prepped and draped in usual sterile fashion. A formal timeout was then conducted to confirm both the patient and procedure. Ultrasound was used to localize the left internal jugular vein. Then a wheal of local anesthetic was raised superficially in this location and the vein was accessed under direct ultrasound guidance using a Seldinger technique and micro access kit to place a guidewire. Unfortunately I could not get the guidewire to pass through the needle so this procedure was abandoned and I proceeded with the finder needle from the kit and placement of a standard 035 guidewire. The position of the guidewire was confirmed with fluoroscopy. Next the position of the port pocket was determined and again local anesthetic was used to anesthetize the area of both the pocket and the tunneling cephalad. A transverse incision 3 cm in width was made down through the subcutaneous tissue. Selective electrocautery was used to obtain hemostasis. Then with blunt dissection the port pocket was developed. The catheter was connected to the tunneler and was tunneled up to the position of the guidewire. Here the dilator and peel-away sheath were placed over the guidewire and the guidewire was removed. Position was again confirmed with fluoroscopy. The catheter length was estimated based on the external placement of a hemostat to approximate the level of the shirley and the cavoatrial junction. The catheter was then fed into the sheath and slowly the sheath was peeled away as the catheter was inserted fully into the neck. Back in the chest the excess catheter was trimmed and the port was connected to the catheter. The port was tied into the pocket using 3-0 Vicryl. Function was then tested using sterile saline on a Pena needle. It was locked with 3.0 mL of heparinized saline (concentration 50U/5mL). The port pocket was closed with a deep dermal stitch using a running 3-0 Vicryl followed by 4-0 Monocryl subcuticular stitch. The 1 cm incision in the neck was closed with a single interrupted subcuticular stitch using 4-0 Monocryl. Dermabond was applied as a dressing. Patient was then aroused from the sedation and taken to PACU for ongoing recovery were a portable chest x-ray was obtained to confirm port positioning and exclude any pneumothorax. Grafts/Implants Used: 8 Syriac PowerPort ISP MRI implantable port, ref [id number], lot [id number] Complications none Procedures Cardiovascular CF Procedures [id number]: 33099 Insert tunneled cv cath
--- NOTE | 2023-05-05 09:19 | DCINST_ITS ---
Discharge Instructions Diet Discharge Diet: No restrictions Activity Discharge Activity: May Shower May shower in (days): 1 Ice area for (Minutes): 20 Additional Activity Instructions:: Limit the activity by the nearest upper extremity for 48 hours postop Dressing / Incision Call your doctor if your incision/area has: Increased Pain/ Swelling, Increased Redness, Foul Smelling Discharge and Swelling at the incision site Call your doctor if you observe: Fever of 101 or Higher Remove Dressing in: do not remove dressing (Dermabond (surgical glue) expected to dissolve spontaneously within 7 to 10 days postop using regular showering) Cleanse incision/area with: Soap & Water Follow Up Care Test Results: Test results from this visit will be discussed in further detail at your follow- up appointment, if applicable. Discharge Plan Admission Primary Reason for Your Visit: Port placement Attending Provider: Satish Sánchez Primary Care Provider: Beth Quiroz Instructions Additional Instructions / Restrictions: Resume anticoagulation in 48 hours Discharge Orders/Prescriptions Prescriptions: Continued atorvastatin 20 mg tablet 20 mg PO QHS tacrolimus 0.5 mg capsule 0.5 mg PO BID mycophenolate sodium 180 mg tablet,delayed release (DR/EC) 180 mg PO BID Patient Comments: PT STATES TAKES 1 (180 MG) AND 1 (360 MG) BID FOR A TOTAL DOSE OF 540 MG. tamsulosin 0.4 MG capsule 0.4 mg PO DAILY finasteride 5 MG tablet 5 mg PO DAILY cyanocobalamin (vitamin B-12) [Vitamin B-12] 500 MCG tablet 1,000 mcg PO .QMO carvedilol 6.25 tablet 6.25 mg PO BID prednisone 5 tablet 5 mg PO DAILY ferrous sulfate 324 MG tablet,delayed release (DR/EC) 324 mg PO DAILY sulfamethoxazole-trimethoprim 1 EACH tablet 1 tab PO MOWEFR mycophenolate sodium 360 mg tablet,delayed release (DR/EC) 360 mg PO BID Patient Comments: PT STATES TAKES 1 (180 MG) AND 1 (360 MG) BID FOR A TOTAL DOSE OF 540 MG. acetaminophen 500 MG tablet 1,000 mg PO BID acitretin 10 capsule 10 mg PO SUTUTHSA pantoprazole 40 MG tablet,delayed release (DR/EC) 40 mg PO DAILY zolpidem 10 mg Tablet 10 mg PO QHS TE-fypafhpyzwt-zrldja ox-zinc 500-750-1.5-25 vzw-gm-bs-mg Tablet,Ext Release Multiphase 1 tab PO QPM warfarin 2 mg tablet 2 mg PO SUTUTHSA Rx Instructions: 2mg on SUN and WED. 1mg on MON, TUE, THUR, FRI, SAT ascorbic acid (vitamin C) [Vitamin C] 500 mg capsule, extended release 500 mg PO DAILY Qty: 30 0RF Rx Instructions: Take with iron warfarin 1 mg tablet 1 mg PO MOWEFR Referrals / Follow Up: Beth Quiroz MD [Primary Care Provider] - Disposition Disposition (needs filled in before D/C Order can be placed): Home, Self Care
--- NOTE | 2023-05-05 09:25 | RAD_ITS ---
STUDY: X-RAY CHEST REASON FOR EXAM: Male, 68 years old. Status post line placement TECHNIQUE: Single AP portable view of the chest. COMPARISON: Comparison is made with prior study dated September 15, 2022. FINDINGS: A left-sided yunier catheter has been inserted. The tip is at the junction of the superior vena cava and right atrium. EKG electrodes are seen. A right-sided dual-chamber pacemaker is present. The lungs are clear and expanded. There is no demonstrated pleural abnormality. Sternal cerclage wires are present from a prior sternotomy. Metallic clip is seen along the left atrial appendage. Normal mediastinum and jose. Normal visualized pulmonary arteries. There is atherosclerotic calcification of the aortic arch with tortuosity. Normal visualized thoracic spine. There is degenerative osteoarthritis of the bilateral shoulders. There is no demonstrated abnormality of the visualized soft tissue structures of the upper abdomen. RAD/CXR for Line Placement IMPRESSION: The tip of the left-sided yunier catheter is at the junction of the superior vena cava and right atrium. Electronically Signed: Bao Jansen MD at 9:46 EST ,
== END 2023-05-05 10:47 | disposition home or self-care (01) ==
LOC: SDC 05:26 → AC 05:27
PROVIDERS: PCP Internal Medicine; Referring Provider Surgery; Visit Provider Surgery
PROC: (CPT 36561; principal; 2023-05-05 07:15)
DX: C44.222 Squamous cell carcinoma of skin of right ear and external auricular canal (principal); I12.0 Hypertensive chronic kidney disease with stage 5 chronic kidney disease or end stage renal disease; N18.6 End stage renal disease; I48.11 Longstanding persistent atrial fibrillation; E78.5 Hyperlipidemia, unspecified; D64.9 Anemia, unspecified; Z86.14 Personal history of Methicillin resistant Staphylococcus aureus infection; Z95.2 Presence of prosthetic heart valve; Z95.0 Presence of cardiac pacemaker; Z99.89 Dependence on other enabling machines and devices; Z86.19 Personal history of other infectious and parasitic diseases; Z94.0 Kidney transplant status
CPT/HCPCS: 36561; 00532; 71045; 77001; C1894; J7040; C1788; J2405

== ENCOUNTER 2023-06-11 11:25 | Outpatient (RCR) | payer MEDICARE, BC, SELFPAY ==
--- NOTE | 2023-06-11 13:37 | HP.SP.EVAL ---
Visit History Visit Info Date of Eval: 06/11/23 Visit: 1 Pipe Changer: JEAN-CLAUDE History Attending Doctor: Referring Doctor: Reason for Referral: BASAL CELL CARCINOMA RT EAR/RX SCANNED IN Medical Diagnosis: Basal cell carcinoma of right ear C44.212 Previous speech therapy: Yes Other Relevant Medical History/Diagnoses/Surgery: PMH: Actinic keratosis, Anemia, BCC (basal cell carcinoma of skin), Ceruminous adenocarcinoma of right ear, CKD, Chronic rejection of renal transplant, Complete heart block (08/11/16), Dietary restriction, Diverticulosis, Enterococcal sepsis, HTN, Fistula, C diff, HLD, Longstanding persistent atrial fibrillation, Membranoproliferative glomerulonephritis, MRSA infection, Non-rheumatic mitral valve stenosis, Non-smoker, VINAYAK, Pacemaker, Pulmonary hypertension, Right-sided tinnitus, Seizures, Sleep apnea, UTI, Wears glasses. Per radiation oncologist's H&P: Recurrent high-risk basal cell carcinoma involving the right ear status post MRI soft tissue neck with and without contrast (03/30/2023), FNA of the right preauricular lesion (04/08/2023), and completion of radical excision of the ear, cheek, neck skin, and partial parotidectomy with facial nerve dissection and preservation as well as revision of the temporal bone and right neck dissections of levels 1B, 2, 3 and flap based reconstruction (05/19/2023). Pt is retired from being a business team leader. Patient lives with his , Seble. Patient also has a local daughter. Smoking Status: Never smoker Pain Is pain an issue with your current prescribed condition?: Yes Personal Preferred language: Maori Patient Allergies Allergies Allergies: Allergies ibuprofen [From Motrin] Adverse Reaction (Verified 06/03/23 10:32) Kidney transplant latex Adverse Reaction (Verified 06/03/23 10:32) Rash Subjective Dysphagia Symptoms Reported Other: Tinnitus (R), Biting lip, More difficulty with sandwiches/burgers Current Diet Solids Current Diet: Regular Current Diet Liquids Current Liquids: Thin Objective Dysphagia Thin Liquids Administred via: Cup and Straw Oral Transit: WNL Cough: none observed/unable to assess Pharyngeal phase: immediate laryngeal elevation Comments: Timely swallow, no overt s/s of aspiration with single and sequential sips, no sensation of retention, complete oral clearance. Regular Bolus clearance: significant clearance/minimal residue Cough: none observed/unable to assess Pharyngeal phase: immediate laryngeal elevation Comments: Slowed, but complete mastication, minimal oral residues cleared with thin liquid wash, no overt s/s of aspiration. Swallowing Impairment Other: Decreased labial strength/ROM & jaw opening at low average Impact Comments: Patient is at risk for trismus and oral dysphagia during radiation treatment to address Recommendations Modified Barium Swallow/Cookie Swallow Recommended: No Swallowing Treatment: Yes Diet Texture Recommendations Solids: Regular (Level 7) Liquids: Thin (Level 0) Safety Other: Small bites/sips, slow rate, thorough chewing, sitting upright 90 degrees Results Swallowing Within Normal Limits: Yes Objective Oral Motor Oral Status Dentition: WNL Labial Impairment: Mild Closure: WNL Pucker: WNL Retraction: Moderate Labial Comments Comments: Mild-moderately decreased ROM of lower lip most notable with labial retraction. Jaw Opening: WNL Opening Measurement: 37mm Respiratory Status Respiratory Status: Room Air ROCK CLIMBING INSTRUCTOR V Trigeminal Nerve V Trigeminal Nerve Response: Intact Comment:: PRODUCTION TROUBLESHOOTER unable to palpate contraction of jaw musculature with jaw clench on patient's right side due to edema from his recent surgery. VII Facial Nerve VII Facial Nerve Result: Intact X Vagus Nerve X Vagus Nerve Result: Intact Comment:: Of note, patient feels his voice was slightly more hoarse and higher pitched after his surgery. He feels his voice is almost at baseline. reports no observed changes in patient's voice. XII Hypoglossal Nerve XII Hypoglossal Nerve Result: Intact Comment:: Slight deviation R upon protrusion, but otherwise lingual strength/ROM/coordination WNL. Swallowing Performance Scale Swallowing Performance Scale Swallowing Performance Scale Result: 2 Within Functional Limit Reference: Neuro-QoL instrument Radiation Oncology Patient FOIS Functional Oral Intake Scale Total oral diet with no restrictions: Level 7 Plan Plan Plan: While the patient is demonstrating overall normal swallow function at this time, will recommend dysphagia therapy to implement prophylactic trismus exercise program prior to radiation treatment and to provide ongoing assessment of swallow function and diet tolerance during treatment, as well as continued education re: recommended trismus exercise program and instruction in jaw massage. The patient is at increased risk for trismus and oral dysphagia during radiation treatment increasing risk for aspiration, weight loss, and malnutrition, as well as increasing risk for difficulty with speech and communication abilities. Recommendations MBS: No Treatment Warranted: Yes Treatment Warranted: Dysphagia and Other: Comment: Trismus prevention during and post radiation treatment Progress Prognosis: Good Frequency Frequency: Every Other Week Duration: 6 Months Goals that are Established Determination:: Goals will be added/modified as deemed necessary and appropriate. Therapy will be discontinued when results of re-evaluation indicate therapy is no longer needed or lack of progress has been documented. Goal #1-5 Goal #1: STG: The patient will complete jaw strength, coordination, and ROM exercises during and post radiation treatment independently to maintain mastication and speech production abilities (7-7-7). Goal #2: LTG: The patient will maintain jaw opening 35-55mm to promote improved mastication and speech production abilities. Education Patient has Indicated that the Following The Patient has indicated that they have no educational or learning abilities that may effect their care.: Yes Patient Instruction Patient Education: Diagnosis, Treatment Plan, Goals and Home Exercise Program Other Education: Education re: short term and continuous churn buttermaker impacts of radiation that place him at risk for trismus and oral dysphagia. Trained the patient in jaw exercise program (7-7-7) with good return demonstration with minimal cues and modeling. Of note, he gained 2mm of jaw opening completing 1 set of 7-7-7. Person Taught: Patient and Significant Other Teaching Method: Discussion, Demonstration, Handout and Teach back Response to teaching: Return demonstration, Verbalize understanding and Reinforcement needed
--- NOTE | 2023-11-08 13:57 | HP.SP.DC ---
ST Discharge Summary Discharged: Discharge: Further dysphagia therapy not warranted as the pt has unfortunately .
== END 2023-06-11 19:00 | disposition home or self-care (01) ==
LOC: SP 11:25
PROVIDERS: Referring Provider Student in an Organized Health Care Education/Training Program; Visit Provider Student in an Organized Health Care Education/Training Program
DX: C44.212 Basal cell carcinoma of skin of right ear and external auricular canal (principal)
CPT/HCPCS: 92610

== ENCOUNTER 2023-06-18 07:55 | Outpatient (RCR) | payer MEDICARE, BC, SELFPAY ==
[2023-03-21 20:44] VITALS: BMI 35.2
[2023-06-18 08:52] LABS: Absolute Lymphocyte Count 0.67 X10^3/uL (0.83-4.51); Absolute Neutrophil Count 3.2 X10^3/uL (2.0-7.7); Basophil# 0.02 X10^3/uL; Basophil% 0.4 % (0-1); Eosinophil# 0.08 X10^3/uL; Eosinophils% 1.6 % (0-5); Hematocrit 30.6 % (40-54); Hemoglobin 9.4 g/dL (13.0-16.5); Lymphocyte # 0.67 X10^3/ul (0.83-4.51); Lymphocyte % 13.7 % (19-41); Mean Corp Hgb Conc 30.7 g/dL (32-36); Mean Corpuscular Hgb 31.8 pg (27.0-32.0); Mean Corpuscular Volume 103.4 fL (80-94); Mean Platelet Vol. 10.5 fl (6.2-12.0); Monocyte# 0.86 X10^3/uL; Monocyte% 17.6 % (0-10); NRBC Flagged by Analyzer 0 % (0-5); Neutrophil # 3.23 X10^3/uL (2.7-7.7); Neutrophil % 66.3 % (47-70); POSITIVE COUNT YES; Platelet Count 96 K/mm3 (150-450); RBC Distribution Width CV 15.3 % (11.6-14.6); RBC Distribution Width SD 58.5 fl (35.1-43.9); Red Blood Count 2.96 M/mm3 (4.6-6.2); White Blood Count 4.9 K/mm3 (4.4-11.0)
[2023-06-18 09:19] LABS: Anion Gap 5 (5-15); BUN 33 mg/dL (7-18); BUN/Creat Ratio 15.4 RATIO (10-20); Calcium,Total 9.5 mg/dL (8.5-10.1); Chloride 117 mmol/L (98-107); Creatinine, Serum 2.14 mg/dL (0.70-1.30); EST Glomerular Filtration Rate 33 mL/min (>60); Est Glom Filt Rate - Afr Amer 40 mL/min (>60); Glucose 81 mg/dL (74-106); Magnesium 1.9 mg/dL (1.6-2.6); Phosphorus 2.8 mg/dL (2.5-4.9); Potassium 4.4 mmol/L (3.5-5.1); Sodium Level 139 mmol/L (136-145)
[2023-06-20 11:07] LABS: Tacrolimus (FK506) 4.9 ng/mL (2.0-20.0)
== END 2023-06-19 18:00 | disposition home or self-care (01) ==
LOC: LAB 07:55
PROVIDERS: Family Provider Internal Medicine; PCP Internal Medicine; Referring Provider Internal Medicine Nephrology; Visit Provider Internal Medicine Nephrology
DX: Z48.298 Encounter for aftercare following other organ transplant (principal); D84.9 Immunodeficiency, unspecified; R79.9 Abnormal finding of blood chemistry, unspecified; Z79.60 Long term (current) use of unspecified immunomodulators and immunosuppressants; Z94.0 Kidney transplant status; Z79.899 Other long term (current) drug therapy; R68.89 Other general symptoms and signs; D50.9 Iron deficiency anemia, unspecified
CPT/HCPCS: 36415; 80048; 80197; 83735; 84100; 85025

== ENCOUNTER 2023-06-27 22:15 | Inpatient (IN) | payer MEDICARE, BC, SELFPAY ==
[2023-06-27 22:17] VITALS: BP 85/48; PULSE 88; RESP 32; TEMP 36.9; O2SAT 96; BMI 30.7
[2023-06-27 22:20] VITALS: BP 93/56; PULSE 89; RESP 24; O2SAT 96
--- NOTE | 2023-06-27 22:27 | EKG12_ITS ---
Test Reason : DYSRHYTHMIA Blood Pressure : / mmHG Vent. Rate : 085 BPM Atrial Rate : 000 BPM P-R Int : 000 ms QRS Dur : 108 ms QT Int : 390 ms P-R-T Axes : 000 -52 113 degrees QTc Int : 464 ms Atrial fibrillation Left anterior fascicular block Possible Lateral infarct , age undetermined Abnormal ECG Confirmed by Satish Singleton ([id number]), video news editor TRACY BARKER ([id number]) on 06/28/2023 11:14:17 AM Referred By: Confirmed By:Satish Singleton
--- NOTE | 2023-06-27 22:29 | EDS_ITS ---
HPI History of Present Illness Chief Complaint: General Illness Informant: patient and spouse/S.O. Narrative Narrative: 68-year-old male has had 1-2 days of profuse nonbloody watery diarrhea (last bout about 24 hours ago), generalized weakness/fatigue, low-grade fever, 98.5 which is a fever for him, body aches all over, and patient states right now he is noticing that his right upper arm is hurting, lateral aspect of it mid upper arm without radiation or chest discomfort, it hurts him to move it and lifted up. He denies any injury to it. He has been dyspneic tonight as well especially when trying to move around. He denies any chest discomfort or heavi ness/pressure. Denies any new neck or jaw discomfort along with this. Swelling in his legs is not new or necessarily worse than usual. Denies any abdominal pain, nausea, vomiting. No known sick contacts. No travel out of the region lately except to [facility] where he has cancer care. 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 He is on warfarin because of having an artificial valve, he has had a history of 3 different kidney transplants. [facility] Medical History Actinic keratosis Anemia Back pain BCC (basal cell carcinoma of skin) Cancer Cardiology follow-up encounter Ceruminous adenocarcinoma of right ear Chronic kidney disease (CKD) Chronic rejection of renal transplant Complete heart block (08/11/16) CPAP (continuous positive airway pressure) dependence Dietary restriction Diverticulosis Easy bruising Enterococcal sepsis Essential hypertension Fistula H pylori ulcer History of Clostridium difficile infection History of echocardiogram History of renal dialysis History of skin cancer History of steroid therapy History of ulceration Hyperlipidemia Longstanding persistent atrial fibrillation Loss of hearing Low iron Lower extremity edema Membranoproliferative glomerulonephritis MRSA infection Non-rheumatic mitral valve stenosis Non-smoker Nonrheumatic aortic (valve) stenosis Obesity VINAYAK (obstructive sleep apnea) Pacemaker Pulmonary hypertension Right-sided tinnitus Secondary pulmonary arterial hypertension Seizures Sleep apnea Squamous cell carcinoma UTI (urinary tract infection) Wears glasses Home Medications tamsulosin 0.4 mg capsule 0.4 mg PO DAILY PROSTATE 03/16/15 [History Last Taken 05/04/23] finasteride 5 mg tablet 5 mg PO DAILY PROSTATE 10/23/15 [History Last Taken 01/11/23 08:00] carvedilol 6.25 mg tablet 6.25 mg PO BID HEART 02/14/18 [History Last Taken 05/05/23] ferrous sulfate 324 mg (65 mg iron) tablet,delayed release 324 mg PO DAILY SUPPLEMENT 02/14/18 [History Last Taken 05/04/23] prednisone 5 mg tablet 5 mg PO DAILY STEROID 02/14/18 [History Last Taken 05/05/23] sulfamethoxazole 800 mg-trimethoprim 160 mg tablet 1 tab PO MOWEFR ANTIBIOTIC 02/14/18 [History Last Taken 05/03/23] acetaminophen 500 mg tablet 1,000 mg PO BID PAIN 03/02/19 [History Last Taken 06/27/23 20:00] acitretin 10 mg capsule 10 mg PO SUTUTHSA CHEMO 03/02/19 [History Last Taken 05/04/23] atorvastatin 20 mg tablet 20 mg PO QHS CHOLESTEROL 04/01/21 [History Last Taken 05/04/23] mycophenolate sodium 180 mg tablet,delayed release 180 mg PO BID TRANSPLANT REJECTION PREVENTION 04/01/21 [History Last Taken 05/05/23] mycophenolate sodium 360 mg tablet,delayed release 360 mg PO BID TRANSPLANT REJECTION PREVENTION 04/01/21 [History Last Taken 05/05/23] tacrolimus 0.5 mg capsule, immediate-release 0.5 mg PO BID TRANSPLANT REJECTION PREVENTION 04/01/21 [History Last Taken 05/05/23] pantoprazole 40 mg tablet,delayed release 40 mg PO DAILY ACID REFLUX 09/15/22 [History Last Taken 05/05/23] zolpidem 10 mg tablet 10 mg PO QHS INSOMNIA 09/15/22 [History Last Taken 05/04/23] warfarin 2 mg tablet 2 mg PO SUTUTHSA BLOOD THINNER 11/12/22 [History Last Taken 04/30/23] warfarin 1 mg tablet 1 mg PO MOWEFR 12/28/22 [History Last Taken 04/30/23] Allergy/AdvReac Type Severity Reaction Status Date / Time ibuprofen [From Motrin] AdvReac Kidney Verified 06/03/23 10:32 transplant latex AdvReac Rash Verified 06/03/23 10:32 Family History Mother Cancer Father Cancer Myocardial infarction CAD (coronary artery disease) Heart disease Surgical History H/O hemorrhoidectomy H/O Mohs micrographic surgery for skin cancer H/O skin graft History of anal lesion History of aortic valve replacement (08/04/16) History of cardioversion (11/2016) History of colonoscopy History of cranial surgery History of excision of lesion (2019) History of eye surgery History of herniorrhaphy History of mitral valve replacement (08/04/16) History of permanent cardiac pacemaker placement (08/11/16) History of surgery History of surgery on arm Hx of external ear surgery Hx of living-donor kidney transplantation Hx of total knee arthroplasty Renal transplant recipient (02/2018) S/P flap graft Status post ligation of left atrial appendage (08/04/16) Social History (Updated 06/28/23 @ 00:[address] Mai Barlow MD) household members: spouse and family Smoking Status: Never smoker alcohol intake: never substance use type: does not use ROS ROS ED Constitutional Constitutional ED: Reports body ache(s), fatigue, fever(s), subjective and weakness; Denies chills Eyes Eyes: Denies change in vision or diplopia ENT ENT ED: Denies rhinorrhea or sore throat Cardiovascular Cardiovascular: Reports leg edema; Denies chest pain or palpitations Respiratory/Chest Respiratory/Chest: Reports dyspnea; Denies cough Gastrointestinal Gastrointestinal: Reports diarrhea; Denies abdominal pain, hematochezia, melena, nausea or vomiting Genitourinary Genitourinary ED: Denies dysuria or hematuria Musculoskeletal Musculoskeletal: Reports as per HPI and extremity pain; Denies back pain or neck pain Integumentary Denies abscess or rash Neurologic Neurologic: Denies headache(s), paresthesias or weakness Psychiatric Psychiatric: Denies suicidal ideation or suicidal thoughts EXAM Physical Exam Const Vital Signs: 06/27/23 22:17 06/27/23 22:20 06/27/23 22:20 Temperature 98.5 F Temperature Source Oral Pulse Rate 88 89 Respiratory Rate 32 H 24 H Respiratory Effort Normal Non-Labored Respiratory Pattern Normal Blood Pressure 85/48 L 93/56 L Blood Pressure Mean 60 68 Pulse Ox 96 96 Oxygen Delivery Method Room Air Room Air 06/27/23 23:00 06/27/23 23:19 06/28/23 00:16 Temperature 97.6 F L 98.3 F Temperature Source Oral Oral Pulse Rate 77 78 Respiratory Rate 33 H 22 H Respiratory Effort Respiratory Pattern Blood Pressure 99/41 L 92/53 L Blood Pressure Mean 60 66 Pulse Ox 99 99 98 Oxygen Delivery Method Room Air Room Air Room Air Positive well nourished and well developed General Appearance ED: well developed and NAD HEENT Reports moist mucous membranes HEENT Narrative: Swelling to the right face and neck, scabbing various areas of the face and neck, nothing that appears acute at all appears chronic. He is talking normally without stridor or hot potato voice. No tongue elevation or angioedema. normocephalic and atraumatic Eyes PERRL and EOMs intact bilaterally Neck full ROM and supple Resp normal respiratory effort and clear to auscultation bilaterally Resp Narrative: Tachypneic. Speaking in full sentences. Cardio regular rate and regular rhythm Rate: Negative for tachycardic GI non-tender and non-distended GI Narrative: Right lower quadrant kidney transplant: Normal on inspection, no tenderness. Auscultation: normoactive bowel sounds Palpation: soft Back/Spine no CVA tenderness General Back: other FROM Extremity normal to inspection Extremity Narrative: Mildly tender where the patient is having pain in the lateral aspect of the right upper arm, around the area of the junction of the proximal and middle thirds, it is normal on inspection, he can raise his arm up and states that it hurts a little worse when he does so. General Extremety ED: Yes edema and tenderness; Negative for pulses abnormal General Extremity: edema bilateral lower extremity Details: mild (Symmetric bilaterally without signs of cellulitis/injury/wound); Negative for pulses abnormal Neuro oriented x3, CN's II-XII intact bilaterally and no sensory deficits noted Sensorium / Orientation: awake and alert Motor Exam: general weakness Psych mental status grossly normal Skin no rashes or lesions noted and no wounds Sepsis Attestation Sepsis Alert: Yes Sepsis Attestation: Agree w/Sepsis Date exam was performed: 06/28/23 Time exam was performed: 00:45 Possible Source of Sepsis: Genitourinary Sepsis Organ Dysfunction Criteria Present: SBP < 90 mmHg or MAP < 65 mmHg, Creatinine > 2.0 mg/dL, Platelets <100,000 / uL, INR > 1.5 or aPTT > 60 sec and Serum CO2 < 20 mmol/L (on BMP) Fluid Resuscitation Fluid resuscitation indicated?: Yes Fluid Resuscitation ordered: Lesser volume fluid bolus ordered Amount of fluid ordered: 2,000 Reason for lesser fluid bolus:: Concern for fluid overload and Renal Failure Sepsis Note Date exam was performed: 06/28/23 Time exam was performed: 01:15 Sepsis Attestation: Sepsis re-evaluation was performed Response to fluids: Fluid responsive hypotension (MAP borderline, about 63; will continue to monitor closely) MDM MDM MDM Narrative Medical decision making narrative: Septic workup obtained including a catheterized urine which appears to be infection, culture sent started on Rocephin. Chest x-ray 1 view on my interpretation negative for pneumonia. His lactate is normal, but he appears to have a nonanion gap metabolic acidosis, and renal failure, these 2 may be linked, and the acidosis may be responsible for his dyspnea. He is anticoagulated on Coumadin so I do not think we need to worry about checking for an acute PE here. This pressure has been low and even after the first liter of fluid he is still in the 90s, family states he normally is in the 130s systolic. Patient clinically is awake and doing well relatively. His renal failure is immediately concerning. I double checked his transplant which is nontender, although this does not necessarily rule out acute rejection, the differential here includes dehydration due to the diarrhea, he is thrombocytopenic but not more anemic than usual, making DIC less likely, and hard to go by his coag since he is anticoagulated on warfarin. Infectious diarrhea could cause this in addition to HUS or TTP, but again less likely due to no sign of acute anemia. Although, his bilirubin is slightly up which can be seen with hemolysis so I did send off a haptoglobin. I am at a [facility] hospital where I cannot get stat levels of his antirejection drugs although that was also considered. Also in the differential is fluid overload due to his renal failure and diarrhea due to third spacing from noninfectious causes. At this time is lab abnormalities are fairly complicated and all these are in the realm of possibility but I am treati ng him for sepsis primarily since that is the most dangerous possible process, along with IV fluids and Rocephin. Discussed with family. 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 I put a page out through the [facility] transfer center, still waiting to hear back. With more discussions with family, they really prefer to try to stay here. Discussed with hospitalist plan is for admission. His blood pressure has gradually been improving with IV fluids, currently is in the high 90s systolic with MAP 63 after the second liter but given his renal failure and risk for fluid overload, I am holding off on fluids currently and watching him cautiously. Clinically he is doing well still. Discussed with nephrology at [facility], she recommended adding ova and parasites to the stool testing if he provide her diarrhea, doubling his prednisone, continuing tacrolimus, discontinue mycophenolate temporarily, but states she would not want him to be off of it for too long and states that they are open to telephone consultation if needed to determine when to restart in the near future. Lab Data Attestation: I reviewed the patient's lab results. Labs: Laboratory Results - last 24 hr 06/27/23 06/27/23 22:40 22:50 WBC 8.4 RBC 2.86 L Hgb 9.1 L Hct 28.7 L MCV 100.3 H MCH 31.8 MCHC 31.7 L RDW Std Deviation 56.3 H RDW Coeff of Fermin 15.2 H Plt Count 33 L* MPV 13.6 H Immature Gran % (Auto) 1.000 H Neut % (Auto) 93.4 H Lymph % (Auto) 1.8 L Morehouse % (Auto) 3.8 Eos % (Auto) 0.0 Baso % (Auto) 0.0 Absolute Neuts (auto) 7.8 H Absolute Lymphs (auto) 0.15 L Nucleated RBC % 0 Differential Comment SCANNED Diff Path Review May foll [place] Cells 2+ PT 25.0 H INR 2.3 APTT 52.9 H Sodium 133 L Potassium 4.4 Chloride 109 H Carbon Dioxide 12.0 L Anion Gap 12 BUN 73 H Creatinine 4.07 H Estim Creat Clear Calc 17.07 Est GFR (MDRD) Af Amer 19 L Est GFR (MDRD) Non-Af 16 L BUN/Creatinine Ratio 17.9 Glucose 98 Lactic Acid 1.3 Calcium 9.2 Total Bilirubin 1.30 H AST 24 ALT 16 Alkaline Phosphatase 124 H Troponin I High Sens 49 B-Natriuretic Peptide 799.4 H Total Protein 5.5 L Albumin 2.5 L Globulin 3.0 Albumin/Globulin Ratio 0.8 L Urine Color Yellow Urine Clarity Sl. Cloudy Urine pH 5.0 Ur Specific Kent 1.020 Urine Protein 30 H Urine Glucose (UA) Normal Urine Ketones Negative Urine Occult Blood 50 H Urine Nitrite Negative Urine Bilirubin 1 H Urine Urobilinogen 1 H Ur Leukocyte Esterase 500 H Urine RBC 0-5 SEEN Urine WBC >100 SEEN Ur Squamous Epith Cells 0 SEEN Urine Bacteria 3+ Urine Mucus 0 SEEN Radiography Diagnostic Testing: Clinical Impression(s) from Imaging Studies Chest X-Ray 06/27/23 22:45 IMPRESSION: No definite acute cardiopulmonary disease on limited portable frontal view of the chest. Electronically Signed: Oscar Manriquez MD at 23:44 EDT , Rhythm Strip Rhythm Strip: A-fib Rate: 85 Ectopy: None EKG Initial EKG: Attestation: I personally reviewed and interpreted this EKG as follows: Interpretation: No Acute Injury Pattern, Atrial Fibrillation and Inverted T-Waves (sept-lat) Prior EKG tracings: available for review Prior: Unchanged Management Discussion w/another healthcare provider: Hospitalist and Production Support Manager (Nephrology [facility]) Discharge Plan Dx/Rx/DC Orders Clinical Impression: Acute renal failure (ARF), Acute UTI, Kidney transplant status, Thrombocytopenia, Hypotension, Longstanding persistent atrial fibrillation, Warfarin-induced coagulopathy, Sepsis Disposition Disposition: [facility] Discharge Date/Time: 06/28/23 01:56
[2023-06-27] MEDS: 0.9% Normal Saline (1000mL) 1,000 ML 999 ML IV ×2 (22:45→23:59)
--- NOTE | 2023-06-27 22:45 | RAD_ITS ---
EXAM: XR CHEST, 1 VIEW CLINICAL INDICATION: sob TECHNIQUE: Frontal view of the chest. COMPARISON: No relevant prior studies available. FINDINGS: LUNGS AND PLEURAL SPACES: No pleural effusion or pneumothorax. Bilateral hilar fullness may represent pulmonary trunk enlargement/pulmonary hypertension. Mild subsegmental atelectasis and/or scarring at the lung bases. No consolidation. HEART: Top normal size of the cardiac silhouette. MEDIASTINUM: Central airways and mediastinal contour are unremarkable. BONES/JOINTS: Right-sided AICD/pacer with intact wires/leads. Degenerative changes of the spine. No acute fracture. SOFT TISSUES: Unremarkable. VASCULATURE: Atherosclerotic calcifications of the nonenlarged thoracic aortic arch. RAD/Chest 1 View (Portable) IMPRESSION: No definite acute cardiopulmonary disease on limited portable frontal view of the chest. Electronically Signed: Oscar Manriquez MD at 23:44 EDT ,
[2023-06-27 22:49] LABS: Absolute Lymphocyte Count 0.15 X10^3/uL (0.83-4.51); Absolute Neutrophil Count 7.8 X10^3/uL (2.0-7.7); Hematocrit 28.7 % (40-54); Hemoglobin 9.1 g/dL (13.0-16.5); Lymphocyte # 0.15 X10^3/ul (0.83-4.51); Lymphocyte % 1.8 % (19-41); Mean Corp Hgb Conc 31.7 g/dL (32-36); Mean Corpuscular Hgb 31.8 pg (27.0-32.0); Mean Corpuscular Volume 100.3 fL (80-94); Mean Platelet Vol. 13.6 fl (6.2-12.0); Monocyte# 0.32 X10^3/uL; Monocyte% 3.8 % (0-10); NRBC Flagged by Analyzer 0 % (0-5); Neutrophil % 93.4 % (47-70); POSITIVE COUNT YES; POSITIVE DIFFERENTIAL YES; RBC Distribution Width CV 15.2 % (11.6-14.6); RBC Distribution Width SD 56.3 fl (35.1-43.9); Red Blood Count 2.86 M/mm3 (4.6-6.2); White Blood Count 8.4 K/mm3 (4.4-11.0)
[2023-06-27 22:57] LABS: International Normalized Ratio 2.3
[2023-06-27 22:58] LABS: Partial Thromboplast Time 52.9 Seconds (24.1-36.2)
[2023-06-27 23:00] VITALS: O2SAT 99
[2023-06-27 23:01] LABS: Differential Indicated SCAN CRITERIA MET; Platelet Count 33 K/mm3 (150-450)
[2023-06-27 23:04] LABS: Mucous, Urine 0 SEEN /hpf (<or=2+); Squamous Epithelial Cells - UA 0 SEEN /hpf (0-5)
[2023-06-27 23:05] LABS: Color, Urine Yellow (Yellow); Glucose, Dipstick Normal (Normal); Ketone-Dipstick Negative (Negative); Leukocyte Esterase-Dipstick 500 /ul (Negative); Nitrite-Dipstick Negative (Negative); Occult Blood-Urine 50 /ul (Negative); Protein-Dipstick 30 mg/dl (Negative); Urine Clarity Sl. Cloudy (Clear); Urine Urobilinogen 1 mg/dl (Normal)
[2023-06-27 23:10] LABS: Urine Bilirubin Dipstick 1 mg/dL (Negative)
[2023-06-27 23:11] LABS: Bacteria 3+ /hpf (None Seen); Red Blood Cells-Urine 0-5 SEEN /hpf (0-5); White Blood Cells >100 SEEN /hpf (0-5)
[2023-06-27 23:12] LABS: ALB/GLOB Ratio 0.8 RATIO (0.9-2.4); AST(SGOT) 24 U/L (15-37); Alanine Aminotransfer ALT/SGPT 16 U/L (16-61); Albumin, Serum 2.5 g/dL (3.2-5.0); Alkaline Phosphatase 124 U/L (45-117); Anion Gap 12 (5-15); BUN 73 mg/dL (7-18); BUN/Creat Ratio 17.9 RATIO (10-20); Calcium,Total 9.2 mg/dL (8.5-10.1); Chloride 109 mmol/L (98-107); Creatinine, Serum 4.07 mg/dL (0.70-1.30); EST Glomerular Filtration Rate 16 mL/min (>60); Est Glom Filt Rate - Afr Amer 19 mL/min (>60); Estimated Creatinine Clearance 17.07 ml/min; Glucose 98 mg/dL (74-106); Lactic Acid 1.3 mmol/L (0.4-1.9); Potassium 4.4 mmol/L (3.5-5.1); Protein, Total 5.5 g/dL (6.4-8.2); Sodium Level 133 mmol/L (136-145); Troponin-I HS 49 pg/mL (3.0-78.0)
[2023-06-27 23:17] LABS: Burr Cells 2+; Differential Comment SCANNED
[2023-06-27 23:19] VITALS: BP 99/41; PULSE 77; RESP 33; TEMP 36.4; O2SAT 99
[2023-06-27 23:31] LABS: BNP,B-Type NATRIURETIC PEPTIDE 799.4 pg/mL (0-100)
[2023-06-28] VITALS (8 sets, daily range): BP systolic 87–154; BP diastolic 48–94; PULSE 65–78; RESP 18–24; TEMP 36.1–37.1; O2SAT 93–99
[2023-06-28] MEDS: Ceftriaxone 1 GM/50 ML BAG IV (00:06)
--- NOTE | 2023-06-28 00:56 | PCM.HP.STD ---
HPI - General General Date of Admission: 06/28/23 Date of Service: 06/28/23 Chief Complaint: Fever, fatigue, malaise, diarrhea, body aches. HPI Narrative The patient is a 68 y/o F w/ PMHx: Obesity, CKD stage III unclear subtype w/ renal transplant status s/p rejection/Hx ESRD, Chronic Thrombocytopenia, Chronic macrocytic anemia/iron deficiency anemia, Hx Complete HB s/p pacemaker, Valvular heart disease, HTN, HLD, GERD, Chronic AF, VINAYAK on CPAP, Seizure disorder who presents to the [facility] ED on 06/27/23 with history of significant fatigue, malaise, low-grade fevers, body aches in addition to 24-48 hours of profuse nonbloody watery diarrhea with specifically right upper extremity discomfort worse with movement and dyspnea also worse with movement with no specific chest discomfort and unchanged chronic lower extremity swelling with no specific prolonged travel however he does go back and forth to [facility] where he is receiving his cancer care. Patient is supposed to have initiation of radiation for head and neck squamous cell malignancy on 06/28/2023. Workup in the ED included T98.5, heart rate 88, BP 85/48 initially with most recent repeat 99/41, respiratory rate 32, 96% on room air, CBC with WBC 8.4, hemoglobin 9.1, MCV 100.3, platelet 33 with left shift and lymphopenia, coags with PT 25, PTT 52.9, INR 2.3, CMP with sodium 133, chloride 109, carbon oxide 12, anion gap 12, BUN/creatinine 73/4.07, GFR 16, lactic acid 1.3, T. bili 1.30, alk phos 124 otherwise hepatic profile not marked appearing, BNP 799.4, troponin 49, urinalysis with specific gravity 1.020, protein 30, occult blood 50, nitrate negative, leukocyte Estrace 500 with greater than 100 urine WBCs with 3+ urine bacteria, urine culture pending per ED, blood culture x 2 pending per ED, chest x-ray with no acute cardiopulmonary findings. In the ED patient administered Tylenol 1000 mg p.o. x 1, 2 L normal saline and Rocephin 1 g IV x 1. Case was discussed with [facility] transplant and nephrology services as patient/family preference to remain at [facility] and they agreed with course of treatment as noted in assessment and plan. [facility] Medical History Actinic keratosis Anemia Back pain BCC (basal cell carcinoma of skin) Cancer Cardiology follow-up encounter Ceruminous adenocarcinoma of right ear Chronic kidney disease (CKD) Chronic rejection of renal transplant Complete heart block (08/11/16) CPAP (continuous positive airway pressure) dependence Dietary restriction Diverticulosis Easy bruising Enterococcal sepsis Essential hypertension Fistula H pylori ulcer History of Clostridium difficile infection History of echocardiogram History of renal dialysis History of skin cancer History of steroid therapy History of ulceration Hyperlipidemia Longstanding persistent atrial fibrillation Loss of hearing Low iron Lower extremity edema Membranoproliferative glomerulonephritis MRSA infection Non-rheumatic mitral valve stenosis Non-smoker Nonrheumatic aortic (valve) stenosis Obesity VINAYAK (obstructive sleep apnea) Pacemaker Pulmonary hypertension Right-sided tinnitus Secondary pulmonary arterial hypertension Seizures Sleep apnea Squamous cell carcinoma UTI (urinary tract infection) Wears glasses Home Medications tamsulosin 0.4 mg capsule 0.4 mg PO DAILY PROSTATE 03/16/15 [History Last Taken 05/04/23] finasteride 5 mg tablet 5 mg PO DAILY PROSTATE 10/23/15 [History Last Taken 01/11/23 08:00] carvedilol 6.25 mg tablet 6.25 mg PO BID HEART 02/14/18 [History Last Taken 05/05/23] ferrous sulfate 324 mg (65 mg iron) tablet,delayed release 324 mg PO DAILY SUPPLEMENT 02/14/18 [History Last Taken 05/04/23] prednisone 5 mg tablet 5 mg PO DAILY STEROID 02/14/18 [History Last Taken 05/05/23] sulfamethoxazole 800 mg-trimethoprim 160 mg tablet 1 tab PO MOWEFR ANTIBIOTIC 02/14/18 [History Last Taken 05/03/23] acetaminophen 500 mg tablet 1,000 mg PO BID PAIN 03/02/19 [History Last Taken 06/27/23 20:00] acitretin 10 mg capsule 10 mg PO SUTUTHSA CHEMO 03/02/19 [History Last Taken 05/04/23] atorvastatin 20 mg tablet 20 mg PO QHS CHOLESTEROL 04/01/21 [History Last Taken 05/04/23] mycophenolate sodium 180 mg tablet,delayed release 180 mg PO BID TRANSPLANT REJECTION PREVENTION 04/01/21 [History Last Taken 05/05/23] mycophenolate sodium 360 mg tablet,delayed release 360 mg PO BID TRANSPLANT REJECTION PREVENTION 04/01/21 [History Last Taken 05/05/23] tacrolimus 0.5 mg capsule, immediate-release 0.5 mg PO BID TRANSPLANT REJECTION PREVENTION 04/01/21 [History Last Taken 05/05/23] pantoprazole 40 mg tablet,delayed release 40 mg PO DAILY ACID REFLUX 09/15/22 [History Last Taken 05/05/23] zolpidem 10 mg tablet 10 mg PO QHS INSOMNIA 09/15/22 [History Last Taken 05/04/23] warfarin 2 mg tablet 2 mg PO SUTUTHSA BLOOD THINNER 11/12/22 [History Last Taken 04/30/23] warfarin 1 mg tablet 1 mg PO MOWEFR 12/28/22 [History Last Taken 04/30/23] Allergy/AdvReac Type Severity Reaction Status Date / Time ibuprofen [From Motrin] AdvReac Kidney Verified 06/03/23 10:32 transplant latex AdvReac Rash Verified 06/03/23 10:32 Family History Mother Cancer Father Cancer Myocardial infarction CAD (coronary artery disease) Heart disease Surgical History H/O hemorrhoidectomy H/O Mohs micrographic surgery for skin cancer H/O skin graft History of anal lesion History of aortic valve replacement (08/04/16) History of cardioversion (11/2016) History of colonoscopy History of cranial surgery History of excision of lesion (2019) History of eye surgery History of herniorrhaphy History of mitral valve replacement (08/04/16) History of permanent cardiac pacemaker placement (08/11/16) History of surgery History of surgery on arm Hx of external ear surgery Hx of living-donor kidney transplantation Hx of total knee arthroplasty Renal transplant recipient (02/2018) S/P flap graft Status post ligation of left atrial appendage (08/04/16) Social History household members: spouse and family Smoking Status: Never smoker alcohol intake: never substance use type: does not use ROS ROS Narrative Admission Review of Systems: CONSTITUTIONAL: No weight loss, + fever, chills, weakness or fatigue. HEENT: Eyes: No visual loss, blurred vision, double vision or yellow sclerae. Ears, Nose, Throat: No hearing loss, sneezing, congestion, runny nose or sore throat. SKIN: No rash or itching, lesions, wounds except + recent head and neck surgery, occasional staged ecchymoses. CARDIOVASCULAR: No chest pain, chest pressure or chest discomfort, palpitations, edema, orthopnea, syncopal events. RESPIRATORY: + Dyspnea. No marked cough or sputum, wheezing, hemoptysis. GASTROINTESTINAL: + Diarrhea, decreased appetite. No nausea, vomiting, abdominal pain, melena, BRBPR. GENITOURINARY: No dysuria, frequency, urgency or retention. NEUROLOGICAL: No headache, dizziness, syncope, paralysis, ataxia, numbness or tingling in the extremities, focal weakness, change in bowel or bladder control, seizure. MUSCULOSKELETAL: + muscle, back pain, joint pain or stiffness. HEMATOLOGIC: + Chronic anemia, easy bleeding/bruising. LYMPHATICS: No enlarged nodes. No history of splenectomy. PSYCHIATRIC: No history of depression or anxiety. ENDOCRINOLOGIC: No reports of sweating, cold or heat intolerance. No polyuria or polydipsia. ALLERGIES: No history of asthma, hives, eczema or rhinitis. Vital Signs Vital Signs Vital Signs: 06/27/23 22:17 06/27/23 22:20 06/27/23 22:20 Temperature 98.5 F Temperature Source Oral Pulse Rate 88 89 Respiratory Rate 32 H 24 H Respiratory Effort Normal Non-Labored Respiratory Pattern Normal Blood Pressure 85/48 L 93/56 L Blood Pressure Mean 60 68 Pulse Ox 96 96 Oxygen Delivery Method Room Air Room Air 06/27/23 23:00 06/27/23 23:19 06/28/23 00:16 Temperature 97.6 F L 98.3 F Temperature Source Oral Oral Pulse Rate 77 78 Respiratory Rate 33 H 22 H Respiratory Effort Respiratory Pattern Blood Pressure 99/41 L 92/53 L Blood Pressure Mean 60 66 Pulse Ox 99 99 98 Oxygen Delivery Method Room Air Room Air Room Air Weight Weight: 184 lb 15.485 oz Body Mass Index (BMI) 30.7 Physical Exam Narrative Physical Examination: General: Awake, alert, oriented x 3 and cooperative, fatigued and ill-appearing, laying in the ED bed. Skin: Normal color, normal turgor, no icterus, no cyanosis except significant various staged ecchymoses, abrasions, scarring to the face right lateral following recent surgical intervention for head and neck cancer, venous stasis skin changes. Dry HEENT: AT/NC, EOMI, PERRLA, dry MM, no carotid bruits or JVD noted. Lungs: Diminished, greater bases, mildly increased respiratory rate but no distress, no rales, ronchi or wheezing. Heart: Irregular, rate controlled; no gallop, rub audible. Abdomen: Soft, obese, NTTP, ND, hyperactive BS, no appreciated HSM. Extremities: No cyanosis, no clubbing, no marked peripheral edema, see skin. Neurological: Patient awake, alert, oriented as noted, cognitive function intact; pupils equally reactive to light and accommodation, cranial nerves grossly normal, moving all 4 extremities, no focal deficits, strength severely globally decreased secondary to acute presentation. Psychiatric: Affect appears flat, fatigued, ill-appearing, no acute evidence of depressive or anxiety feelings. Results Lab / Micro Data 06/27/23 22:40 06/27/23 22:40 Labs: Laboratory Results - last 24 hr 06/27/23 22:40: WBC 8.4, RBC 2.86 L, Hgb 9.1 L, Hct 28.7 L, MCV 100.3 H, MCH 31.8, MCHC 31.7 L, RDW Std Deviation 56.3 H, RDW Coeff of Fermin 15.2 H, Plt Count 33 L*, MPV 13.6 H, Immature Gran % (Auto) 1.000 H, Neut % (Auto) 93.4 H, Lymph % (Auto) 1.8 L, Pershing % (Auto) 3.8, Eos % (Auto) 0.0, Baso % (Auto) 0.0, Absolute Neuts (auto) 7.8 H, Absolute Lymphs (auto) 0.15 L, Nucleated RBC % 0, Differential Comment SCANNED, Diff Path Review July da [place] Cells 2+, PT 25.0 H, INR 2.3, APTT 52.9 H, Sodium 133 L, Potassium 4.4, Chloride 109 H, Carbon Dioxide 12.0 L, Anion Gap 12, BUN 73 H, Creatinine 4.07 H, Estim Creat Clear Calc 17.07, Est GFR (MDRD) Af Amer 19 L, Est GFR (MDRD) Non-Af 16 L, BUN/Creatinine Ratio 17.9, Glucose 98, Lactic Acid 1.3, Calcium 9.2, Total Bilirubin 1.30 H, AST 24, ALT 16, Alkaline Phosphatase 124 H, Troponin I High Sens 49, B-Natriuretic Peptide 799.4 H, Total Protein 5.5 L, Albumin 2.5 L, Globulin 3.0, Albumin/Globulin Ratio 0.8 L 06/27/23 22:50: Urine Color Yellow, Urine Clarity Sl. Cloudy, Urine pH 5.0, Ur Specific [place] 1.020, Urine Protein 30 H, Urine Glucose (UA) Normal, Urine Ketones Negative, Urine Occult Blood 50 H, Urine Nitrite Negative, Urine Bilirubin 1 H, Urine Urobilinogen 1 H, Ur Leukocyte Esterase 500 H, Urine RBC 0-5 SEEN, Urine WBC >100 SEEN, Ur Squamous Epith Cells 0 SEEN, Urine Bacteria 3+, Urine Mucus 0 SEEN Rhythm Strip Rhythm Strip: A-fib Rate: 85 Ectopy: None Imaging Radiology Impression Chest X-Ray 06/27/23 22:45 IMPRESSION: No definite acute cardiopulmonary disease on limited portable frontal view of the chest. Electronically Signed: Oscar Manriquez MD at 23:44 EDT Reading Location ID and State: [facility] in [place] / [place] Tel , Service support , Assessment & Plan Assessment/Plan (1) Sepsis: PLAN: Plan The patient is a 68 y/o F w/ PMHx: Obesity, CKD stage III unclear subtype w/ renal transplant status s/p rejection/Hx ESRD, Chronic Thrombocytopenia, Chronic macrocytic anemia/iron deficiency anemia, Hx Complete HB s/p pacemaker, Valvular heart disease, HTN, HLD, GERD, Chronic AF, VINAYAK on CPAP, Seizure disorder who presents to the [facility] ED on 06/27/23 with history of significant fatigue, malaise, low-grade fevers, body aches in addition to 2448 hrs. of profuse nonbloody watery diarrhea with specifically right upper extremity discomfort worse with movement and dyspnea also worse with movement with no specific chest discomfort and unchanged chronic lower extremity swelling with no specific prolonged travel however he does go back and forth to [facility] where he is receiving his cancer care. #1. Acute Sepsis (MAP < 65, ZOË, thrombocytopenia, infectious source) Complicated Urinary Tract Infection with generalized fatigue, malaise and diarrhea potentially related versus component Gastroenteritis/Colitis/Hx C.difficile colitis: Will admit to PCU, UA upon ED evaluation remarkable, pending UCx, continue IVFs, monitor I/Os, continue IV Rocephin w/ transition as able pending sensitivities and speciation. Given presentation will utilize stress dose steroids and hold chronic oral regimen. Bld cx x 2 obtained in the ED. to be cautious as patient also has loose stools although certainly could be secondary to urinary tract infection he does have a cluster of distal history thus will obtain a stool culture/enteric as well as C. difficile. PT/OT/case management consultation for discharge planning. #2. Focal right upper extremity discomfort, unclear etiology: Patient with therapeutic INR 2.3 but does have high risk for VTE, unclear specific allergy thus to be cautious will cycle cardiac enzymes, maintain on telemetry but will request duplex ultrasound of the right UE to be cautious. PT consulted. #3. Acute kidney injury on CKD stage III unclear subtype: With previous history end-stage renal disease on dialysis status post renal transplant with rejection history secondary to acute presentation #1, admission BUN/Cr 73/4.07, GFR 16, creatinine clearance 17, prior baseline creatinine noted to be primarily 1.6-2.1, most recently 06/18/2023 creatinine 2.14,. Will hydrate, hold nephrotoxic medications, obtain FeNa and repeat chemistry in AM. Will hold home low-dose prednisone and start on stress dose steroids, continue prophylactic Bactrim but request renal dosing given ZOË on CKD as noted, cautiously continue tacrolimus but low threshold to decrease/hold pending ongoing assessments, will temporarily hold cellcept given #1 and add back once improved clinically. Will consult Nephrology given history to be cautious. #4. Acute on chronic thrombocytopenia: Admission platelet 33, previous baseline 90-100 primarily, likely in part secondary to acute presentation/illness #1 as noted on chronic, will continue to trend CBC. #5. Head and neck squamous cell malignancy: Status post surgical intervention unclear specific type with plans for/11/12 initiation of radiation however given his acute presentation this will need to be delayed, magnesium and phosphorus levels requested and recommended family contact [facility] to update them on his current presentation admission. #6. Valvular heart disease: Status post AV replacement, MV replacement, last echocardiogram noted 04/17/2021 with normal LV size, LV systolic function normal, EF 55%, severely enlarged LA, stable appearing bioprosthetic MV apparatus, mean TV gradient 8 mmHg, PASP 53 mmHg, bioprosthetic aortic valve, mean AV gradient 8 mmHg. #7. Chronic AF: Status post ligation left atrial appendage 2016, we will continue patient home Coreg regimen as long as BP remains appropriate given hypotensive upon presentation likely secondary to GI losses as well as very cautiously Coumadin with close INR trending as noted. #8. Hypertension with presentation with hypotension secondary to GI losses: Continue home regimen including Coreg once BP appropriate, low upon presentation secondary to GI losses most likely, PRN hydralazine. #9. Hyperlipidemia: Will continue patient on statin therapy. #10. Chronic macrocytic anemia/iron deficiency anemia: Admission hemoglobin 9.1, MCV 100.3, baseline hemoglobin 9-10, stable, continue to trend, continue iron supplementation. #11. Obesity: Weight loss and lifestyle changes encouraged. #12. History complete heart block: Status post permanent pacemaker placement, encourage continued outpatient follow-up with cardiology as previously arranged. #13. GERD: We will continue patient on PPI. #14. BPH: We will continue patient on Flomax and finasteride regimen. #15. Chart reported seizure history: Not on any AED, encourage continued outpatient follow-up as previously arranged. #16. VINAYAK: CPAP nightly. #17. DVT prophylaxis: SCDs, given significant thrombocytopenia will cautiously continue coumadin and will very closely trend INR, pending repeat level in a.m. may need to hold. #18. CODE status: Patient RYLEE is his who is present and living will is currently in place. Discussed CODE status at length including difference between FULL code, DNR-CCA and DNR-CC status. Following discussions about the differences in these status, requested DNR-CCA, no intubation status. Advanced Care Planning Face to Face Time: 16 minutes. Patient and requested updates and concerns to be directed to [facility] physician to physician or transplant [facility] team at [phone]. Charges/Coding Visit Charges Inpatient E&M: 26024 Init Hosp L3 Procedures Hospitalists Procedures: 39335 Advncd Care Plan 30 Min
--- NOTE | 2023-06-28 01:22 | VDUE_ITS ---
Reason For Study: Right arm pain Right Proximal Right jugular vein is spontaneous, widely patent, phasic, with no intraluminal echogenicity noted. Right subclavian vein is spontaneous, widely patent, phasic, with no intraluminal echogenicity noted. Right Lower Arm Right radial vein is compressible. Right ulnar vein is compressible. Right Arm Right axillary vein is spontaneous, patent, phasic, competent, compressible and demonstrates augmentation. Right brachial vein is compressible. Right cephalic vein is compressible. Right basilic vein is compressible. Patient Safety Preliminary report to Kira GAY. VL/Venous Duplex US, Unilateral Interpretation Summary Deep veins of the right upper extremity are patent and compressible segmentally . There is no evidence of deep vein thrombosis. Superficial veins of the right upper extremity are patent and compressible segm entally. There is no evidence of superficial vein thrombosis. Ordering Physician: Mai Barlow Referring Physician: Beth Quiroz Performed By: Niki Cochran RVT ???
[2023-06-28] MEDS: Hydrocortisone Sod Succinate 100 MG/2 ML Vial IV ×4 (02:57→22:03)
[2023-06-28] MEDS: 0.9% Normal Saline (1000mL) 1,000 ML 100 ML IV (02:57)
[2023-06-28 03:22] LABS: Urine Sodium 15 mmol/L (Not Establ.)
[2023-06-28 05:16] LABS: Magnesium 1.8 mg/dL (1.6-2.6); Phosphorus 2.6 mg/dL (2.5-4.9)
[2023-06-28] MEDS: 0.9% Saline Lock 10 ML Syringe IV ×3 (05:38→22:12)
[2023-06-28 07:08] LABS: Absolute Lymphocyte Count 0.19 X10^3/uL (0.83-4.51); Basophil# 0.01 X10^3/uL; Basophil% 0.1 % (0-1); Eosinophil# 0.01 X10^3/uL; Eosinophils% 0.1 % (0-5); Hematocrit 26.1 % (40-54); Lymphocyte # 0.19 X10^3/ul (0.83-4.51); Lymphocyte % 1.9 % (19-41); Mean Corp Hgb Conc 30.7 g/dL (32-36); Mean Corpuscular Hgb 31.1 pg (27.0-32.0); Mean Corpuscular Volume 101.6 fL (80-94); Mean Platelet Vol. 11.9 fl (6.2-12.0); Monocyte# 0.84 X10^3/uL; Monocyte% 8.2 % (0-10); NRBC Flagged by Analyzer 0 % (0-5); Neutrophil # 9.03 X10^3/uL (2.7-7.7); POSITIVE COUNT YES; POSITIVE DIFFERENTIAL YES; POSITIVE MORPHOLOGY YES; RBC Distribution Width CV 15.2 % (11.6-14.6); RBC Distribution Width SD 56.5 fl (35.1-43.9); Red Blood Count 2.57 M/mm3 (4.6-6.2); White Blood Count 10.3 K/mm3 (4.4-11.0)
[2023-06-28 07:14] LABS: Differential Indicated SCAN CRITERIA MET; Platelet Count 28 K/mm3 (150-450)
[2023-06-28 07:39] LABS: ALB/GLOB Ratio 0.8 RATIO (0.9-2.4); AST(SGOT) 29 U/L (15-37); Alanine Aminotransfer ALT/SGPT 15 U/L (16-61); Albumin, Serum 2.2 g/dL (3.2-5.0); Alkaline Phosphatase 102 U/L (45-117); Anion Gap 16 (5-15); BUN 72 mg/dL (7-18); BUN/Creat Ratio 18.5 RATIO (10-20); Calcium,Total 8.7 mg/dL (8.5-10.1); Chloride 109 mmol/L (98-107); Creatinine, Serum 3.89 mg/dL (0.70-1.30); EST Glomerular Filtration Rate 16 mL/min (>60); Est Glom Filt Rate - Afr Amer 20 mL/min (>60); Estimated Creatinine Clearance 18.27 ml/min; Globulin 2.8 g/dL (2.2-4.2); Glucose 110 mg/dL (74-106); Potassium 4.5 mmol/L (3.5-5.1); Sodium Level 135 mmol/L (136-145)
[2023-06-28 08:14] LABS: Differential Comment SCANNED; Platelet Estimate MKD DEC (ADEQ)
[2023-06-28] MEDS: Smz/Tmp Ds Tablet 0.5 TABLET PO (09:08)
[2023-06-28] MEDS: Tamsulosin HCl 0.4 MG Capsule PO (09:08)
[2023-06-28] MEDS: Carvedilol 6.25 MG Tablet PO ×2 (09:08→22:02)
[2023-06-28] MEDS: Ferrous Sulfate 325 MG Tablet PO (09:08)
[2023-06-28] MEDS: Tacrolimus 0.5 MG Capsule PO ×2 (09:09→22:03)
[2023-06-28] MEDS: Finasteride 5 MG Tablet PO (09:09)
[2023-06-28] MEDS: Pantoprazole Sodium 40 MG Tablet PO (09:09)
[2023-06-28] MEDS: Acetaminophen 325 MG Tablet 650 MG PO ×2 (09:22→17:25)
[2023-06-28 10:05] LABS: Allen Test Positive; Base Excess -18 mmol/L (-2 to +2); Bicarbonate 9.2 mmol/L (22-26); Blood Gas Specimen Type ART; Mode Not entered; O2 Delivery Device Not entered; PO2 48 mmHG (75-100); SITE R Radial; SO2 79 % (95-99); Total Carbon Dioxide 10 mmol/L; pCO2 20.6 mmHg (35-45); pH 7.26 (7.35-7.45)
--- NOTE | 2023-06-28 10:12 | CON.PCM.RE_ITS ---
Assessment & Plan Assessment/Plan (1) Acute UTI: (2) Acute renal failure (ARF): (3) Diarrhea: (4) Metabolic acidosis: PLAN: Plan This is a pleasant 68-year-old male with past medical history significant for e nd-stage renal disease status post total of 3 kidney transplant (first kidney transplant 1987, second kidney transplant 2005, last kidney transplant July 2017) with baseline serum creatinine around 1.5 mg/dL followed by Dr. Montanez at [facility] transplant team, chronic Thrombocytopenia, Chronic macrocytic anemia/iron deficiency anemia, Hx Complete HB s/p pacemaker, Valvular heart disease, HTN, HLD, GERD, Chronic AF, VINAYAK on CPAP, history of right arm arteriovenous fistula that was ligated in December 2022 due to right upper extremity edema and chest wall varicosities (patient has no intention of ever using his fistula) seizure disorder, recently diagnosed head and neck squamous cell malignancy status po stsurgical intervention who was to undergo radiation therapy starting today who presented emergency room with complaints of feeling unwell, fever and chills, diarrhea. Admitted for acute sepsis with complicated urinary tract infection. Nephrology consulted in view of rising serum creatinine. Patient's baseline serum creatinine ranges around 1.5 mg/dL. Quite possibly ZOË prerenal secondary to sepsis/UTI/hypotension. Patient is nonoliguric. Potassium is normal at 4.5. Bicarb is 10. Metabolic acidosis likely from diarrhea and ZOË. IV fluids have been switched from normal saline to bicarb drip. Recommend continue on bicarb drip as ordered. At this time there is no acute indication for renal placement therapy. However patient and his did report that they have discussed with his transplant concrete journeyman should patient ever need hemodialysis he would do on short-term basis only, patient reports he would not do long-term hemodialysis. We will check haptoglobin, LDH and tacrolimus level. Will also check renal ultrasound of transplanted kidney. Patient is on immunosuppressants: tacrolimus 0.5 mg twice daily, Bactrim, mycophenolate 180 mg and 360 mg twice daily, prednisone is on hold, patient is on Solu-Cortef. Blood pressures have improved with volume expansion. Blood cultures and urine cultures pending, patient is on IV antibiotics, Rocephin. Further orders forthcoming as hospitalization evolves, thank you for allowing us to participate in the care of Mr. Berrios. 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 First transplant, patient received living donor kidney transplant from his aunt in August 1987. He then received second kidney transplant from his October 2005. Patient then received his last kidney transplant from a living donor from a friend with the paired donor exchange in July 2017. Patient's concrete journeyman is Dr. Montanez at [facility] with last contact in April 2023 (per patient and his ). Patient presents to thr emergency room last evening with complaints of malaise, diarrhea for at least 2 days, fatigue and body aches. Workup in the emergency room initial blood pressure 85/48, urinalysis leukocyte Estrace 500 with greater than 1000 urine WBCs and positive bacteria. Chest x-ray clear. Patient received 2 L normal saline and Rocephin in emergency room and admitted for further evaluation and treatment. Nephrology consulted as patient was noted to have creatinine of 4.07 yesterday in emergency room. Patient reports no recent vomiting but does complain of nausea. Patient reports he had taken Imodium when having diarrhea. No recent NSAIDs. Has not missed any immunosuppressants. [facility] Medical History Actinic keratosis Anemia Back pain BCC (basal cell carcinoma of skin) Cancer Cardiology follow-up encounter Ceruminous adenocarcinoma of right ear Chronic kidney disease (CKD) Chronic rejection of renal transplant Complete heart block (08/11/16) CPAP (continuous positive airway pressure) dependence Dietary restriction Diverticulosis Easy bruising Enterococcal sepsis Essential hypertension Fistula H pylori ulcer History of Clostridium difficile infection History of echocardiogram History of renal dialysis History of skin cancer History of steroid therapy History of ulceration Hyperlipidemia Longstanding persistent atrial fibrillation Loss of hearing Low iron Lower extremity edema Membranoproliferative glomerulonephritis MRSA infection Non-rheumatic mitral valve stenosis Non-smoker Nonrheumatic aortic (valve) stenosis Obesity VINAYAK (obstructive sleep apnea) Pacemaker Pulmonary hypertension Right-sided tinnitus Secondary pulmonary arterial hypertension Seizures Sleep apnea Squamous cell carcinoma UTI (urinary tract infection) Wears glasses Home Medications tamsulosin 0.4 mg capsule 0.4 mg PO DAILY PROSTATE 03/16/15 [History Last Taken 05/04/23] finasteride 5 mg tablet 5 mg PO DAILY PROSTATE 08/03/16 [History Last Taken 01/11/23 08:00] carvedilol 6.25 mg tablet 6.25 mg PO BID HEART 02/14/18 [History Last Taken 05/05/23] ferrous sulfate 324 mg (65 mg iron) tablet,delayed release 324 mg PO DAILY SUPPLEMENT 02/14/18 [History Last Taken 05/04/23] prednisone 5 mg tablet 5 mg PO DAILY STEROID 02/14/18 [History Last Taken 05/05/23] sulfamethoxazole 800 mg-trimethoprim 160 mg tablet 1 tab PO MOWEFR ANTIBIOTIC 02/14/18 [History Last Taken 05/03/23] acetaminophen 500 mg tablet 1,000 mg PO BID PAIN 03/02/19 [History Last Taken 06/27/23 20:00] acitretin 10 mg capsule 10 mg PO SUTUTHSA CHEMO 03/02/19 [History Last Taken 05/04/23] atorvastatin 20 mg tablet 20 mg PO QHS CHOLESTEROL 04/01/21 [History Last Taken 05/04/23] mycophenolate sodium 180 mg tablet,delayed release 180 mg PO BID TRANSPLANT REJECTION PREVENTION 04/01/21 [History Last Taken 05/05/23] mycophenolate sodium 360 mg tablet,delayed release 360 mg PO BID TRANSPLANT RE JECTION PREVENTION 04/01/21 [History Last Taken 05/05/23] tacrolimus 0.5 mg capsule, immediate-release 0.5 mg PO BID TRANSPLANT REJECTION PREVENTION 04/01/21 [History Last Taken 05/05/23] pantoprazole 40 mg tablet,delayed release 40 mg PO DAILY ACID REFLUX 09/15/22 [History Last Taken 05/05/23] zolpidem 10 mg tablet 10 mg PO QHS INSOMNIA 09/15/22 [History Last Taken 05/04/23] warfarin 2 mg tablet 2 mg PO SUTUTHSA BLOOD THINNER 11/12/22 [History Last Taken 04/30/23] warfarin 1 mg tablet 1 mg PO MOWEFR 12/28/22 [History Last Taken 04/30/23] Allergy/AdvReac Type Severity Reaction Status Date / Time ibuprofen [From Motrin] AdvReac Kidney Verified 06/03/23 10:32 transplant latex AdvReac Rash Verified 06/03/23 10:32 Family History Mother Cancer Father Cancer Myocardial infarction CAD (coronary artery disease) Heart disease Surgical History H/O hemorrhoidectomy H/O Mohs micrographic surgery for skin cancer H/O skin graft History of anal lesion History of aortic valve replacement (08/04/16) History of cardioversion (11/2016) History of colonoscopy History of cranial surgery History of excision of lesion (2019) History of eye surgery History of herniorrhaphy History of mitral valve replacement (08/04/16) History of permanent cardiac pacemaker placement (08/11/16) History of surgery History of surgery on arm Hx of external ear surgery Hx of living-donor kidney transplantation Hx of total knee arthroplasty Renal transplant recipient (02/2018) S/P flap graft Status post ligation of left atrial appendage (08/04/16) Social History household members: spouse and family Smoking Status: Never smoker alcohol intake: never substance use type: does not use ROS ROS Narrative As in HPI and past medical history Physical Exam Narrative Alert and oriented x 3, no apparent distress S1, S2, RRR Lung sounds clear Abdomen soft, nontender, positive bowel sounds No edema Indwelling Brown with yellow/straw-colored urine in bag Lab / Micro Data 06/28/23 06:43 06/28/23 06:43 Labs: Laboratory Results - last 24 hr 06/27/23 22:40: WBC 8.4, RBC 2.86 L, Hgb 9.1 L, Hct 28.7 L, MCV 100.3 H, MCH 31.8, MCHC 31.7 L, RDW Std Deviation 56.3 H, RDW Coeff of Fermin 15.2 H, Plt Count 33 L*, MPV 13.6 H, Immature Gran % (Auto) 1.000 H, Neut % (Auto) 93.4 H, Lymph % (Auto) 1.8 L, [place] % (Auto) 3.8, Eos % (Auto) 0.0, Baso % (Auto) 0.0, Absolute Neuts (auto) 7.8 H, Absolute Lymphs (auto) 0.15 L, Nucleated RBC % 0, Differential Comment SCANNED, Diff Path Review May da Giles Cells 2+, PT 25.0 H, INR 2.3, APTT 52.9 H, Sodium 133 L, Potassium 4.4, Chloride 109 H, Carbon Dioxide 12.0 L, Anion Gap 12, BUN 73 H, Creatinine 4.07 H, Estim Creat Clear Calc 17.07, Est GFR (MDRD) Af Amer 19 L, Est GFR (MDRD) Non-Af 16 L, BUN/Creatinine Ratio 17.9, Glucose 98, Lactic Acid 1.3, Calcium 9.2, Phosphorus 2.6, Magnesium 1.8, Total Bilirubin 1.30 H, AST 24, ALT 16, Alkaline Phosphatase 124 H, Troponin I High Sens 49, B-Natriuretic Peptide 799.4 H, Total Protein 5.5 L, Albumin 2.5 L, Globulin 3.0, Albumin/Globulin Ratio 0.8 L 06/27/23 22:50: Urine Color Yellow, Urine Clarity Sl. Cloudy, Urine pH 5.0, Ur Specific [place] 1.020, Urine Protein 30 H, Urine Glucose (UA) Normal, Urine Ketones Negative, Urine Occult Blood 50 H, Urine Nitrite Negative, Urine Bilirubin 1 H, Urine Urobilinogen 1 H, Ur Leukocyte Esterase 500 H, Urine RBC 0- 5 SEEN, Urine WBC >100 SEEN, Ur Squamous Epith Cells 0 SEEN, Urine Bacteria 3+, Urine Mucus 0 SEEN 06/28/23 02:21: Ur Random Sodium 15, Urine Creatinine 159.00 06/28/23 06:43: WBC 10.3, RBC 2.57 L, Hgb 8.0 L, Hct 26.1 L, MCV 101.6 H, MCH 31.1, MCHC 30.7 L, RDW Std Deviation 56.5 H, RDW Coeff of Fermin 15.2 H, Plt Count 28 L*, MPV 11.9, Immature Gran % (Auto) 1.700 H, Neut % (Auto) 88.0 H, Lymph % (Auto) 1.9 L, [place] % (Auto) 8.2, Eos % (Auto) 0.1, Baso % (Auto) 0.1, Absolute Neuts (auto) 9.0 H, Absolute Lymphs (auto) 0.19 L, Nucleated RBC % 0, Differential Comment SCANNED, Diff Path Review July, Platelet Estimate MKD DEC, PT 31.0 H, INR 3.0, Sodium 135 L, Potassium 4.5, Chloride 109 H, Carbon Dioxide 10.0 L, Anion Gap 16 H, BUN 72 H, Creatinine 3.89 H, Estim Creat Clear Calc 18.27, Est GFR (MDRD) Af Amer 20 L, Est GFR (MDRD) Non-Af 16 L, BUN/Creatinine Ratio 18.5, Glucose 110 H, Calcium 8.7, Total Bilirubin 1.20 H, AST 29, ALT 15 L, Alkaline Phosphatase 102, Total Protein 5.0 L, Albumin 2.2 L, Globulin 2.8, Albumin/Globulin Ratio 0.8 L ABG Data ABG results: ABG 06/28/23 10:01 Specimen Type ART Sample Site R Radial pH 7.26 L Bicarbonate Actual 9.2 L Total CO2 10 Base Excess -18 L O2 Saturation 79 L O2 % 21.0 ABG pCO2 20.6 L ABG pO2 48 L Chepe Test Positive O2 Delivery Device Not entered Vent Mode Not entered Rhythm Strip Rhythm Strip: A-fib Rate: 85 Ectopy: None Imaging Radiology Impression Chest X-Ray 06/27/23 22:45 IMPRESSION: No definite acute cardiopulmonary disease on limited portable frontal view of the chest. Electronically Signed: Oscar Manriquez MD at 23:44 EDT ,
[2023-06-28 10:45] LABS: Anion Gap 13 (5-15); BUN 72 mg/dL (7-18); Calcium,Total 8.8 mg/dL (8.5-10.1); Chloride 111 mmol/L (98-107); Creatinine, Serum 3.79 mg/dL (0.70-1.30); EST Glomerular Filtration Rate 17 mL/min (>60); Est Glom Filt Rate - Afr Amer 21 mL/min (>60); Estimated Creatinine Clearance 18.75 ml/min; Glucose 117 mg/dL (74-106); Potassium 4.8 mmol/L (3.5-5.1); Sodium Level 135 mmol/L (136-145)
[2023-06-28] MEDS: Sodium Bicarbonate 150 MEQ in Dextrose 5%-Water (1000mL Bag) 1,000 ML 100 MEQ IV (10:51)
--- NOTE | 2023-06-28 10:51 | US_ITS ---
STUDY: RENAL ULTRASOUND - COMPLETE REASON FOR EXAM: Male, 68 years old. ZOË history kidney transplant -- US last kidney right side (3 kidney transplants) -- HX OF RT TRANSPLANT 1987 -- 2005 LT TRANSPLANT -- 2018 RT TRANSPLANT NEPHRECTOMY AND NEW RT TRANSPLANT TECHNIQUE: Ultrasound evaluation of the kidneys was performed with real-time and static swift-scale imaging. COMPARISON: None. FINDINGS: RIGHT KIDNEY: Pelvic location of the transplanted right right kidney, which is normal in size. The right kidney measures 12.3 cm x 5 cm x 5.6 cm. There is a normal cortex of the right kidney. The renal cortex measures 1.5 cm. There is no right renal mass or cyst. There are no right renal calculi. There is no right hydronephrosis. [place] right kidney measures 7.1 cm x 3 cm x 3.5 cm. The renal cortex measures 0.8 cm. DISTAL RIGHT URETER: There is non-visualization of the distal right ureter. There is no demonstrated right ureterovesical junction calculus. There is no demonstrated right ureteral jet. LEFT KIDNEY: Normal location of the left kidney, which is normal in size. The left kidney measures 9.6 cm x 3.9 cm x 4.6 cm. There is diffuse thinning of the renal cortex. The renal cortex measures 0.8 cm. There is no left renal mass or cyst. A 2 mm calculus is seen within it. There is no left hydronephrosis. DISTAL LEFT URETER: There is non-visualization of the distal left ureter. There is no demonstrated left ureterovesical junction calculus. There is a visualized left ureteral jet. BLADDER: A Brown catheter is seen within the empty bladder. US/Kidney and Bladder IMPRESSION: Normal appearance of the transplanted right pelvic kidney. Mild cortical thinning of the transplanted left kidney. Electronically Signed: Bao Jansen MD at 15:50 EDT ,
[2023-06-28] MEDS: MYCOPHENOLATE SODIUM 180 MG TABLET.DR PO ×2 (11:10→22:05)
[2023-06-28] MEDS: MYCOPHENOLATE SODIUM 360 MG TABLET.DR PO ×2 (11:10→22:04)
[2023-06-28 13:50] LABS: Anion Gap 12 (5-15); BUN 73 mg/dL (7-18); BUN/Creat Ratio 19.2 RATIO (10-20); Calcium,Total 8.8 mg/dL (8.5-10.1); Chloride 112 mmol/L (98-107); Creatinine, Serum 3.81 mg/dL (0.70-1.30); EST Glomerular Filtration Rate 17 mL/min (>60); Est Glom Filt Rate - Afr Amer 20 mL/min (>60); Estimated Creatinine Clearance 18.66 ml/min; Glucose 156 mg/dL (74-106); Potassium 4.7 mmol/L (3.5-5.1); Sodium Level 134 mmol/L (136-145)
[2023-06-28] MEDS: Ensure Plus High Protein 120 ML LIQUID PO ×3 (14:33→22:05)
--- NOTE | 2023-06-28 15:48 | CHAPLAIN ---
Type of Pastoral Visit ___ Initial Visit ___ Follow-up Visit ___ On-call Visit ___ General Patient Visit ___ Spiritual Assessment ___ Family Conference ___ Bereavement ___ Rapid Response ___ Code Blue ___ Other (describe below) Pastoral Care Referral From ___ Patient ___ Family ___ Nurse ___ Physician ___ Operating Table Assembler ___ Senior Chemist ___ Other (describe below) Sacrament/Intervention ___ Active listening ___ Anointing ___ Holiness ___ Bereavement ___ Communion ___ Natty exploration ___ ___ Life review ___ Prayer ___ Reconciliation ___ Sacrament of Sick ___ Supportive presence ___ Wedding ___ Other (describe below) Pastoral Comments patient was not available to visit at first attempt
--- NOTE | 2023-06-28 16:04 | CASEMGMT ---
DEIDRA DARDEN Assessment Face to Face with patient for initial transition planning/care coordination assessment. DEIDRA DARDEN introduced self and role at [facility], pt voices understanding. Pt is A&Ox4 and is resting comfortably in bed and is calm. Pt at bedside. Care providers, pharmacy, and demographics verified. Admitting dx: UTI, RUE Pain, ZOË PCP: Gabriella Specialists: Lisseth, [facility] transplant grounds/maintenance specialist. [facility]. Rosmery, wildland fire fighter. Steph, Vascular. Kasie, urologist. [facility]erred Pharmacy: [facility] Insurance: [id number] Prescription Benefit: Yes, [facility] part D LNOK: Seble Berrios (W), Juan Carlos Soliman (Daughter) Living Arrangements: Pt lives with his in a single level condo with a flat entrance ADLs/IADLs: Pt states that he is normally ind but his has been helping him lately Transportation: Self, DME: CPAP at night. Cane, walker, BP Cuff, W/C, raised toilet seat with GB, Walk-in shower with seat and GB. HHC/SNF: History at [facility]. History with [facility] Pt?s goal: Home with HHC Plan: Pt 6-Click is 11. Therapy evaluations are pending. Pt states that he has a scheduled appt next Wednesday with Palliative ([facility]). Pt states that he is not wanting to go to a SNF at time of DC and that he would prefer to go home with HHC. Pt states that he has had [facility] in the past and would like to go through [facility] again. DEIDRA Prince CM updated. CM to follow for safe DC from [facility]. López Rust RN, CM
--- NOTE | 2023-06-28 16:47 | CASEMGMT ---
Advance Directive Validation: Noted nsg documentation that pt has living will and HPOA documents. HPOA document noted to be present in pt's EMR but living will not present. Will need to validate living will w/patient. Erika Rain RN ACM
--- NOTE | 2023-06-28 17:55 | PN.HOSP_ITS ---
Reason for Visit Reason for Visit: Diagnoses Sepsis, unspecified organism (06/28/23) Objective Data Objective Data Vital Signs: Vital Signs Temp Pulse Resp BP Pulse Ox O2 Del Method O2 Flow Rate 97.0 F L 73 18 153/88 H 98 Nasal Cannula 2 06/28/23 14:28 06/28/23 14:28 06/28/23 14:28 06/28/23 14:28 06/28/23 14:28 06/28/23 14:28 06/28/23 14:28 Oxygen Flow Rate (L/min) 2 Oxygen Delivery Method Nasal Cannula Weight: 84.5 kg Body Mass Index (BMI) 30.0 Intake & Output: Intake and Output for Last 24 Hours 06/26/23 06/27/23 06/28/23 23:59 23:59 23:59 Intake Total 3095 / 3095 Output Total 750 / 750 Balance 2345 / 2345 Lab / Micro Data 06/28/23 06:43 06/28/23 13:23 Labs: Laboratory Results - last 24 hr 06/27/23 22:40: WBC 8.4, RBC 2.86 L, Hgb 9.1 L, Hct 28.7 L, MCV 100.3 H, MCH 31.8, MCHC 31.7 L, RDW Std Deviation 56.3 H, RDW Coeff of Fermin 15.2 H, Plt Count 33 L*, MPV 13.6 H, Immature Gran % (Auto) 1.000 H, Neut % (Auto) 93.4 H, Lymph % (Auto) 1.8 L, [place] % (Auto) 3.8, Eos % (Auto) 0.0, Baso % (Auto) 0.0, Absolute Neuts (auto) 7.8 H, Absolute Lymphs (auto) 0.15 L, Nucleated RBC % 0, Differential Comment SCANNED, Diff Path Review May da Giles Cells 2+, PT 25.0 H, INR 2.3, APTT 52.9 H, Sodium 133 L, Potassium 4.4, Chloride 109 H, Carbon Dioxide 12.0 L, Anion Gap 12, BUN 73 H, Creatinine 4.07 H, Estim Creat Clear [place] c 17.07, Est GFR (MDRD) Af Amer 19 L, Est GFR (MDRD) Non-Af 16 L, BUN/Creatinine Ratio 17.9, Glucose 98, Lactic Acid 1.3, Calcium 9.2, Phosphorus 2.6, Magnesium 1.8, Total Bilirubin 1.30 H, AST 24, ALT 16, Alkaline Phosphatase 124 H, Troponin I High Sens 49, B-Natriuretic Peptide 799.4 H, Total Protein 5.5 L, Albumin 2.5 L, Globulin 3.0, Albumin/Globulin Ratio 0.8 L 06/27/23 22:50: Urine Color Yellow, Urine Clarity Sl. Cloudy, Urine pH 5.0, Ur Specific [place] 1.020, Urine Protein 30 H, Urine Glucose (UA) Normal, Urine Ketones Negative, Urine Occult Blood 50 H, Urine Nitrite Negative, Urine Bilirubin 1 H, Urine Urobilinogen 1 H, Ur Leukocyte Esterase 500 H, Urine RBC 0- 5 SEEN, Urine WBC >100 SEEN, Ur Squamous Epith Cells 0 SEEN, Urine Bacteria 3+, Urine Mucus 0 SEEN 06/28/23 02:21: Ur Random Sodium 15, Urine Creatinine 159.00 06/28/23 06:43: WBC 10.3, RBC 2.57 L, Hgb 8.0 L, Hct 26.1 L, MCV 101.6 H, MCH 31.1, MCHC 30.7 L, RDW Std Deviation 56.5 H, RDW Coeff of Fermin 15.2 H, Plt Count 28 L*, MPV 11.9, Immature Gran % (Auto) 1.700 H, Neut % (Auto) 88.0 H, Lymph % (Auto) 1.9 L, [place] % (Auto) 8.2, Eos % (Auto) 0.1, Baso % (Auto) 0.1, Absolute Neuts (auto) 9.0 H, Absolute Lymphs (auto) 0.19 L, Nucleated RBC % 0, Different ial Comment SCANNED, Diff Path Review July foll, Platelet Estimate MKD DEC, PT 31.0 H, INR 3.0, Sodium 135 L, Potassium 4.5, Chloride 109 H, Carbon Dioxide 10.0 L, Anion Gap 16 H, BUN 72 H, Creatinine 3.89 H, Estim Creat Clear Calc 18.27, Est GFR (MDRD) Af Amer 20 L, Est GFR (MDRD) Non-Af 16 L, BUN/Creatinine Ratio 18.5, Glucose 110 H, Calcium 8.7, Total Bilirubin 1.20 H, AST 29, ALT 15 L , Alkaline Phosphatase 102, Total Protein 5.0 L, Albumin 2.2 L, Globulin 2.8, Albumin/Globulin Ratio 0.8 L 06/28/23 10:06: Sodium 135 L, Potassium 4.8, Chloride 111 H, Carbon Dioxide 11.0 L, Anion Gap 13, BUN 72 H, Creatinine 3.79 H, Estim Creat Clear Calc 18.75, Est GFR (MDRD) Af Amer 21 L, Est GFR (MDRD) Non-Af 17 L, BUN/Creatinine Ratio 19.0, Glucose 117 H, Calcium 8.8 06/28/23 13:23: Sodium 134 L, Potassium 4.7, Chloride 112 H, Carbon Dioxide 10.0 L, Anion Gap 12, BUN 73 H, Creatinine 3.81 H, Estim Creat Clear Calc 18.66, Est GFR (MDRD) Af Amer 20 L, Est GFR (MDRD) Non-Af 17 L, BUN/Creatinine Ratio 19.2, Glucose 156 H, Calcium 8.8 Micro: Microbiology 06/27/23 22:50 Urine, Clean Catch Urine Culture - Preliminary GNR lactose burr bench hand Gram negative crow 06/27/23 23:26 Blood Culture (Wb) - Port Blood Culture - Preliminary 06/27/23 22:40 Blood Culture (Wb) - Chest Blood Culture - Preliminary ABG Data ABG results: ABG 06/28/23 10:01 Specimen Type ART Sample Site R Radial pH 7.26 L Bicarbonate Actual 9.2 L Total CO2 10 Base Excess -18 L O2 Saturation 79 L O2 % 21.0 ABG pCO2 20.6 L ABG pO2 48 L Chepe Test Positive O2 Delivery Device Not entered Vent Mode Not entered Radiography Diagnostic Testing: Radiology Impression Chest X-Ray 06/27/23 22:45 IMPRESSION: No definite acute cardiopulmonary disease on limited portable frontal view of the chest. Electronically Signed: Oscar Manriquez MD at 23:44 EDT , Renal Ultrasound 06/28/23 10:51 IMPRESSION: Normal appearance of the transplanted right pelvic kidney. Mild cortical thinning of the transplanted left kidney. Electronically Signed: Bao Jansen MD at 15:50 EDT , Rhythm Strip Rhythm Strip: A-fib Rate: 85 Ectopy: None Assessment & Plan Assessment/Plan (1) Metabolic acidosis: (2) Diarrhea: (3) Sepsis: (4) Warfarin-induced coagulopathy: (5) Thrombocytopenia: (6) Acute UTI: (7) Basal cell carcinoma of right ear: (8) Acute renal failure (ARF): PLAN: Plan Sepsis 2/2 UTI -Patient meets sepsis criteria with Sep 1 having ZOË, thrombocytopenia and source of urine -Patient is currently on ceftriaxone however I do feel that we should cover Pseudomonas with his baseline immunocompromise state -Preliminary blood cultures and urine cultures are positive so we will transition to cefepime -Patient was not hypotensive so aggressive IV fluids were not given at this time -Patient is on chronic prednisone so stress dose steroids were given and will continue for now -Preliminary blood cultures show gram-negative rods -Urine culture is showing gram-negative rods -Consult ID due to chronic immunocompromise state ZOË on CKD stage III with history of transplanted kidney x 3 -Baseline is unclear at this time so we cannot establish a subtype of CKD stage III -Nephrology is following -Renal ultrasound ordered and there is normal appearance of transplanted kidney in the right pelvis and mild cortical thinning of the transplanted left kidney -Serum creatinine has improved some -IV fluids transitioned to bicarbonate due to metabolic acidosis and will continue at 100 cc/h -Open/LDH/tacrolimus level are pending -Okay to continue Bactrim per discussion with nephrology -Continue home mycophenolate -Nephrology is following-appreciate input -Patient has indicated he would not like any long-term dialysis nor repeat transplant of the kidney Metabolic acidosis -Patient has anion gap elevated metabolic acidosis likely related to renal dysfunction and diarrhea -Diarrhea was reportedly only 2-3 bouts and has resolved so I suspect this is predominantly related to his renal dysfunction -Bicarbonate drip initiated as pH was 7.26 and acidosis was predominantly metabolic -Continue serum bicarb drip with 150 mill equivalents D5W at 100 cc/h -Serial BMPs -Suspect this is contributing to his fatigue Diarrhea -Patient had 2 bouts at home -Has since resolved FEN patient was given Imodium by his -Enteric panel and C. difficile are ordered and pending -If no further diarrhea tomorrow we will remove precautions for contact Acute on chronic thrombocytopenia -Baseline appears to run between 90 and 122,000 most recently -Could very well be related to his sepsis but need to rule out other etiologies -Coags are chronically elevated due to anticoagulation so this is not currently helpful -Check D-dimer which may be elevated just due to his cancer -Check fibrinogen level -I have discussed with the lab and asked them to do a peripheral smear looking for schistocytes -LDH pending -Haptoglobin pending -Hemoglobin appears stable at this time -Will hold anticoagulation for now -No indication for acute transfusion -May need hematology involvement depending on results of the above 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 -Recent resection -Radiation was planned to start today -I have discussed with the radiation oncologist and if he is medically more improved tomorrow they will start radiation tomorrow -Plan per is to try radiation as recommended and if no improvement transition to hospice Toxic/metabolic encephalopathy -Secondary to the above -Is alert and oriented however more fatigued and falls asleep easily than baseline -Should improve as his metabolic situation improves -Continue to monitor Chronic anemia -Hemoglobin with slight drop from a baseline of 9-10 to 8.0 on admission -Continue home iron -Etiology is unclear -Haptoglobin pending -LDH is pending -Fibrinogen level pending -D-dimer pending -KAREEN smear pending and discussed with lab however I have no report yet--> follow-up discussed in the late afternoon and the pathologist has on her desk but no report in yet -Low threshold for hematology involvement if any of the above are abnormal -Coags are unhelpful at this time due to chronic use of anticoagulation with warfarin -Hold Coumadin Right upper extremity pain -Right upper extremity ultrasound pending -Patient is therapeutic on Coumadin at the time of admission Valvular heart disease/chronic atrial fibrillation/history of complete heart block -Status post aortic valve replacement/mitral valve replacement--> both valves are bioprosthetic -Has pacemaker -Last echocardiogram in 2021 was unremarkable for any acute changes -No current signs of decompensation Chronic atrial fibrillation -Status post ligation of the left atrial appendage in 2017 -Continue Coreg as long as able with blood pressure -Hold Coumadin with thrombocytopenia to decrease risk of bleeding Hypertension -Continue home Coreg with parameters -As needed hydralazine available if needed Hyperlipidemia -Continue home atorvastatin BPH with obstruction -Continue home finasteride -Continue home Flomax GERD -Continue home PPI VINAYAK -Continue nocturnal CPAP Obesity -BMI 30.1 -Recommend weight loss -Complicates treatment, prognosis, outcomes Insomnia -Hold home zolpidem for now with encephalopathy DVT prophylaxis -SCDs for now -Hold Coumadin -Trend INR CODE STATUS -DNR CCA with no intubation as per discussion at the time of admission Patient and requested updates and concerns to be directed to [facility] physician to physician or transplant [facility] team at [phone] with regards to his renal function. May need to consider transfer depending on the above response and this was discussed with patient and family at the time of my evaluation today.
[2023-06-28 18:45] LABS: Anion Gap 12 (5-15); BUN 75 mg/dL (7-18); BUN/Creat Ratio 19.7 RATIO (10-20); Calcium,Total 8.9 mg/dL (8.5-10.1); Chloride 111 mmol/L (98-107); EST Glomerular Filtration Rate 17 mL/min (>60); Est Glom Filt Rate - Afr Amer 20 mL/min (>60); Glucose 268 mg/dL (74-106); Potassium 4.2 mmol/L (3.5-5.1); Sodium Level 135 mmol/L (136-145)
[2023-06-28] MEDS: CEFEPIME HCL IV (19:06)
[2023-06-28] MEDS: NORMAL SALINE 0.9% IV (19:06)
[2023-06-28 19:35] LABS: Fibrinogen 719 mg/dl (203-444)
[2023-06-28 19:37] LABS: D-Dimer Quantitative (DVT/PE) 1.29 FEU/ug/m (0.27-0.49)
--- NOTE | 2023-06-28 19:43 | VDLE_ITS ---
Reason For Study: elevated D-Dimer RIGHT LEFT GSV is normal. GSV is normal. CFV is compressible, spontaneous, phasic, CFV is compressible, spontaneous, phasic, competent and demonstrates normal competent, and demonstrates normal augmentation. augmentation. FV is compressible, spontaneous, phasic, FV is compressible, spontaneous, phasic, competent and demonstrates normal competent and demonstrates normal augmentation. augmentation. POP V is compressible, spontaneous, phasic, POP V is compressible, spontaneous, phasic, competent and demonstrates normal competent and demonstrates normal augmentation. augmentation. T/P Trunk is compressible. T/P Trunk is compressible. PTV is compressible. PTV is compressible. RT PerV is compressible. LT PerV is compressible. Procedure This is a venous duplex using B-mode, color flow and spectral Doppler. Exam performed portable in patient room. The exam was diagnostic. A preliminary report was called and/or faxed to PCU wire charger. VL/Venous Duplex US - Garret Extrem Interpretation Summary Deep veins of the bilateral lower extremities are patent and compressible segme ntally. There is no evidence of bilateral lower extremity deep vein thrombosis. The bilateral great saphenous veins appear patent and compressible segmentally. Ordering Physician: Jihan Hayes Performed By: Ambrocio Rivas, RVT
[2023-06-28 20:39] LABS: Absolute Lymphocyte Count 0.18 X10^3/uL (0.83-4.51); Absolute Neutrophil Count 5.9 X10^3/uL (2.0-7.7); Hematocrit 26.1 % (40-54); Hemoglobin 8.4 g/dL (13.0-16.5); Lymphocyte # 0.18 X10^3/ul (0.83-4.51); Lymphocyte % 2.7 % (19-41); Mean Corp Hgb Conc 32.2 g/dL (32-36); Mean Corpuscular Hgb 31.6 pg (27.0-32.0); Mean Corpuscular Volume 98.1 fL (80-94); Monocyte# 0.61 X10^3/uL; NRBC Flagged by Analyzer 0 % (0-5); Neutrophil # 5.88 X10^3/uL (2.7-7.7); Neutrophil % 87.1 % (47-70); POSITIVE COUNT YES; POSITIVE DIFFERENTIAL YES; RBC Distribution Width CV 15.1 % (11.6-14.6); RBC Distribution Width SD 54.5 fl (35.1-43.9); Red Blood Count 2.66 M/mm3 (4.6-6.2); White Blood Count 6.8 K/mm3 (4.4-11.0)
[2023-06-28 20:46] LABS: Differential Indicated SCAN CRITERIA MET; Platelet Count 25 K/mm3 (150-450)
--- NOTE | 2023-06-28 20:48 | NURSING ---
Pts primary rn aware of critical plt lab of 15 at this time.
--- NOTE | 2023-06-28 20:51 | NURSING ---
Pts primary rn aware of critical lab value plt is 25 at this time.
[2023-06-28 20:58] LABS: LDH 196 U/L (87-241)
--- NOTE | 2023-06-28 21:05 | CPS ---
Patient set up with own PAP machine for the night.
[2023-06-28] MEDS: Atorvastatin Calcium 20 MG Tablet PO (22:03)
[2023-06-28 22:17] LABS: Anion Gap 13 (5-15); BUN 76 mg/dL (7-18); BUN/Creat Ratio 19.8 RATIO (10-20); Calcium,Total 9.4 mg/dL (8.5-10.1); Chloride 110 mmol/L (98-107); Creatinine, Serum 3.83 mg/dL (0.70-1.30); EST Glomerular Filtration Rate 17 mL/min (>60); Est Glom Filt Rate - Afr Amer 20 mL/min (>60); Estimated Creatinine Clearance 18.56 ml/min; Glucose 207 mg/dL (74-106); Potassium 4.1 mmol/L (3.5-5.1); Sodium Level 135 mmol/L (136-145)
[2023-06-29] VITALS (7 sets, daily range): BP systolic 130–186; BP diastolic 64–96; PULSE 61–66; RESP 16–18; TEMP 36.1–36.3; O2SAT 94–100; BMI 30.4
[2023-06-29] MEDS: Sodium Bicarbonate 150 MEQ in Dextrose 5%-Water (1000mL Bag) 1,000 ML 100 MEQ IV ×2 (01:42→13:54)
[2023-06-29 05:13] LABS: Haptoglobin 153 mg/dL (32-363)
[2023-06-29] MEDS: Hydrocortisone Sod Succinate 100 MG/2 ML Vial IV ×2 (05:35→13:54)
[2023-06-29 05:59] LABS: Absolute Lymphocyte Count 0.18 X10^3/uL (0.83-4.51); Absolute Neutrophil Count 5.5 X10^3/uL (2.0-7.7); Basophil# 0.01 X10^3/uL; Basophil% 0.2 % (0-1); Hemoglobin 7.9 g/dL (13.0-16.5); Lymphocyte # 0.18 X10^3/ul (0.83-4.51); Lymphocyte % 2.8 % (19-41); Mean Corp Hgb Conc 31.6 g/dL (32-36); Monocyte# 0.56 X10^3/uL; Monocyte% 8.8 % (0-10); NRBC Flagged by Analyzer 0.5 % (0-5); Neutrophil # 5.48 X10^3/uL (2.7-7.7); POSITIVE COUNT YES; POSITIVE DIFFERENTIAL YES; RBC Distribution Width CV 14.7 % (11.6-14.6); RBC Distribution Width SD 53.3 fl (35.1-43.9); Red Blood Count 2.55 M/mm3 (4.6-6.2); White Blood Count 6.4 K/mm3 (4.4-11.0)
[2023-06-29 06:17] LABS: Differential Indicated SCAN CRITERIA MET; Platelet Count 23 K/mm3 (150-450)
[2023-06-29 06:36] LABS: International Normalized Ratio 3.3; Prothrombin Time (Protime)PT. 33.3 SECONDS (11.7-14.9)
[2023-06-29 07:37] LABS: Differential Comment SCANNED
[2023-06-29 07:38] LABS: Platelet Estimate MKD DEC (ADEQ)
[2023-06-29 09:05] LABS: Pathologist Review Reviewed
[2023-06-29 09:09] LABS: Pathologist Review Reviewed
[2023-06-29] MEDS: Carvedilol 6.25 MG Tablet PO (09:29)
[2023-06-29] MEDS: Pantoprazole Sodium 40 MG Tablet PO (09:29)
[2023-06-29] MEDS: Tacrolimus 0.5 MG Capsule PO (09:29)
[2023-06-29] MEDS: Finasteride 5 MG Tablet PO (09:29)
[2023-06-29] MEDS: Ferrous Sulfate 325 MG Tablet PO (09:29)
[2023-06-29] MEDS: Tamsulosin HCl 0.4 MG Capsule PO (09:30)
[2023-06-29] MEDS: MYCOPHENOLATE SODIUM 360 MG TABLET.DR PO (09:30)
[2023-06-29] MEDS: MYCOPHENOLATE SODIUM 180 MG TABLET.DR PO (09:31)
[2023-06-29] MEDS: Ensure Plus High Protein 120 ML LIQUID PO ×3 (09:31→17:54)
--- NOTE | 2023-06-29 10:08 | CT_ITS ---
STUDY: CT ABDOMEN AND PELVIS WITHOUT CONTRAST REASON FOR EXAM: Male, 68 years old. Pyelonephritis, diarrhea, CKD-dialysis, hypertension, kidney transplant, hernia repair. RADIATION DOSAGE (If Supplied By Facility): CTDIvol = ( 11.64 ) mGy, DLP = ( 662.95 ) mGycm TECHNIQUE: Transaxial images were obtained from the dome of the diaphragm to the symphysis pubis without oral contrast, and without intravenous contrast. Sagittal and coronal images were reconstructed. Individualized dose optimization techniques were used for this CT. COMPARISON: None. FINDINGS: Small bilateral pleural effusions right greater than left with bibasilar atelectasis. Coronary artery calcification. There is evidence of prosthetic mitral valve and aortic valve replacement. Normal liver. Mildly distended gallbladder. Normal spleen. Normal pancreas. Normal bilateral adrenal glands. Marked atrophy of the [place] right kidney. The left kidney is not visualized. A transplanted right kidney is seen in the right lower abdomen/pelvis. Mild degree of perinephric stranding surrounding the transplanted right kidney. No evidence of hydronephrosis. Normal visualized stomach. Normal small intestine. Normal colon. The appendix is visualized and appears normal. There is diffuse atherosclerotic calcification of the abdominal aorta and its major visceral branches, without a demonstrated aneurysm. Normal inferior vena cava. Normal retroperitoneum. A Brown catheter is seen within a decompressed urinary bladder. Mild degree of increased markings in the subcutaneous fat suggestive of possible fluid overload. There are degenerative changes of the visualized lumbar spine. CT/Abdomen/Pel W ORAL Cont Only IMPRESSION: Mild degree of perinephric stranding surrounding the transplanted right pelvic kidney. Decompressed urinary bladder due to presence of a Brown catheter. Marked atrophy of the [place] right kidney. The left kidney is not visualized. Small bilateral pleural effusions right greater than left with bibasilar atelectasis. Electronically Signed: Bao Jansen MD at 13:05 EDT ,
--- NOTE | 2023-06-29 10:10 | PCM.CONS.GEN ---
Assessment & Plan Assessment/Plan (1) Diarrhea: (2) Sepsis: (3) Kidney transplant status: (4) History of permanent cardiac pacemaker placement: (5) History of aortic valve replacement: (6) History of mitral valve replacement: (7) Bacteremia due to Gram-negative bacteria: PLAN: GNR bacteremia and (+) ucx. Had klebsiella uti and bacteremia here 08/2022. H/o kidney transplants, pacer, valve replacement, and port in place. Presented with several days diarrhea, low R back pain, fever/chills, weakness, ZOË on CKD, worsening platelet count, heavy pyuria on UA. Stool pcr panel ordered. Renal u/s done. Will check CT abd/pelvis with po contrast, repeat bcx. Now on cefepime, will adjust dose based on GFR. Seen by neph, transfer recommended. Will follow, thank you HPI Consult Data Date of Consult: 06/29/23 HPI Narrative Reason for Consultation: bacteremia HPI Narrative: JOSEPHINE STARKS, is a 68 M with h/o MPGN, had kidney transplants in 1987, 2005, and 2017 at [facility] Montanez. Baseline Cr around 1.4-1.5. H/o chronic rejection. Had cdiff about 8 years ago. Pacer and port in place. Admitted 08/2022 with klebs uti and bacteremia here. Dx with head and neck cancer recently, had resection end of April, surg site healed well, plan was to start radiation therapy this week. Tacro, mycophenolate, and pred doses have been stable, is on bactrim for proph. No sick contacts, no recent travel. Had gone out to eat a few times last week in anticipation of starting radiation. No one else at the meals got sick. Over 3-05/24, had progressive fatigue, weakness, diarrhea, chills, fever. No blood in stool. Some R lower back pain. No dysuria or change in urine odor or color. No recent new abx. No issues with port. Lowered himself to the floor at home and called 911. In ED, given ceftriaxone, admitted with iv steroids and cefepime. Feeling a little better this AM. Full ROS performed and neg except as noted above. [facility] Medical History Actinic keratosis Anemia Back pain BCC (basal cell carcinoma of skin) Cancer Cardiology follow-up encounter Ceruminous adenocarcinoma of right ear Chronic kidney disease (CKD) Chronic rejection of renal transplant Complete heart block (08/11/16) CPAP (continuous positive airway pressure) dependence Dietary restriction Diverticulosis Easy bruising Enterococcal sepsis Essential hypertension Fistula H pylori ulcer History of Clostridium difficile infection History of echocardiogram History of renal dialysis History of skin cancer History of steroid therapy History of ulceration Hyperlipidemia Longstanding persistent atrial fibrillation Loss of hearing Low iron Lower extremity edema Membranoproliferative glomerulonephritis MRSA infection Non-rheumatic mitral valve stenosis Non-smoker Nonrheumatic aortic (valve) stenosis Obesity VINAYAK (obstructive sleep apnea) Pacemaker Pulmonary hypertension Right-sided tinnitus Secondary pulmonary arterial hypertension Seizures Sleep apnea Squamous cell carcinoma UTI (urinary tract infection) Wears glasses Home Medications tamsulosin 0.4 mg capsule 0.4 mg PO DAILY PROSTATE 03/16/15 [History Last Taken 05/04/23] finasteride 5 mg tablet 5 mg PO DAILY PROSTATE 10/23/15 [History Last Taken 01/11/23 08:00] carvedilol 6.25 mg tablet 6.25 mg PO BID HEART 02/14/18 [History Last Taken 05/05/23] ferrous sulfate 324 mg (65 mg iron) tablet,delayed release 324 mg PO DAILY SUPPLEMENT 02/14/18 [History Last Taken 05/04/23] prednisone 5 mg tablet 5 mg PO DAILY STEROID 02/14/18 [History Last Taken 05/05/23] sulfamethoxazole 800 mg-trimethoprim 160 mg tablet 1 tab PO MOWEFR ANTIBIOTIC 02/14/18 [History Last Taken 05/03/23] acetaminophen 500 mg tablet 1,000 mg PO BID PAIN 03/02/19 [History Last Taken 06/27/23 20:00] acitretin 10 mg capsule 10 mg PO SUTUTHSA CHEMO 03/02/19 [History Last Taken 05/04/23] atorvastatin 20 mg tablet 20 mg PO QHS CHOLESTEROL 04/01/21 [History Last Taken 05/04/23] mycophenolate sodium 180 mg tablet,delayed release 180 mg PO BID TRANSPLANT REJECTION PREVENTION 04/01/21 [History Last Taken 05/05/23] mycophenolate sodium 360 mg tablet,delayed release 360 mg PO BID TRANSPLANT REJECTION PREVENTION 04/01/21 [History Last Taken 05/05/23] tacrolimus 0.5 mg capsule, immediate-release 0.5 mg PO BID TRANSPLANT REJECTION PREVENTION 04/01/21 [History Last Taken 05/05/23] pantoprazole 40 mg tablet,delayed release 40 mg PO DAILY ACID REFLUX 09/15/22 [History Last Taken 05/05/23] zolpidem 10 mg tablet 10 mg PO QHS INSOMNIA 09/15/22 [History Last Taken 05/04/23] warfarin 2 mg tablet 2 mg PO SUTUTHSA BLOOD THINNER 11/12/22 [History Last Taken 04/30/23] warfarin 1 mg tablet 1 mg PO MOWEFR 12/28/22 [History Last Taken 04/30/23] Allergy/AdvReac Type Severity Reaction Status Date / Time ibuprofen [From Motrin] AdvReac Kidney Verified 06/03/23 10:32 transplant latex AdvReac Rash Verified 06/03/23 10:32 Family History Mother Cancer Father Cancer Myocardial infarction CAD (coronary artery disease) Heart disease Surgical History H/O hemorrhoidectomy H/O Mohs micrographic surgery for skin cancer H/O skin graft History of anal lesion History of aortic valve replacement (08/04/16) History of cardioversion (11/2016) History of colonoscopy History of cranial surgery History of excision of lesion (2019) History of eye surgery History of herniorrhaphy History of mitral valve replacement (08/04/16) History of permanent cardiac pacemaker placement (08/11/16) History of surgery History of surgery on arm Hx of external ear surgery Hx of living-donor kidney transplantation Hx of total knee arthroplasty Renal transplant recipient (02/2018) S/P flap graft Status post ligation of left atrial appendage (08/04/16) Social History household members: spouse and family Smoking Status: Never smoker alcohol intake: never substance use type: does not use Physical Exam Const alert, oriented x3 and no apparent distress General Appearance: cooperative HEENT normocephalic and head/scalp atraumatic HEENT Narrative: no oral lesions/thrush Eyes PERRL and EOMs intact bilaterally Neck supple and No nodes Neck Narrative: R neck surg site well healed. Resp normal air movement and clear to auscultation bilaterally Cardio regular rate and regular rhythm GI soft to palpation, non-tender and non-distended GI Narrative: Non tender over RLQ transplant kidney Extremity General Extremity: Negative for edema Skin no rashes or lesions noted Skin Narrative: L chest port no tenderness or redness Neuro CN's II-XII intact bilaterally Lab / Micro Data Attestation: I reviewed the patient's lab results. 06/29/23 05:22 06/28/23 21:40 Labs: Laboratory Results - last 24 hr 06/27/23 22:40: Diff Path Review Reviewed 06/28/23 00:25: Haptoglobin 153 06/28/23 06:43: Diff Path Review Reviewed 06/28/23 10:06: Sodium 135 L, Potassium 4.8, Chloride 111 H, Carbon Dioxide 11.0 L, Anion Gap 13, BUN 72 H, Creatinine 3.79 H, Estim Creat Clear Calc 18.75, Est GFR (MDRD) Af Amer 21 L, Est GFR (MDRD) Non-Af 17 L, BUN/Creatinine Ratio 19.0, Glucose 117 H, Calcium 8.8 06/28/23 13:23: Sodium 134 L, Potassium 4.7, Chloride 112 H, Carbon Dioxide 10.0 L, Anion Gap 12, BUN 73 H, Creatinine 3.81 H, Estim Creat Clear Calc 18.66, Est GFR (MDRD) Af Amer 20 L, Est GFR (MDRD) Non-Af 17 L, BUN/Creatinine Ratio 19.2, Glucose 156 H, Calcium 8.8 06/28/23 18:18: WBC Cancelled, Corrected WBC Cancelled, RBC Cancelled, Hgb Cancelled, Hct Cancelled, MCV Cancelled, MCH Cancelled, MCHC Cancelled, RDW Std Deviation Cancelled, RDW Coeff of Fermin Cancelled, Plt Count Cancelled, MPV Cancelled, Diff Path Review Cancelled, Fibrinogen 719 H, D-Dimer Quant (PE/DVT) 1.29 H*, Sodium 135 L, Potassium 4.2, Chloride 111 H, Carbon Dioxide 12.0 L, Anion Gap 12, BUN 75 H, Creatinine 3.80 H, Estim Creat Clear Calc 18.70, Est GFR (MDRD) Af Amer 20 L, Est GFR (MDRD) Non-Af 17 L, BUN/Creatinine Ratio 19.7, Glucose 268 H, Calcium 8.9 06/28/23 20:18: WBC 6.8, RBC 2.66 L, Hgb 8.4 L, Hct 26.1 L, MCV 98.1 H, MCH 31.6, MCHC 32.2, RDW Std Deviation 54.5 H, RDW Coeff of Fermin 15.1 H, Plt Count 25 L*, MPV TNP, Immature Gran % (Auto) 1.200 H, Neut % (Auto) 87.1 H, Lymph % (Auto) 2.7 L, [place] % (Auto) 9.0, Eos % (Auto) 0.0, Baso % (Auto) 0.0, Absolute Neuts (auto) 5.9, Absolute Lymphs (auto) 0.18 L, Nucleated RBC % 0, Differential Comment , Diff Path Review May da, Lactate Dehydrogenase 196 06/28/23 21:40: Sodium 135 L, Potassium 4.1, Chloride 110 H, Carbon Dioxide 12.0 L, Anion Gap 13, BUN 76 H, Creatinine 3.83 H, Estim Creat Clear Calc 18.56, Est GFR (MDRD) Af Amer 20 L, Est GFR (MDRD) Non-Af 17 L, BUN/Creatinine Ratio 19.8, Glucose 207 H, Calcium 9.4 06/29/23 05:22: WBC 6.4, RBC 2.55 L, Hgb 7.9 L, Hct 25.0 L, MCV 98.0 H, MCH 31.0, MCHC 31.6 L, RDW Std Deviation 53.3 H, RDW Coeff of Fermin 14.7 H, Plt Count 23 L*, MPV TNP, Immature Gran % (Auto) 2.200 H, Neut % (Auto) 86.0 H, Lymph % (Auto) 2.8 L, [place] % (Auto) 8.8, Eos % (Auto) 0.0, Baso % (Auto) 0.2, Absolute Neuts (auto) 5.5, Absolute Lymphs (auto) 0.18 L, Nucleated RBC % 0.5, Differential Comment SCANNED, Diff Path Review July da, Platelet Estimate MKD DEC, PT 33.3 H, INR 3.3 Micro: Microbiology 06/27/23 23:26 Blood Culture (Wb) - Port Blood Culture - Preliminary GNR lactose smoking pipe coater 06/27/23 22:50 Urine, Clean Catch Urine Culture - Preliminary GNR lactose smoking pipe coater Gram negative crow 06/27/23 22:40 Blood Culture (Wb) - Chest Blood Culture - Preliminary GNR lactose smoking pipe coater Rhythm Strip Rhythm Strip: A-fib Rate: 85 Ectopy: None Imaging Radiology Impression Renal Ultrasound 06/28/23 10:51 IMPRESSION: Normal appearance of the transplanted right pelvic kidney. Mild cortical thinning of the transplanted left kidney. Electronically Signed: Bao Jansen MD at 15:50 EDT ,
[2023-06-29] MEDS: Cefepime HCl 1 GM in 0.9% Normal Saline (50mL MB+) 50 ML IV (11:19)
[2023-06-29 12:04] LABS: ALB/GLOB Ratio 0.9 RATIO (0.9-2.4); AST(SGOT) 35 U/L (15-37); Alanine Aminotransfer ALT/SGPT 22 U/L (16-61); Albumin, Serum 2.4 g/dL (3.2-5.0); Alkaline Phosphatase 102 U/L (45-117); Anion Gap 13 (5-15); BUN 72 mg/dL (7-18); BUN/Creat Ratio 19.7 RATIO (10-20); Calcium,Total 9.5 mg/dL (8.5-10.1); Chloride 116 mmol/L (98-107); Creatinine, Serum 3.65 mg/dL (0.70-1.30); EST Glomerular Filtration Rate 18 mL/min (>60); Est Glom Filt Rate - Afr Amer 21 mL/min (>60); Estimated Creatinine Clearance 19.59 ml/min; Globulin 2.8 g/dL (2.2-4.2); Glucose 237 mg/dL (74-106); LDH 216 U/L (87-241); Magnesium 2.1 mg/dL (1.6-2.6); Protein, Total 5.2 g/dL (6.4-8.2); Sodium Level 141 mmol/L (136-145)
--- NOTE | 2023-06-29 13:15 | CHAPLAIN ---
Type of Pastoral Visit _x__ Initial Visit ___ Follow-up Visit ___ On-call Visit ___ General Patient Visit ___ Spiritual Assessment ___ Family Conference ___ Bereavement ___ Rapid Response ___ Code Blue ___ Other (describe below) Pastoral Care Referral From _x__ Patient ___ Family ___ Nurse ___ Physician ___ Chemistry Professor ___ Alumni Relations Coordinator ___ Other (describe below) Sacrament/Intervention _x__ Active listening ___ Anointing ___ Muslim ___ Bereavement ___ Communion _x__ Natty exploration ___ _x__ Life review _x__ Prayer ___ Reconciliation ___ Sacrament of Sick _x__ Supportive presence ___ Wedding ___ Other (describe below) Pastoral Comments patient is very welcoming of spiritual care and eager to talk; pt has questions and gives his own ideas about spirituality and natty; pt focuses on God and how he receives help in the journey; pt gives some history of his life and health; pt is to be transferred out and is fine with the decision; pt welcomes presence and prayer of this car sales consultant
[2023-06-29] MEDS: 0.9% Saline Lock 10 ML Syringe IV ×3 (13:54→18:11)
[2023-06-29] MEDS: Ondansetron 4 MG/2 ML Vial IV (14:21)
[2023-06-29 14:48] LABS: Phosphorus 3.3 mg/dL (2.5-4.9)
--- NOTE | 2023-06-29 15:32 | DS.PCM_ITS ---
Providers Date of Admission: 06/28/23 Date of Discharge: 06/29/23 Primary Care Physician: Dr. Beth Quiroz MD Consultations 06/28/23 02:27 Consult: Nephrology Routine Consulting Provider: Usha Rocha Reason for Consult: ZOË on CKD, renal txp status, admit with UTI EMERGENT Consult: No MD Notified: Yes Date Notified: 06/28/23 Time Notified: 06:45 Method of Notification: Answering Service 06/28/23 03:22 Consult: Hospice / Palliative Care Routine Consulting Provider: [facility] Reason for Consult: Palliative care consult per family request. EMERGENT Consult: No MD Notified: Yes Date Notified: 06/28/23 Time Notified: 08:45 Method of Notification: Verbal 06/28/23 18:14 Consult: Infectious Disease Routine Consulting Provider: Jermaine Armstrong Reason for Consult: Chronically immunocompromise patient with gram-negative bacteremia EMERGENT Consult: No MD Notified: Yes Date Notified: 06/29/23 Time Notified: 07:41 Method of Notification: Text Reason For Visit: COMPLICATED UTI, RUE PAIN, ZOË Diagnosis Discharge Diagnosis (1) Diarrhea: Status: Acute Code(s): R19.7 - Diarrhea, unspecified (2) Sepsis: Status: Acute Code(s): A41.9 - Sepsis, unspecified organism (3) Kidney transplant status: Status: Acute Code(s): Z94.0 - Kidney transplant status (4) History of permanent cardiac pacemaker placement: Status: Chronic Code(s): Z95.0 - Presence of cardiac pacemaker (5) History of aortic valve replacement: Status: Chronic Code(s): Z95.2 - Presence of prosthetic heart valve (6) History of mitral valve replacement: Status: Chronic Code(s): Z95.2 - Presence of prosthetic heart valve (7) Bacteremia due to Gram-negative bacteria: Status: Acute Code(s): R78.81 - Bacteremia Medications at Discharge Home Medications tamsulosin 0.4 mg capsule 0.4 mg PO DAILY PROSTATE 03/16/15 finasteride 5 mg tablet 5 mg PO DAILY PROSTATE 10/23/15 carvedilol 6.25 mg tablet 6.25 mg PO BID HEART 02/14/18 ferrous sulfate 324 mg (65 mg iron) tablet,delayed release 324 mg PO DAILY SUPPLEMENT 02/14/18 prednisone 5 mg tablet 5 mg PO DAILY STEROID 02/14/18 sulfamethoxazole 800 mg-trimethoprim 160 mg tablet 1 tab PO MOWEFR ANTIBIOTIC 02/14/18 acetaminophen 500 mg tablet 1,000 mg PO BID PAIN 03/02/19 acitretin 10 mg capsule 10 mg PO SUTUTHSA CHEMO 03/02/19 atorvastatin 20 mg tablet 20 mg PO QHS CHOLESTEROL 04/01/21 mycophenolate sodium 180 mg tablet,delayed release 180 mg PO BID TRANSPLANT REJECTION PREVENTION 04/01/21 mycophenolate sodium 360 mg tablet,delayed release 360 mg PO BID TRANSPLANT REJECTION PREVENTION 04/01/21 tacrolimus 0.5 mg capsule, immediate-release 0.5 mg PO BID TRANSPLANT REJECTION PREVENTION 04/01/21 pantoprazole 40 mg tablet,delayed release 40 mg PO DAILY ACID REFLUX 09/15/22 zolpidem 10 mg tablet 10 mg PO QHS INSOMNIA 09/15/22 warfarin 2 mg tablet 2 mg PO SUTUTHSA BLOOD THINNER 11/12/22 warfarin 1 mg tablet 1 mg PO MOWEFR 12/28/22 Hospital Course Procedures EKG and - (Renal ultrasound/venous Doppler/chest x-ray/abdominal CT) Summary of Care Provided Minutes Spent on Discharge: 45 Hospital Course: Mr. Berrios is a 68-year-old white male with a very complex past medical history including renal transplant x 3 and recent resection for facial squamous cell carcinoma related to his immunosuppressive drugs for his transplant who presented to the emergency department at [facility] on 06/28/2023 with fever, fatigue, malaise, diarrhea, and bodyaches. He had 3 live transplants with the most recent being in 2018 and follows at [facility] with the transplant nephrology team. He also had recent resection of squamous cell carcinoma as noted above at [facility] and plan was to start radiation on 06/28/2023 however he presented to the emergency department ill. His assisted with his medical history at the time of presentation and reported significant fatigue, malaise, low-grade fevers, body aches in addition to about 24 to 48 hours of profuse watery diarrhea that resolved after his gave him Imodium. He has had no more diarrhea since admission to the hospital and denied any abdominal pain or cramping. She also reported he was having some right upper extremity discomfort and swelling. Upon presentation his temperature was 98.5, heart rate 88, initial blood pressure was 88/48 with repeat at 99/41 with IV fluids, respiratory rate was 32 and oxygen saturation was 96% on room air. His CBC showed a normal white count but he did have a left shift and a chronic stable anemia with a hemoglobin of 9.1. Coags were abnormal with an elevated PT at 25, PTT at 52.9, INR at 2.3 however the patient is on chronic warfarin therapy for his history of atrial fibrillation. His CMP showed mild hyponatremia the sodium of 133 and a serum bicarb of 12 and anion gap of 12 with a BUN of 73 and a serum creatinine of 4.07 (baseline serum creatinine is about 1.5) his BNP was elevated at 799.4 however he did not peer to be volume overloaded and his troponin was 49. His UA was consistent with infection having leuk esterase, greater than 100 white cells and 3+ bacteria. Urine culture was sent by the emergency department as well as blood cultures. Chest x-ray had no acute cardiopulmonary findings and in the emergency department he was started on Rocephin and admitted to the medical floor. The case was discussed initially with [facility] transplant and nephrology services however the patient and family preferred to stay at [facility] at the time of admission. He was admitted the medical floor and maintained on IV antibiotics, IV fluids, and consultation to nephrology was placed. Nephrology evaluated the patient and obtained a renal ultrasound which demonstrated a normal appearance of the transplanted right pelvic kidney with mild cortical thinning of the transplanted left kidney. A tacrolimus level was ordered but pending at the time of discharge. His immunosuppressive medications were initially continued however upon cultures resulting and showing infection they were discontinued. At the time of discharge his urine showed a gram-negative crow lactose yarder boss as well as another gram-negative crow and his blood cultures both showed gram-negative crow lactose yarder boss. He was placed on a bicarb drip due to his metabolic acidosis from his renal dysfunction and his mental status did improve and although he was still mildly confused at the time of discharge he was much improved overall. He did have marked thrombocytopenia at the time of admission which is new for him however we do's suspect this is related to sepsis as workup for other etiologies was unremarkable. He did have a normal LDH and a normal bilirubin with an elevated fibrinogen level. Coags are chronically elevated due to his chronically anticoagulated state. I did send this KAREEN smear and however the results were pending at the time of discharge I did discuss the case with the lab and they saw only few schistocytes which is consistent with previous peripheral smears done over the years. His Coumadin was held due to his marked thrombocytopenia. He had no signs of bleeding and hemoglobin was stable. Unfortunately, his renal function did not improved to the level that we felt comfortable continuing his care here and felt he would be better served down at [facility] given his history of renal transplant and no intention of pursuing any further dialysis. Again his serum creatinine on admission was 4.07 and he was at 3.65 at the time of discharge. The trim technician here talk to his transplant trim technician and obtain acceptance for transfer. He was maintained on antibiotics with cefepime during his hospitalization that was dosed renally. Infectious disease did follow and added on a CT of his abdomen and pelvis which was done on the day of discharge and demonstrated a mild degree of perinephritic stranding around the transplanted right pelvic kidney, decompressed urinary bladder due to the presence of a Brown, marked atrophy of the right [place] kidney and left kidney was not visualized. He also had small bilateral pleural effusions right greater than left with some bibasilar atelectasis. A bed was obtained and he was transferred to [facility] by ambulance on 06/29/2023. 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 States that been ongoing and he just forgot to tell me about it yesterday. I did explain plan is for transfer and we will await bed availability and transfer as soon as we have a bed. Const alert, oriented x3, no apparent distress and well nourished; Negative for average body habitus or healthy appearing Constitutional Narrative: Obese, upper middle-aged white male who appears older than stated age, lying in bed, oriented x 3 however still some mild confusion, appears comfortable, does not appear toxic at this time, at bedside General Appearance: cooperative, comfortable, well kempt and well developed Orientation / Consciousness: awake, oriented to person, oriented to place and oriented to time Nutritional Appearance: obese HEENT normocephalic, hearing grossly normal bilaterally and moist oral mucous membranes HEENT Narrative: Well-healing incisions noted on the right aspect of his face from his recent surgery related to a skin cancer, few healing scabs in various stages, no signs of infection, Mallampati is 3, no thrush Eyes PERRL and EOMs intact bilaterally Eyes Narrative: Mild conjunctival pallor bilaterally no scleral icterus Neck no lymphadenopathy and supple Neck Narrative: Trachea midline, no thyroid enlargement Resp normal respiratory effort, no retractions, no use of accessory muscles and clear to auscultation bilaterally Auscultation: Negative for rales, rhonchi or wheezes Cardio regular rate, regular rhythm, S1 normal heart sound, S2 normal heart sound, no murmurs, no rub, no gallops and no clicks GI normal to inspection, nondistended, normoactive bowel sounds, soft to palpation and non-tender Extremity no clubbing, cyanosis or edema Extremity Narrative: Pedal pulses are 2+ Skin skin turgor normal and no jaundice Skin Narrative: Facial wounds as noted above Neuro oriented x3, CN's II-XII intact bilaterally, moves all extremities and no focal motor deficits Neuro Narrative: Generalized weakness noted Speech: speech normal Psych Psych Narrative: Patient with some intermittent mild confusion, is alert and oriented x 3 however, overall affect is improved and patient is able to participate more in his care Weight / BMI Weight Weight: 85.6 kg Body Mass Index (BMI) 30.4 ABG / Lab / Microbiology Data 06/29/23 05:22 06/29/23 05:22 Laboratory: Laboratory Results - last 24 hr 06/27/23 22:40: Diff Path Review Reviewed 06/28/23 00:25: Haptoglobin 153 06/28/23 06:43: Diff Path Review Reviewed 06/28/23 18:18: WBC Cancelled, Corrected WBC Cancelled, RBC Cancelled, Hgb Cancelled, Hct Cancelled, MCV Cancelled, MCH Cancelled, MCHC Cancelled, RDW Std Deviation Cancelled, RDW Coeff of Fermin Cancelled, Plt Count Cancelled, MPV Cancelled, Diff Path Review Cancelled, Fibrinogen 719 H, D-Dimer Quant (PE/DVT) 1.29 H*, Sodium 135 L, Potassium 4.2, Chloride 111 H, Carbon Dioxide 12.0 L, Anion Gap 12, BUN 75 H, Creatinine 3.80 H, Estim Creat Clear Calc 18.70, Est GFR (MDRD) Af Amer 20 L, Est GFR (MDRD) Non-Af 17 L, BUN/Creatinine Ratio 19.7, Glucose 268 H, Calcium 8.9 06/28/23 20:18: WBC 6.8, RBC 2.66 L, Hgb 8.4 L, Hct 26.1 L, MCV 98.1 H, MCH 31.6, MCHC 32.2, RDW Std Deviation 54.5 H, RDW Coeff of Fermin 15.1 H, Plt Count 25 L*, MPV TNP, Immature Gran % (Auto) 1.200 H, Neut % (Auto) 87.1 H, Lymph % (Auto) 2.7 L, Peach % (Auto) 9.0, Eos % (Auto) 0.0, Baso % (Auto) 0.0, Absolute Neuts (auto) 5.9, Absolute Lymphs (auto) 0.18 L, Nucleated RBC % 0, Differential Comment , Diff Path Review July, Lactate Dehydrogenase 196 06/28/23 21:40: Sodium 135 L, Potassium 4.1, Chloride 110 H, Carbon Dioxide 12.0 L, Anion Gap 13, BUN 76 H, Creatinine 3.83 H, Estim Creat Clear Calc 18.56, Est GFR (MDRD) Af Amer 20 L, Est GFR (MDRD) Non-Af 17 L, BUN/Creatinine Ratio 19.8, Glucose 207 H, Calcium 9.4 06/29/23 05:22: WBC 6.4, RBC 2.55 L, Hgb 7.9 L, Hct 25.0 L, MCV 98.0 H, MCH 31.0, MCHC 31.6 L, RDW Std Deviation 53.3 H, RDW Coeff of Fermin 14.7 H, Plt Count 23 L*, MPV TNP, Immature Gran % (Auto) 2.200 H, Neut % (Auto) 86.0 H, Lymph % (Auto) 2.8 L, Peach % (Auto) 8.8, Eos % (Auto) 0.0, Baso % (Auto) 0.2, Absolute Neuts (auto) 5.5, Absolute Lymphs (auto) 0.18 L, Nucleated RBC % 0.5, Differential Comment SCANNED, Diff Path Review May , Platelet Estimate MKD DEC, PT 33.3 H, INR 3.3, Sodium 141, Potassium 4.0, Chloride 116 H, Carbon Dioxide 12.0 L, Anion Gap 13, BUN 72 H, Creatinine 3.65 H, Estim Creat Clear Calc 19.59, Est GFR (MDRD) Af Amer 21 L, Est GFR (MDRD) Non-Af 18 L, BUN/Creatinine Ratio 19.7, Glucose 237 H, Calcium 9.5, Phosphorus 3.3, Magnesium 2.1, Total Bilirubin 0.80, AST 35, ALT 22, Alkaline Phosphatase 102, Lactate Dehydrogenase 216, Total Protein 5.2 L, Albumin 2.4 L, Globulin 2.8, Albumin/Globulin Ratio 0.9 Microbiology: Microbiology 06/27/23 23:26 Blood Culture (Wb) - Port Blood Culture - Preliminary GNR lactose yarder boss 06/27/23 22:50 Urine, Clean Catch Urine Culture - Preliminary GNR lactose yarder boss Gram negative crow 06/27/23 22:40 Blood Culture (Wb) - Chest Blood Culture - Preliminary GNR lactose yarder boss Radiography Diagnostic Testing: Radiology Impression Venous Doppler Study 06/28/23 01:22 Interpretation Summary Deep veins of the right upper extremity are patent and compressible segmentally. There is no evidence of deep vein thrombosis. Superficial veins of the right upper extremity are patent and compressible segmentally. There is no evidence of superficial vein thrombosis. Ordering Physician: Mai Barlow Referring Physician: Beth Quiroz Performed By: Niki Cochran RVT ??? Renal Ultrasound 06/28/23 10:51 IMPRESSION: Normal appearance of the transplanted right pelvic kidney. Mild cortical thinning of the transplanted left kidney. Electronically Signed: Bao Jansen MD at 15:50 EDT , Abdomen CT 06/29/23 10:08 IMPRESSION: Mild degree of perinephric stranding surrounding the transplanted right pelvic kidney. Decompressed urinary bladder due to presence of a Brown catheter. Marked atrophy of the [place] right kidney. The left kidney is not visualized. Small bilateral pleural effusions right greater than left with bibasilar atelectasis. Electronically Signed: Bao Jansen MD at 13:05 EDT , Meaningful Use Info Meaningful Use Diagnoses (Choose all that apply): None applicable Discharge Plan Admission Admit Date/Time: 06/28/23 01:08 Primary Reason for Your Visit: Fatigue/fever/general malaise Attending Provider: Jihan Hayes Primary Care Provider: Beth Quiroz Consulting Providers: aMi Barlow; Usha Rocha; Nitin Arrieta; Brandi Dhillon; Fabiola Martinez; Priscilla Kidd NP; Jermaine Armstrong Discharge Orders/Prescriptions Prescriptions: No Action atorvastatin 20 mg tablet 20 mg PO QHS tacrolimus 0.5 mg capsule 0.5 mg PO BID mycophenolate sodium 180 mg tablet,delayed release (DR/EC) 180 mg PO BID Patient Comments: PT STATES TAKES 1 (180 MG) AND 1 (360 MG) BID FOR A TOTAL DOSE OF 540 MG. tamsulosin 0.4 MG capsule 0.4 mg PO DAILY finasteride 5 MG tablet 5 mg PO DAILY carvedilol 6.25 tablet 6.25 mg PO BID prednisone 5 tablet 5 mg PO DAILY ferrous sulfate 324 MG tablet,delayed release (DR/EC) 324 mg PO DAILY sulfamethoxazole-trimethoprim 1 EACH tablet 1 tab PO MOWEFR mycophenolate sodium 360 mg tablet,delayed release (DR/EC) 360 mg PO BID Patient Comments: PT STATES TAKES 1 (180 MG) AND 1 (360 MG) BID FOR A TOTAL DOSE OF 540 MG. acetaminophen 500 MG tablet 1,000 mg PO BID acitretin 10 capsule 10 mg PO SUTUTHSA pantoprazole 40 MG tablet,delayed release (DR/EC) 40 mg PO DAILY zolpidem 10 mg Tablet 10 mg PO QHS warfarin 2 mg tablet 2 mg PO SUTUTHSA Rx Instructions: 2mg on SUN and WED. 1mg on MON, TUE, THUR, FRI, SAT warfarin 1 mg tablet 1 mg PO MOWEFR Referrals / Follow Up: Beth Quiroz MD [Primary Care Provider] - Disposition Disposition (needs filled in before D/C Order can be placed): Acute Care Hospital Charges/Coding Visit Charges Inpatient E&M: 71899 Disch Hosp >30min
--- NOTE | 2023-06-29 15:36 | CASEMGMT ---
Patient has a Healthcare Power of Dye Reel Operator on file at [facility]. Patient's [place] is patient's Healthcare Power of Dye Reel Operator. Patient does not have a Healthcare Living Will on file. Vikki HOWE
[2023-06-29 15:53] LABS: Pathologist Review Reviewed
[2023-06-29] MEDS: Acetaminophen 325 MG Tablet 650 MG PO (17:55)
[2023-06-29] MEDS: hydrALAZINE 20 MG/ML Vial 10 MG IV (18:12)
--- NOTE | 2023-06-29 19:28 | PN.RENAL_ITS ---
Subjective Subjective Events noted. Blood culture is now growing gram-negative rods. Urine culture same growth. Platelet count remains low.Diarrhea is resolved. Brown catheter indwelling due to prior history of retention. Objective Data Objective Data Vital Signs: Vital Signs Temp Pulse Resp BP Pulse Ox O2 Del Method O2 Flow Rate 97.1 F L 62 18 186/96 H 99 Room Air 2 06/29/23 14:06 06/29/23 18:12 06/29/23 14:06 06/29/23 18:12 06/29/23 14:06 06/29/23 14:06 06/28/23 14:28 Oxygen Flow Rate (L/min) 2 Oxygen Delivery Method Room Air Weight: 85.6 kg Body Mass Index (BMI) 30.4 Intake & Output: Intake and Output for Last 24 Hours 06/27/23 06/28/23 06/29/23 23:59 23:59 23:59 Intake Total 4025 / 4025 1895.00 / 1895.00 Output Total 1150 / 1150 1700 / 1700 Balance 2875 / 2875 195.00 / 195.00 Lab / Micro Data 06/29/23 05:22 06/29/23 05:22 Labs: Laboratory Results - last 24 hr 06/27/23 22:40: Diff Path Review Reviewed 06/28/23 00:25: Haptoglobin 153 06/28/23 06:43: Diff Path Review Reviewed 06/28/23 18:18: WBC Cancelled, Corrected WBC Cancelled, RBC Cancelled, Hgb Cancelled, Hct Cancelled, MCV Cancelled, MCH Cancelled, MCHC Cancelled, RDW Std Deviation Cancelled, RDW Coeff of Fermin Cancelled, Plt Count Cancelled, MPV Cancelled, Diff Path Review Cancelled, Fibrinogen 719 H, D-Dimer Quant (PE/DVT) 1.29 H* 06/28/23 20:18: WBC 6.8, RBC 2.66 L, Hgb 8.4 L, Hct 26.1 L, MCV 98.1 H, MCH 31. 6, MCHC 32.2, RDW Std Deviation 54.5 H, RDW Coeff of Fermin 15.1 H, Plt Count 25 L* , MPV TNP, Immature Gran % (Auto) 1.200 H, Neut % (Auto) 87.1 H, Lymph % (Auto) 2.7 L, [place] % (Auto) 9.0, Eos % (Auto) 0.0, Baso % (Auto) 0.0, Absolute Neuts (auto) 5.9, Absolute Lymphs (auto) 0.18 L, Nucleated RBC % 0, Differential Comment , Diff Path Review Reviewed, Lactate Dehydrogenase 196 06/28/23 21:40: Sodium 135 L, Potassium 4.1, Chloride 110 H, Carbon Dioxide 12.0 L, Anion Gap 13, BUN 76 H, Creatinine 3.83 H, Estim Creat Clear Calc 18.56, Est GFR (MDRD) Af Amer 20 L, Est GFR (MDRD) Non-Af 17 L, BUN/Creatinine Ratio 19.8, Glucose 207 H, Calcium 9.4 06/29/23 05:22: WBC 6.4, RBC 2.55 L, Hgb 7.9 L, Hct 25.0 L, MCV 98.0 H, MCH 31.0, MCHC 31.6 L, RDW Std Deviation 53.3 H, RDW Coeff of Fermin 14.7 H, Plt Count 23 L*, MPV TNP, Immature Gran % (Auto) 2.200 H, Neut % (Auto) 86.0 H, Lymph % (Auto) 2.8 L, [place] % (Auto) 8.8, Eos % (Auto) 0.0, Baso % (Auto) 0.2, Absolute Neuts (auto) 5.5, Absolute Lymphs (auto) 0.18 L, Nucleated RBC % 0.5, Differ ential Comment SCANNED, Diff Path Review July foll, Platelet Estimate MKD DEC, PT 33.3 H, INR 3.3, Sodium 141, Potassium 4.0, Chloride 116 H, Carbon Dioxide 12.0 L, Anion Gap 13, BUN 72 H, Creatinine 3.65 H, Estim Creat Clear Calc 19.59, Est GFR (MDRD) Af Amer 21 L, Est GFR (MDRD) Non-Af 18 L, BUN/Creatinine Ratio 19.7, Glucose 237 H, Calcium 9.5, Phosphorus 3.3, Magnesium 2.1, Total Bilirubin 0.80, AST 35, ALT 22, Alkaline Phosphatase 102, Lactate Dehydrogenase 216, Total Protein 5.2 L, Albumin 2.4 L, Globulin 2.8, Albumin/Globulin Ratio 0.9 Micro: Microbiology 06/27/23 23:26 Blood Culture (Wb) - Port Blood Culture - Preliminary GNR lactose diabetic educator 06/27/23 22:50 Urine, Clean Catch Urine Culture - Preliminary GNR lactose diabetic educator Gram negative crow 06/27/23 22:40 Blood Culture (Wb) - Chest Blood Culture - Preliminary GNR lactose diabetic educator Radiography Diagnostic Testing: Radiology Impression Venous Doppler Study 06/28/23 01:22 Interpretation Summary Deep veins of the right upper extremity are patent and compressible segmentally. There is no evidence of deep vein thrombosis. Superficial veins of the right upper extremity are patent and compressible segmentally. There is no evidence of superficial vein thrombosis. Ordering Physician: Mai Barlow Referring Physician: Beth Quiroz Performed By: Niki Cochran RVT ??? Venous Doppler Study 06/28/23 19:43 Interpretation Summary Deep veins of the bilateral lower extremities are patent and compressible segmentally. There is no evidence of bilateral lower extremity deep vein thrombosis. The bilateral great saphenous veins appear patent and compressible segmentally. Ordering Physician: Jihan Hayes Performed By: Ambrocio Rivas RVT Abdomen CT 06/29/23 10:08 IMPRESSION: Mild degree of perinephric stranding surrounding the transplanted right pelvic kidney. Decompressed urinary bladder due to presence of a Brown catheter. Marked atrophy of the [place] right kidney. The left kidney is not visualized. Small bilateral pleural effusions right greater than left with bibasilar atelectasis. Electronically Signed: Bao Jansen MD at 13:05 EDT , Rhythm Strip Rhythm Strip: A-fib Rate: 85 Ectopy: None Physical Exam Narrative Alert and oriented x 3, no apparent distress S1, S2, RRR Lung sounds clear Abdomen soft, nontender, positive bowel sounds No edema Indwelling Brown with yellow/straw-colored urine in bag Assessment & Plan Assessment/Plan (1) Acute UTI: (2) Acute renal failure (ARF): (3) Diarrhea: (4) Metabolic acidosis: PLAN: Plan History of kidney transplant. This is his third transplant. Primary etiology was MPGN. Immunosuppression includes tacrolimus, mycophenolate/Myfortic and prednisone. Recent complications include skin malignancies, recent surgery. Bacteremia, gram-negative rods, presumably urinary origin Acidosis, likely due to GI losses, on bicarbonate drip Acute renal failure, CKD stage IIIa. Baseline creatinine is around 1.5. ZOË could be related to pyelonephritis/sepsis. Discussed with patient, at bedside. Called and spoke to transplant public stenographer. Unfortunately the turnaround time for tacrolimus level is significantly high here. He is better served at [facility]. Transplant ne phrologist agreeable to transfer. Spoke to transfer line, process started. I did talk to him about possible Brown catheter removal but he would like to keep it until he goes to [facility]. Discussed with hospitalist Discussed with ID attending
[2023-06-30 15:41] LABS: Pathologist Review Reviewed
[2023-07-01 15:09] LABS: Tacrolimus (FK506) 8.4 ng/mL (2.0-20.0)
== END 2023-06-29 20:30 | disposition short-term general hospital (02) | DRG 871 ==
LOC: ED 06-28 01:13 → PCU 06-28 01:32
PROVIDERS: Nurse Practitioner Adult Health; Admitting Provider Family Medicine; Emergency Provider Emergency Medicine; PCP Internal Medicine; Visit Provider Internal Medicine
DX: A41.50 Gram-negative sepsis, unspecified (principal); G92.8 Other toxic encephalopathy; E87.20 Acidosis, unspecified; I12.0 Hypertensive chronic kidney disease with stage 5 chronic kidney disease or end stage renal disease; N17.9 Acute kidney failure, unspecified; J90 Pleural effusion, not elsewhere classified; I48.11 Longstanding persistent atrial fibrillation; I48.20 Chronic atrial fibrillation, unspecified; J98.11 Atelectasis; Z94.0 Kidney transplant status; N39.0 Urinary tract infection, site not specified; N13.8 Other obstructive and reflux uropathy; D69.6 Thrombocytopenia, unspecified; D63.1 Anemia in chronic kidney disease; G40.909 Epilepsy, unspecified, not intractable, without status epilepticus; D50.9 Iron deficiency anemia, unspecified; G47.33 Obstructive sleep apnea (adult) (pediatric); E78.5 Hyperlipidemia, unspecified; K21.9 Gastro-esophageal reflux disease without esophagitis; R19.7 Diarrhea, unspecified; Z95.2 Presence of prosthetic heart valve; E66.9 Obesity, unspecified; Z95.0 Presence of cardiac pacemaker; Z79.01 Long term (current) use of anticoagulants; C44.212 Basal cell carcinoma of skin of right ear and external auricular canal; Z66 Do not resuscitate; Z68.30 Body mass index [BMI] 30.0-30.9, adult; N40.1 Benign prostatic hyperplasia with lower urinary tract symptoms; B96.89 Other specified bacterial agents as the cause of diseases classified elsewhere
CPT/HCPCS: 36415; 36591; 36600; 51702; 71045; 74176; 76770; 80048; 80053; 80197; 81001; 82570; 82803; 83010; 83605; 83615; 83735; 83880; 84100; 84300; 84484; 85025; 85379; 85384; 85610; 85730; 87040; 87077; 87086; 87088; 87186; 93005; 93970; 93971; 94668; 97802; 99252; 99285; J7030; A4216; G0463; J2405

== ENCOUNTER 2023-07-09 08:44 | Inpatient (IN) | payer MEDICARE, BC, SELFPAY ==
[2023-07-09] VITALS (11 sets, daily range): BP systolic 118–169; BP diastolic 39–81; PULSE 67–96; RESP 16–36; TEMP 36.6–38.8; O2SAT 91–94; BMI 32.6; BMI 27.3
--- NOTE | 2023-07-09 10:07 | CT_ITS ---
We are attempting to reach an attending provider to discuss findings. An addendum with communication details will be sent when the communication is complete. INDICATION: fall and head injury EXAMINATION: CT BRAIN - CT Head or Brain W/O Contrast Injection TECHNIQUE: Multiple axial images were obtained of the head without intravenous contrast. A radiation dose optimization technique was used for this scan. IV Contrast dosage and agent: None. RADIATION DOSAGE (If Supplied By Facility): CTDIvol = ( 44.99 ) mGy, DLP = ( 897.35 ) mGycm COMPARISON: Prior study dated: 09/17/2022. FINDINGS: BRAIN PARENCHYMA: Subtle hypodensity in the posterior parasagittal falx concerning for minimal subdural hematoma (axial images 34 and 35 series 2 and coronal images 50-62 series 601) which was not seen on the previous exam. No evidence of acute infarct. No intracranial mass or mass effect. There is preservation of the yates/white matter interface. Posterior fossa structures are unremarkable. CSF SPACES: Mild diffuse atrophy. No hydrocephalus. Basal cisterns are patent. CALVARIUM, SKULL BASE, PARANASAL SINUSES AND MASTOID AIR CELLS: Clear. No discrete lytic or blastic abnormalities. ORBITS: Previous bilateral cataract surgery. CT/Brain/Head without Contrast IMPRESSION: Subtle hyperdensity in the posterior parasagittal region as described above. Minimal subdural hematoma cannot be excluded. Electronically Signed: Parag Antonio MD at 11:36 EDT ,
--- NOTE | 2023-07-09 10:07 | EKG12_ITS ---
Test Reason : Blood Pressure : / mmHG Vent. Rate : 079 BPM Atrial Rate : 000 BPM P-R Int : 000 ms QRS Dur : 106 ms QT Int : 390 ms P-R-T Axes : 000 -49 123 degrees QTc Int : 447 ms Atrial fibrillation Left anterior fascicular block Nonspecific T wave abnormality Abnormal ECG Confirmed by Satish Singleton ([id number]), manager editorial TRACY BARKER ([id number]) on 07/12/2023 2:18:20 PM Referred By: Confirmed By:Satish Singleton
--- NOTE | 2023-07-09 10:09 | EX.ED.DYSGE1 ---
HPI History of Present Illness Chief Complaint: Alt LOC Informant: patient, spouse/S.O. and family Onset/Context/Timing Onset: Today and Hours Context: Gradual Onset Timing: Continuous Current Severity: Mild Maximum Severity: Mild Narrative Narrative: 68-year-old male who has had 3 kidney transplant last 1 about 6 years ago at [facility]. Recently was seen and admitted to [facility] and transferred down to [facility] due to acute kidney injury and he had a bacteremia of Klebsiella. He is currently on IV antibiotics. Fell 2 days prior to being discharged from [facility] had a parenchymal intracranial bleed which they observed a repeat CAT scan today she discharged him from their facility by private vehicle to [facility] yesterday. He was fine at [facility] last night was found on the floor around midnight due to a fall. He is unsure if he hit his head. Family said this is not his normal mental status. He does know where he is at, month, year and president [facility]. He previously was on Coumadin that has been stopped over a week ago. He specifically denies any complaints. Prior similar symptoms: Yes Recent Illness/Hospital[facility]: [facility] Medical History Actinic keratosis Anemia Back pain BCC (basal cell carcinoma of skin) Cancer Cardiology follow-up encounter Ceruminous adenocarcinoma of right ear Chronic kidney disease (CKD) Chronic rejection of renal transplant Complete heart block (08/11/16) CPAP (continuous positive airway pressure) dependence Dietary restriction Diverticulosis Easy bruising Enterococcal sepsis Essential hypertension Fistula H pylori ulcer History of Clostridium difficile infection History of echocardiogram History of renal dialysis History of skin cancer History of steroid therapy History of ulceration Hyperlipidemia Longstanding persistent atrial fibrillation Loss of hearing Low iron Lower extremity edema Membranoproliferative glomerulonephritis MRSA infection Non-rheumatic mitral valve stenosis Non-smoker Nonrheumatic aortic (valve) stenosis Obesity VINAYAK (obstructive sleep apnea) Pacemaker Pulmonary hypertension Right-sided tinnitus Secondary pulmonary arterial hypertension Seizures Sleep apnea Squamous cell carcinoma UTI (urinary tract infection) Wears glasses Home Medications tamsulosin 0.4 mg capsule 0.4 mg PO DAILY PROSTATE 03/16/15 [History Last Taken 05/04/23] finasteride 5 mg tablet 5 mg PO DAILY PROSTATE 10/23/15 [History Last Taken 01/11/23 08:00] carvedilol 6.25 mg tablet 6.25 mg PO BID HEART 02/14/18 [History Last Taken 05/05/23] ferrous sulfate 324 mg (65 mg iron) tablet,delayed release 324 mg PO DAILY SUPPLEMENT 02/14/18 [History Last Taken 05/04/23] prednisone 5 mg tablet 5 mg PO DAILY STEROID 02/14/18 [History Last Taken 05/05/23] sulfamethoxazole 800 mg-trimethoprim 160 mg tablet 1 tab PO MOWEFR ANTIBIOTIC 02/14/18 [History Last Taken 05/03/23] acetaminophen 500 mg tablet 1,000 mg PO BID PAIN 03/02/19 [History Last Taken 06/27/23 20:00] acitretin 10 mg capsule 10 mg PO SUTUTHSA CHEMO 03/02/19 [History Last Taken 05/04/23] atorvastatin 20 mg tablet 20 mg PO QHS CHOLESTEROL 04/01/21 [History Last Taken 05/04/23] mycophenolate sodium 180 mg tablet,delayed release 180 mg PO BID TRANSPLANT REJECTION PREVENTION 04/01/21 [History Last Taken 05/05/23] mycophenolate sodium 360 mg tablet,delayed release 360 mg PO BID TRANSPLANT REJECTION PREVENTION 04/01/21 [History Last Taken 05/05/23] tacrolimus 0.5 mg capsule, immediate-release 0.5 mg PO BID TRANSPLANT REJECTION PREVENTION 04/01/21 [History Last Taken 05/05/23] pantoprazole 40 mg tablet,delayed release 40 mg PO DAILY ACID REFLUX 09/15/22 [History Last Taken 05/05/23] zolpidem 10 mg tablet 10 mg PO QHS INSOMNIA 09/15/22 [History Last Taken 05/04/23] warfarin 2 mg tablet 2 mg PO SUTUTHSA BLOOD THINNER 11/12/22 [History Last Taken 04/30/23] warfarin 1 mg tablet 1 mg PO MOWEFR 12/28/22 [History Last Taken 04/30/23] Allergy/AdvReac Type Severity Reaction Status Date / Time ibuprofen [From Motrin] AdvReac Kidney Verified 06/03/23 10:32 transplant latex AdvReac Rash Verified 06/03/23 10:32 Family History Mother Cancer Father Cancer Myocardial infarction CAD (coronary artery disease) Heart disease Surgical History H/O hemorrhoidectomy H/O Mohs micrographic surgery for skin cancer H/O skin graft History of anal lesion History of aortic valve replacement (08/04/16) History of cardioversion (11/2016) History of colonoscopy History of cranial surgery History of excision of lesion (2019) History of eye surgery History of herniorrhaphy History of mitral valve replacement (08/04/16) History of permanent cardiac pacemaker placement (08/11/16) History of surgery History of surgery on arm Hx of external ear surgery Hx of living-donor kidney transplantation Hx of total knee arthroplasty Renal transplant recipient (02/2018) S/P flap graft Status post ligation of left atrial appendage (08/04/16) Social History household members: spouse and family Smoking Status: Never smoker alcohol intake: never substance use type: does not use ROS ROS ED ROS Narrative Denies nausea, vomiting or diarrhea. Denies fever or chills. Denies headache. Review of Systems ROS Unobtainable: Denies due to encephalopathy Constitutional Constitutional ED: Denies chills or fever(s) Eyes Eyes: Denies blurry vision ENT ENT ED: Denies ear pain Cardiovascular Cardiovascular: Denies chest pain Respiratory/Chest Respiratory/Chest: Denies cough or dyspnea Gastrointestinal Gastrointestinal: Denies abdominal pain Genitourinary Genitourinary ED: Denies dysuria or hematuria Musculoskeletal Musculoskeletal: Reports back pain; Denies arthralgias Integumentary Denies abscess or Abrasions Neurologic Neurologic: Denies headache(s) Psychiatric Psychiatric: Denies anxiety or depression Endocrine Endocrinology: Denies cold intolerance Hematologic/Lymphatic Hematologic/Lymphatic: Reports none Allergic/Immunologic Allergic/Immunologic ED: Denies mouth swelling, tongue swelling or urticaria EXAM Physical Exam Narrative Exam Narrative: 68-year-old male lying in bed. Vital signs stable afebrile. Pulse ox 93% on room air no hypoxia. H EENT exam pupils round reactive light extra motions are intact. Dry mucous membranes. He is in no distress. There is no trauma to his face nor any tenderness or swelling to his scalp. C-spine nontender. Trachea midline. Lungs clear to auscultation bilaterally. Heart regular rhythm rate about 70 no murmur. Chest wall and ribs nontender. Abdomen soft nontender. Pelvic girdle intact. No shortening or rotation of the hip pain to palpation. He has contusions on both knees. He is able to flex and extend both hips and knees. Normal dorsi plantarflexion. He is mildly edematous. Upper extremities are nontender. Normal manager dialysis strength. Normal range of motion. Neurologically he is awake and alert. Answering questions following commands. Again he knows month, year, place and [facility]. He is answering questions and following commands. His daughter and are both present in the room and helping with the history. Const Vital Signs: 07/09/23 08:46 07/09/23 08:45 07/09/23 11:41 Temperature 97.8 F Temperature Source Oral Pulse Rate 67 74 Respiratory Rate 17 27 H Blood Pressure 139/72 H 140/63 H Blood Pressure Mean 94 88 Pulse Ox 93 94 Oxygen Delivery Method Room Air Room Air 07/09/23 13:00 Temperature Temperature Source Pulse Rate 75 Respiratory Rate 28 H Blood Pressure 133/81 H Blood Pressure Mean 98 Pulse Ox 94 Oxygen Delivery Method Room Air Positive well nourished and well developed; Negative for cachectic, contractures or unkempt General Appearance ED: well developed and NAD; Negative for unkempt, cachectic, contractures, cyanotic or diaphoretic Nutritional Appearance: Negative for cachectic HEENT Reports dry mucous membranes; Denies moist mucous membranes Negative for trauma or tenderness Mouth ED: Yes dry mucous membranes Mouth: dry mucous membranes Eyes PERRL and EOMs intact bilaterally General Eye ED: Negative for pale conjunctiva or scleral icterus Neck no lymphadenopathy, supple and no JVD General: Negative for tenderness Lymph Lymphatic: Negative for other Chest Wall inspection of chest normal and palpation of chest normal Chest: Negative for other Resp normal respiratory effort and clear to auscultation bilaterally Effort and Inspection: Negative for retractions Auscultation: Negative for rales, rhonchi or wheezes Cardio regular rate, regular rhythm, S1 normal heart sound, S2 normal heart sound and no murmurs Palpation: Negative for palpable S3 or palpable S4 Rate: Negative for bradycardia Rhythm: Negative for abnormal rhythm GI normal to inspection, nondistended, normoactive bowel sounds, non-tender, non-distended and no masses Inspection: Negative for abdominal distention Palpation: soft; Negative for tender, guarding or rebound tenderness present Back/Spine no CVA tenderness General Back: CVA tenderness Extremity Negative for normal to inspection Extremity Narrative: Contusions bilateral knees. Some edema. General Extremety ED: Yes edema; Negative for tenderness General Extremity: edema Neuro oriented x3 and CN's II-XII intact bilaterally Sensorium / Orientation: alert; Negative for orientation impaired, lethargic or stuporous Motor Exam: general weakness Psych mental status grossly normal Appearance: Negative for unkempt Attitude: No agitated Mood & Affect: Negative for depressed, anxious or tearful Skin no rashes or lesions noted and no wounds Rashes: No rashes noted Trauma: Negative for abrasion MDM MDM MDM Narrative Medical decision making narrative: 68-year-old male chronically ill has cancer that they want to start radiation therapy on. Recently was hospitalized here in [facility]. Has had multiple renal transplant the last about 6 years ago. Had a recent fall at [facility] and intercranial bleed which was stable and [facility]. He had a fall today and family does not think he is at his normal mental status. CAT scan labs are being obtained. Exam is benign. Repeat exam at 1:45 PM unchanged. I discussed test results patient and family. I was going to send the patient back to the extended care facility. Family and patient are not happy with the extended care facility. They want him to get his IV antibiotics which is ceftriaxone. Admitted to either get home health care set up or transferred to a different extended-care facility. I will speak to the hospitalist about that. History & Record Review Discussion w/independent historian: Patient and Family Additional record(s) reviewed:: Prior inpatient record, Prior outpatient record, Prior ED visit, Prior labs and No prior records Lab Data Attestation: I reviewed the patient's lab results. Lab results narrative: CBC shows a white count of 15.8. H&H is 7.6 and 24.6 which is consistent with his chronic baseline anemia. Platelet count is 64,000 again chronic. Urinalysis is unremarkable. PT and INR of 16 and 1.3. Lactic acid is normal at 0.5. Liver enzymes are normal. Electrolytes show gap of 8. BUN and creatinine 43 and 2.0 which is consistent with his chronic renal insufficiency. Labs: Laboratory Results - last 24 hr 07/09/23 07/09/23 10:44 11:50 WBC 15.8 H RBC 2.43 L Hgb 7.6 L Hct 24.6 L MCV 101.2 H MCH 31.3 MCHC 30.9 L RDW Std Deviation 51.8 H RDW Coeff of Fermin 14.2 Plt Count 64 L MPV 13.5 H Immature Gran % (Auto) 0.700 Neut % (Auto) 82.3 H Lymph % (Auto) 2.7 L [place] % (Auto) 13.9 H Eos % (Auto) 0.3 Baso % (Auto) 0.1 Absolute Neuts (auto) 13.0 H Absolute Lymphs (auto) 0.42 L Nucleated RBC % 0 PT 16.4 H INR 1.3 Sodium 137 Potassium 5.1 Chloride 105 Carbon Dioxide 24.0 Anion Gap 8 BUN 43 H Creatinine 2.04 H Estim Creat Clear Calc 36.23 Est GFR (MDRD) Af Amer 42 L Est GFR (MDRD) Non-Af 35 L BUN/Creatinine Ratio 21.1 H Glucose 90 Lactic Acid 0.5 Calcium 9.3 Total Bilirubin 0.70 AST 14 L ALT 16 Alkaline Phosphatase 100 Total Protein 5.5 L Albumin 2.4 L Globulin 3.1 Albumin/Globulin Ratio 0.8 L Urine Color Yellow Urine Clarity Clear Urine pH 5.0 Ur Specific [place] 1.010 Urine Protein 30 H Urine Glucose (UA) Normal Urine Ketones 5 H Urine Occult Blood Negative Urine Nitrite Negative Urine Bilirubin Negative Urine Urobilinogen Normal Ur Leukocyte Esterase 25 H Urine RBC 0 SEEN Urine WBC 0 SEEN Ur Squamous Epith Cells 0 SEEN Ur Transition Epith Cell 0 SEEN Urine Bacteria 0 SEEN Urine Mucus 0 SEEN Radiography Chest X-Ray - ED: 1 View, Read by ED Physician, Heart, Lungs, Mediastinum, Bony Structures, No Acute Disease and Chronic Changes Diagnostic Testing: Clinical Impression(s) from Imaging Studies Brain CT 07/09/23 10:07 IMPRESSION: Subtle hyperdensity in the posterior parasagittal region as described above. Minimal subdural hematoma cannot be excluded. Electronically Signed: Parag Antonio MD at 11:36 EDT , ADDENDUM: 07/09/23 1156 IMPRESSION: Subtle hyperdensity in the posterior parasagittal region as described above. Minimal subdural hematoma cannot be excluded. N.B. : The above Results were Read Back by Parag Antonio MD to Kirit Booker MD, and understanding confirmed on 07/09/2023 11:49:41 (ET). Electronically Signed: Parag Antonio MD at 11:36 EDT , Chest X-Ray 07/09/23 11:00 IMPRESSION: No radiographic evidence of acute cardiopulmonary disease. Electronically Signed: Parag Antonio MD at 11:18 EDT , Chest x-ray, portable, single view single view interpreted both by myself and the radiologist. Shows chronic changes no acute process. No pneumonia or effusion. Prior sternotomy. Right-sided pacemaker. Rhythm Strip Rhythm Strip: A-fib Rate: 79 Ectopy: None EKG Initial EKG: Attestation: I personally reviewed and interpreted this EKG as follows: Interpretation: Atrial Fibrillation Comments: A-fib rate of 79 no acute signs of HI or ischemia. Discharge Plan Triage Chief Complaint: Alt LOC ED Provider: Kirit Booker Dx/Rx/DC Orders Prescriptions: No Action atorvastatin 20 mg tablet 20 mg PO QHS tacrolimus 0.5 mg capsule 0.5 mg PO BID mycophenolate sodium 180 mg tablet,delayed release (DR/EC) 180 mg PO BID Patient Comments: PT STATES TAKES 1 (180 MG) AND 1 (360 MG) BID FOR A TOTAL DOSE OF 540 MG. tamsulosin 0.4 MG capsule 0.4 mg PO DAILY finasteride 5 MG tablet 5 mg PO DAILY carvedilol 6.25 tablet 6.25 mg PO BID prednisone 5 tablet 5 mg PO DAILY ferrous sulfate 324 MG tablet,delayed release (DR/EC) 324 mg PO DAILY sulfamethoxazole-trimethoprim 1 EACH tablet 1 tab PO MOWEFR mycophenolate sodium 360 mg tablet,delayed release (DR/EC) 360 mg PO BID Patient Comments: PT STATES TAKES 1 (180 MG) AND 1 (360 MG) BID FOR A TOTAL DOSE OF 540 MG. acetaminophen 500 MG tablet 1,000 mg PO BID acitretin 10 capsule 10 mg PO SUTUTHSA pantoprazole 40 MG tablet,delayed release (DR/EC) 40 mg PO DAILY zolpidem 10 mg Tablet 10 mg PO QHS warfarin 2 mg tablet 2 mg PO SUTUTHSA Rx Instructions: 2mg on SUN and WED. 1mg on MON, TUE, THUR, FRI, SAT warfarin 1 mg tablet 1 mg PO MOWEFR Primary Care Provider: Beth Quiroz Referrals: Beth Quiroz MD [Primary Care Provider] -
--- NOTE | 2023-07-09 11:00 | RAD_ITS ---
INDICATION: ms change EXAMINATION/TECHNIQUE: X-RAY - XR Chest 1 View COMPARISON: Prior study dated: 06/27/2023 FINDINGS: LINES/DEVICES: Left-sided Port-A-Cath and right-sided dual-chamber cardiac pacer device in stable position. LUNGS: No new consolidation, edema or effusion. No pneumothorax. MEDIASTINUM AND CARDIOVASCULAR STRUCTURES: Status post CABG. Stable cardiomediastinal silhouette. BONES AND SOFT TISSUES: Unchanged. RAD/Chest 1 View (Portable) IMPRESSION: No radiographic evidence of acute cardiopulmonary disease. Electronically Signed: Parag Antonio MD at 11:18 EDT ,
[2023-07-09 11:09] LABS: International Normalized Ratio 1.3; Prothrombin Time (Protime)PT. 16.4 SECONDS (11.7-14.9)
[2023-07-09 11:18] LABS: Lactic Acid 0.5 mmol/L (0.4-1.9)
[2023-07-09 11:23] LABS: ALB/GLOB Ratio 0.8 RATIO (0.9-2.4); AST(SGOT) 14 U/L (15-37); Alanine Aminotransfer ALT/SGPT 16 U/L (16-61); Albumin, Serum 2.4 g/dL (3.2-5.0); Alkaline Phosphatase 100 U/L (45-117); Anion Gap 8 (5-15); BUN 43 mg/dL (7-18); BUN/Creat Ratio 21.1 RATIO (10-20); Calcium,Total 9.3 mg/dL (8.5-10.1); Chloride 105 mmol/L (98-107); Creatinine, Serum 2.04 mg/dL (0.70-1.30); EST Glomerular Filtration Rate 35 mL/min (>60); Est Glom Filt Rate - Afr Amer 42 mL/min (>60); Estimated Creatinine Clearance 36.23 ml/min; Globulin 3.1 g/dL (2.2-4.2); Glucose 90 mg/dL (74-106); Potassium 5.1 mmol/L (3.5-5.1); Protein, Total 5.5 g/dL (6.4-8.2); Sodium Level 137 mmol/L (136-145)
[2023-07-09 11:59] LABS: Bacteria 0 SEEN /hpf (None Seen); Mucous, Urine 0 SEEN /hpf (<or=2+); Red Blood Cells-Urine 0 SEEN /hpf (0-5); Squamous Epithelial Cells - UA 0 SEEN /hpf (0-5); White Blood Cells 0 SEEN /hpf (0-5)
[2023-07-09 12:01] LABS: Color, Urine Yellow (Yellow); Glucose, Dipstick Normal (Normal); Ketone-Dipstick 5 mg/dl (Negative); Leukocyte Esterase-Dipstick 25 /ul (Negative); Nitrite-Dipstick Negative (Negative); Occult Blood-Urine Negative /ul (Negative); Protein-Dipstick 30 mg/dl (Negative); Urine Bilirubin Dipstick Negative (Negative); Urine Clarity Clear (Clear); Urine Urobilinogen Normal (Normal)
[2023-07-09 13:49] LABS: Absolute Lymphocyte Count 0.42 X10^3/uL (0.83-4.51); Basophil# 0.02 X10^3/uL; Basophil% 0.1 % (0-1); Eosinophil# 0.04 X10^3/uL; Eosinophils% 0.3 % (0-5); Hematocrit 24.6 % (40-54); Hemoglobin 7.6 g/dL (13.0-16.5); Lymphocyte # 0.42 X10^3/ul (0.83-4.51); Lymphocyte % 2.7 % (19-41); Mean Corp Hgb Conc 30.9 g/dL (32-36); Mean Corpuscular Hgb 31.3 pg (27.0-32.0); Mean Corpuscular Volume 101.2 fL (80-94); Mean Platelet Vol. 13.5 fl (6.2-12.0); Monocyte# 2.19 X10^3/uL; Monocyte% 13.9 % (0-10); NRBC Flagged by Analyzer 0 % (0-5); Neutrophil # 12.99 X10^3/uL (2.7-7.7); Neutrophil % 82.3 % (47-70); POSITIVE COUNT YES; POSITIVE DIFFERENTIAL YES; Platelet Count 64 K/mm3 (150-450); RBC Distribution Width CV 14.2 % (11.6-14.6); RBC Distribution Width SD 51.8 fl (35.1-43.9); Red Blood Count 2.43 M/mm3 (4.6-6.2); White Blood Count 15.8 K/mm3 (4.4-11.0)
[2023-07-09 13:51] LABS: Transitional Epithelial - Ur 0 SEEN /hpf (0-5)
[2023-07-09 13:53] LABS: Differential Indicated SCAN CRITERIA MET
--- NOTE | 2023-07-09 14:47 | HP.PCM.HOS_ITS ---
HPI - General General Date of Admission: 07/09/23 Date of Service: 07/09/23 Chief Complaint: Falls, Adult FTT, Transient confusion. HPI Narrative The patient is a 68 y/o F w/ PMHx: Obesity, CKD stage III unclear subtype w/ renal transplant status s/p rejection/Hx ESRD, Chronic Thrombocytopenia, Chronic macrocytic anemia/iron deficiency anemia, Hx Complete HB s/p pacemaker, Valvular heart disease, HTN, HLD, GERD, Chronic AF, VINAYAK on CPAP, Seizure disorder, recently discharged 06/29/2023 following evaluation for sepsis secondary to Klebsiella bacteremia with Klebsiella UTI/pyelonephritis with CT scan demonstrating significant stranding and associated acute kidney injury on CKD complicated by underlying history of renal transplant status with unfortunately his renal function not improving despite interventions with eventual transition to transplant nephrology service at [facility] on 06/29/2023 who now represents to the [facility] ED on 07/09/23 with ongoing IV antibiotic therapy with history of fall 2 days prior to being discharged from [facility] with at that time diagnosis of a parenchymal intracranial bleed which was observed discharged today from their facility by private vehicle to [facility] the day prior unfortunately found the evening prior on the floor at midnight possibly secondary to a fall unclear if he hit his head or not with mental status change per their report previously on Coumadin but this had been stopped over a week prior prompting eventual ED evaluation. Patient who is alert and oriented upon evaluation notes that what he believes happened was his phone fell and he attempted to pick it up and fell over without head trauma and states despite bed alarm going off no staff came to help him. Workup in the ED included T97.8, heart rate 67, BP 139/72, respiratory rate 17, 93% on room air, CBC with WBC 15.8, hemoglobin 7.6, MCV 101.2, platelets 64 with left shift and lymphopenia, coags with PT 16.4 otherwise not marked appearing, CMP with BUN/creatinine 43/2.04, GFR 35, lactic acid 0.5, hepatic profile not marked appearing, urinalysis with specific gravity 1.010, protein 30, ketone 5, negative nitrite, leukocyte Estrace 25 with no evidence of UTI, chest x-ray with no acute cardiopulmonary findings, CT of the brain with subtle hyperdensity in the posterior parasagittal region with unfortunately shiraz bility to rule out a minimal subdural hematoma. Patient and family note intention to transition to home. They have a hospital bed in place. They prefer to do outpatient PT/OT and only need abx therapy to be set-up. REPLACED BY [facility] Medical History Actinic keratosis Anemia Back pain BCC (basal cell carcinoma of skin) Cancer Cardiology follow-up encounter Ceruminous adenocarcinoma of right ear Chronic kidney disease (CKD) Chronic rejection of renal transplant Complete heart block (08/11/16) CPAP (continuous positive airway pressure) dependence Dietary restriction Diverticulosis Easy bruising Enterococcal sepsis Essential hypertension Fistula H pylori ulcer History of Clostridium difficile infection History of echocardiogram History of renal dialysis History of skin cancer History of steroid therapy History of ulceration Hyperlipidemia Longstanding persistent atrial fibrillation Loss of hearing Low iron Lower extremity edema Membranoproliferative glomerulonephritis MRSA infection Non-rheumatic mitral valve stenosis Non-smoker Nonrheumatic aortic (valve) stenosis Obesity VINAYAK (obstructive sleep apnea) Pacemaker Pulmonary hypertension Right-sided tinnitus Secondary pulmonary arterial hypertension Seizures Sleep apnea Squamous cell carcinoma UTI (urinary tract infection) Wears glasses Home Medications tamsulosin 0.4 mg capsule 0.4 mg PO BID PROSTATE 03/16/15 [History Last Taken 07/09/23] finasteride 5 mg tablet 5 mg PO DAILY PROSTATE 10/23/15 [History Last Taken 01/11/23 08:00] carvedilol 6.25 mg tablet 6.25 mg PO BID HEART 02/14/18 [History Last Taken 07/09/23] ferrous sulfate 324 mg (65 mg iron) tablet,delayed release 324 mg PO DAILY SUPPLEMENT 02/14/18 [History Last Taken 07/09/23] prednisone 5 mg tablet 5 mg PO DAILY STEROID 02/14/18 [History Last Taken 07/09/23] sulfamethoxazole 800 mg-trimethoprim 160 mg tablet 1 tab PO MOWEFR ANTIBIOTIC 02/14/18 [History Last Taken 07/09/23] acetaminophen 500 mg tablet 1,000 mg PO TID PAIN 03/02/19 [History Last Taken 07/09/23] acitretin 10 mg capsule 10 mg PO SUTUTHSA CHEMO 03/02/19 [History Last Taken 05/04/23] atorvastatin 20 mg tablet 20 mg PO QHS CHOLESTEROL 04/01/21 [History Last Taken 07/08/23] tacrolimus 0.5 mg capsule, immediate-release 0.5 mg PO BID TRANSPLANT REJECTION PREVENTION 04/01/21 [History Last Taken 05/05/23] pantoprazole 40 mg tablet,delayed release 40 mg PO DAILY ACID REFLUX 09/15/22 [History Last Taken 07/09/23] zolpidem 10 mg tablet 10 mg PO QHS INSOMNIA 09/15/22 [History Last Taken 07/08/23] warfarin 2 mg tablet 2 mg PO SUTUTHSA BLOOD THINNER 11/12/22 [History Last Taken 07/06/23] warfarin 1 mg tablet 1 mg PO MOWEFR 12/28/22 [History Last Taken 07/06/23] NAD, reduced, disodium (bulk) 100 % powder (Nicotinamide Adenine Dinucleotide Reduced NA2) 1 ea miscellaneous BID SKIN CANCER 07/09/23 [History Last Taken Unknown] ascorbic acid (vitamin C) 500 mg capsule 500 mg PO DAILY 07/09/23 [History Last Taken 07/09/23] cyanocobalamin (vitamin B-12) 1,000 mcg tablet,extended release (Vitamin B-12 ER) 1,000 mcg PO QMONTH 07/09/23 [History Last Taken 06/21/23] Allergy/AdvReac Type Severity Reaction Status Date / Time ibuprofen [From Motrin] AdvReac Kidney Verified 06/03/23 10:32 transplant latex AdvReac Rash Verified 06/03/23 10:32 Family History Mother Cancer Father Cancer Myocardial infarction CAD (coronary artery disease) Heart disease Surgical History H/O hemorrhoidectomy H/O Mohs micrographic surgery for skin cancer H/O skin graft History of anal lesion History of aortic valve replacement (08/04/16) History of cardioversion (11/2016) History of colonoscopy History of cranial surgery History of excision of lesion (2019) History of eye surgery History of herniorrhaphy History of mitral valve replacement (08/04/16) History of permanent cardiac pacemaker placement (08/11/16) History of surgery History of surgery on arm Hx of external ear surgery Hx of living-donor kidney transplantation Hx of total knee arthroplasty Renal transplant recipient (02/2018) S/P flap graft Status post ligation of left atrial appendage (08/04/16) Social History household members: spouse and family Smoking Status: Never smoker alcohol intake: never substance use type: does not use ROS ROS Narrative Admission Review of Systems: CONSTITUTIONAL: No weight loss, fever, chills, + weakness or fatigue. HEENT: Eyes: No visual loss, blurred vision, double vision or yellow sclerae. Ears, Nose, Throat: No hearing loss, sneezing, congestion, runny nose or sore throat. SKIN: No rash or itching, lesions, wounds except + recent head and neck surgery with altered facial skin, occasional staged ecchymoses. CARDIOVASCULAR: No chest pain, chest pressure or chest discomfort, palpitations, edema, orthopnea, syncopal events. RESPIRATORY: No marked dyspnea, cough or sputum, wheezing, hemoptysis. GASTROINTESTINAL: + Decreased appetite. No nausea, vomiting, diarrhea, abdominal pain, melena, BRBPR. GENITOURINARY: No dysuria, frequency, urgency or retention. NEUROLOGICAL: + Frequent falls. No headache, dizziness, syncope, paralysis, ataxia, numbness or tingling in the extremities, focal weakness, change in bowel or bladder control, seizure. MUSCULOSKELETAL: + muscle, back pain, joint pain or stiffness. HEMATOLOGIC: + Chronic anemia, easy bleeding/bruising. LYMPHATICS: No enlarged nodes. No history of splenectomy. PSYCHIATRIC: No history of depression or anxiety. ENDOCRINOLOGIC: No reports of sweating, cold or heat intolerance. No polyuria or polydipsia. ALLERGIES: No history of asthma, hives, eczema or rhinitis. Vital Signs Vital Signs Vital Signs: 07/09/23 08:46 07/09/23 08:45 07/09/23 11:41 Temperature 97.8 F Temperature Source Oral Pulse Rate 67 74 Respiratory Rate 17 27 H Blood Pressure 139/72 H 140/63 H Blood Pressure Mean 94 88 Pulse Ox 93 94 Oxygen Delivery Method Room Air Room Air 07/09/23 13:00 Temperature Temperature Source Pulse Rate 75 Respiratory Rate 28 H Blood Pressure 133/81 H Blood Pressure Mean 98 Pulse Ox 94 Oxygen Delivery Method Room Air Weight Weight: 202 lb 2.622 oz Body Mass Index (BMI) 32.6 Physical Exam Narrative Physical Examination: General: Awake, alert, oriented > 3 [address] person, place, month, year, recent events, no evidence of encephalopathy or confusion currently and gives reasonable story regarding recent events at SNF, remains cooperative, fatigued, laying in the ED bed. Skin: Normal color, normal turgor, no icterus, no cyanosis except significant various staged ecchymoses, abrasions, scarring to the face right lateral following recent surgical intervention for head and neck cancer, dry flaking skin, BL LE venous stasis skin changes. HEENT: AT/NC, EOMI, PERRLA, dry MM, no carotid bruits or JVD noted, see skin. Lungs: Diminished, greater bases, mildly increased respiratory rate but no distress, no rales, ronchi or wheezing. Heart: Irregular, rate controlled; no gallop, rub audible. Abdomen: Soft, obese, NTTP, mildly distended, mildly hyperactive BS, no a ppreciated HSM. Extremities: No cyanosis, no clubbing, no marked peripheral edema, see skin. Neurological: Patient awake, alert, oriented as noted, cognitive function intact; pupils equally reactive to light and accommodation, cranial nerves grossly normal, moving all 4 extremities but limited given debility, no focal deficits, strength severely globally decreased secondary to acute presentation. Psychiatric: Affect appears flat, fatigued, no acute evidence of depressive or anxiety feelings. Results Lab / Micro Data 07/09/23 10:44 07/09/23 10:44 Labs: Laboratory Results - last 24 hr 07/09/23 10:44: WBC 15.8 H, RBC 2.43 L, Hgb 7.6 L, Hct 24.6 L, MCV 101.2 H, MCH 31.3, MCHC 30.9 L, RDW Std Deviation 51.8 H, RDW Coeff of Fermin 14.2, Plt Count 64 L, MPV 13.5 H, Immature Gran % (Auto) 0.700, Neut % (Auto) 82.3 H, Lymph % (Auto) 2.7 L, [place] % (Auto) 13.9 H, Eos % (Auto) 0.3, Baso % (Auto) 0.1, Absolute Neuts (auto) 13.0 H, Absolute Lymphs (auto) 0.42 L, Nucleated RBC % 0, Diff Path Review July, PT 16.4 H, INR 1.3, Sodium 137, Potassium 5.1, Chloride 105, Carbon Dioxide 24.0, Anion Gap 8, BUN 43 H, Creatinine 2.04 H, Estim Creat Clear Calc 36.23, Est GFR (MDRD) Af Amer 42 L, Est GFR (MDRD) Non-Af 35 L, BUN/Creatinine Ratio 21.1 H, Glucose 90, Lactic Acid 0.5, Calcium 9.3, Total Bilirubin 0.70, AST 14 L, ALT 16, Alkaline Phosphatase 100, Total Protein 5.5 L, Albumin 2.4 L, Globulin 3.1, Albumin/Globulin Ratio 0.8 L 07/09/23 11:50: Urine Color Yellow, Urine Clarity Clear, Urine pH 5.0, Ur Specific [place]ell 1.010, Urine Protein 30 H, Urine Glucose (UA) Normal, Urine Ketones 5 H, Urine Occult Blood Negative, Urine Nitrite Negative, Urine Bilirubin Negative, Urine Urobilinogen Normal, Ur Leukocyte Esterase 25 H, Urine RBC 0 SEEN, Urine WBC 0 SEEN, Ur Squamous Epith Cells 0 SEEN, Ur Transition Epith Cell 0 SEEN, Urine Bacteria 0 SEEN, Urine Mucus 0 SEEN Rhythm Strip Rhythm Strip: A-fib Rate: 79 Ectopy: None Imaging Radiology Impression Brain CT 07/09/23 10:07 IMPRESSION: Subtle hyperdensity in the posterior parasagittal region as described above. Minimal subdural hematoma cannot be excluded. Electronically Signed: Parag Antonio MD at 11:36 EDT Reading Location ID and State: [facility] / [place] Tel , Service support , ADDENDUM: 07/09/23 1156 IMPRESSION: Subtle hyperdensity in the posterior parasagittal region as described above. Minimal subdural hematoma cannot be excluded. N.B. : The above Results were Read Back by Parag Antonio MD to Kirit Booker MD, and understanding confirmed on 07/09/2023 11:49:41 (ET). Electronically Signed: Parag Antonio MD at 11:36 EDT , Chest X-Ray 07/09/23 11:00 IMPRESSION: No radiographic evidence of acute cardiopulmonary disease. Electronically Signed: Parag Antonio MD at 11:18 EDT , Assessment & Plan Assessment/Plan (1) Fall: PLAN: Plan The patient is a 68 y/o F w/ PMHx: Obesity, CKD stage III unclear subtype w/ renal transplant status s/p rejection/Hx ESRD, Chronic Thrombocytopenia, Chronic macrocytic anemia/iron deficiency anemia, Hx Complete HB s/p pacemaker, Valvular heart disease, HTN, HLD, GERD, Chronic AF, VINAYAK on CPAP, Seizure disorder, r ecently discharged 06/29/2023 following evaluation for sepsis secondary to Klebsiella bacteremia with Klebsiella UTI/pyelonephritis with CT scan demonstrating significant stranding and associated acute kidney injury on CKD complicated by underlying history of renal transplant status with unfortunately his renal function not improving despite interventions with eventual transition to transplant nephrology service at [facility] on 06/29/2023 who now represents to the [facility] ED on 07/09/23 with ongoing IV antibiotic therapy with history of fall 2 days prior to being discharged from [facility] with at that time diagnosis of a parenchymal intracranial bleed which was observed discharged today from their facility by private vehicle to [facility] the day prior unfortunately found the evening prior on the floor at midnight possibly secondary to a fall unclear if he hit his head or not with mental status change per their report previously on Coumadin but this had been stopped over a week prior prompting eventual ED evaluation. #1. Adult FTT, Multifactorial, as noted below in addition to recurrent Mechanical fall, recurrent with concern for transient mental status change/acute encephalopathy, now appears resolved and at mental status baseline: CT of the head with no acute bleed but evidence of previous, lab workup with no acute concerning findings, mental status appropriate in the ED. Will admit to medical surgical floor, maintain on fall precautions, will continue treatment as noted b elow and will consult PT/OT/case management as family is interested in at this time transition to home noted that they even have a hospital bed being delivered today with potential interest in outpatient PT and OT instead of home therapies but they need assistance in setting up what ever remaining IV Rocephin therapy is needed. Currently verifying length of duration of IV antibiotic therapy. Given patient's severe debility do believe that patient actually needs skilled therapy in a skilled setting but will defer to patient and family preference. #2. Recent mechanical fall with intracranial hemorrhage: Patient with unfortunate fall 2 days prior to discharge at [facility] with i ntracranial hemorrhage resulting, will continue to hold Coumadin, maintain on fall precautions, possibly contributing to mechanical fall history and confusion intermittently although patient appropriate upon current arrival, PT/OT/case management consulted for discharge planning. #3. Recent Klebsiella bacteremia with complicated Klebsiella UTI/pyelonephritis: Will continue IV Rocephin to completion with last infectious disease input 06/29/23, may reinvolve if necessary otherwise we will verify a stop date. Case management consulted as will need home health assist to set this up at home with home nursing versus alternate skilled facility. #4. CKD stage III unclear subtype: Patient previous history end-stage renal disease on dialysis status post renal transplant with rejection history, ad mission BUN/Cr 43/2.04, prior baseline creatinine noted to be primarily 1.6-2.1, stable compared to prior baseline, resolved prior ZOË, will continue low-dose prednisone, prophylactic Bactrim, tacrolimus home regimen. #5. Acute on Chronic thrombocytopenia: Admission platelet 64, previous baseline 90-100 primarily but decreased during prior admission and has been fluctuating since, will continue to trend CBC. #6. Head and neck squamous cell malignancy: Status post surgical intervention unclear specific type with plans for initiation of radiation however given his acute presentation this will need to be delayed, magnesium and phosphorus levels requested, continue follow-up outpatient with [facility] as previously arranged. #7. Valvular heart disease: Status post AV replacement, MV replacement, last echocardiogram noted 04/17/2021 with normal LV size, LV systolic function normal, EF 55%, severely enlarged LA, stable appearing bioprosthetic MV apparatus, mean TV gradient 8 mmHg, PASP 53 mmHg, bioprosthetic aortic valve, mean AV gradient 8 mmHg. #8. Chronic AF: Status post ligation left atrial appendage 2016, will continue patient home Coreg regimen, holding Coumadin given intracranial hemorrhage with fall during recent previous hospitalization at [facility]. #9. Hypertension: Will continue patient home Coreg regimen, PRN hydralazine. #10. Hyperlipidemia: Will continue patient on statin therapy. #11. Chronic macrocytic anemia/iron deficiency anemia: Admission Hgb 7.6, b aseline prior since 06/18/23 baseline 8-9, will continue to trend. continue iron supplementation. #12. Obesity: Weight loss and lifestyle changes encouraged. #13. History complete heart block: Status post permanent pacemaker placement, encourage continued outpatient follow-up with cardiology as previously arranged. #14. GERD: We will continue patient on PPI. #15. BPH: We will continue patient on Flomax and finasteride regimen. #16. Chart reported seizure history: Not on any AED, encourage continued outpatient follow-up as previously arranged. #17. VINAYAK: CPAP nightly. #18. DVT prophylaxis: SCDs especially given recent fall with intracranial hemorrhage. #19. CODE status: Verified with family and patient that his HCPOA is his and living will is currently in place. He notes that his is still currently DNR- CCA, no intubation status. Patient following also with palliative care outpatient. Charges/Coding Visit Charges Inpatient E&M: 26435 Init Hosp L2
[2023-07-09] MEDS: Ceftriaxone 1 GM/50 ML BAG IV (14:57)
[2023-07-09 15:17] LABS: Magnesium 2.1 mg/dL (1.6-2.6); Phosphorus 2.9 mg/dL (2.5-4.9)
--- NOTE | 2023-07-09 20:20 | CPS ---
Patient on home CPAP. Patient saturations were only 83 upon arrival to him room. Placed 2L bleed in to maintain sats >90%
[2023-07-09] MEDS: Acetaminophen 325 MG Tablet 650 MG PO (20:27)
[2023-07-09] MEDS: Atorvastatin Calcium 20 MG Tablet PO (20:27)
[2023-07-09] MEDS: Tamsulosin HCl 0.4 MG Capsule PO (20:28)
[2023-07-09] MEDS: Menthol/Lanolin/Calamine/Znox 113 GM Tube 1 APPLIC TOPICAL (20:28)
[2023-07-09] MEDS: Tacrolimus 0.5 MG Capsule PO (20:28)
[2023-07-09] MEDS: Carvedilol 6.25 MG Tablet PO (20:28)
[2023-07-09] MEDS: LORazepam 2 MG/ML Syringe 1 MG IV (22:11)
[2023-07-09] MEDS: MELATONIN 3 MG TABLET PO (23:23)
[2023-07-09] MEDS: QUEtiapine 25 MG Tablet PO (23:23)
[2023-07-10] VITALS (8 sets, daily range): BP systolic 115–153; BP diastolic 66–81; PULSE 66–82; RESP 20–30; TEMP 36.5–37.3; O2SAT 93–97; BMI 27.3
[2023-07-10] MEDS: Acetaminophen 325 MG Tablet 650 MG PO ×2 (02:26→16:06)
[2023-07-10] MEDS: LORazepam 2 MG/ML Syringe 1 MG IV (06:32)
[2023-07-10 06:34] LABS: Absolute Neutrophil Count 10.9 X10^3/uL (2.0-7.7); Basophil# 0.02 X10^3/uL; Basophil% 0.2 % (0-1); Eosinophil# 0.01 X10^3/uL; Eosinophils% 0.1 % (0-5); Hematocrit 24.7 % (40-54); Hemoglobin 7.7 g/dL (13.0-16.5); Lymphocyte % 3.1 % (19-41); Mean Corp Hgb Conc 31.2 g/dL (32-36); Mean Corpuscular Volume 99.6 fL (80-94); Mean Platelet Vol. 12.5 fl (6.2-12.0); Monocyte# 1.49 X10^3/uL; Monocyte% 11.6 % (0-10); NRBC Flagged by Analyzer 0 % (0-5); Neutrophil # 10.89 X10^3/uL (2.7-7.7); Neutrophil % 84.3 % (47-70); POSITIVE COUNT YES; POSITIVE DIFFERENTIAL YES; Platelet Count 69 K/mm3 (150-450); RBC Distribution Width CV 14.3 % (11.6-14.6); RBC Distribution Width SD 51.3 fl (35.1-43.9); Red Blood Count 2.48 M/mm3 (4.6-6.2); White Blood Count 12.9 K/mm3 (4.4-11.0)
--- NOTE | 2023-07-10 06:41 | PN.HOSP_ITS ---
Reason for Visit Reason for Visit: Diagnoses Unspecified fall, initial encounter (07/09/23) Subjective Subjective Overnight patient had fever onset and increased oxygen requirements but on CPAP at night but he transiently needed 10L NC bled in but weaned to 5L this AM, now afebrile. He was agitated, ripping his lines off. He was given ativan and seroquel secondary to agitation. Patient still encephalopathic this morning and requiring oxygen supplementation although weaned therefore blood culture x 2 obtained with request at least 1 from port and 1 peripheral, full respiratory viral panel requested, urine antigens, chest x-ray PA and lateral, sputum culture as well as procalcitonin. Recent urine completely unremarkable. Patient upon evaluation was able to become more alert and was able to deny any abdominal discomfort any nausea, chest pain. He does have increased respiratory rate and does appear mildly dyspneic on evaluation. Patient family present and did have lengthy discussion and decision to transition to BSA abx and continue to evaluation for suspected HCAP and if not responsive over the next 24 hours potential transition to Hospice. Patient denies chills, nausea, emesis, abdominal pain, chest pain, cough. Objective Data Objective Data Vital Signs: Vital Signs Temp Pulse Resp BP Pulse Ox O2 Del Method O2 Flow Rate 98.1 F 68 24 H 127/71 H 97 High Flow 5 07/10/23 05:50 07/10/23 05:50 07/10/23 05:50 07/10/23 05:50 07/10/23 05:50 07/10/23 05:50 07/10/23 05:50 Oxygen Flow Rate (L/min) 5 Oxygen Delivery Method High Flow Weight: 161 lb 9.581 oz Body Mass Index (BMI) 27.3 Intake & Output: Intake and Output for Last 24 Hours 07/08/23 07/09/23 07/10/23 23:59 23:59 23:59 Intake Total 150 / 150 Output Total 1999 Balance -1850 / -1850 Lab / Micro Data 07/10/23 05:32 07/10/23 05:32 Labs: Laboratory Results - last 24 hr 07/09/23 10:44: WBC 15.8 H, RBC 2.43 L, Hgb 7.6 L, Hct 24.6 L, MCV 101.2 H, MCH 31.3, MCHC 30.9 L, RDW Std Deviation 51.8 H, RDW Coeff of Fermin 14.2, Plt Count 64 L, MPV 13.5 H, Immature Gran % (Auto) 0.700, Neut % (Auto) 82.3 H, Lymph % (Aut o) 2.7 L, Haines % (Auto) 13.9 H, Eos % (Auto) 0.3, Baso % (Auto) 0.1, Absolute Neuts (auto) 13.0 H, Absolute Lymphs (auto) 0.42 L, Nucleated RBC % 0, Diff Path Review July, PT 16.4 H, INR 1.3, Sodium 137, Potassium 5.1, Chloride 105, Carbon Dioxide 24.0, Anion Gap 8, BUN 43 H, Creatinine 2.04 H, Estim Creat Clear Calc 36.23, Est GFR (MDRD) Af Amer 42 L, Est GFR (MDRD) Non-Af 35 L, BUN/Cr eatinine Ratio 21.1 H, Glucose 90, Lactic Acid 0.5, Calcium 9.3, Phosphorus 2.9, Magnesium 2.1, Total Bilirubin 0.70, AST 14 L, ALT 16, Alkaline Phosphatase 100, Total Protein 5.5 L, Albumin 2.4 L, Globulin 3.1, Albumin/Globulin Ratio 0.8 L 07/09/23 11:50: Urine Color Yellow, Urine Clarity Clear, Urine pH 5.0, Ur Specific Binford 1.010, Urine Protein 30 H, Urine Glucose (UA) Normal, Urine Ketones 5 H, Urine Occult Blood Negative, Urine Nitrite Negative, Urine Bilirubin Negative, Urine Urobilinogen Normal, Ur Leukocyte Esterase 25 H, Urine RBC 0 SEEN, Urine WBC 0 SEEN, Ur Squamous Epith Cells 0 SEEN, Ur Transition Epith Cell 0 SEEN, Urine Bacteria 0 SEEN, Urine Mucus 0 SEEN Radiography Diagnostic Testing: Radiology Impression Brain CT 07/09/23 10:07 IMPRESSION: Subtle hyperdensity in the posterior parasagittal region as described above. Minimal subdural hematoma cannot be excluded. Electronically Signed: Parag Antonio MD at 11:36 EDT , ADDENDUM: 07/09/23 1156 IMPRESSION: Subtle hyperdensity in the posterior parasagittal region as described above. Minimal subdural hematoma cannot be excluded. N.B. : The above Results were Read Back by Parag Antonio MD to Kirit Booker MD, and understanding confirmed on 07/09/2023 11:49:41 (ET). Electronically Signed: Parag Antonio MD at 11:36 EDT , Chest X-Ray 07/09/23 11:00 IMPRESSION: No radiographic evidence of acute cardiopulmonary disease. Electronically Signed: Parag Antonio MD at 11:18 EDT , Rhythm Strip Rhythm Strip: A-fib Rate: 79 Ectopy: None Physical Exam Narrative Physical Examination: General: Awakens to stimuli, currently less alert than previously, not alert, definitely encephalopathic, does improve throughout evaluations and eventually is able to sit upright and be more interactive and answer some questions, fatigued and ill-appearing. Skin: Normal color, normal turgor, no icterus, no cyanosis except significant various staged ecchymoses, abrasions, scarring to the face right lateral foll owing recent surgical intervention for head and neck cancer, dry flaking skin, BL LE venous stasis skin changes. HEENT: AT/NC, EOMI, PERRLA, dry MM. Lungs: Significantly diminished, mildly coarse at bases, mildly increased respiratory rate but no distress, no wheezing, Supplemental oxygen currently in place. Heart: Irregular, rate controlled; no gallop, rub audible. Abdomen: Soft, obese, NTTP, mildly distended, distant normal BS. Extremities: No cyanosis, no clubbing, no marked peripheral edema, see skin. Neurological: Awakens to stimuli, currently less alert than previously, not alert, definitely encephalopathic, does improve throughout evaluations and eventually is able to sit upright and be more interactive and answer some questions, fatigued and ill-appearing, cognitive function not baseline intact; pupils equally reactive to light and accommodation, cranial nerves grossly normal, moving all 4 extremities but limited given encephalopathy and debility but moving them spontaneously, strength severely globally decreased. Psychiatric: Affect appears flat, fatigued, ill-appearing, no acute evidence of depressive or anxiety feelings. Assessment & Plan Assessment/Plan (1) Fall: PLAN: Plan The patient is a 68 y/o F w/ PMHx: Obesity, CKD stage III unclear subtype w/ renal transplant status s/p rejection/Hx ESRD, Chronic Thrombocytopenia, Chronic macrocytic anemia/iron deficiency anemia, Hx Complete HB s/p pacemaker, Valvular heart disease, HTN, HLD, GERD, Chronic AF, VINAYAK on CPAP, Seizure disorder, recently discharged 06/29/2023 following evaluation for sepsis secondary to Kleb siella bacteremia with Klebsiella UTI/pyelonephritis with CT scan demonstrating significant stranding and associated acute kidney injury on CKD complicated by underlying history of renal transplant status with unfortunately his renal function not improving despite interventions with eventual transition to transplant nephrology service at [facility] on 06/29/2023 who now represents to the [facility] ED on 07/09/23 with ongoing IV antibiotic therapy with history of fall 2 days prior to being discharged from [facility] with at that time diagnosis of a parenchymal intracranial bleed which was observed discharged today from their facility by private vehicle to [facility] the day prior unfortunately found the evening prior on the floor at midnight possibly secondary to a fall unclear if he hit his head or not with mental status change per their report previously on Coumadin but this had been stopped over a week prior prompting eventual ED evaluation. #1. Adult FTT, Multifactorial, as noted below in addition to recurrent Mechanical fall, recurrent with concern for transient mental status change/acute encephalopathy, now appears resolved and at mental status baseline upon admission but altered overnight with concern for possible underlying infectious process with agitation, transient fever and hypoxia with work-up consistent with Acute Hypoxia secondary to BL Pneumonia, Possible GN/GP organisms given recent hospitalization and immunosupressed status: CT of the head with no acute bleed b ut evidence of previous, lab workup with no acute concerning findings, mental status appropriate in the ED. admitted to medical surgical floor, 07/09/2023 to 07/10/2023 patient with increased oxygen requirements with need to bleed oxygen into his CPAP which is not his normal baseline in addition to fever. Chest x- ray obtained with new opacities in the mid to lower lung law bilaterally suspicious for pneumonia over fluid especially given febrile status. Respiratory viral panel pending. Blood culture x 2 obtained with 1 for port and 1 peripheral. Urine antigens negative. Procalcitonin significantly elevated 11.70. Will transition patient 07/10/2023 from IV Rocephin for which she was on secondary to #3 to broad-spectrum antibiotic therapy with IV Zosyn and IV vancomycin while closely continuing to monitor his renal function. MRSA screen requested. UA unremarkable. 07/10/2023 CBC with WBC 12.9 with left shift. As discussed with patient, family including daughter and patient's will continue broad-spectrum antibiotic therapy but if patient became hypotensive would defer pressor usage or central line and if he declines further or becomes significantly uncomfortable family would prefer to transition him to comfort care and hospice. Will continue to monitor and if remains stable will reassess for potential hospice needs in the next 24 hours. Will continue with PT and OT assessments as well as case management involvement. If patient was deemed to be hospice appropriate patient notes that she would prefer inpatient hospice. #2. Recent mechanical fall with intracranial hemorrhage: Patient with unfortunate fall 2 days prior to discharge at [facility] with intracranial hemorrhage resulting, will continue to hold Coumadin, maintain on fall precautions, possibly contributing to mechanical fall history and confusion intermittently although patient appropriate upon current arrival, PT/OT/case management consulted for discharge planning. #3. Recent Klebsiella bacteremia with complicated Klebsiella UTI/pyelonephritis: Will continue IV Rocephin to completion with last infectious disease input 06/29/23, may re-involve if necessary otherwise we will verify a stop date. Case management consulted as will need home health assist to set this up at home with home nursing versus alternate skilled facility. #4. CKD stage III unclear subtype: Patient previous history end-stage renal disease on dialysis status post renal transplant with rejection history, admission BUN/Cr 43/2.04, prior baseline creatinine noted to be primarily 1.6- 2.1, stable compared to prior baseline, resolved prior ZOË, will continue low- dose prednisone, prophylactic Bactrim, tacrolimus home regimen. 07/10/2023 BUN/creatinine 39/1.94, GFR 37. #5. Acute on Chronic thrombocytopenia: Admission platelet 64, previous baseline 90-100 primarily but decreased during prior admission and has been fluctuating since, 07/10/2023 platelets 69, stable. #6. Head and neck squamous cell malignancy: Status post surgical intervention unclear specific type with plans for/11/12 initiation of radiation however given his acute presentation this will need to be delayed, magnesium and phosphorus levels requested, continue follow-up outpatient with [facility] as previously arranged. #7. Valvular heart disease: Status post AV replacement, MV replacement, last echocardiogram noted 04/17/2021 with normal LV size, LV systolic function normal, EF 55%, severely enlarged LA, stable appearing bioprosthetic MV apparatus, mean TV gradient 8 mmHg, PASP 53 mmHg, bioprosthetic aortic valve, mean AV gradient 8 mmHg. #8. Chronic AF: Status post ligation left atrial appendage 2016, will continue patient home Coreg regimen, holding Coumadin given intracranial hemorrhage with fall during recent previous hospitalization at [facility]. #9. Hypertension: Will continue patient home Coreg regimen, PRN hydralazine. #10. Hyperlipidemia: Will continue patient on statin therapy. #11. Chronic macrocytic anemia/iron deficiency anemia: Admission Hgb 7.6, baseline prior since 06/18/23 baseline 8-9, continue iron supplementation. 07/10/2023 hemoglobin 7.7, MCV 99.6. #12. Obesity: Weight loss and lifestyle changes encouraged. #13. History complete heart block: Status post permanent pacemaker placement, encourage continued outpatient follow-up with cardiology as previously arranged. #14. GERD: We will continue patient on PPI. #15. BPH: We will continue patient on Flomax and finasteride regimen. #16. Chart reported seizure history: Not on any AED, encourage continued outpatient follow-up as previously arranged. #17. VINAYAK: CPAP nightly. As noted patient unfortunately needed oxygen bled into the CPAP overnight but this was able to be decreased. #18. DVT prophylaxis: SCDs especially given recent fall with intracranial hemorrhage. #19. CODE status: HCPOA is his and living will is currently in place. DNR- CCA, no intubation status. Charges/Coding Visit Charges Inpatient E&M: 71417 [facility] Hosp L3
--- NOTE | 2023-07-10 06:46 | RAD_ITS ---
STUDY: X-RAY CHEST REASON FOR EXAM: Male, 68 years old. Dyspnea TECHNIQUE: Frontal and lateral views of the chest COMPARISON: 07/09/2023 FINDINGS: There are new opacities in the mid to lower lung law bilaterally, left greater than right. This may be due to infection or edema. There are no pleural effusions. There is no pneumothorax. The heart is stable in size. Again noted are sternotomy wires and a pacemaker. The visualized osseous structures are within normal limits. RAD/Chest PA and Lateral IMPRESSION: New opacities in the mid to lower lung law bilaterally, left greater than right. This may be due to infection or edema. Electronically Signed: Sammy Morales MD at 9:07 EDT ,
[2023-07-10 07:11] LABS: ALB/GLOB Ratio 0.7 RATIO (0.9-2.4); AST(SGOT) 16 U/L (15-37); Alanine Aminotransfer ALT/SGPT 14 U/L (16-61); Albumin, Serum 2.1 g/dL (3.2-5.0); Alkaline Phosphatase 103 U/L (45-117); Anion Gap 7 (5-15); BUN 39 mg/dL (7-18); BUN/Creat Ratio 20.1 RATIO (10-20); Calcium,Total 8.8 mg/dL (8.5-10.1); Chloride 108 mmol/L (98-107); Creatinine, Serum 1.94 mg/dL (0.70-1.30); EST Glomerular Filtration Rate 37 mL/min (>60); Est Glom Filt Rate - Afr Amer 44 mL/min (>60); Estimated Creatinine Clearance 32.96 ml/min; Globulin 3.1 g/dL (2.2-4.2); Glucose 60 mg/dL (74-106); Potassium 5.1 mmol/L (3.5-5.1); Protein, Total 5.2 g/dL (6.4-8.2); Sodium Level 137 mmol/L (136-145)
--- NOTE | 2023-07-10 07:54 | NURSING ---
Off the unit went to xray.
--- NOTE | 2023-07-10 08:08 | NURSING ---
pts , khang, presents to the nurses station requesting an update on pts status overnight. khang is on pts contact list. exstensive update given in regards to pts oxygen status overnight and pts increased agitation requiring medicine interventions. pts appreciative of update. dayshift DEIDRA Lowe present at this time and updated on pts status as well.
--- NOTE | 2023-07-10 09:11 | NURSING ---
This RN called [facility] this morning at around 0820am to inform them of resp panel, they are aware.
[2023-07-10] MEDS: Ferrous Sulfate 325 MG Tablet PO (09:26)
[2023-07-10] MEDS: Tamsulosin HCl 0.4 MG Capsule PO ×2 (09:26→21:35)
[2023-07-10] MEDS: Menthol/Lanolin/Calamine/Znox 113 GM Tube 1 APPLIC TOPICAL ×3 (09:27→21:33)
[2023-07-10] MEDS: Carvedilol 6.25 MG Tablet PO ×2 (09:27→21:35)
[2023-07-10] MEDS: Lidocaine 5% Patch 2 PATCH TOPICAL (09:28)
[2023-07-10] MEDS: Piperacil/Tazobactam 3.375 GM in 0.9% Normal Saline (50mL MB+) 50 ML IV ×3 (09:29→21:33)
[2023-07-10] MEDS: predniSONE 5 MG Tablet PO (09:30)
[2023-07-10] MEDS: Tacrolimus 0.5 MG Capsule PO ×2 (09:30→21:35)
[2023-07-10] MEDS: Finasteride 5 MG Tablet PO (09:31)
[2023-07-10] MEDS: Pantoprazole Sodium 40 MG in 0.9% Normal Saline (100mL MB+) 100 ML 330 MG IV (10:32)
[2023-07-10] MEDS: Vancomycin HCl 1,750 MG in 0.9% Normal Saline (500mL Bag) 500 ML 250 MG IV (11:40)
[2023-07-10 14:22] LABS: M R Staph aureus DNA By PCR Negative (Negative); Probe Check PASS; Specimen Processing Control PASS
--- NOTE | 2023-07-10 14:33 | PCM.RX.CS ---
Consult Antibiotic Management Pharmacy has been consulted to manage selected antibiotic: Vancomycin Type of Intervention Type of Consult: New start Suspected Infection Suspected Infection: Pneumonia Labs Labs: Sodium 137 mmol/L (136-145) 07/10/23 05:32 Potassium 5.1 mmol/L (3.5-5.1) 07/10/23 05:32 Chloride 108 mmol/L (98-107) H 07/10/23 05:32 Carbon Dioxide 22.0 mmol/L (21.0-32.0) 07/10/23 05:32 Anion Gap 7 (5-15) 07/10/23 05:32 BUN 39 mg/dL (7-18) H 07/10/23 05:32 Creatinine 1.94 mg/dL (0.70-1.30) H 07/10/23 05:32 Est GFR (MDRD) Af Amer 44 mL/min (>60) L 07/10/23 05:32 Est GFR (MDRD) Non-Af 37 mL/min (>60) L 07/10/23 05:32 BUN/Creatinine Ratio 20.1 RATIO (10-20) H 07/10/23 05:32 Glucose 60 mg/dL (74-106) L 07/10/23 05:32 Microbiology Microbiology: Microbiology 07/10/23 10:30 Mucosa - Nasopharyngeal Respiratory Panel (PCR) - Final 07/10/23 09:05 Urine Catheter - Catheter Streptococcus pneumoniae Antigen (M - Final 07/10/23 09:05 Urine Catheter - Catheter Legionella Antigen - Final Dosing Weight Weight used for dosin kg Estimated Creatinine Clearance Estimated Creatinine Clearance: 33 Goal Trough Goal Trough: 15-20 mcg/mL Pharmacy Plan for Drug Dosing Pharmacy Plan for Drug Dosing: NEW START IV VANCOMYCIN Consulting Physician: Dr. Barlow Indication: HCAP Goal Trough: 15-20 SrCr: 1.94 CrCl: 33 Comments: pt received a 25mg/kg (1750mg) loading dose on 07/10/23 at 1140 Vancomycin Dose: based on patients weight and renal function, recommend an initial dose of 1000mg q24h starting 07/11/23 at 1200. trough prior to the 3rd dose Pending Level: 07/12/23 at 1130 Pharmacy Service will continue to monitor and adjust dosing as required. Follow-Up Labs Follow-Up Labs: Trough: Vancomycin (07/12/23 at 1130)
[2023-07-10] MEDS: Senna/Docusate Sodium 1 Tablet 2 TABLET PO (15:58)
--- NOTE | 2023-07-10 16:00 | CASEMGMT ---
Social Work Updated by RN KATALINA that family is considering hospice for patient, but want to wait until Wednesday [phone], to see if any changes in status. This fiction writer did see patient's in the hallway, introduced self and social work role. immediately began to talk, discussed patient's health history with 2 prior transplants and being a donor to one of the prior transplants. discussed sudden change in patient's condition since tet beginning of June. Much supportive listening and emotional support offered. stayed in hallway, as patient sleeping and wanted patient to stay resting. shared that if patient rallies then would like to take patient home with [facility], but is also aware that hospice may be a realistic service for the patient. reports to have a hospital bed at home, which is paying for privately, and would like a prescription for such, to see if can get some type of coverage from the insurance. Educated that if hospice takes over, hospice will provide for all needed equipment. Plan: SW to follow along for support adn assistance in discharge planning as indicated. -MILAD Marroquin
--- NOTE | 2023-07-10 16:31 | NURSING ---
Addendum entered by Chrissy Sweet 07/10/23 17:37: This RN went to st. cath pt and asked if he could stand up and use the urinal. Pt assisted to stand up with this nurse and petal cutter's assistance. Pt then wanted to walk to the bathroom to try to have a bowel movement. Pt walked to bathroom where he did void but did not have a BM. Urine was unmeasured and then he was assisted back to bed where this rn bladder scanned pt and obtained 6ml once and 8ml another time. Original Note: This RN bladder scanned pt for 503cc of urine. This RN will st. cath pt at this time. This will be the 2nd time pt is st. cathed.
[2023-07-10] MEDS: Atorvastatin Calcium 20 MG Tablet PO (21:36)
[2023-07-11] VITALS (7 sets, daily range): BP systolic 134–164; BP diastolic 45–82; PULSE 63–83; RESP 18–24; TEMP 36.3–37.4; O2SAT 82–100
[2023-07-11] MEDS: Acetaminophen 325 MG Tablet 650 MG PO ×3 (05:29→17:48)
[2023-07-11] MEDS: Piperacil/Tazobactam 3.375 GM in 0.9% Normal Saline (50mL MB+) 50 ML IV ×3 (05:31→23:03)
[2023-07-11 05:49] LABS: Absolute Lymphocyte Count 0.43 X10^3/uL (0.83-4.51); Basophil# 0.02 X10^3/uL; Basophil% 0.2 % (0-1); Eosinophil# 0.07 X10^3/uL; Eosinophils% 0.7 % (0-5); Hematocrit 25.1 % (40-54); Hemoglobin 7.7 g/dL (13.0-16.5); Lymphocyte # 0.43 X10^3/ul (0.83-4.51); Lymphocyte % 4.4 % (19-41); Mean Corp Hgb Conc 30.7 g/dL (32-36); Mean Corpuscular Hgb 30.6 pg (27.0-32.0); Mean Corpuscular Volume 99.6 fL (80-94); Mean Platelet Vol. 12.1 fl (6.2-12.0); Monocyte# 1.18 X10^3/uL; Monocyte% 12.1 % (0-10); NRBC Flagged by Analyzer 0 % (0-5); Neutrophil # 7.99 X10^3/uL (2.7-7.7); POSITIVE COUNT YES; POSITIVE DIFFERENTIAL YES; Platelet Count 64 K/mm3 (150-450); RBC Distribution Width SD 50.8 fl (35.1-43.9); Red Blood Count 2.52 M/mm3 (4.6-6.2); White Blood Count 9.8 K/mm3 (4.4-11.0)
[2023-07-11 06:06] LABS: ALB/GLOB Ratio 0.7 RATIO (0.9-2.4); AST(SGOT) 16 U/L (15-37); Alanine Aminotransfer ALT/SGPT 14 U/L (16-61); Albumin, Serum 2.1 g/dL (3.2-5.0); Alkaline Phosphatase 100 U/L (45-117); Anion Gap 7 (5-15); BUN 39 mg/dL (7-18); BUN/Creat Ratio 19.6 RATIO (10-20); Calcium,Total 8.8 mg/dL (8.5-10.1); Chloride 109 mmol/L (98-107); Creatinine, Serum 1.99 mg/dL (0.70-1.30); EST Glomerular Filtration Rate 36 mL/min (>60); Est Glom Filt Rate - Afr Amer 43 mL/min (>60); Estimated Creatinine Clearance 31.62 ml/min; Glucose 90 mg/dL (74-106); Potassium 4.8 mmol/L (3.5-5.1); Protein, Total 5.1 g/dL (6.4-8.2); Sodium Level 138 mmol/L (136-145)
--- NOTE | 2023-07-11 06:59 | PN.HOSP_ITS ---
Reason for Visit Reason for Visit: Diagnoses Unspecified fall, initial encounter (07/10/23) Subjective Subjective Patient with no acute events overnight. Had large BM but had been constipated and no concerning appearance or smell. Low grade T otherwise stable with Tylenol given. No confusion or agitation. Patient much more alert and interactive. Patient still does report some discomfort to the back however from discussion as this certainly could be a component musculoskeletal as it is reproducible but certainly could also be referred pain given bilateral lower lung infiltrates. Patient denies fevers, chills, nausea, emesis, abdominal pain, chest pain. Objective Data Objective Data Vital Signs: Vital Signs Temp Pulse Resp BP Pulse Ox O2 Del Method O2 Flow Rate 99.3 F H 73 20 H 150/55 H 98 CPAP 3 07/11/23 05:18 07/11/23 05:18 07/11/23 05:18 07/11/23 05:18 07/11/23 05:18 07/11/23 05:18 07/11/23 05:18 Oxygen Flow Rate (L/min) 3 Oxygen Delivery Method CPAP Weight: 161 lb 9.581 oz Body Mass Index (BMI) 27.3 Intake & Output: Intake and Output for Last 24 Hours 07/09/23 07/10/23 07/11/23 23:59 23:59 23:59 Intake Total 150 / 150 1115 / 1115 50 / 50 Output Total 2000 / 1999 750 / 750 Balance -1850 / -1850 365 / 365 50 / 50 Medical Nutrition Assessment Dietitian: Malnutrition Criteria Met Start: 07/10/23 09 :35 Freq: Status: Active Protocol: Document 07/10/23 09:35 (Rec: 07/10/23 09:35 [id number]) Nutrition Malnutrition Evidence of Malnutrition Exists Yes Malnutrition (severe): Acute Illness/Injury Evidenced By Suboptimal Energy Intake ( Severe),Weight Loss (Severe) Clinical Problem Acute Disease or Injury Related Malnutrition Etiology severe, acute malnutrition related to inadequate energy intake w/ acute illness and increased energy needs d/t head and neck squamous cell malignancy Signs/Symptoms as evidenced by estimated PO intake meeting <75% of estimated energy needs < 1 month, unintentional 6% wt loss < 1 month Status Active Problem Recommendation Dietitian Recommendations/Changes will liberalize diet to regular given evidence of malnutrition; continue ensure w/ meals as ordered Lab / Micro Data 07/11/23 05:30 07/11/23 05:30 Labs: Laboratory Results - last 24 hr 07/10/23 05:32: Sodium 137, Potassium 5.1, Chloride 108 H, Carbon Dioxide 22.0, Anion Gap 7, BUN 39 H, Creatinine 1.94 H, Estim Creat Clear Calc 32.96, Est GFR (MDRD) Af Amer 44 L, Est GFR (MDRD) Non-Af 37 L, BUN/Creatinine Ratio 20.1 H, Glucose 60 L, Calcium 8.8, Total Bilirubin 0.80, AST 16, ALT 14 L, Alkaline Phosphatase 103, Total Protein 5.2 L, Albumin 2.1 L, Globulin 3.1, Albumin/Globulin Ratio 0.7 L 07/10/23 06:30: Procalcitonin 11.70 H 07/10/23 11:50: MRSA (PCR) Negative 07/11/23 05:30: WBC 9.8, RBC 2.52 L, Hgb 7.7 L, Hct 25.1 L, MCV 99.6 H, MCH 30.6, MCHC 30.7 L, RDW Std Deviation 50.8 H, RDW Coeff of Fermin 14.0, Plt Count 64 L, MPV 12.1 H, Immature Gran % (Auto) 0.600, Neut % (Auto) 82.0 H, Lymph % (Auto) 4.4 L, [place] % (Auto) 12.1 H, Eos % (Auto) 0.7, Baso % (Auto) 0.2, Absolute Neuts (auto) 8.0 H, Absolute Lymphs (auto) 0.43 L, Nucleated RBC % 0, Sodium 138, Potassium 4.8, Chloride 109 H, Carbon Dioxide 22.0, Anion Gap 7, BUN 39 H, Creatinine 1.99 H, Estim Creat Clear Calc 31.62, Est GFR (MDRD) Af Amer 43 L, Est GFR (MDRD) Non-Af 36 L, BUN/Creatinine Ratio 19.6, Glucose 90, Calcium 8.8, Total Bilirubin 0.90, AST 16, ALT 14 L, Alkaline Phosphatase 100, Total Protein 5.1 L, Albumin 2.1 L, Globulin 3.0, Albumin/Globulin Ratio 0.7 L Micro: Microbiology 07/10/23 10:30 Mucosa - Nasopharyngeal Respiratory Panel (PCR) - Final 07/10/23 09:05 Urine Catheter - Catheter Streptococcus pneumoniae Antigen (M - Final 07/10/23 09:05 Urine Catheter - Catheter Legionella Antigen - Final Radiography Diagnostic Testing: Radiology Impression Chest X-Ray 07/10/23 06:46 IMPRESSION: New opacities in the mid to lower lung law bilaterally, left greater than right. This may be due to infection or edema. Electronically Signed: Sammy Morales MD at 9:07 EDT , Rhythm Strip Rhythm Strip: A-fib Rate: 79 Ectopy: None Physical Exam Narrative Physical Examination: General: Awake, alert, oriented x >3, CPAP still in place this had just woken up, much more interactive and improved from day prior. Skin: Normal color, normal turgor, no icterus, no cyanosis except significant various staged ecchymoses, abrasions, scarring to the face right lateral following recent surgical intervention for head and neck cancer, dry flaking skin, BL LE venous stasis skin changes. HEENT: AT/NC, EOMI, PERRLA, improved MMM. Lungs: Remains diminished, greater bases, mildly coarse, respiratory rate has normalized, no wheezing, no respiratory distress. Heart: Irregular, rate controlled; no gallop, rub audible. Abdomen: Soft, obese, NTTP, nondistended, normal BS. Extremities: No cyanosis, no clubbing, no marked peripheral edema, see skin. Neurological: Awake, alert, oriented as noted, cognitive function significantly improved, suspect near baseline intact; pupils equally reactive to light and accommodation, cranial nerves grossly normal, moving all 4 extremities, strength severely globally decreased. Psychiatric: Affect appears improved, more interactive, able to carry conversation, less ill-appearing, no acute evidence of depressive or anxiety feelings. Assessment & Plan Assessment/Plan (1) Fall: PLAN: Plan The patient is a 68 y/o F w/ PMHx: Obesity, CKD stage III unclear subtype w/ renal transplant status s/p rejection/Hx ESRD, Chronic Thrombocytopenia, Chronic macrocytic anemia/iron deficiency anemia, Hx Complete HB s/p pacemaker, Valvular heart disease, HTN, HLD, GERD, Chronic AF, VINAYAK on CPAP, Seizure disorder, recently discharged 06/29/2023 following evaluation for sepsis secondary to Klebsiella bacteremia with Klebsiella UTI/pyelonephritis with CT scan demonstrating significant stranding and associated acute kidney injury on CKD complicated by underlying history of renal transplant status with unfortunately his renal function not improving despite interventions with eventual transition to transplant nephrology service at [facility] on 06/29/2023 who now represents to the [facility] ED on 07/09/23 with ongoing IV antibiotic therapy with history of fall 2 days prior to being discharged from [facility] with at that time diagnosis of a parenchymal intracranial bleed which was observed discharged today from their facility by private vehicle to [facility] the day prior unfortunately found the evening prior on the floor at midnight possibly secondary to a fall unclear if he hit his head or not with mental status change per their report previously on Coumadin but this had been stopped over a week prior prompting eventual ED evaluation. #1. Adult FTT, Multifactorial, as noted below in addition to recurrent Mechanical fall, recurrent with concern for transient mental status change/acute encephalopathy, now appears resolved and at mental status baseline upon admission but altered overnight with concern for possible underlying infectious process with agitation, transient fever and hypoxia with work-up consistent with Acute Hypoxia secondary to BL Pneumonia, Possible GN/GP organisms given recent hospitalization and immunosupressed status: CT of the head with no acute bleed but evidence of previous, lab workup with no acute concerning findings, mental status appropriate in the ED. admitted to medical surgical floor, 07/09/2023 to 07/10/2023 patient with increased oxygen requirements with need to bleed oxygen into his CPAP which is not his normal baseline in addition to fever. Chest x- ray obtained with new opacities in the mid to lower lung law bilaterally suspicious for pneumonia over fluid especially given febrile status. Resp iratory viral panel pending. Blood culture x 2 obtained with 1 for port and 1 peripheral. Urine antigens negative. Procalcitonin significantly elevated 11.70. 07/10/2023 from IV Rocephin for which he was on secondary to #3 to broad- spectrum antibiotic therapy with IV Zosyn and IV vancomycin while closely continuing to monitor his renal function. MRSA screen negative. Will await blood cultures to make sure there is no growth but as soon as able would de- escalate off IV vancomycin if able. Still attempting to obtain sputum culture. UA unremarkable. 07/10/2023 CBC with WBC 12.9 with left shift. Following transition of treatment patient clinically improved, confusion resolved, PT and OT assessments as well as case management involvement. #2. Recent mechanical fall with intracranial hemorrhage: Patient with unfortunate fall 2 days prior to discharge at [facility] with intr acranial hemorrhage resulting, holding Coumadin, maintained on fall precautions, possibly contributing to mechanical fall history and confusion intermittently although patient appropriate upon current arrival, PT/OT/case management consulted for discharge planning. #3. Recent Klebsiella bacteremia with complicated Klebsiella UTI/pyelonephritis: Will continue IV Rocephin to completion with last infectious disease input 06/29/23, may re-involve if necessary otherwise we will verify a stop date. Case management consulted as will need home health assist to set this up at home with home nursing versus alternate skilled facility. #4. CKD stage III unclear subtype: Patient previous history end-stage renal disease on dialysis status post renal transplant with rejection history, admission BUN/Cr 43/2.04, prior baseline creatinine noted to be primarily 1.6- 2.1, stable compared to prior baseline, resolved prior ZOË, will continue low- dose prednisone, prophylactic Bactrim, tacrolimus home regimen. 07/10/2023 BUN/creatinine 39/1.94, GFR 37-->07/11/23 BUN/Cr 39/1.99, GFR 36, CrCl 31.62. As noted above once blood cultures have resulted if no concerns given MRSA screen negative would attempt to de-escalate off IV vancomycin. #5. Acute on Chronic thrombocytopenia: Admission platelet 64, previous baseline 90-100 primarily but decreased during prior admission and has been fluctuating since, 07/10/2023 platelets 69, stable->07/11/23 platlets 64. #6. Head and neck squamous cell malignancy: Status post surgical intervention unclear specific type with plans initiation of radiation however given his acute presentation this will need to be delayed, magnesium and phosphorus levels requested, continue follow-up outpatient with [facility] as previously arranged. #7. Valvular heart disease: Status post AV replacement, MV replacement, last echocardiogram noted 04/17/2021 with normal LV size, LV systolic function normal, EF 55%, severely enlarged LA, stable appearing bioprosthetic MV apparatus, mean TV gradient 8 mmHg, PASP 53 mmHg, bioprosthetic aortic valve, mean AV gradient 8 mmHg. #8. Chronic AF: Status post ligation left atrial appendage 2016, will continue patient home Coreg regimen, holding Coumadin given intracranial hemorrhage with fall during recent previous hospitalization at [facility]. #9. Hypertension: Will continue patient home Coreg regimen, PRN hydralazine. #10. Hyperlipidemia: Will continue patient on statin therapy. #11. Chronic macrocytic anemia/iron deficiency anemia: Admission Hgb 7.6, baseline prior since 06/18/23 baseline 8-9, continue iron supplementation. 07/10/2023 hemoglobin 7.7, MCV 99.6->07/11/23 Hgb 7.7, MCV 99.6. #12. Obesity: Weight loss and lifestyle changes encouraged. #13. History complete heart block: Status post permanent pacemaker placement, encourage continued outpatient follow-up with cardiology as previously arranged. #14. GERD: We will continue patient on PPI. #15. BPH: We will continue patient on Flomax and finasteride regimen. #16. Chart reported seizure history: Not on any AED, encourage continued outpatient follow-up as previously arranged. #17. VINAYAK: CPAP nightly. As noted patient unfortunately needed oxygen bled into the CPAP overnight but this was able to be decreased. #18. DVT prophylaxis: SCDs especially given recent fall with intracranial hemorrhage. #19. CODE status: RYLEE is his and living will is currently in place. DNR- CCA, no intubation status. Charges/Coding Visit Charges Inpatient E&M: 41341 Init Hosp L2
[2023-07-11 08:35] LABS: Lipase 38 U/L (13-75)
[2023-07-11] MEDS: Pantoprazole Sodium 40 MG in 0.9% Normal Saline (100mL MB+) 100 ML 330 MG IV (10:26)
[2023-07-11] MEDS: Lidocaine 5% Patch 2 PATCH TOPICAL (10:31)
[2023-07-11] MEDS: Menthol/Lanolin/Calamine/Znox 113 GM Tube 1 APPLIC TOPICAL ×3 (10:38→21:25)
[2023-07-11] MEDS: Tacrolimus 0.5 MG Capsule PO ×2 (10:39→21:27)
[2023-07-11] MEDS: Tamsulosin HCl 0.4 MG Capsule PO ×2 (10:39→21:27)
[2023-07-11] MEDS: Ferrous Sulfate 325 MG Tablet PO (10:39)
[2023-07-11] MEDS: Finasteride 5 MG Tablet PO (10:39)
[2023-07-11] MEDS: Carvedilol 6.25 MG Tablet PO ×2 (10:40→21:26)
[2023-07-11] MEDS: predniSONE 5 MG Tablet PO (10:40)
[2023-07-11] MEDS: Vancomycin IV 1,000 MG/200 ML BAG 200 MG IV (11:56)
[2023-07-11] MEDS: Atorvastatin Calcium 20 MG Tablet PO (21:26)
[2023-07-12 06:00] VITALS: BP 154/81; PULSE 68; RESP 16; TEMP 36.7; O2SAT 100; BMI 30.4
[2023-07-12 06:14] LABS: Absolute Neutrophil Count 4.4 X10^3/uL (2.0-7.7); Basophil# 0.02 X10^3/uL; Basophil% 0.4 % (0-1); Eosinophil# 0.09 X10^3/uL; Eosinophils% 1.6 % (0-5); Hematocrit 24.5 % (40-54); Hemoglobin 7.6 g/dL (13.0-16.5); Mean Corpuscular Hgb 30.8 pg (27.0-32.0); Mean Corpuscular Volume 99.2 fL (80-94); Mean Platelet Vol. 11.9 fl (6.2-12.0); Monocyte# 0.73 X10^3/uL; Monocyte% 12.9 % (0-10); NRBC Flagged by Analyzer 0 % (0-5); Neutrophil # 4.41 X10^3/uL (2.7-7.7); Neutrophil % 77.6 % (47-70); POSITIVE COUNT YES; POSITIVE DIFFERENTIAL YES; Platelet Count 67 K/mm3 (150-450); RBC Distribution Width CV 13.7 % (11.6-14.6); RBC Distribution Width SD 50.2 fl (35.1-43.9); Red Blood Count 2.47 M/mm3 (4.6-6.2); White Blood Count 5.7 K/mm3 (4.4-11.0)
[2023-07-12] MEDS: Piperacil/Tazobactam 3.375 GM in 0.9% Normal Saline (50mL MB+) 50 ML IV (06:23)
[2023-07-12] MEDS: Acetaminophen 325 MG Tablet 650 MG PO (06:27)
[2023-07-12 06:44] LABS: ALB/GLOB Ratio 0.6 RATIO (0.9-2.4); AST(SGOT) 17 U/L (15-37); Alanine Aminotransfer ALT/SGPT 15 U/L (16-61); Alkaline Phosphatase 102 U/L (45-117); Anion Gap 6 (5-15); BUN 34 mg/dL (7-18); BUN/Creat Ratio 18.5 RATIO (10-20); Chloride 109 mmol/L (98-107); Creatinine, Serum 1.84 mg/dL (0.70-1.30); EST Glomerular Filtration Rate 39 mL/min (>60); Est Glom Filt Rate - Afr Amer 47 mL/min (>60); Estimated Creatinine Clearance 38.95 ml/min; Globulin 3.1 g/dL (2.2-4.2); Glucose 86 mg/dL (74-106); Potassium 4.6 mmol/L (3.5-5.1); Protein, Total 5.1 g/dL (6.4-8.2); Sodium Level 138 mmol/L (136-145)
[2023-07-12 07:10] VITALS: O2SAT 99
[2023-07-12 08:55] VITALS: BP 171/87; PULSE 69; RESP 18; TEMP 36.9; O2SAT 99
[2023-07-12] MEDS: Ferrous Sulfate 325 MG Tablet PO (09:03)
[2023-07-12] MEDS: Tamsulosin HCl 0.4 MG Capsule PO (09:03)
[2023-07-12] MEDS: Finasteride 5 MG Tablet PO (09:03)
[2023-07-12] MEDS: Tacrolimus 0.5 MG Capsule PO (09:03)
[2023-07-12] MEDS: Carvedilol 6.25 MG Tablet PO (09:03)
[2023-07-12] MEDS: Pantoprazole Sodium 40 MG Tablet PO (09:03)
[2023-07-12] MEDS: predniSONE 5 MG Tablet PO (09:04)
[2023-07-12] MEDS: Smz/Tmp Ds Tablet 1 TABLET PO (09:04)
[2023-07-12] MEDS: Lidocaine 5% Patch 2 PATCH TOPICAL (09:04)
--- NOTE | 2023-07-12 10:01 | PN.HOSP_ITS ---
Reason for Visit Reason for Visit: Fall Objective Data Objective Data Vital Signs: Vital Signs Temp Pulse Resp BP Pulse Ox O2 Del Method O2 Flow Rate 98.5 F 69 18 171/87 H 99 CPAP 3 07/12/23 08:55 07/12/23 08:55 07/12/23 08:55 07/12/23 08:55 07/12/23 08:55 07/12/23 08:55 07/12/23 06:00 Oxygen Flow Rate (L/min) 3 Oxygen Delivery Method CPAP Weight: 86 kg Body Mass Index (BMI) 30.4 Intake & Output: Intake and Output for Last 24 Hours 07/10/23 07/11/23 07/12/23 23:59 23:59 23:59 Intake Total 1115 / 1115 1150 / 1150 50 / 50 Output Total 750 / 750 350 / 350 Balance 365 / 365 800 / 800 50 / 50 Medical Nutrition Assessment Dietitian: Malnutrition Criteria Met Start: 07/10/23 09:35 Freq: Status: Active Protocol: Document 07/10/23 09:35 (Rec: 07/10/23 09:35 [id number]) Nutrition Malnutrition Evidence of Malnutrition Exists Yes Malnutrition (severe): Acute Illness/Injury Evidenced By Suboptimal Energy Intake ( Severe),Weight Loss (Severe) Clinical Problem Acute Disease or Injury Related Malnutrition Etiology severe, acute malnutrition related to inadequate energy intake w/ acute illness and increased energy needs d/t head and neck squamous cell malignancy Signs/Symptoms as evidenced by estimated PO intake meeting <75% of estimated energy needs < 1 month, unintentional 6% wt loss < 1 month Status Active Problem Recommendation Dietitian Recommendations/Changes will liberalize diet to regular given evidence of malnutrition; continue ensure w/ meals as ordered Lab / Micro Data 07/12/23 06:00 07/12/23 06:00 Labs: Laboratory Results - last 24 hr 07/12/23 06:00: WBC 5.7, RBC 2.47 L, Hgb 7.6 L, Hct 24.5 L, MCV 99.2 H, MCH 30.8, MCHC 31.0 L, RDW Std Deviation 50.2 H, RDW Coeff of Fermin 13.7, Plt Count 67 L, MPV 11.9, Immature Gran % (Auto) 0.500, Neut % (Auto) 77.6 H, Lymph % (Auto) 7.0 L, [place] % (Auto) 12.9 H, Eos % (Auto) 1.6, Baso % (Auto) 0.4, Absolute Neuts (auto) 4.4, Absolute Lymphs (auto) 0.40 L, Nucleated RBC % 0, Sodium 138, Potassium 4.6, Chloride 109 H, Carbon Dioxide 23.0, Anion Gap 6, BUN 34 H, Creatinine 1.84 H, Estim Creat Clear Calc 38.95, Est GFR (MDRD) Af Amer 47 L, Est GFR (MDRD) Non-Af 39 L, BUN/Creatinine Ratio 18.5, Glucose 86, Calcium 9.0, Total Bilirubin 0.80, AST 17, ALT 15 L, Alkaline Phosphatase 102, Total Protein 5.1 L, Albumin 2.0 L, Globulin 3.1, Albumin/Globulin Ratio 0.6 L Micro: Microbiology 07/10/23 10:30 Mucosa - Nasopharyngeal Respiratory Panel (PCR) - Final 07/10/23 09:05 Urine Catheter - Catheter Streptococcus pneumoniae Antigen (M - Final 07/10/23 09:05 Urine Catheter - Catheter Legionella Antigen - Final Rhythm Strip Rhythm Strip: A-fib Rate: 79 Ectopy: None Assessment & Plan Assessment/Plan PLAN: Plan Acute hypoxia secondary to suspected bilateral lower lobe pneumonia -Continue coverage for gram-negative and gram-positive organisms given recent hospitalization and immunosuppressed status at baseline -Had been on room air but then required upwards of 10 L nasal cannula -Now weaned to 3 L with good oxygen saturations -Continue to wean as able -Chest x-ray showed new bibasilar opacities -Blood cultures are pending -Urine antigens for strep pneumo and Legionella are negative -Procalcitonin is elevated -Continue IV Zosyn and vancomycin -MRSA screen was negative -Await culture results and narrow as able Leukocytosis -Now normalized -The left shift is trending down Recent mechanical fall with intracranial hemorrhage -Fall 2 days prior to discharge at [facility] -CT showed intracranial hemorrhage -Coumadin is on hold -Continue fall precautions -PT/OT following -Family is hopeful for discharge home with home health care at the time or [facility] care unit Debility/generalized weakness -PT/OT following--> family would like transitional care unit once stable medically Recent Klebsiella bacteremia secondary to UTI/pyelonephritis -Currently on Zosyn and vancomycin but had been on Rocephin--will need to verify stop date for IV antibiotics for this CKD stage IIIB with history of transplanted kidney x 3 -Admission creatinine was 2.04 with recent ZOË related to sepsis -Baseline creatinine is 1.6-2.1 -Renal function remained stable -Serum creatinine has improved some -Continue Bactrim prophylactically -Continue low-dose prednisone -Continue home tacrolimus -Home mycophenolate is on hold -Monitor renal function closely -Patient has indicated he would not like any long-term dialysis nor repeat transplant of the kidney Acute on chronic thrombocytopenia -Previously was 90 200,000 -64,000 on admission -Appears to be stable in the 60-70,000 range currently -Continue to monitor 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 -Recent resection -Radiation was planned to start today -I have discussed with the radiation oncologist and if he is medically more improved tomorrow they will start radiation tomorrow -Plan per is to try radiation as recommended and if no improvement transition to hospice Chronic anemia -Hemoglobin with slight drop from a baseline of 9-10 -Hemoglobin is stable in the 7-8 range -Continue home iron -Continue to monitor Valvular heart disease/chronic atrial fibrillation/history of complete heart block -Status post aortic valve replacement/mitral valve replacement--> both valves are bioprosthetic -Has pacemaker -Last echocardiogram in 2021 was unremarkable for any acute changes -No current signs of decompensation Chronic atrial fibrillation -Status post ligation of the left atrial appendage in 2016 -Continue Coreg as long as able with blood pressure -Hold Coumadin with thrombocytopenia to decrease risk of bleeding Hypertension -Continue home Coreg with parameters -As needed hydralazine available if needed Hyperlipidemia -Continue home atorvastatin BPH with obstruction -Continue home finasteride -Continue home Flomax GERD -Continue home PPI VINAYAK -Continue nocturnal CPAP Obesity -BMI 30.1 -Recommend weight loss -Complicates treatment, prognosis, outcomes Insomnia -Hold home zolpidem for now with encephalopathy DVT prophylaxis -SCDs for now -Coumadin is on hold due to bleed CODE STATUS -DNR CCA with no intubation as per discussion at the time of admission Charges/Coding Visit Charges Inpatient E&M: 74053 Subs Hosp L2
[2023-07-12] MEDS: oxyCODONE 5 MG Tablet 2.5 MG PO ×2 (10:31→11:32)
--- NOTE | 2023-07-12 10:51 | CASEMGMT ---
Social Work Daughter Jaun Carlos came out to the nurses' station, states they would like to speak w/hospice. SW spoke w/pt, and daughter Juan Carlos in room, confirmed they want to speak w/[facility]. Family states they were to meed with palliative care today with the same organization. SW explained will make referral and have them call family to set up time. Family and pt clear that they want to have an informational meeting, not sure if they will go w/hospice or not. SW called hospice, faxed referral, they will call daughter w/time and let SW know time of meeting. SW will continue to follow. FABI Downing
[2023-07-12 12:02] LABS: Vancomycin, Trough Level 19.8 ug/mL (5.0-15.0)
--- NOTE | 2023-07-12 12:04 | NURSING ---
1200 Vanc not arrived yet from pharmacy.
--- NOTE | 2023-07-12 12:24 | CASEMGMT ---
Social Work Hospice met w/pt and family, they are in agreement for hospice, pt will go to the [facility], and hospice will set up transport. SW notified physician. FABI Downing
--- NOTE | 2023-07-12 12:24 | PCM.RX.CS ---
Consult Antibiotic Management Pharmacy has been consulted to manage selected antibiotic: Vancomycin Type of Intervention Type of Consult: Follow-up Labs Labs: Sodium 138 mmol/L (136-145) 07/12/23 06:00 Potassium 4.6 mmol/L (3.5-5.1) 07/12/23 06:00 Chloride 109 mmol/L (98-107) H 07/12/23 06:00 Carbon Dioxide 23.0 mmol/L (21.0-32.0) 07/12/23 06:00 Anion Gap 6 (5-15) 07/12/23 06:00 BUN 34 mg/dL (7-18) H 07/12/23 06:00 Creatinine 1.84 mg/dL (0.70-1.30) H 07/12/23 06:00 Est GFR (MDRD) Af Amer 47 mL/min (>60) L 07/12/23 06:00 Est GFR (MDRD) Non-Af 39 mL/min (>60) L 07/12/23 06:00 BUN/Creatinine Ratio 18.5 RATIO (10-20) 07/12/23 06:00 Glucose 86 mg/dL (74-106) 07/12/23 06:00 Vancomycin Trough 19.8 ug/mL (5.0-15.0) H 07/12/23 11:20 Microbiology Microbiology: Microbiology 07/10/23 09:56 Blood Culture (Wb) - Anticubital Right Blood Culture - Preliminary No growth in 48 hours. 07/10/23 07:03 Blood Culture (Wb) - Port Blood Culture - Preliminary No growth in 48 hours. 07/10/23 10:30 Mucosa - Nasopharyngeal Respiratory Panel (PCR) - Final 07/10/23 09:05 Urine Catheter - Catheter Streptococcus pneumoniae Antigen (M - Final 07/10/23 09:05 Urine Catheter - Catheter Legionella Antigen - Final Goal Trough Goal Trough: 15-20 mcg/mL Pharmacy Plan for Drug Dosing Pharmacy Plan for Drug Dosing: VANCOMYCIN LEVEL RECEIVED Current Vancomycin Dose: 1000mg IV Q24h Number of Doses Received: 2 Vancomycin Level: 19.8 Hours Since Last Dose: 23.5 Renal Function: 1.84 Renal Function Trend: stable Lab/Micro: NGTD Vancomycin Plan/Comments: patient had a trough drawn which resulted in a value of 19.8 (goal 15-20). Patient is within therapeutic goal. Will continue vancomycin 1000mg IV Q24hr and recheck a trough in 48hrs to assess dosing at that time. Pending Level: 07/14/23 @1130 Pharmacy Service will continue to monitor and adjust dosing as required.
--- NOTE | 2023-07-12 12:27 | PCM.DC.SUM ---
Providers Date of Admission: 07/10/23 Date of Discharge: 07/12/23 Primary Care Physician: Dr. Beth Quiroz MD Reason For Visit: ADULT FTT, MECHANICAL FALL Diagnosis Discharge Diagnosis (1) Fall: Status: Acute Code(s): W19.XXXA - Unspecified fall, initial encounter Medications at Discharge Home Medications tamsulosin 0.4 mg capsule 0.4 mg PO BID PROSTATE 03/16/15 finasteride 5 mg tablet 5 mg PO DAILY PROSTATE 10/23/15 carvedilol 6.25 mg tablet 6.25 mg PO BID HEART 02/14/18 prednisone 5 mg tablet 5 mg PO DAILY STEROID 02/14/18 sulfamethoxazole 800 mg-trimethoprim 160 mg tablet 1 tab PO MOWEFR ANTIBIOTIC 02/14/18 acetaminophen 500 mg tablet 1,000 mg PO TID PAIN 03/02/19 tacrolimus 0.5 mg capsule, immediate-release 0.5 mg PO BID TRANSPLANT REJECTION PREVENTION 04/01/21 pantoprazole 40 mg tablet,delayed release 40 mg PO DAILY ACID REFLUX 09/15/22 zolpidem 10 mg tablet 10 mg PO QHS INSOMNIA 09/15/22 levofloxacin 750 mg tablet 750 mg PO Q48H #5 tabs 07/12/23 Hospital Course Operations None Procedures EKG and - (Chest x-ray x 2/CT brain) Summary of Care Provided Minutes Spent on Discharge: 40 Hospital Course: Mr. Berrios is a 68-year-old white male who presented to emergency department [facility] on 07/09/2023 with falls and transient confusion. He had a recent admission here from 06/28/2023 through 06/29/2023 and ended up being transferred down to [facility] where his transplant center is due to Klebsiella bacteremia with worsening renal function. He was there for several days and discharged on ceftriaxone IV. 2 days prior to discharge he had a fall and a follow-up CT showed intraparenchymal bleed. He was on Coumadin at that time and that was held. He was observed for 24 hours and then discharged from their facility and transferred by private vehicle to [facility]. The day prior to presentation in our emergency department on 07/09/2023 he had just arrived at [facility]. On the evening of presentation he was found on the floor at midnight and it was felt that it was possibly secondary to a fall however was unclear if he hit his head or not. He did have some mental status change at the time presentation initially however was alert and oriented at the time of admission. He stated he thought his phone fell and he attempted to pick it up and fell over. Vital signs on presentation T97.8, heart rate 67, BP 139/72, respiratory rate 17, and 93% on room air. CBC showed a leukocytosis with a white count of 15.8, chronic stable anemia with a hemoglobin of 7.6 and acute on chronic thrombocytopenia which is stable compared to his previous hospitalization at 64,000. He did have a left shift on presentation. His UA was not consistent with infection. Chest x-ray was unremarkable on presentation. CT of the brain showed subtle hyperdensity in the posterior parasagittal region with the inability to rule out minimal subdural hematoma. On admission the family's intent was to transition home with outpatient or home physical therapy with antibiotics. Unfortunate the patient decompensated from a respiratory standpoint on 07/11/2023 and required supplemental oxygen which is not his baseline. Repeat chest x-ray was performed and showed new infiltrates. Cultures were obtained and he was started on broad-spectrum antibiotics with vancomycin and Zosyn. A procalcitonin was obtained and was noted to be 11.7 however I am unclear of the significance of this with his recent bacteremia and his baseline CKD. His Rocephin was held on admission. MRSA screen was negative. Blood cultures from the 20th were no growth at 48 hours. Strep pneumo and Legionella antigens were unremarkable. Respiratory viral panel was unremarkable. Clinically, he improved with antibiotics and his mental status returned to baseline. The patient complained of fairly persistent mid low back pain that has been problematic since his previous admission. Previous CT of the abdomen pelvis was performed and showed no acute abnormality in the abdomen. We started some narcotics for pain and patient and family both wanted to talk to hospice. Hospice was consulted and they had a long discussion with them on 07/12/2023 and decided for acute inpatient transition to hospice [facility]. I did have a long conversation with him prior to hospice and it seems as if he really would like to focus more on comfort measures at this time rather than be aggressive due to his multiple comorbidities. He was discharged to the [facility] on 07/12/2023. We will complete antibiotics with Levaquin for his pneumonia for another 5 days. 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 Chronic anemia Valvular heart disease Chronic A-fib History of complete heart block status post pacemaker Hypertension Hyperlipidemia BPH with obstruction GERD VINAYAK Obesity Insomnia Physical Exam Narrative Patient's biggest complaint is his mid low back pain Const alert, oriented x3, no apparent distress and well nourished; Negative for average body habitus, no limitations or healthy appearing Constitutional Narrative: Upper middle-aged, white male, lying in bed on CPAP, appears much older than stated age, does not appear toxic at this time although does appear chronically ill General Appearance: cooperative, comfortable, well kempt and well developed Orientation / Consciousness: awake, oriented to person, oriented to place, oriented to time and other Other Details: Intermittent confusion Nutritional Appearance: obese HEENT normocephalic, hearing grossly normal bilaterally and moist oral mucous membranes HEENT Narrative: Mallampati 3, no thrush, extensive well-healing surgical incision on the right aspect of his face Eyes PERRL and EOMs intact bilaterally; Negative for conjunctivae normal Eyes Narrative: No scleral icterus, conjunctiva are pale bilaterally Neck no lymphadenopathy and supple Neck Narrative: Trachea midline, no thyroid enlargement Resp normal respiratory effort, no retractions and no use of accessory muscles Resp Narrative: Crackles at bilateral bases Auscultation: Negative for rales, rhonchi or wheezes Cardio regular rate, S1 normal heart sound, S2 normal heart sound, no rub, no gallops and no clicks; Negative for no murmurs Cardio Narrative: 3 out of 6 systolic murmur, irregular irregular rhythm GI normal to inspection, nondistended, normoactive bowel sounds, soft to palpation and non-tender Extremity no clubbing, cyanosis or edema Extremity Narrative: Pedal pulses are 2+ Skin No no rashes or lesions noted, no wounds, skin turgor normal and no jaundice Skin Narrative: Well-healing facial incisions from previous surgery Neuro oriented x3, moves all extremities and no focal motor deficits Speech: speech normal Psych Psych Narrative: Affect is flat, eye contact is good, interacts appropriately Medical Records Data Medical Nutrition Assessment Dietitian: Malnutrition Criteria Met Start: 07/10/23 09:35 Freq: Status: Active Protocol: Document 04/20/24 09:35 (Rec: 07/10/23 09:35 [id number]) Nutrition Malnutrition Evidence of Malnutrition Exists Yes Malnutrition (severe): Acute Illness/Injury Evidenced By Suboptimal Energy Intake ( Severe),Weight Loss (Severe) Clinical Problem Acute Disease or Injury Related Malnutrition Etiology severe, acute malnutrition related to inadequate energy intake w/ acute illness and increased energy needs d/t head and neck squamous cell malignancy Signs/Symptoms as evidenced by estimated PO intake meeting <75% of estimated energy needs < 1 month, unintentional 6% wt loss < 1 month Status Active Problem Recommendation Dietitian Recommendations/Changes will liberalize diet to regular given evidence of malnutrition; continue ensure w/ meals as ordered Weight / BMI Weight Weight: 86 kg Body Mass Index (BMI) 30.4 ABG / Lab / Microbiology Data 07/12/23 06:00 07/12/23 06:00 Laboratory: Laboratory Results - last 24 hr 07/12/23 06:00: WBC 5.7, RBC 2.47 L, Hgb 7.6 L, Hct 24.5 L, MCV 99.2 H, MCH 30.8, MCHC 31.0 L, RDW Std Deviation 50.2 H, RDW Coeff of Fermin 13.7, Plt Count 67 L, MPV 11.9, Immature Gran % (Auto) 0.500, Neut % (Auto) 77.6 H, Lymph % (Auto) 7.0 L, [place] % (Auto) 12.9 H, Eos % (Auto) 1.6, Baso % (Auto) 0.4, Absolute Neuts (auto) 4.4, Absolute Lymphs (auto) 0.40 L, Nucleated RBC % 0, Sodium 138, Potassium 4.6, Chloride 109 H, Carbon Dioxide 23.0, Anion Gap 6, BUN 34 H, Creatinine 1.84 H, Estim Creat Clear Calc 38.95, Est GFR (MDRD) Af Amer 47 L, Est GFR (MDRD) Non-Af 39 L, BUN/Creatinine Ratio 18.5, Glucose 86, Calcium 9.0, Total Bilirubin 0.80, AST 17, ALT 15 L, Alkaline Phosphatase 102, Total Protein 5.1 L, Albumin 2.0 L, Globulin 3.1, Albumin/Globulin Ratio 0.6 L 07/12/23 11:20: Vancomycin Trough 19.8 H Microbiology: Microbiology 07/10/23 09:56 Blood Culture (Wb) - Anticubital Right Blood Culture - Preliminary No growth in 48 hours. 07/10/23 07:03 Blood Culture (Wb) - Port Blood Culture - Preliminary No growth in 48 hours. 07/10/23 10:30 Mucosa - Nasopharyngeal Respiratory Panel (PCR) - Final 07/10/23 09:05 Urine Catheter - Catheter Streptococcus pneumoniae Antigen (M - Final 07/10/23 09:05 Urine Catheter - Catheter Legionella Antigen - Final D/C Instructions Discharge Diet: No restrictions Meaningful Use Info Meaningful Use Meaningful Use Diagnoses (Choose all that apply): None applicable Ischemic Stroke Statin Dosing Therapy Reference: STATIN DOSE THERAPY REFERENCE: * Patients > 75 years receive moderate or high dose statin therapy. * Patients 75 years or YOUNGER should receive HIGH intensity statin dose unless contraindicated. You will be required to document reason for non-treatment if statin daily dose does not meet guidelines. HIGH DOSE STATIN THERAPY DAILY Atorvastatin > than or = to 40 mg Rosuvastatin > than or = to 20 mg Amlodipine + Atorvastatin > than or = to 2.5/40 mg Ezetimibe + Simvastatin 10/80 mg Simvastatin 80mg Discharge Plan Admission Admit Date/Time: 07/10/23 12:09 Primary Reason for Your Visit: Falls/transient confusion/pneumonia Attending Provider: Jihan Hayes Primary Care Provider: Beth Quiroz Consulting Providers: Mai Barlow Discharge Orders/Prescriptions Prescriptions: New levofloxacin 750 mg tablet 750 mg PO Q48H Qty: 5 0RF Continued tacrolimus 0.5 mg capsule 0.5 mg PO BID tamsulosin 0.4 MG capsule 0.4 mg PO BID finasteride 5 MG tablet 5 mg PO DAILY carvedilol 6.25 tablet 6.25 mg PO BID prednisone 5 tablet 5 mg PO DAILY sulfamethoxazole-trimethoprim 1 EACH tablet 1 tab PO MOWEFR acetaminophen 500 MG tablet 1,000 mg PO TID pantoprazole 40 MG tablet,delayed release (DR/EC) 40 mg PO DAILY zolpidem 10 mg Tablet 10 mg PO QHS Discontinued atorvastatin 20 mg tablet 20 mg PO QHS ferrous sulfate 324 MG tablet,delayed release (DR/EC) 324 mg PO DAILY acitretin 10 capsule 10 mg PO SUTUTHSA Hold Instructions: Ordered warfarin 2 mg tablet 2 mg PO SUTUTHSA Hold Instructions: STATES TOLD TO HOLD MED DURING BRAIN BLEED. Rx Instructions: 2mg on SUN and WED. 1mg on MON, TUE, THUR, FRI, SAT warfarin 1 mg tablet 1 mg PO MOWEFR Hold Instructions: STATES TOLD TO HOLD MED DURING BRAIN BLEED cyanocobalamin (vitamin B-12) [Vitamin B-12] 1,000 mcg tablet extended release 1,000 mcg PO QMONTH Rx Instructions: TAKE ON THE 1ST OF THE MONTH ascorbic acid (vitamin C) 500 mg capsule 500 mg PO DAILY NAD, reduced, disodium (bulk) [Nicotinamide Roscoe.Dinuc.RedNA2] 100 % powder 1 ea miscellaneous BID Hold Instructions: MD Ordered Referrals / Follow Up: Beth Quiroz MD [Primary Care Provider] - None Disposition Disposition (needs filled in before D/C Order can be placed): Hospice in Medical Facility Charges/Coding Visit Charges Inpatient E&M: 43849 Disch Hosp >30min
[2023-07-12] MEDS: HYDROmorphone 0.5 MG/0.5 ML SYRINGE 0.25 MG IV ×2 (12:49→16:12)
[2023-07-12] MEDS: Vancomycin IV 1,000 MG/200 ML BAG 200 MG IV (12:49)
[2023-07-12 14:01] LABS: Pathologist Review Reviewed
[2023-07-12 15:00] VITALS: PULSE 72; RESP 18; TEMP 36.7; O2SAT 95
[2023-07-12] MEDS: 0.9 % NaCl (Sterile) Posiflush 10 mL IV (16:12)
--- NOTE | 2023-07-12 16:14 | CHAPLAIN ---
Type of Pastoral Visit _x__ Initial Visit ___ Follow-up Visit ___ On-call Visit ___ General Patient Visit ___ Spiritual Assessment ___ Family Conference ___ Bereavement ___ Rapid Response ___ Code Blue ___ Other (describe below) Pastoral Care Referral From _x__ Patient ___ Family ___ Nurse ___ Physician ___ Infusion Nurse ___ Car Conditioner ___ Other (describe below) Sacrament/Intervention _x__ Active listening ___ Anointing ___ Latter-Day ___ Bereavement ___ Communion _x__ Natty exploration ___ _x__ Life review _x__ Prayer ___ Reconciliation ___ Sacrament of Sick _x__ Supportive presence ___ Wedding ___ Other (describe below) Pastoral Comments patient is welcoming and surrounded by family members; pt is on bi-pap and refers several times to the decision that has been made, that it is emotional, but really I am okay with it; pt is very talkative and shares openly about his journey for several decades of health issues, his relationships and their importance, and his natty in God through it all; pt is quoting scriptures and stories from the Bible with family nodding their approval; family is supportive and agreement with decisions and 'transfer soon'; pt asks a few questions of this denture contour wire specialist but mostly affirms his own natty and his journey; pt welcomes prayers and the presence to be with the family at this time
== END 2023-07-12 16:26 | disposition hospice, inpatient (51) | DRG 193 ==
LOC: ED 14:04 → MS3 15:54
PROVIDERS: Admitting Provider Family Medicine; Emergency Provider Emergency Medicine; PCP Internal Medicine; Visit Provider Internal Medicine
DX: J18.9 Pneumonia, unspecified organism (principal); E43 Unspecified severe protein-calorie malnutrition; G92.8 Other toxic encephalopathy; I48.20 Chronic atrial fibrillation, unspecified; N12 Tubulo-interstitial nephritis, not specified as acute or chronic; Z94.0 Kidney transplant status; D69.6 Thrombocytopenia, unspecified; D63.1 Anemia in chronic kidney disease; C76.0 Malignant neoplasm of head, face and neck; G40.909 Epilepsy, unspecified, not intractable, without status epilepticus; N18.32 Chronic kidney disease, stage 3b; I12.9 Hypertensive chronic kidney disease with stage 1 through stage 4 chronic kidney disease, or unspecified chronic kidney disease; D53.9 Nutritional anemia, unspecified; K21.9 Gastro-esophageal reflux disease without esophagitis; E78.5 Hyperlipidemia, unspecified; G47.33 Obstructive sleep apnea (adult) (pediatric); W19.XXXD Unspecified fall, subsequent encounter; Z95.2 Presence of prosthetic heart valve; E66.9 Obesity, unspecified; R62.7 Adult failure to thrive; Z66 Do not resuscitate; B96.1 Klebsiella pneumoniae [K. pneumoniae] as the cause of diseases classified elsewhere; Z95.0 Presence of cardiac pacemaker; Z79.01 Long term (current) use of anticoagulants; R53.81 Other malaise; N40.0 Benign prostatic hyperplasia without lower urinary tract symptoms; G47.00 Insomnia, unspecified; Z68.30 Body mass index [BMI] 30.0-30.9, adult; Z99.89 Dependence on other enabling machines and devices; Z87.440 Personal history of urinary (tract) infections; S06.30AD Unspecified focal traumatic brain injury with loss of consciousness status unknown, subsequent encounter; R53.1 Weakness
CPT/HCPCS: 36415; 36591; 70450; 71045; 71046; 80053; 80202; 81001; 83605; 83690; 83735; 84100; 84145; 85025; 85610; 87040; 87449; 87633; 87641; 92526; 92610; 93005; 94668; 97162; 97166; 97802; 99285; J7040; J7050; A4216